=== PATIENT | male | born 1970 | race Caucasian/White ===

== ENCOUNTER → 2017-11-14 08:37 | Outpatient (CLI) | payer BC, SELFPAY ==
--- NOTE | 2017-11-14 08:42 | US_ITS ---
STUDY: ABDOMINAL ULTRASOUND - RIGHT UPPER QUADRANT REASON FOR VISIT: Male, 47 years old. Right upper quadrant pain. TECHNIQUE: Ultrasound evaluation of the right upper quadrant was performed with real-time and static peters-scale imaging. TECHNICAL QUALITY: Adequate. COMPARISON: None. FINDINGS: Liver: The liver measures 15.2 cm. There is normal echogenicity of the liver. The bile ducts are within normal limits. There is hepatic color flow. The direction of portal flow is hepatopetal. There is a 7 mm x 7 mm x 6 mm cyst adjacent to the gallbladder lumen. Gallbladder: Normal distended gallbladder. The gallbladder wall measures 2.7 mm. There is a negative sonographic Fay's sign. There is no pericholecystic fluid. There are no gallstones. Common Bile Duct (C.B.D.): The common bile duct measures 4.9 mm. Pancreas: Normal size of the head, body of the pancreas. The tail portion is obscured due to overlying bowel gas. There is normal echogenicity of the pancreas. There is no demonstrated pancreatic mass or cyst. Right Kidney: Normal size of the right kidney. The right kidney measures 9.6 cm x 5.7 cm x 4.9 cm. Normal renal cortex. The right cortex measures 1.5 cm. There is no demonstrated renal mass or cyst. There is no right hydronephrosis. US/Gallbladder IMPRESSION: Normal right upper quadrant ultrasound examination. 7 mm x 7 mm x 6 mm cyst adjacent to the gallbladder. Electronically Signed: Gómez Lema MD at 10:06 EST Tel [phone], Service support ,
== END ==
PROVIDERS: Family Provider Internal Medicine; PCP Internal Medicine; Visit Provider Internal Medicine
DX: R10.9 Unspecified abdominal pain (principal)
CPT/HCPCS: 76705

== ENCOUNTER → 2017-11-14 15:59 | Outpatient (CLI) | payer BC, SELFPAY ==
--- NOTE | 2017-11-14 12:28 | COLBX_PTH ---
PATIENT: ZOHREH YATES LOC: [facility] U#:[id number] AGE/SX: 54/M ROOM: RE11/14/[address]: Dr. Dante Leal MD : 1970 BED: DIS: SPEC #: [id number] RECD: 11/14/17 15:36 STATUS: HARMONY MADELIN #: [id number] IMAN: 11/14/17 12:[address]: Dante Leal DEPT: SURGICAL PATHOLOGY RECD BY: Dilan Ecahvarria ENTERED: 11/17/17 10:41 SP TYPE: COLON BX OTHR DR: NICHOLAS Tissues: A - Gastric mucous membrane B - Ileum, NOS C - COLON BIOPSY Procedures: Trichrome (control) Special Stain Group II Surgery Specimen Level IV HEADER OPERATION: Colonoscopy with biopsies PRE-OP DIAGNOSIS: Chronic diarrhea TISSUE SUBMITTED: A ? Hepatic flexure polyp biopsies, rule out adenoma, B ? Terminal ileum biopsies, rule out Crohn?s, C ? Right and left colon biopsies, rule out microscopic colitis MICROSCOPIC DIAGNOSIS A. Polyp at hepatic flexure, biopsy: Hyperplastic polyp. B. Terminal ileum, biopsy: No significant pathologic change. No evidence of enteritis. C. Right and left colon, biopsies: No significant pathologic change. No evidence of colitis. AM:paul 11/18/17 COMMENT B. Reactive lymphoid aggregates are present in one fragment. C. Trichrome stain with matched control does not reveal a thickened basal plate. MICROSCOPIC DESCRIPTION Slides are reviewed. GROSS DESCRIPTION A - Received in fixative is one container labeled with the patient's name and designated hepatic flexure polyp biopsy. The specimen consists of two irregular fragments of light foy soft tissue that in aggregate measure 0.4 x 0.4 x 0.1 cm. The specimen is totally submitted in one cassette. B - Received in fixative is one container labeled with the patient's name and designated terminal ileum biopsy. The specimen consists of multiple irregular fragments of light foy soft tissue that in aggregate measure 0.6 x 0.4 x 0.1 cm. The specimen is totally submitted in one cassette. C - Received in fixative is one container labeled with the patient's name and designated right and left colon biopsy. The specimen consists of multiple irregular fragments of light foy soft tissue that in aggregate measure 1.5 x 0.5 x 0.1 cm. The specimen is totally submitted in one cassette. / SJ:paul 11/17/17 TC:5 CPT: 58278 x3, 29383
== END ==
PROVIDERS: Visit Provider Internal Medicine Gastroenterology
DX: R19.7 Diarrhea, unspecified (principal)
CPT/HCPCS: 88305; 88313

== ENCOUNTER → 2017-11-21 07:48 | Outpatient (CLI) | payer BC, SELFPAY ==
--- NOTE | 2017-11-21 07:50 | NM_ITS ---
CLINICAL: 47-year-old male with reported history of right upper quadrant abdominal pain. RADIONUCLIDE HEPATOBILIARY SCINTIGRAPHY COMPARISON: Abdominal ultrasound report 11/14/2017 FINDINGS: Following the intravenous administration of 5.8 mCi of 99m Tc Mebrofenin, hepatobiliary images reveal: 1. Relatively prompt and homogeneous radiopharmaceutical concentration is noted by a normal sized liver. No parenchymal defects are identified. 2. Gallbladder activity is identified at 45 minutes post radiopharmaceutical administration. 3. Small intestinal tract is observed at 15 minutes following tracer injection. 4. Washout of the radiopharmaceutical by the hepatic parenchyma appears qualitatively normal. 5. There is scintigraphic evidence of pre-CCK duodenal gastric reflux. Cholecystokinin (0.02 ug/kg) was administered intravenously over a 30-minute period. The post CCK gallbladder ejection fraction calculated at 20 minutes following Cholecystokinin administration was noted to be 44.0 % (normal greater than 35%). During 30 minutes of post CCK imaging, there is no scintigraphic evidence of reflux of the radiotracer into the common hepatic duct or refilling of the gallbladder. There is scintigraphic evidence of continued post CCK duodenal gastric reflux. NM/Hepatobilliary Img w/Pharm Int IMPRESSION: 1. A gallbladder ejection fraction calculated to greater than 35% following the administration of Cholecystokinin makes the probability of functional hepatobiliary disease (gallbladder and/or sphincter of Oddi dyskinesia) and/or organic hepatobiliary disease (chronic acalculous cholecystitis and/or cystic duct syndrome) to be low. (Aviva Patel et al, Journal of Nuclear Medicine 32:1695, 1990). 2. There is scintigraphic evidence of pre-post CCK duodenal-gastric reflux as described above. (Tong et al, Nucl Med [place] [employer] Press pg. 35, 1980). Electronically Signed: Lon Mercado DO at 14:02 EST Tel , Service support ,
== END ==
PROVIDERS: Family Provider Internal Medicine; PCP Internal Medicine; Visit Provider Internal Medicine
DX: R10.9 Unspecified abdominal pain (principal)
CPT/HCPCS: 78227; A9537; J2805

== ENCOUNTER 2017-12-31 07:01 | Day surgery (SDC) | payer BC, SELFPAY ==
[2017-12-31 07:28] VITALS: BP 142/93; PULSE 80; RESP 14; TEMP 36.7; O2SAT 94; BMI 29.5
--- NOTE | 2017-12-31 08:32 | EGD_PTH ---
PATIENT: ZOHREH YATES LOC: [facility] U#:[id number] AGE/SX: 47/M ROOM: RE12/31/[address]: Dr. Chauncey Snyder MD : 1970 BED: DIS: 12/31/2017 SPEC #: [id number] RECD: 12/31/17 11:15 STATUS: HARMONY MADELIN #: [id number] IMAN: 12/31/17 08:[address]: Chauncey Snyder DEPT: SURGICAL PATHOLOGY RECD BY: Parish Snowden ENTERED: 12/31/17 11:39 SP TYPE: EGD BIOPSY OT DR: Dr. Leticia Castro, DO Tissues: Duodenum, NOS Procedures: Surgery Specimen Level IV HEADER OPERATION: EGD with biopsy PRE-OP DIAGNOSIS: Abdominal pain, diarrhea TISSUE SUBMITTED: Duodenum biopsy MICROSCOPIC DIAGNOSIS Duodenum, biopsy: Fragments of duodenal mucosa, no pathologic diagnosis. KURT:paul 01/01/18 MICROSCOPIC DESCRIPTION Slides are reviewed. GROSS DESCRIPTION Received in fixative is one container labeled with the patient's name and designated duodenum biopsy. The specimen consists of two irregular fragments of light foy soft tissue that in aggregate measure 0.7 x 0.5 x 0.1 cm. The specimen is totally submitted in one cassette. / AM:paul 12/31/17 TC:4 CPT: 74016
--- NOTE | 2017-12-31 08:37 | PCM.OPRPT ---
Problem List (1) Right upper quadrant pain Status: Acute (2) Abdominal bloating Status: Acute (3) Diarrhea, unspecified Status: Acute Qualifiers: Diarrhea type: unspecified type Qualified Code(s): R19.7 - Diarrhea, unspecified Report of Operation Date of Procedure: 12/31/17 Pre-Operative Diagnosis: r10.11 right upper quadrant abdominal pain. r14.0 abdominal bloating. r19.7 diarrhea unspecified Post-Operative Diagnosis: Same Surgery/Procedure Performed:: 54128 esophagogastroduodenoscopy with biopsy Type of Anesthesia:: MAC Anesthesiologist: Giovani Alas Description of Procedure: Patient was brought into the endoscopy suite. Back of his throat was sprayed with Cetacaine spray. A bite-block was placed. He was placed in the left lateral decubitus position. He was given graded anesthesia. The scope was inserted into the back of the oropharynx and directed down through the esophagus into the stomach and into the duodenum without difficulty. Operative findings: 1. Duodenum: Normal appearance no mass lesions no ulcerations biopsy for celiac sprue ?2. Mucosa here looked pretty normal I did not see any signs of a duodenal diverticulum. 2. Stomach significant amount of gastritis seen throughout the stomach but concentrated in the prepyloric area with some linear strands. Biopsy for H. pylori was obtained. Retroflexion did not show any signs of a hiatal hernia. I did not see any obvious ulcers or masslike lesions. 3. Esophagus: Normal appearance no mass lesions no signs of esophagitis no hiatal hernia. The scope was withdrawn and the patient tolerated the procedure well. This patient has had a battery of tests looking for H. pylori looking for celiac sprue both via serologic explorations. In view of his stomach he does have significant gastritis which could possibly be giving him the pains that he is experiencing. This being the case he has been on a proton pump inhibitor in the past but really has not noticed any significant improvement in his symptoms. His symptoms are classic biliary colic. He has increasing pain in the right upper quadrant after he eats. He has abdominal bloating after he eats. We will have to see what the biopsy results show before I can make my recommendations on what we need to do. - Admit VTE Documentation VTE Present on Admission: No VTE Mechan Device Prophylaxis: None VTE Pharm Prophylaxis ordered?: No Reason prophylaxis not ordered:: Treatment Not Indicated
[2017-12-31 08:41] VITALS: BP 110/73; BP 142/93; PULSE 73; RESP 16; TEMP 36.2; O2SAT 97
[2017-12-31 08:45] VITALS: BP 123/77; BP 142/93; PULSE 70; RESP 16; O2SAT 97
[2017-12-31 08:50] VITALS: BP 125/76; BP 142/93; PULSE 73; RESP 16; O2SAT 94
[2017-12-31 08:57] VITALS: BP 130/87; BP 142/93; PULSE 70; RESP 16; TEMP 36.6; O2SAT 97
[2017-12-31 09:26] VITALS: BP 142/93
== END 2017-12-31 09:27 | disposition home or self-care (01) ==
LOC: EN 07:01 → AC 07:08
PROVIDERS: Family Provider Internal Medicine; PCP Internal Medicine; Visit Provider Surgery
PROC: 0DJ08ZZ Inspection of Upper Intestinal Tract, Via Natural or Artificial Opening Endoscopic (ICD-10-PCS; CPT 43235; principal; 2017-12-31 08:25)
DX: K29.70 Gastritis, unspecified, without bleeding (principal); R10.11 Right upper quadrant pain; R14.0 Abdominal distension (gaseous); R19.7 Diarrhea, unspecified; Z80.0 Family history of malignant neoplasm of digestive organs
CPT/HCPCS: 43239; 88305; J7120

== ENCOUNTER → 2018-08-26 06:42 | Outpatient (CLI) | payer BC, SELFPAY ==
--- NOTE | 2018-08-26 06:49 | CT_ITS ---
STUDY: CT ABDOMEN AND PELVIS WITH CONTRAST REASON FOR EXAM: Male, 47 years old. Diffuse abdominal pain with diarrhea and abdominal bloating. RADIATION DOSAGE (If Supplied By Facility): CTDIvol = ( 14.08 ) mGy, DLP = ( 1104.79 ) mGycm TECHNIQUE: Transaxial images were obtained from the dome of the diaphragm to the symphysis pubis with oral contrast. 100CC ml of Isovue 300 contrast was administered. Sagittal and coronal images were reconstructed. Individualized dose optimization techniques were used for this CT. COMPARISON: Comparison is made with prior study dated August 30, 2015. FINDINGS: The visualized lung bases are unremarkable. The visualized portions of the heart are within normal limits. There is 8mm cyst in the medial aspect of the right lobe of the liver inferiorly adjacent to the gallbladder fossa. A tiny cyst is also seen along the lateral peripheral aspect of the right lobe of the liver. Normal gallbladder and extrahepatic biliary system. Normal spleen. Normal pancreas. Normal bilateral adrenal glands. Normal right kidney. Normal left kidney. Normal visualized stomach. Normal small intestine. A moderate amount of fecal material is seen in the right hemicolon. The appendix is visualized and appears normal. Normal abdominal aorta. Normal inferior vena cava. Normal retroperitoneum. Normal urinary bladder. Normal abdominal wall. Mild degree of disc space narrowing at the L4-L5 level. Straightening of the normal lumbar lordosis. CT/Abdomen/Pelvis WITH Contrast IMPRESSION: Small hepatic cysts. Electronically Signed: Gómez Lema MD at 14:54 EST Tel [phone], Service support ,
== END ==
PROVIDERS: Family Provider Internal Medicine; PCP Internal Medicine; Referring Provider Internal Medicine; Visit Provider Internal Medicine
DX: R10.84 Generalized abdominal pain (principal)
CPT/HCPCS: 74177; Q9967

== ENCOUNTER → 2019-09-22 13:44 | Outpatient (CLI) | payer BC, SELFPAY | PROVIDERS: Family Provider Internal Medicine; PCP Internal Medicine; Referring Provider Internal Medicine; Visit Provider Internal Medicine | DX: R00.2 Palpitations (principal) | CPT/HCPCS: 93225; 93226 ==

== ENCOUNTER 2020-08-15 17:19 | Emergency (ER) | payer BC, SELFPAY ==
[2020-08-15 17:20] VITALS: BP 147/127; PULSE 112; RESP 18; TEMP 36.9; O2SAT 98; BMI 29.5
--- NOTE | 2020-08-15 17:29 | CT_ITS ---
STUDY: CT ABDOMEN AND PELVIS WITHOUT CONTRAST REASON FOR EXAM: Male, 49 years old. Right lower quadrant pain since Friday. Nausea. RADIATION DOSAGE (If Supplied By Facility): CTDIvol = ( 14.02 ) mGy, DLP = ( 781.32 ) mGycm TECHNIQUE: Transaxial images were obtained from the dome of the diaphragm to the symphysis pubis without oral contrast, and without intravenous contrast. Sagittal and coronal images were reconstructed. Individualized dose optimization techniques were used for this CT. COMPARISON: 08/26/2018. FINDINGS: The visualized lung bases are unremarkable. The visualized portions of the heart are within normal limits. Versus small cyst in segment 5 of the liver adjacent to the gallbladder fundus. The liver is otherwise unremarkable. Normal gallbladder and extrahepatic biliary system. Normal spleen. Normal pancreas. Normal bilateral adrenal glands. Normal right kidney. Normal left kidney. Normal visualized ureters. Normal visualized stomach. Normal small intestine. There is marked stranding about the ascending colon with evidence of thyroid reticular high consistent with acute diverticulitis. The cecal is spared. The remainder of the colon is unremarkable. The appendix is visualized and appears normal. Normal abdominal aorta. Normal inferior vena cava. Normal retroperitoneum. Normal urinary bladder. Normal prostate. There are phleboliths and pelvis without lymphadenopathy. No free air or free fluid is seen within the peritoneal cavity. Normal abdominal wall. Minimal degenerative changes of the lower lumbar spine. CT/Abdomen/Pelvis without Cont IMPRESSION: 1. Ascending colonic diverticulitis. There is no evidence of perforation or abscess. 2. Normal appendix. 3. Hepatic cyst. 4. No other evidence of acute intra-abdominal or pelvic abnormality. Electronically Signed: Francesco Nicole DO at 18:28 EST Tel [phone], Service support ,
[2020-08-15] MEDS: 0.9% Normal Saline 1,000 ML 125 ML IV (17:44)
[2020-08-15] MEDS: morphine 8 MG/ML Syringe IV (17:45)
[2020-08-15] MEDS: Ondansetron 4 MG/2 ML Vial IV (17:45)
[2020-08-15 17:49] LABS: Absolute Lymphocyte Count 2.92 X10^3/uL (0.83-4.51); Absolute Neutrophil Count 12.2 X10^3/uL (2.0-7.7); Basophil# 0.09 X10^3/uL; Basophil% 0.5 % (0-1); Eosinophil# 0.23 X10^3/uL; Eosinophils% 1.3 % (0-5); Hematocrit 46.6 % (40-54); Hemoglobin 15.2 g/dL (13.0-16.5); Lymphocyte # 2.92 X10^3/ul (4.0); Mean Corp Hgb Conc 32.6 g/dL (32-36); Mean Corpuscular Hgb 27.1 pg (27.0-32.0); Mean Corpuscular Volume 83.2 fL (80-94); Mean Platelet Vol. 11.7 fl (6.2-12.0); Monocyte# 1.64 X10^3/uL; Monocyte% 9.6 % (0-10); NRBC Flagged by Analyzer 0 % (0-5); Neutrophil # 12.21 X10^3/uL (2.7-7.7); Neutrophil % 71.3 % (47-70); POSITIVE DIFFERENTIAL YES; Platelet Count 194 K/mm3 (150-450); RBC Distribution Width CV 13.5 % (11.6-14.6); RBC Distribution Width SD 40.2 fl (35.1-43.9); White Blood Count 17.2 K/mm3 (4.4-11.0)
[2020-08-15 17:56] LABS: Bacteria 0 SEEN /hpf (None Seen); Mucous, Urine 0 SEEN /hpf (<or=2+); Red Blood Cells-Urine 0 SEEN /hpf (0-5)
--- NOTE | 2020-08-15 18:00 | ED.VIS.GEN ---
History of Present Illness Chief Complaint: Abd Pain Informant: Patient Onset: Days Maximum Severity: Mild Narrative: The patient complains of right-sided abdominal pain since Friday etiology of it is unclear, he has a history of nonspecific abdominal pain prior colonoscopy few years ago that was negative, he has no history of fever cough shortness of breath no coronavirus exposures normal bowel bladder habits, the pain is rather constant he is able to eat and drink again he is had normal bowel bladder habits without difficulty when you ask him where he hurts he indicates he has pain to the right middle quadrant there is questionable radiation at times to the back, He has no history of any type of GI elements bowel ailments ailments or kidney stones he has urinated normally and he was eating soup today without difficulty Past Medical History - Allergies and Home Meds Allergies/Adverse Reactions: Allergies No Known Allergies Allergy (Verified 08/15/20 17:19) Primary Care Physician: Leticia Castro DO [Primary Care Provider] - Past Medical History: - Surgical History: no surgical history Smoking Status: Never smoker - Family History Maternal Family History: Family History (Last Reviewed 01/07/18 @ 14:48 by Alanna Smart) Father Cancer Family History: Reports: No pertinent history Paternal Family History: Family History (Last Reviewed 01/07/18 @ 14:48 by Alanna Smart) Father Cancer Family History: Reports: No pertinent history Sibling Family History: Family History (Last Reviewed 01/07/18 @ 14:48 by Alanna Smart) Father Cancer Family History: Reports: No pertinent history Review of Systems ROS: - Includes as above General: Denies: Chills, Fever, Sweats Eyes: Denies: Visual changes - bilaterally, Diplopia ENT: Denies: Rhinorrhea, Sore throat Cardiovascular: Denies: Chest pain, Palpitations Respiratory: Denies: Dyspnea, Cough, Dyspnea on exertion Gastrointestinal: Reports: Abdominal pain. Denies: Nausea, Vomiting, Diarrhea, Melena, Hematochezia Genitourinary: Denies: Dysuria, Hematuria, Frequency Musculoskeletal: Denies: Back pain, Extremity Pain Skin: Denies: Rash, Wounds Neurological: Denies: Headache, Weakness, Numbness Physical Exam Vital Signs/Narrative: Vital Signs Temp Pulse Resp BP Pulse Ox 08/15/20 17:20 98.5 F 112 H 18 147/127 H 98 General: Well nourished, Well developed, No Acute Distress Head: Normocephalic, Atraumatic Eyes: Perrl, EOMI ENT: Moist mucous membranes, No rhinorrhea Neck: Supple, Nontender Cardiovascular: Regular rate, Regular rhythm, No murmurs Respiratory: No distress, CTA bilaterally, Chest nontender Abdomen: Soft, Nontender, Nondistended, Normal bowel sounds, - - He has a very nonspecific abdominal pain to the right side of the abdomen primarily the right middle quadrant there is no specific right upper quadrant lower quadrant, there is no specific flank pain there is no rebound or guarding Back: Nontender, Normal Inspection Extremities: Nontender, No edema Skin: Normal color, No rash Neurological: Alert, Oriented x3, Cranial nerves II-XII grossly intact, Normal Strength, Normal Sensation Psychological: Normal affect, Normal Mood Diagnostic/Tx/Re-eval - Medical Decision Making Given all of the above and his complaints ED screening evaluation CT IV fluids pain management ED screening evaluation showed white count of about 17.7, CT abdomen pelvis showed normal appendix and signs of a sending diverticulitis no abscess nothing is acute see all those reports, Reevaluation is resting company the bed he feels better, we discussed the above differential discussed inpatient versus outpatient management the concept of complications he understands all the above does not wish to be admitted he is received IV fluids he is received IV Zosyn he will be discharged at his request on IV antibiotics Augmentin, Naprosyn Ladora as rescue medicine to follow-up with his outpatient providers tomorrow stent a bland diet and return for change in symptoms Home stable declined admission Final impression Abdominal pain related to ascending colon diverticulitis ED Disposition - Plan for ED Patient: Diagnosis: Diverticulitis Instructions: ED Diverticulitis Prescriptions: Amox/Clavulanate Tablet [Augmentin Tablet] 875 mg PO Q12H #20 tab Prescription Printed Naproxen [Naprosyn] 500 mg PO BID PRN #20 tab Prescription Printed Hydrocodone Bitart/Apap 5-325 [Ladora 5MG-325MG] 1 tab PO Q4H PRN PRN 2 Days #10 tab PRN Reason: Pain Prescription Printed Referrals: Fast,Leticia, DO [Primary Care Provider] -
[2020-08-15 18:06] LABS: Differential Indicated SCAN CRITERIA MET
[2020-08-15 18:09] LABS: ALB/GLOB Ratio 0.8 RATIO (0.9-2.4); AST(SGOT) 17 U/L (15-37); Alanine Aminotransfer ALT/SGPT 34 U/L (16-61); Albumin, Serum 3.4 g/dL (3.2-5.0); Alkaline Phosphatase 101 U/L (45-117); Anion Gap 7 (5-15); BUN 15 mg/dL (7-18); BUN/Creat Ratio 10.3 RATIO (10-20); Chloride 106 mmol/L (98-107); Creatinine, Serum 1.46 mg/dL (0.70-1.30); EST Glomerular Filtration Rate 54 mL/min (>60); Est Glom Filt Rate - Afr Amer 66 mL/min (>60); Estimated Creatinine Clearance 76.28 ml/min; Globulin 4.5 g/dL (2.2-4.2); Glucose 125 mg/dL (74-106); Lipase 88 U/L (73-393); Potassium 3.6 mmol/L (3.5-5.1); Protein, Total 7.9 g/dL (6.4-8.2); Sodium Level 136 mmol/L (136-145)
[2020-08-15 18:21] LABS: Color, Urine Yellow (Yellow); Glucose, Dipstick Normal (Normal); Ketone-Dipstick 5 mg/dl (Negative); Leukocyte Esterase-Dipstick 25 /ul (Negative); Nitrite-Dipstick Negative (Negative); Occult Blood-Urine Negative /ul (Negative); Protein-Dipstick 15 mg/dl (Negative); Specific Gravity, Urine 1.015 (1.002-1.030); Urine Bilirubin Dipstick Negative (Negative); Urine Clarity Sl. Cloudy (Clear); Urine Urobilinogen Normal (Normal)
[2020-08-15 18:31] LABS: Squamous Epithelial Cells - UA 0-5 SEEN /hpf (0-5); White Blood Cells 0-5 SEEN /hpf (0-5)
[2020-08-15] MEDS: 0.9% Normal Saline 1,000 ML 999 ML IV (19:30)
[2020-08-15 21:26] VITALS: BP 139/88; PULSE 79; RESP 18; O2SAT 97
[2020-08-16 12:11] LABS: Pathologist Review Reviewed
== END 2020-08-15 21:26 | disposition home or self-care (01) ==
LOC: ED 18:18
PROVIDERS: Emergency Provider Emergency Medicine; PCP Internal Medicine
DX: K57.32 Diverticulitis of large intestine without perforation or abscess without bleeding (principal)
CPT/HCPCS: 74176; 80053; 81001; 83690; 85025; 87086; 96361; 96365; 96375; 99282; J7030; J2405

== ENCOUNTER → 2023-11-10 | Outpatient (CLI) | payer BC, SELFPAY ==
[2023-11-10 16:45] LABS: Bacteria 0 SEEN /hpf (None Seen); Mucous, Urine 0 SEEN /hpf (<or=2+); Red Blood Cells-Urine 0 SEEN /hpf (0-5); Squamous Epithelial Cells - UA 0 SEEN /hpf (0-5); White Blood Cells 0 SEEN /hpf (0-5)
--- OUTSIDE RECORDS SUMMARY | 2023-11-10 17:07 | XMS RPT_ITS | CCD ---
Author Name Unknown Address [address] [place] [address] Organization [facility] Care Team Providers Care School Cook Name Role Phone Fast, Leticia A Unavailable Dante Leal Unavailable Miki Hinojosa Unavailable Chauncey Dickson Unavailable Manchak, Ayana Unavailable Unavailable Unavailable Unavailable Fast, Leticia A Unavailable Dante Leal Unavailable Miki Hinojosa Unavailable Kenna Angelo Unavailable Chauncey Dickson Unavailable Manchak, Ayana Unavailable Unavailable Unavailable Unavailable Kitty Herndon Unavailable Unavailable Manchak, Ayana Unavailable Unavailable Lon Lopez Unavailable Mendez High Unavailable BROCK Goodman Unavailable Unavailable BrandanJeniffer travis Unavailable Unavailable Fast DO, Leticia A Unavailable Dr. Dante Leal Unavailable Miki Hinojosa MD Unavailable Kenna Angelo Unavailable John HUANG , Lon Helms Unavailable Dr. Mendez High Unavailable Chauncey Dickson MD Unavailable Manchak MAXIMILIANO, Ayana Unavailable Unavailable Rex GREY WASHER, BROCK Unavailable Unavailable Unavailable Unavailable Slarb GREY WASHER, Christi Unavailable Unavailable Fast DO, Leticia Marion Attending Unavailable Fast DO, Leticia Marion Referring Unavailable Fast DO, Leticia Marion Consulting Unavailable Fast, Dr. Leticia Marion Attending Unavailable Fast, Dr. Leticia Marion Primary Care Unavailable Duke[facility] Unavailable [facility] Facility-[facility], [facility] Unavailable Allergies Allergy Classification Reported Allergen(s) Allergy Type Date of Onset Reaction(s) Facility NEGATED: Highlighted row has been ruled out! (1 source) allergy to substance 8 [facility] Work Phone: NEGATED: Highlighted row has been ruled out! (1 source) drug allergy 8 [facility] Work Phone: NEGATED: Highlighted row has been ruled out! (1 source) allergy to substance 8 [facility] Work Phone: NEGATED: Highlighted row has been ruled out! (1 source) drug allergy 8 [facility] Work Phone: Medications Completed/Discontinued Medications Medication Drug Class(es) Dates Sig (Normalized) Sig (Original) amitriptyline hydrochloride 25 mg oral tablet (20 sources) Tricyclic Antidepressant Start: 10-14-2019 End: 10-29-2019 take 2 tablets by mouth once daily at bedtime Amitriptyline HCl 25 MG Oral Tablet 2 (two) Tablet qhs for 0 days Quantity: 30 {Tablet} Refills: 3 Ordered: 29-Oct-2019 Fast DO, Leticia A Fast DO, Leticia A Start : 14-Oct-2019 End : 29-Oct-2019 Inactive Problems Active Problems Problem Classification Problem Date Documented Da te Episodic/Chronic Abdominal pain (20 sources) Right sided abdominal pain; Translations: [Generalized abdominal pain] Resolved: 09-17-2019 07-17-2018 Episodic Anxiety disorders (20 sources) Anxiety; Translations: [Anxiety] 07-17-2018 Chronic Past or Other Problems Problem Classification Problem Date Documented Da te Episodic/Chronic Diverticulosis and diverticulitis (5 sources) Diverticulitis of intestine; Translations: [Acute diverticulitis] 08-18-2020 Results Test Name Value Interpretation Reference Range Facil ity Vital Signs Date Time Vital Sign Value Performing Clinician Facility 07-11-2023 07:07-0400 Body height 195.58 cm BROCK Goodman LPN [facility]; [facility] Work Phone: 07-11-2023 07:07-0400 Body mass index (BMI) [Ratio] 30.12 kg/m2 BROCK Goodman LPN [facility]; [facility] Work Phone: 07-11-2023 07:07-0400 Body surface area Derived from formula 2.48 m2 BROCK Goodman LPN [facility]; [facility] Work Phone: 07-11-2023 07:07-0400 Body temperature 97.6 [degF] BROCK Goodman LPN [facility]; [facility] Work Phone: Encounters Encounter Date Encounter Type Care Provider Facility Start: 07-11-2023 Review Leticia Fast DO Work Phone: [facility] Start: 07-11-2023 End: 07-11-2023 Office outpatient visit 25 minutes Leticia Fast DO Work Phone: [facility] Start: 06-27-2023 End: 06-29-2023 Phone Encounter Leticia Fast DO Work Phone: [facility] Start: 02-28-2023 End: 03-02-2023 Office outpatient visit 15 minutes Leticia Fast DO Work Phone: [facility] Start: 01-10-[address] Leticia Castro Facili ty:[id number] Start: 01-03-2023 ambulatory Leticia Marion Fast DO [facility] Start: 01-03-2023 End: 07-11-2023 Patient encounter procedure Leticia Fast DO Work Phone: [facility] Start: 01-03-2023 Review Leticia Fast DO Work Phone: [facility] Start: 12-26-2022 End: 02-25-2023 Phone Encounter Leticia Fast DO Work Phone: [facility] Start: 12-26-2022 Review Leticia Fast DO Work Phone: [facility] Start: 11-02-2021 Review Leticia Fast DO Work Phone: [facility] Start: 11-02-2021 End: 07-11-2023 Patient encounter procedure Leticia Fast DO Work Phone: [facility] Start: 05-18-2021 End: 05-20-2021 Office outpatient visit 25 minutes Leticia Fast DO Work Phone: [facility] Start: 02-21-2021 End: 02-22-2021 Office outpatient visit 25 minutes Leticia Fast DO Work Phone: [facility] Start: 02-21-2021 Review Leticia Fast DO Work Phone: [facility] Start: 02-07-2021 End: 02-07-2021 Phone Encounter Leticia Fast DO Work Phone: [facility] Start: 02-05-2021 End: 02-05-2021 Office outpatient visit 15 minutes Leticia Fast DO Work Phone: [facility] Start: 02-05-2021 Review Leticia Fast DO Work Phone: [facility] Start: 11-03-2020 Review Leticia Fast [facility] Start: 08-18-2020 End: 08-20-2020 Office outpatient visit 25 minutes Leticia Fast [facility] Start: 08-18-2020 Review Leticia Fast [facility] Start: 08-07-2020 End: 08-07-2020 Office outpatient visit 5 minutes Leticia Fast [facility] Start: 04-17-2020 End: 04-17-2020 Office outpatient visit 5 minutes Leticia Fast [facility] Start: 02-15-2020 End: 02-15-2020 Office outpatient visit 15 minutes Leticia Fast [facility] Start: 01-21-2020 End: 02-15-2020 Office outpatient visit 5 minutes Leticia Fast [facility] Start: 12-24-2019 End: 12-27-2019 Office outpatient visit 5 minutes Leticia Fast [facility] Start: 10-29-2019 End: 10-31-2019 Office outpatient visit 15 minutes Leticia Fast [facility] Start: 10-14-2019 End: 10-14-2019 Office outpatient visit 5 minutes Leticia Fast [facility] Start: 09-17-2019 End: 09-19-2019 Office outpatient visit 25 minutes Leticia Fast [facility] Start: 09-07-2019 End: 09-07-2019 Office outpatient visit 15 minutes Leticia Fast [facility] Start: 08-17-2019 End: 08-18-2019 Office outpatient visit 5 minutes Leticia Fast [facility] Start: 06-16-2019 End: 01-21-2020 Office outpatient visit 40 minutes Leticia Fast [facility] Start: 06-16-2019 Review Leticia Fast [facility] Start: 05-18-2019 End: 05-18-2019 Office outpatient visit 25 minutes Leticia Fast [facility] Start: 04-09-2019 End: 04-11-2019 Office outpatient visit 25 minutes Leticia Fast [facility] Start: 04-09-2019 Review Leticia Fast [facility] Start: 03-16-2019 End: 03-16-2019 Phone Encounter Leticia Fast [facility] Start: 09-07-2018 End: 09-07-2018 Phone Encounter Leticia Fast [facility] Start: 08-21-2018 End: 08-21-2018 Phone Encounter Leticia Fast [facility] Start: 07-17-2018 End: 07-19-2018 Office outpatient visit 25 minutes Leticia Fast [facility] Start: 04-03-2018 End: 04-05-2018 Office outpatient visit 15 minutes Leticia Fast [facility] Start: 03-13-2018 End: 03-13-2018 Lab Order Leticia Fast [facility] Start: 02-06-2018 End: 03-13-2018 Office outpatient visit 15 minutes Leticia Fast [facility] Start: 01-26-2018 End: 01-26-2018 Office outpatient visit 15 minutes Leticia Fast [facility] Start: 01-08-2018 End: 01-11-2018 Office outpatient visit 5 minutes Leticia Fast [facility] Start: 12-19-2017 End: 12-22-2017 Office outpatient visit 15 minutes Leticia Fast [facility] Start: 12-02-2017 End: 12-02-2017 Phone Encounter Leticia Fast [facility] Start: 11-14-2017 End: 11-14-2017 Phone Encounter Leticia Fast [facility] Start: 11-11-2017 End: 11-12-2017 Office outpatient visit 15 minutes Leticia Castro [facility] Start: 10-16-2017 End: 10-16-2017 Office outpatient visit 25 minutes Leticia Castro [facility] Procedures Date Procedure Procedure Detail Performing Clinician Start: 02-28-2023 End: 02-28-2023 HIP, UNI W/ Pelvis 2-3 Views Procedure Note: See Note; NOTES: [facility] [address] [place] [address] HIP, UNI W/ Pelvis 2-3 Views MR#: [id number] Acct: [id number] Name: TALIA YATES Rep #: [id number] : 1970 M 52 From: Russel Bustillos MD PCP: Dr. Leticia Castro DO Status: DEP AMB Study: HIP, UNI W/ Pelvis 2-3 Views Date of Exam: Exam# [id number] Ordering Dr: Leticia Castro DO INDICATION: RADICULOPATHY EXAMINATION/TECHNIQUE: X-RAY - XR Hip Unilateral with Pelvis when performed; 2-3 Views COMPARISON: None. FINDINGS: PELVIC BONES: No displaced fracture, destructive or sclerotic lesions. Note that overlapping bowel shadows may however obscure fine detail. Sacroiliac joints are unremarkable. No widening of the pubic symphysis. HIPS: The articular structures are unremarkable. No displaced fracture seen in this frontal view. SOFT TISSUES: No soft tissue swelling or gas. RAD/HIP, UNI W/ Pelvis 2-3 Views IMPRESSION: No evidence of displaced pelvic or hip fracture. Electronically Signed: Russel Bustillos MD, NORMA at 21:50 EDT , CC: Dr. Leticia Castro DO Pediatric Critical Care Nurse: Signed Leticia Castro DO Work Phone: Start: 02-28-2023 End: 02-28-2023 L/S Spine Min 4 Views Procedure Note: See Note; NOTES: [facility] [address] [place] [address] L/S Spine Min 4 Views MR#: [id number] Acct: [id number] Name: TALIA YATES Rep #: [id number] : 1970 M 52 From: Francesco Nicole DO PCP: Dr. Leticia Castro DO Status: DEP AMB Study: L/S Spine Min 4 Views Date of Exam: 02/28/23 Exam# [id number] Ordering Dr: Leticia Castro DO STUDY: X-RAY - LUMBAR SPINE REASON FOR EXAM: Male, 52 years old. Radiculopathy. TECHNIQUE: 5 view(s) of the lumbar spine were obtained. COMPARISON: None ____ FINDINGS: Normal lumbar lordosis. There is no substantial scoliosis. There is a normal alignment of the vertebrae. Normal vertebral bodies and endplates. Normal disc space heights. There is no evidence of acute fracture or loss of vertebral axial height. There is no demonstrated spondylolysis of the pars interarticulares. The soft tissue structures are unremarkable. ____ RAD/L/S Spine Min 4 Views IMPRESSION: Normal x-ray examination of the lumbar spine. Electronically Signed: Francesco Nicole DO at 22:47 EDT Reading Location ID and State: [facility] Tel [phone], Service support , CC: Dr. Leticia Castro DO Pediatric Critical Care Nurse: Signed Leticia Castro DO Work Phone: Start: 08-15-2020 End: 08-16-2020 Emergency Department Summary Comments: See Note; NOTES : [facility] Medical Records Department [address] [place] [address] Emergency Department Summary 08/15/20 MR#: [id number] Acct: [id number] Name: TALAI YATES Rep #: [id number] : 1970 49 From: Sekou Evangelista MD PCP: Dr. Leticia Castro DO Status:DEP ER History of Present Illness Chief Complaint: Abd Pain Informant: Patient Onset: Days Maximum Severity: Mild Narrative: The patient complains of right-sided abdominal pain since Friday etiology of it is unclear, he has a history of nonspecific abdominal pain prior colonoscopy few years ago that was negative, he has no history of fever cough shortness of breath no coronavirus exposures normal bowel bladder habits, the pain is rather constant he is able to eat and drink again he is had normal bowel bladder habits without difficulty when you ask him where he hurts he indicates he has pain to the right middle quadrant there is questionable radiation at times to the back, He has no history of any type of GI elements bowel ailments ailments or kidney stones he has urinated normally and he was eating soup today without difficulty Past Medical History - Allergies and Home Meds Allergies/Adverse Reactions: Allergies No Known Allergies Allergy (Verified 08/15/20 17:19) Primary Care Physician: Leticia Castro DO [Primary Care Provider] - Past Medical History: - Surgical History: no surgical history Smoking Status: Never smoker - Family History Maternal Family History: Family History (Last Reviewed 01/07/18 @ 14:48 by Alanna Smart) Father Cancer Family History: Reports: No pertinent history Paternal Family History: Family History (Last Reviewed 01/07/18 @ 14:48 by Alanna Smart) Father Cancer Family History: Reports: No pertinent history Sibling Family History: Family History (Last Reviewed 01/07/18 @ 14:48 by Alanna Smart) Father Cancer Family History: Reports: No pertinent history Review of Systems ROS: - Includes as above General: Denies: Chills, Fever, Sweats Eyes: Denies: Visual changes - bilaterally, Diplopia ENT: Denies: Rhinorrhea, Sore throat Cardiovascular: Denies: Chest pain, Palpitations Respiratory: Denies: Dyspnea, Cough, Dyspnea on exertion Gastrointestinal: Reports: Abdominal pain. Denies: Nausea, Vomiting, Diarrhea, Melena, Hematochezia Genitourinary: Denies: Dysuria, Hematuria, Frequency Musculoskeletal: Denies: Back pain, Extremity Pain Skin: Denies: Rash, Wounds Neurological: Denies: Headache, Weakness, Numbness Physical Exam Vital Signs/Narrative: Vital Signs Temp Pulse Resp BP Pulse Ox 08/15/20 17:20 98.5 F 112 H 18 147/127 H 98 General: Well nourished, Well developed, No Acute Distress Head: Normocephalic, Atraumatic Eyes: Perrl, EOMI ENT: Moist mucous membranes, No rhinorrhea Neck: Supple, Nontender Cardiovascular: Regular rate, Regular rhythm, No murmurs Respiratory: No distress, CTA bilaterally, Chest nontender Abdomen: Soft, Nontender, Nondistended, Normal bowel sounds, - - He has a very nonspecific abdominal pain to the right side of the abdomen primarily the right middle quadrant there is no specific right upper quadrant lower quadrant, there is no specific flank pain there is no rebound or guarding Back: Nontender, Normal Inspection Extremities: Nontender, No edema Skin: Normal color, No rash Neurological: Alert, Oriented x3, Cranial nerves II-XII grossly intact, Normal Strength, Normal Sensation Psychological: Normal affect, Normal Mood Diagnostic/Tx/Re-eval - Medical Decision Making Given all of the above and his complaints ED screening evaluation CT IV fluids pain management ED screening evaluation showed white count of about 17.7, CT abdomen pelvis showed normal appendix and signs of a sending diverticulitis no abscess nothing is acute see all those reports, Reevaluation is resting company the bed he feels better, we discussed the above differential discussed inpatient versus outpatient management the concept of complications he understands all the above does not wish to be admitted he is received IV fluids he is received IV Zosyn he will be discharged at his request on IV antibiotics Augmentin, Naprosyn [place] as rescue medicine to follow- up with his outpatient providers tomorrow stent a bland diet and return for change in symptoms Home stable declined admission Final impression Abdominal pain related to ascending colon diverticulitis ED Disposition - Plan for ED Patient: Diagnosis: Diverticulitis Instructions: ED Diverticulitis Prescriptions: Amox/Clavulanate Tablet [Augmentin Tablet] 875 mg PO Q12H #20 tab Prescription Printed Naproxen [Naprosyn] 500 mg PO BID PRN #20 tab Prescription Printed Hydrocodone Bitart/Apap 5-325 [[place] 5MG-325MG] 1 tab PO Q4H PRN PRN 2 Days #10 tab PRN Reason: Pain Prescription Printed Referrals: Leticia Castro DO [Primary Care Provider] - What to do if you have Problems For any increased pain, shortness of breath, bleeding, nausea or vomiting, chest pain, or any unexpected problems, contact your Primary Care Provider. Call [facility] ([phone]) or report to the closest Emergency Room. Call 911 if necessary. 08/16/20 1705 <Electronically signed by Sekou Evangelista MD> Date ____ Sekou Evangelista MD Cosigner Signature (If Indicated): Date CC: DO Leticia Cheng Start: 08-15-2020 End: 08-15-2020 Abdomen/Pelvis without Cont Comments: See Note; NOTES: [facility] Imaging Services [address] [place] [address] Abdomen/Pelvis without Cont MR#: [id number] Acct: [id number] Name: TALIA YATES Rep #: [id number] : 1970 M 49 From: Francesco Nicole DO PCP: Dr. Leticia Castro DO Status: REG ER Study: Abdomen/Pelvis without Cont Date of Exam: 12/30 Exam# [id number] Ordering Dr: Sekou Evangelista STUDY: CT ABDOMEN AND PELVIS WITHOUT CONTRAST REASON FOR EXAM: Male, 49 years old. Right lower quadrant pain since Friday. Nausea. RADIATION DOSAGE (If Supplied By Facility): CTDIvol = ( 14.02 ) mGy, DLP = ( 781.32 ) mGycm TECHNIQUE: Transaxial images were obtained from the dome of the diaphragm to the symphysis pubis without oral contrast, and without intravenous contrast. Sagittal and coronal images were reconstructed. Individualized dose optimization techniques were used for this CT. COMPARISON: 08/26/2018. ____ FINDINGS: The visualized lung bases are unremarkable. The visualized portions of the heart are within normal limits. Versus small cyst in segment 5 of the liver adjacent to the gallbladder fundus. The liver is otherwise unremarkable. Normal gallbladder and extrahepatic biliary system. Normal spleen. Normal pancreas. Normal bilateral adrenal glands. Normal right kidney. Normal left kidney. Normal visualized ureters. Normal visualized stomach. Normal small intestine. There is marked stranding about the ascending colon with evidence of thyroid reticular high consistent with acute diverticulitis. The cecal is spared. The remainder of the colon is unremarkable. The appendix is visualized and appears normal. Normal abdominal aorta. Normal inferior vena cava. Normal retroperitoneum. Normal urinary bladder. Normal prostate. There are phleboliths and pelvis without lymphadenopathy. No free air or free fluid is seen within the peritoneal cavity. Normal abdominal wall. Minimal degenerative changes of the lower lumbar spine. ____ CT/Abdomen/Pelvis without Cont IMPRESSION: 1. Ascending colonic diverticulitis. There is no evidence of perforation or abscess. 2. Normal appendix. 3. Hepatic cyst. 4. No other evidence of acute intra-abdominal or pelvic abnormality. Electronically Signed: Francesco Nicole DO at 18:28 EST Tel [phone], Service support , CC: Dr. Leticia Castro DO; Dr. Sekou Evangelista MD Pediatric Critical Care Nurse: Signed Leticia Castro Start: 08-26-2018 End: 08-26-2018 Abdomen/Pelvis WITH Contrast Comments: See Note; NOTES : [facility] Imaging Services [address] [place] [address] Abdomen/Pelvis WITH Contrast MR#: [id number] Acct: [id number] Name: TALIA YATES Rep #: [id number] : 1970 47 From: Gómez Lema MD PCP: Leticia Castro DO Status: REG CLI Study: Abdomen/Pelvis WITH Contrast Date of Exam: 08/26/18 Exam# [id number] Ordering Dr: Leticia Castro DO STUDY: CT ABDOMEN AND PELVIS WITH CONTRAST REASON FOR EXAM: Male, 47 years old. Diffuse abdominal pain with diarrhea and abdominal bloating. RADIATION DOSAGE (If Supplied By Facility): CTDIvol = ( 14.08 ) mGy, DLP = ( 1104.79 ) mGycm TECHNIQUE: Transaxial images were obtained from the dome of the diaphragm to the symphysis pubis with oral contrast. 100CC ml of Isovue 300 contrast was administered. Sagittal and coronal images were reconstructed. Individualized dose optimization techniques were used for this CT. COMPARISON: Comparison is made with prior study dated August 30, 2015. ____ FINDINGS: The visualized lung bases are unremarkable. The visualized portions of the heart are within normal limits. There is 8mm cyst in the medial aspect of the right lobe of the liver inferiorly adjacent to the gallbladder fossa. A tiny cyst is also seen along the lateral peripheral aspect of the right lobe of the liver. Normal gallbladder and extrahepatic biliary system. Normal spleen. Normal pancreas. Normal bilateral adrenal glands. Normal right kidney. Normal left kidney. Normal visualized stomach. Normal small intestine. A moderate amount of fecal material is seen in the right hemicolon. The appendix is visualized and appears normal. Normal abdominal aorta. Normal inferior vena cava. Normal retroperitoneum. Normal urinary bladder. Normal abdominal wall. Mild degree of disc space narrowing at the L4-L5 level. Straightening of the normal lumbar lordosis. ____ CT/Abdomen/Pelvis WITH Contrast IMPRESSION: Small hepatic cysts. Electronically Signed: Gómez Lema MD at 14:54 EST Tel [phone], Service support , CC: Leticia Castro DO Pediatric Critical Care Nurse: Signed Leticia Castro Work Phone: Start: 01-09-2018 End: 01-09-2018 Surgery Visit Report Comments: See Note; NOTES: [facility] [address] [place] [address] OFFICE VISIT Date of Service: 01/07/18 MR#: [id number] Acct: [id number] Name: TALIA YATES Rep #: [id number] : 1970 Provider: Chauncey Snyder MD Age/Sex: 47/M Location: [facility] Status: Signed Intake Intake Visit Reasons: f/u egd Chief Complaint: abd pain with food/ diarrhea Physician General Practice Required: No Is patient in pain?: No Allergies No Known Allergies Allergy (Verified 01/07/18 14:48) Medications NK [NK] 12/22/17 [History Confirmed 01/07/18] PFSH Medical History No pertinent past medical history (Acute) Surgical History History of esophagogastroduodenoscopy (Acute) S/P colonoscopy (Acute) Family History Father Cancer stomach Social History Smoking Status: Never smoker HPI HPI HPI: TALIA YATES, is a 47 M who presents to the office today for follow-up from a esophagogastroduodenoscopy with biopsy on 12/31/2017 patient was noted at that time to have significant amount of gastritis seen throughout the stomach but concentrated in the prepyloric area with some linear strands of gastritis identified. The biopsy for H. pylori was negative. I also did a biopsy of the small intestine for celiac sprue and it was normal. At this point I told the patient that he should be on a significant amount of [id number] Prilosec twice a day as well as to monitor types of foods that he is eating. His symptoms are still very classic for biliary colic with eating and right upper quadrant abdominal pain probably about 20 minutes afterwards. Exam GI Other: Abdomen is soft and nontender Assessment AND Plan Problems 1. Abdominal pain, RUQ R10.11 2. Abdominal bloating R14.0 3. Diarrhea, unspecified type R19.7 Plan At this point I think the patient needs to do a better job of taking his proton pump inhibitor and be quite a bit more diligent in his eating. I am going to see him back in about 4-6 weeks to see how he is done with the strict guidelines I have given him for taking the Prilosec and monitoring what he eats and how he eats. If we have not made a significant improvement in his discomfort I see no other recourse but to take out his gallbladder. I have instructed him that this is going to be difficult with his insurance and no true objective signs of gallbladder disease. Nevertheless if the proton pump inhibitor is not working on and since his symptoms are so classic for biliary colic I believe is probably going to be the right thing to do if the Prilosec does not control his discomfort. Coding Level of Care Code Off vis,est,level 2 Diagnoses Abdominal pain, RUQ R10.11 Abdominal bloating R14.0 Diarrhea, unspecified type R19.7 Diarrhea type: unspecified type 01/09/18 2973 <Electronically signed by Chauncey Snyder MD> Date ____ Chauncey Snyder MD Cosigner Signature: Date ____ (if applicable) CC: Leticia Fast DO Leticia Fast Start: 12-31-2017 Esophagogastroduodenoscopy Leticia Fast Plan of Treatment Date Care Activity Detail Author Start: 07-11-2023 Cyanocobalamin vitamin b-12 VITAMIN B12 AND FOLATES (29620) [facility] Work Phone: Start: 07-11-2023 25 hydroxy includes fractions if performed Vitamin D Hydroxy (43705) [facility]; [facility] Work Phone: Start: 07-11-2023 Lipid panel LIPID PANEL (94496) [facility] Work Phone: Start: 07-11-2023 Comprehensive metabolic panel METABOLIC PANEL, COMPREHENSIVE (20236) [facility]; [facility] Work Phone: Start: 07-11-2023 Blood count complete auto&auto difrntl wbc CBC W/AUTO DIFF WBC (14041) [facility]; [facility] Work Phone: Start: 02-28-2023 Procedure Education Eprescribed prescriptions (G8553) [facility]; [facility] Work Phone: Start: 01-03-2023 Procedure Education Eprescribed prescriptions (G8553) [facility]; [facility] Work Phone: Start: 01-03-2023 25 hydroxy includes fractions if performed Vitamin D Hydroxy (01360) [facility]; [facility] Work Phone: Start: 01-03-2023 Lipid panel LIPID PANEL (02411) [facility]; [facility] Work Phone: Start: 01-03-2023 Blood count complete auto&auto difrntl wbc CBC W/AUTO DIFF WBC (77309) [facility]; [facility] Work Phone: Start: 01-03-2023 Comprehensive metabolic panel METABOLIC PANEL, COMPREHENSIVE (97967) [facility]; [facility] Work Phone: Start: 11-02-2021 Assay of prostate specific antigen total PSA (PROSTATE SPECIFIC ANTIGEN) (V76.44) [facility]; [facility] Work Phone: Start: 11-02-2021 Lipid panel LIPID PANEL (61618) [facility] Work Phone: Start: 11-02-2021 25 hydroxy includes fractions if performed Vitamin D Hydroxy (60116) [facility]; [facility] Work Phone: Start: 11-02-2021 Blood count complete auto&auto difrntl wbc CBC with auto diff (00551) [facility]; [facility] Work Phone: Start: 11-02-2021 Comprehensive metabolic panel METABOLIC PANEL, COMPREHENSIVE (85429) [facility]; [facility] Work Phone: Start: 11-02-2021 Hemoglobin glycosylated a1c HGB A1C (82176) [facility]; [facility] Work Phone: Start: 05-20-2021 Blood count complete auto&auto difrntl wbc CBC W/AUTO DIFF WBC (58700) [facility]; [facility] Work Phone: Start: 05-18-2021 Procedure Education Eprescribed prescriptions (G8553) [facility]; [facility] Work Phone: Start: 02-21-2021 Procedure Education Eprescribed prescriptions (G8553) [facility]; [facility] Work Phone: Start: 02-21-2021 [place] influenza 2019 Novel Coronavirus (COVID-19), RAMESH (98434) [facility]; [facility] Work Phone: Start: 02-21-2021 Virus centrifuge enhncd id imfluor stain ea Influenza A&B Viral Culture (89354) [facility]; [facility] Work Phone: Start: 02-21-2021 Culture bct isol&prsmptv id isolate ea urine URINE DANIEL CULTURE-IDENTIFICATN (23795) [facility]; [facility] Work Phone: Start: 02-21-2021 [place] influenza 2019 Novel Coronavirus (COVID-19), RAMESH (69432) [facility]; [facility] Work Phone: Start: 02-07-2021 Comprehensive metabolic panel METABOLIC PANEL, COMPREHENSIVE (54178) [facility]; [facility] Work Phone: Start: 02-07-2021 Lipid panel LIPID PANEL (21176) [facility] Work Phone: Start: 02-05-2021 Procedure Education Eprescribed prescriptions (G8553) [facility]; [facility] Work Phone: Start: 01-11-2021 HbA1c (Bld) [Mass fraction] HGB A1C (44708) [facility]; [facility] Work Phone: Start: 01-11-2021 Hemoglobin glycosylated a1c HGB A1C (97580) [facility]; [facility] Work Phone: Start: 01-11-2021 Comprehensive metabolic panel METABOLIC PANEL, COMPREHENSIVE (54349) [facility]; [facility] Work Phone: Start: 01-11-2021 Lipid panel LIPID PANEL (24883) [facility] Work Phone: Start: 01-11-2021 25 hydroxy includes fractions if performed Vitamin D Hydroxy (34105) [facility]; [facility] Work Phone: Start: 08-18-2020 Comprehensive metabolic panel METABOLIC PANEL, COMPREHENSIVE (49711) [facility] Work Phone: Immunizations Immunization Date Immunization Notes Care Provider [facility] 08-13-2021 influenza, injectabl e, quadrivalent, preservative free Leticia Fast DO Work Phone: [facility]; [facility] Work Phone: 07-13-2021 COVID-Moderna (50 MCG/0.25 ML) Leticia Fast DO Work Phone: [facility]; [facility] Work Phone: 01-11-2021 COVID-19 (Moderna) Leticia Fas t DO Work Phone: [facility]; [facility] Work Phone: 12-11-2020 COVID-19 (Moderna) Leticia Fas t DO Work Phone: [facility]; [facility] Work Phone: influenza virus vaccine, unspecified formulation Leticia Fast [facility] Work Phone: Payers Date Payer Category Payer Unknown [id number] 1970 Unknown [id number] 1970 Unknown [id number] Unknown Anurag BC/BS Unknown [id number] Social History Date Type Detail Facility Alcohol Use: Heavy alcohol use. [facility] Work Phone: Clinical Notes 11-28-2020 to 06-30-2021 Note Date & Type Note Facility 06-30-2021 Note HNO ID: [id number] Author: Felisha Amin PA-C Service: ? Author Type: Physician Associate Professor Of Theology Type: Progress Notes Filed: 06/30/2021 10:29 AM Note Text: This note was created using [employer]wbc[employer]. Subjective Talia Yates is a 50 year old male. HPI Patient presents with a right ankle injury x2 days. He states he jumped into a ditch and rolled his ankle. He has been able to walk on it however he has had some bruising and significant swelling so he came in for evaluation. No weakness numbness or tingling. No knee pain. No other injuries at this time. Review of Systems Constitutional: Negative. HENT: Negative. Respiratory: Negative. Cardiovascular: Negative. Gastrointestinal: Negative. Musculoskeletal: Right ankle injury All other systems reviewed and are negative. PAST MEDICAL HISTORY Diagnosis Date - NEGATIVE HISTORY OF Current Outpatient Medications Medication Sig Dispense Refill - vitamin D3-vitamin K2, MK4, 1,000-100 unit-mcg tab Take by mouth. - Ibuprofen 200 mg cap Take by mouth. No current facility-administered medications for this visit. PAST SURGICAL HISTORY Procedure Laterality Date - COLONOSCOPY 11/14/2017 - EXTRACTION, ERUPTED TOOTH OR EXPOSED ROOT (ELEVATION AND/OR FORCEPS REMOVAL) 2001 wisdom teeth - PAST SURGICAL HISTORY OF 1997 right hand surgical repair FAMILY HISTORY Problem Relation Age of Onset - Cancer Father stomach, ; dx'd age 61 - None Mother - Diabetes Other none - Colon Cancer Other none - Coronary Artery Disease Other none - Breast Cancer Other father's side - Prostate Cancer Other none Social History Tobacco Use - Smoking status: Never Smoker - Smokeless tobacco: Never Used Substance Use Topics - Alcohol use: Yes Comment: 1 drink daily - Drug use: No Objective BP 140/88 Pulse 68 Temp 36.7 ?C (98.1 ?F) Resp 16 Wt 113.4 kg (250 lb) SpO2 96% BMI 29.65 kg/m? Physical Exam Vitals reviewed. Constitutional: Appearance: Normal appearance. HENT: Head: Normocephalic and atraumatic. Musculoskeletal: Comments: Exam of the right ankle reveals moderate swelling to the lateral malleolus with bruising. He is tender to palpation here. No significant tenderness to the metatarsals of the foot. He does have swelling to the foot as well. Pedal pulses 2+. No tenderness to the Achilles tendon or medial malleolus. Full dorsiflexion and plantar flexion of the foot. Able to ambulate. Neurological: Mental Status: He is alert. Assessment and Plan ASSESSMENT/PLAN: 1. Ankle injury, right, initial encounter - ICD9: 959.7, ICD10: S99.911A xrays are negative for fracture. Placed in rommel wrap and ankle stirrup. Ice, rest, ibuprofen for pain. If not improving in 7-10 days follow up with orthopedics. - XR FOOT GENERAL 3V AP/LAT/OBL RT - XR ANKLE GENERAL 3V AP/LAT/OBL RT Felisha Amin PA-C [facility] 06-30-2021 Note HNO ID: [id number] Author: RT Humberto(R) Service: Radiology Author Type: Technologist Type: Progress Notes Filed: 06/30/2021 8:49 AM Note Text: Radiology Service Progress Note PATIENT NAME: Talia Yates DATE OF SERVICE: June 30, 2021 TIME: 8:38 am PATIENT IDENTITY VERIFICATION COMPLETED USING TWO (2) IDENTIFIERS: Name and Date of confirmed by patient verbally. FALL SCREENING: Has the patient had 2 falls in the last year or 1 fall with injury or currently using an Ambulatory Assistive Device (Walker, Cane, Wheelchair, Crutches, etc.)? No PATIENT GENDER DATA: Male PATIENT RELEVANT IMPLANT DATA REVIEWED: Not Applicable RADIOLOGY DEPARTMENT: General X-ray: Exam(s) Completed: Lower Extremity X-Ray(s): Ankle, Right and Wt. Bearing and Foot, Right and Wt. Bearing PERIPHERAL IV DATA: Not applicable SIGNED BY: RT Humberto(R) June 30, 2021 8:48 AM [facility] 12-12-2020 Note HNO ID: [id number] Author: Lon Lopez Service: ? Author Type: Physician Type: Progress Notes Filed: 12/12/2020 5:45 PM Note Text: FOLLOW UP VISIT NAME: Talia Yates [facility] NO.: [id number] DATE OF SERVICE: 12/12/2020 : 1970 REFERRING PHYSICIAN: Leticia Castro MD Talia is a patient I am following for symptomatic hemorrhoids. The patient is a 50 year old male with a complaint of symptomatic hemorrhoids. The patient notes issues with rectal bleeding. He also notes prolapsing hemorrhoidal tissue with occasional issues of challenges keeping himself clean after bowel movements. He denies pain with bowel movements. He notes occasional issues with constipation. When he has his constipation issues the hemorrhoidal symptoms are more significant. ? He notes he has had colonoscopy in the past. Colonoscopy was apparently performed by Dr. Leal on November 14, 2017. He denies blood mixed within his stool or black tarry stools. ? I performed hemorrhoidal banding on November 28. The patient notes no further bleeding currently. He notes no current issues with seeping or tissue prolapse. VITALS: There were no vitals taken for this visit. On examination, He has mixed hemorrhoids, but they are not currently prolapsing with straining. I did not perform repeat banding Assessment IMPRESSION: hemorrhoidal symptoms. PLAN: If the patient notes any problems or signs of recurrent prolapse or bleeding, the patient should contact me immediately. Diagnoses: (K64.2) Grade III hemorrhoids (primary encounter diagnosis) Return to Clinic: The patient is instructed to follow-up with me as needed. Lon Lopez MD [facility] 11-28-2020 Note HNO ID: [id number] Author: Lon Lopez Service: ? Author Type: Physician Type: Progress Notes Filed: 11/30/2020 6:51 PM Note Text: HISTORY AND PHYSICAL Talia Yates 1970 REFERRING PHYSICIAN: Leticia Castro DO CHIEF COMPLAINT: Consult (Consult Hemorrhoids) HPI: The patient is a 50 year old male with a complaint of symptomatic hemorrhoids. The patient notes issues with rectal bleeding. He also notes prolapsing hemorrhoidal tissue with occasional issues of challenges keeping himself clean after bowel movements. He denies pain with bowel movements. He notes occasional issues with constipation. When he has his constipation issues the hemorrhoidal symptoms are more significant. He notes he has had colonoscopy in the past. Colonoscopy was apparently performed by Dr. Leal on November 14, 2017. He denies blood mixed within his stool or black tarry stools. The patient is being seen by me today at the request of Dr. Leticia Castro MD for my opinion and advice regarding symptomatic mixed hemorrhoids. PAST MEDICAL HISTORY Diagnosis Date - NEGATIVE HISTORY OF PAST SURGICAL HISTORY Procedure Laterality Date - COLONOSCOPY 11/14/2017 - EXTRACTION, ERUPTED TOOTH OR EXPOSED ROOT (ELEVATION AND/OR FORCEPS REMOVAL) 2001 wisdom teeth - PAST SURGICAL HISTORY OF 1997 right hand surgical repair Current Outpatient Medications Medication Sig - vitamin D3-vitamin K2, MK4, 1,000-100 unit-mcg tab Take by mouth. - sucralfate (CARAFATE) 1 gram tablet Take 1 tablet by mouth four times daily. TAKE 1 PO 30 MINUTES BEFORE MEALS AND AT BEDTIME. - DULoxetine (CYMBALTA) 30 mg capsule Take 30 mg by mouth once daily. - rifAXIMin (RIFAXIMIN) 550 mg tab Take 550 mg by mouth twice daily. - dicyclomine (BENTYL) 20 mg tablet Take 1 tablet by mouth with meals and at bedtime. - Omeprazole 40 mg capsule Take 1 capsule by mouth once daily. - Ibuprofen 200 mg cap Take by mouth. No current facility-administered medications for this visit. ALLERGIES: Seasonal Allergies PERSONAL HISTORY: Social History Tobacco Use - Smoking status: Never Smoker - Smokeless tobacco: Never Used Substance Use Topics - Alcohol use: Yes Comment: 1 drink daily - Drug use: No FAMILY HISTORY: FAMILY HISTORY Problem Relation Age of Onset - Cancer Father stomach, ; dx'd age 61 - None Mother - Diabetes Other none - Colon Cancer Other none - Coronary Artery Disease Other none - Breast Cancer Other father's side - Prostate Cancer Other none REVIEW OF SYMPTOMS: negative except as noted above PHYSICAL EXAMINATION: General: The patient is 50 year old male, well nourished, well hydrated in no acute distress. The patient is oriented to time, place, and person. VITALS: Pulse 74, temperature 36.3 ?C (97.3 ?F), height 195.6 cm (6' 5 ), weight 116.8 kg (257 lb 9.6 oz), SpO2 100 %. HEENT: Normal cephalic, ataumatic, pupils are equally round, sclera are anicteric, mucous membranes are moist, oropharynx is clear. Neck has no masses, asymmetry or lymphadenopathy. Thyroid is unremarkable. Respiratory: Clear to auscultation and percussion. Normal respiratory excursion and pattern. Cardiac: Examination is regular rate and rhythm. Abdominal exam: Soft, nontender, with no palpable masses. No hepatosplenomegaly. No palpable hernias. Rectal exam: Significant hemorrhoids, grade 2/3 located in the right and left lateral positions, otherwise no additional abnormalities or masses. Digital rectal exam - normal tone, internal hemorrhoids without other abnormalities Extremities: no clubbing, cyanosis or edema. No adenopathy. Other: LABORATORY VALUES: As Noted RADIOLOGIC STUDIES: As Noted PROCEDURE: HEMORRHOIDAL BANDING The risks, benefits and anticipated outcomes of the procedure, the risks and benefits of the alternatives to the procedure, and the roles and tasks of the personnel to be involved, were discussed with the patient, and the patient consents to the procedure and agrees to proceed. After consent was obtained and the site, person, and procedure verified, the patient was positioned. A digital rectal exam was performed demonstrating internal hemorrhoids in the right lateral position without other abnormalities. An anoscope was introduced demonstrating symptomatic internal hemorrhoid. The hemorrhoidal complex was grasped with an forceps without causing discomfort to the patient. A single band was deployed over the complex. The patient remained asymptomatic. The anoscope was removed. The patient tolerated the procedure well. Assessment IMPRESSION: Status post right lateral interal hemorrhoidal banding PLAN: If the patient notes any problems or pain, they should contact me immediately. The patient was informed that- A small amount of bleeding is common when the hemorrhoid sloughs at 3-5 days. Do not that aspirin for the next week. If you have significant bleeding or o (more content not included)... [facility] 11-28-2020 Note HNO ID: [id number] Author: Erika Corrigan RN Service: ? Author Type: ? Type: Progress Notes Filed: 11/30/2020 8:54 AM Note Text: UNIVERSAL PROTOCOL / SAFETY CHECKLIST Procedure to be performed: ANOSCOPY AND HEMORRHOIDAL BANDING Sign in Communication: Completed Time Out: Team Confirms the Correct Patient, Correct Procedure, Correct Site and Site Marking, Correct Position (if applicable), Prep and Dry Time (if applicable). Time: 1545 Affirmation of Time Out: YES Sign Out Discussion: Completed Erika Corrigan RN [facility]; [facility] Work Phone: Instructions* Name Dates Details Patient Instructions Indication:Impaired fasting glucose Start:05-Feb-2021 Instruction Type:Provider Instructions for Treatment How to Access Health Informa tion Online using Patient Portal and 3rd Libertarian Apps Indication:Impaired fasting glucose Start:05-Feb-2021 Instruction Type:Patient Education Patient Instructions Indication:[facility] Start:03-Nov-2020 Instruction Type:Provider Instructions for Treatment How to Access Health Informa tion Online using Patient Portal and 3rd [employer] Apps Indication:[facility] Start:03-Nov-2020 Instruction Type:Patient Education How to access health informa tion online Indication:Acute diverticulitis Start:18-Aug-2020 Instruction Type:Patient Education How to access health informa tion online - Detail Indication:Acute diverticulitis Start:18-Aug-2020 Instruction Type:Patient Education Patient Instructions Indication:Acute diverticulitis Start:18-Aug-2020 Instruction Type:Provider Instructions for Treatment Patient Instructions Indication:Myalgia Start:15-Feb-2020 Instruction Type:Provider Instructions for Treatment How to access health informa tion online Indication:Anxiety Start:29-Oct-2019 Instruction Type:Patient Education How to access health informa tion online - Detail Indication:Anxiety Start:29-Oct-2019 Instruction Type:Patient Education Patient Instructions Indication:Anxiety Start:29-Oct-2019 Instruction Type:Provider Instructions for Treatment How to access health informa tion online Indication:Impaired fasting glucose Start:17-Sep-2019 Instruction Type:Patient Education How to access health informa tion online - Detail Indication:Impaired fasting glucose Start:17-Sep-2019 Instruction Type:Patient Education Patient Instructions Indication:Impaired fasting glucose Start:17-Sep-2019 Instruction Type:Provider Instructions for Treatment How to access health informa tion online Indication:Swollen finger Start:07-Sep-2019 Instruction Type:Patient Education How to access health informa tion online - Detail Indication:Swollen finger Start:07-Sep-2019 Instruction Type:Patient Education Patient Instructions Indication:Swollen finger Start:07-Sep-2019 Instruction Type:Provider Instructions for Treatment How to access health informa tion online Indication:BMI 28.0-28.9,adult Start:16-Jun-2019 Instruction Type:Patient Education How to access health informa tion online - Detail Indication:BMI 28.0-28.9,adult Start:16-Jun-2019 Instruction Type:Patient Education Patient Instructions Indication:BMI 28.0-28.9,adult Start:16-Jun-2019 Instruction Type:Provider Instructions for Treatment How to access health informa tion online Indication:Nonsmoker Start:09-Apr-2019 Instruction Type:Patient Education How to access health informa tion online - Detail Indication:Nonsmoker Start:09-Apr-2019 Instruction Type:Patient Education Patient Instructions Indication:Nonsmoker Start:09-Apr-2019 Instruction Type:Provider Instructions for Treatment Patient Instructions Indication:Nonsmoker Start:09-Apr-2019 Instruction Type:Provider Instructions for Treatment How to access health informa tion online Indication:Anxiety Start:17-Jul-2018 Instruction Type:Patient Education How to access health informa tion online - Detail Indication:Anxiety Start:17-Jul-2018 Instruction Type:Patient Education Patient Instructions Indication:Anxiety Start:17-Jul-2018 Instruction Type:Provider Instructions for Treatment How to access health informa tion online Indication:Dysthymic Start:03-Apr-2018 Instruction Type:Patient Education How to access health informa tion online - Detail Indication:Dysthymic Start:03-Apr-2018 Instruction Type:Patient Education Patient Instructions Indication:Dysthymic Start:03-Apr-2018 Instruction Type:Provider Instructions for Treatment How to access health informa tion online Indication:[facility] Start:06-Feb-2018 Instruction Type:Patient Education How to access health informa tion online - Detail Indication:[facility] Start:06-Feb-2018 Instruction Type:Patient Education Patient Instructions Indication:[facility] Start:06-Feb-2018 Instruction Type:Provider Instructions for Treatment How to access health informa tion online Indication:Abdominal pain, generalized Start:26-Jan-2018 Instruction Type:Patient Education How to access health informa tion online - Detail Indication:Abdominal pain, generalized Start:26-Jan-2018 Instruction Type:Patient Education Patient Instructions Indication:Abdominal pain, generalized Start:26-Jan-2018 Instruction Type:Provider Instructions for Treatment How to access health informa tion online Indication:Right sided abdominal pain Start:11-Nov-2017 Instruction Type:Patient Education How to access health informa tion online - Detail Indication:Right sided abdominal pain Start:11-Nov-2017 Instruction Type:Patient Education Patient Instructions Indication:Right sided abdominal pain Start:11-Nov-2017 Instruction Type:Provider Instructions for Treatment How to access health informa tion online Indication:Abdominal pain, generalized Start:16-Oct-2017 Instruction Type:Patient Education How to access health informa tion online - Detail Indication:Abdominal pain, generalized Start:16-Oct-2017 Instruction Type:Patient Education Patient Instructions Indication:Abdominal pain, generalized Start:16-Oct-2017 Instruction Type:Provider Instructions for Treatment [facility] Work Phone: Instructions* Name Dates Details Patient Instructions Indication:Impaired fasting glucose Start:05-Feb-2021 Instruction Type:Provider Instructions for Treatment How to Access Health Informa tion Online using Patient Portal and 3rd [employer] Apps Indication:Impaired fasting glucose Start:05-Feb-2021 Instruction Type:Patient Education Patient Instructions Indication:[facility] Start:03-Nov-2020 Instruction Type:Provider Instructions for Treatment How to Access Health Informa tion Online using Patient Portal and 3rd [employer] Apps Indication:[facility] Start:03-Nov-2020 Instruction Type:Patient Education How to access health informa tion online Indication:Acute diverticulitis Start:18-Aug-2020 Instruction Type:Patient Education How to access health informa tion online - Detail Indication:Acute diverticulitis Start:18-Aug-2020 Instruction Type:Patient Education Patient Instructions Indication:Acute diverticulitis Start:18-Aug-2020 Instruction Type:Provider Instructions for Treatment Patient Instructions Indication:Myalgia Start:15-Feb-2020 Instruction Type:Provider Instructions for Treatment How to access health informa tion online Indication:Anxiety Start:29-Oct-2019 Instruction Type:Patient Education How to access health informa tion online - Detail Indication:Anxiety Start:29-Oct-2019 Instruction Type:Patient Education Patient Instructions Indication:Anxiety Start:29-Oct-2019 Instruction Type:Provider Instructions for Treatment How to access health informa tion online Indication:Impaired fasting glucose Start:17-Sep-2019 Instruction Type:Patient Education How to access health informa tion online - Detail Indication:Impaired fasting glucose Start:17-Sep-2019 Instruction Type:Patient Education Patient Instructions Indication:Impaired fasting glucose Start:17-Sep-2019 Instruction Type:Provider Instructions for Treatment How to access health informa tion online Indication:Swollen finger Start:07-Sep-2019 Instruction Type:Patient Education How to access health informa tion online - Detail Indication:Swollen finger Start:07-Sep-2019 Instruction Type:Patient Education Patient Instructions Indication:Swollen finger Start:07-Sep-2019 Instruction Type:Provider Instructions for Treatment How to access health informa tion online Indication:BMI 28.0-28.9,adult Start:16-Jun-2019 Instruction Type:Patient Education How to access health informa tion online - Detail Indication:BMI 28.0-28.9,adult Start:16-Jun-2019 Instruction Type:Patient Education Patient Instructions Indication:BMI 28.0-28.9,adult Start:16-Jun-2019 Instruction Type:Provider Instructions for Treatment How to access health informa tion online Indication:Nonsmoker Start:09-Apr-2019 Instruction Type:Patient Education How to access health informa tion online - Detail Indication:Nonsmoker Start:09-Apr-2019 Instruction Type:Patient Education Patient Instructions Indication:Nonsmoker Start:09-Apr-2019 Instruction Type:Provider Instructions for Treatment Patient Instructions Indication:Nonsmoker Start:09-Apr-2019 Instruction Type:Provider Instructions for Treatment How to access health informa tion online Indication:Anxiety Start:17-Jul-2018 Instruction Type:Patient Education How to access health informa tion online - Detail Indication:Anxiety Start:17-Jul-2018 Instruction Type:Patient Education Patient Instructions Indication:Anxiety Start:17-Jul-2018 Instruction Type:Provider Instructions for Treatment How to access health informa tion online Indication:Dysthymic Start:03-Apr-2018 Instruction Type:Patient Education How to access health informa tion online - Detail Indication:Dysthymic Start:03-Apr-2018 Instruction Type:Patient Education Patient Instructions Indication:Dysthymic Start:03-Apr-2018 Instruction Type:Provider Instructions for Treatment How to access health informa tion online Indication:[facility] EX[facility] Start:06-Feb-2018 Instruction Type:Patient Education How to access health informa tion online - Detail Indication:[facility] Start:06-Feb-2018 Instruction Type:Patient Education Patient Instructions Indication:[facility] Start:06-Feb-2018 Instruction Type:Provider Instructions for Treatment How to access health informa tion online Indication:Abdominal pain, generalized Start:26-Jan-2018 Instruction Type:Patient Education How to access health informa tion online - Detail Indication:Abdominal pain, generalized Start:26-Jan-2018 Instruction Type:Patient Education Patient Instructions Indication:Abdominal pain, generalized Start:26-Jan-2018 Instruction Type:Provider Instructions for Treatment How to access health informa tion online Indication:Right sided abdominal pain Start:11-Nov-2017 Instruction Type:Patient Education How to access health informa tion online - Detail Indication:Right sided abdominal pain Start:11-Nov-2017 Instruction Type:Patient Education Patient Instructions Indication:Right sided abdominal pain Start:11-Nov-2017 Instruction Type:Provider Instructions for Treatment How to access health informa tion online Indication:Abdominal pain, generalized Start:16-Oct-2017 Instruction Type:Patient Education How to access health informa tion online - Detail Indication:Abdominal pain, generalized Start:16-Oct-2017 Instruction Type:Patient Education Patient Instructions Indication:Abdominal pain, generalized Start:16-Oct-2017 Instruction Type:Provider Instructions for Treatment [facility]; [facility] Work Phone: Instructions* Name Dates Details How to Access Health Informa tion Online using Patient Portal and [employer] Apps Indication:Fever Start:21-Feb-2021 Instruction Type:Patient Education Patient Instructions Indication:Fever Start:21-Feb-2021 Instruction Type:Provider Instructions for Treatment Patient Instructions Indication:Impaired fasting glucose Start:05-Feb-2021 Instruction Type:Provider Instructions for Treatment How to Access Health Informa tion Online using Patient Portal and [employer] Apps Indication:Impaired fasting glucose Start:05-Feb-2021 Instruction Type:Patient Education Patient Instructions Indication:[facility] EX[facility] Start:03-Nov-2020 Instruction Type:Provider Instructions for Treatment How to Access Health Informa tion Online using Patient Portal and [employer] Apps Indication:[facility] EX[facility] Start:03-Nov-2020 Instruction Type:Patient Education How to access health informa tion online Indication:Acute diverticulitis Start:18-Aug-2020 Instruction Type:Patient Education How to access health informa tion online - Detail Indication:Acute diverticulitis Start:18-Aug-2020 Instruction Type:Patient Education Patient Instructions Indication:Acute diverticulitis Start:18-Aug-2020 Instruction Type:Provider Instructions for Treatment Patient Instructions Indication:Myalgia Start:15-Feb-2020 Instruction Type:Provider Instructions for Treatment How to access health informa tion online Indication:Anxiety Start:29-Oct-2019 Instruction Type:Patient Education How to access health informa tion online - Detail Indication:Anxiety Start:29-Oct-2019 Instruction Type:Patient Education Patient Instructions Indication:Anxiety Start:29-Oct-2019 Instruction Type:Provider Instructions for Treatment How to access health informa tion online Indication:Impaired fasting glucose Start:17-Sep-2019 Instruction Type:Patient Education How to access health informa tion online - Detail Indication:Impaired fasting glucose Start:17-Sep-2019 Instruction Type:Patient Education Patient Instructions Indication:Impaired fasting glucose Start:17-Sep-2019 Instruction Type:Provider Instructions for Treatment How to access health informa tion online Indication:Swollen finger Start:07-Sep-2019 Instruction Type:Patient Education How to access health informa tion online - Detail Indication:Swollen finger Start:07-Sep-2019 Instruction Type:Patient Education Patient Instructions Indication:Swollen finger Start:07-Sep-2019 Instruction Type:Provider Instructions for Treatment How to access health informa tion online Indication:BMI 28.0-28.9,adult Start:16-Jun-2019 Instruction Type:Patient Education How to access health informa tion online - Detail Indication:BMI 28.0-28.9,adult Start:16-Jun-2019 Instruction Type:Patient Education Patient Instructions Indication:BMI 28.0-28.9,adult Start:16-Jun-2019 Instruction Type:Provider Instructions for Treatment How to access health informa tion online Indication:Nonsmoker Start:09-Apr-2019 Instruction Type:Patient Education How to access health informa tion online - Detail Indication:Nonsmoker Start:09-Apr-2019 Instruction Type:Patient Education Patient Instructions Indication:Nonsmoker Start:09-Apr-2019 Instruction Type:Provider Instructions for Treatment Patient Instructions Indication:Nonsmoker Start:09-Apr-2019 Instruction Type:Provider Instructions for Treatment How to access health informa tion online Indication:Anxiety Start:17-Jul-2018 Instruction Type:Patient Education How to access health informa tion online - Detail Indication:Anxiety Start:17-Jul-2018 Instruction Type:Patient Education Patient Instructions Indication:Anxiety Start:17-Jul-2018 Instruction Type:Provider Instructions for Treatment How to access health informa tion online Indication:Dysthymic Start:03-Apr-2018 Instruction Type:Patient Education How to access health informa tion online - Detail Indication:Dysthymic Start:03-Apr-2018 Instruction Type:Patient Education Patient Instructions Indication:Dysthymic Start:03-Apr-2018 Instruction Type:Provider Instructions for Treatment How to access health informa tion online Indication:[facility] Start:06-Feb-2018 Instruction Type:Patient Education How to access health informa tion online - Detail Indication:[facility] Start:06-Feb-2018 Instruction Type:Patient Education Patient Instructions Indication:[facility] Start:06-Feb-2018 Instruction Type:Provider Instructions for Treatment How to access health informa tion online Indication:Abdominal pain, generalized Start:26-Jan-2018 Instruction Type:Patient Education How to access health informa tion online - Detail Indication:Abdominal pain, generalized Start:26-Jan-2018 Instruction Type:Patient Education Patient Instructions Indication:Abdominal pain, generalized Start:26-Jan-2018 Instruction Type:Provider Instructions for Treatment How to access health informa tion online Indication:Right sided abdominal pain Start:11-Nov-2017 Instruction Type:Patient Education How to access health informa tion online - Detail Indication:Right sided abdominal pain Start:11-Nov-2017 Instruction Type:Patient Education Patient Instructions Indication:Right sided abdominal pain Start:11-Nov-2017 Instruction Type:Provider Instructions for Treatment How to access health informa tion online Indication:Abdominal pain, generalized Start:16-Oct-2017 Instruction Type:Patient Education How to access health informa tion online - Detail Indication:Abdominal pain, generalized Start:16-Oct-2017 Instruction Type:Patient Education Patient Instructions Indication:Abdominal pain, generalized Start:16-Oct-2017 Instruction Type:Provider Instructions for Treatment [facility]; [facility] Work Phone: Instructions* Name Dates Details How to Access Health Informa tion Online using Patient Portal and [employer] Apps Indication:Fever Start:21-Feb-2021 Instruction Type:Patient Education Patient Instructions Indication:Fever Start:21-Feb-2021 Instruction Type:Provider Instructions for Treatment Patient Instructions Indication:Impaired fasting glucose Start:05-Feb-2021 Instruction Type:Provider Instructions for Treatment How to Access Health Informa tion Online using Patient Portal and [employer] Indication:Impaired fasting glucose Start:05-Feb-2021 Instruction Type:Patient Education Patient Instructions Indication:[facility] Start:03-Nov-2020 Instruction Type:Provider Instructions for Treatment How to Access Health Informa tion Online using Patient Portal and [employer] Indication:[facility] Start:03-Nov-2020 Instruction Type:Patient Education How to access health informa tion online Indication:Acute diverticulitis Start:18-Aug-2020 Instruction Type:Patient Education How to access health informa tion online - Detail Indication:Acute diverticulitis Start:18-Aug-2020 Instruction Type:Patient Education Patient Instructions Indication:Acute diverticulitis Start:18-Aug-2020 Instruction Type:Provider Instructions for Treatment Patient Instructions Indication:Myalgia Start:15-Feb-2020 Instruction Type:Provider Instructions for Treatment How to access health informa tion online Indication:Anxiety Start:29-Oct-2019 Instruction Type:Patient Education How to access health informa tion online - Detail Indication:Anxiety Start:29-Oct-2019 Instruction Type:Patient Education Patient Instructions Indication:Anxiety Start:29-Oct-2019 Instruction Type:Provider Instructions for Treatment How to access health informa tion online Indication:Impaired fasting glucose Start:17-Sep-2019 Instruction Type:Patient Education How to access health informa tion online - Detail Indication:Impaired fasting glucose Start:17-Sep-2019 Instruction Type:Patient Education Patient Instructions Indication:Impaired fasting glucose Start:17-Sep-2019 Instruction Type:Provider Instructions for Treatment How to access health informa tion online Indication:Swollen finger Start:07-Sep-2019 Instruction Type:Patient Education How to access health informa tion online - Detail Indication:Swollen finger Start:07-Sep-2019 Instruction Type:Patient Education Patient Instructions Indication:Swollen finger Start:07-Sep-2019 Instruction Type:Provider Instructions for Treatment How to access health informa tion online Indication:BMI 28.0-28.9,adult Start:16-Jun-2019 Instruction Type:Patient Education How to access health informa tion online - Detail Indication:BMI 28.0-28.9,adult Start:16-Jun-2019 Instruction Type:Patient Education Patient Instructions Indication:BMI 28.0-28.9,adult Start:16-Jun-2019 Instruction Type:Provider Instructions for Treatment How to access health informa tion online Indication:Nonsmoker Start:09-Apr-2019 Instruction Type:Patient Education How to access health informa tion online - Detail Indication:Nonsmoker Start:09-Apr-2019 Instruction Type:Patient Education Patient Instructions Indication:Nonsmoker Start:09-Apr-2019 Instruction Type:Provider Instructions for Treatment Patient Instructions Indication:Nonsmoker Start:09-Apr-2019 Instruction Type:Provider Instructions for Treatment How to access health informa tion online Indication:Anxiety Start:17-Jul-2018 Instruction Type:Patient Education How to access health informa tion online - Detail Indication:Anxiety Start:17-Jul-2018 Instruction Type:Patient Education Patient Instructions Indication:Anxiety Start:17-Jul-2018 Instruction Type:Provider Instructions for Treatment How to access health informa tion online Indication:Dysthymic Start:03-Apr-2018 Instruction Type:Patient Education How to access health informa tion online - Detail Indication:Dysthymic Start:03-Apr-2018 Instruction Type:Patient Education Patient Instructions Indication:Dysthymic Start:03-Apr-2018 Instruction Type:Provider Instructions for Treatment How to access health informa tion online Indication:[facility] EX[facility] Start:06-Feb-2018 Instruction Type:Patient Education How to access health informa tion online - Detail Indication:[facility] Start:06-Feb-2018 Instruction Type:Patient Education Patient Instructions Indication:[facility] Start:06-Feb-2018 Instruction Type:Provider Instructions for Treatment How to access health informa tion online Indication:Abdominal pain, generalized Start:26-Jan-2018 Instruction Type:Patient Education How to access health informa tion online - Detail Indication:Abdominal pain, generalized Start:26-Jan-2018 Instruction Type:Patient Education Patient Instructions Indication:Abdominal pain, generalized Start:26-Jan-2018 Instruction Type:Provider Instructions for Treatment How to access health informa tion online Indication:Right sided abdominal pain Start:11-Nov-2017 Instruction Type:Patient Education How to access health informa tion online - Detail Indication:Right sided abdominal pain Start:11-Nov-2017 Instruction Type:Patient Education Patient Instructions Indication:Right sided abdominal pain Start:11-Nov-2017 Instruction Type:Provider Instructions for Treatment How to access health informa tion online Indication:Abdominal pain, generalized Start:16-Oct-2017 Instruction Type:Patient Education How to access health informa tion online - Detail Indication:Abdominal pain, generalized Start:16-Oct-2017 Instruction Type:Patient Education Patient Instructions Indication:Abdominal pain, generalized Start:16-Oct-2017 Instruction Type:Provider Instructions for Treatment [facility]; [facility] Work Phone: Instructions* Name Dates Details Patient Instructions Indication:Nonsmoker Start:18-May-2021 Instruction Type:Provider Instructions for Treatment How to Access Health Informa tion Online using Patient Portal and [employer] Indication:Nonsmoker Start:18-May-2021 Instruction Type:Patient Education How to Access Health Informa tion Online using Patient Portal and [employer] Indication:Fever Start:21-Feb-2021 Instruction Type:Patient Education Patient Instructions Indication:Fever Start:21-Feb-2021 Instruction Type:Provider Instructions for Treatment Patient Instructions Indication:Impaired fasting glucose Start:05-Feb-2021 Instruction Type:Provider Instructions for Treatment How to Access Health Informa tion Online using Patient Portal and [employer] Apps Indication:Impaired fasting glucose Start:05-Feb-2021 Instruction Type:Patient Education Patient Instructions Indication:[facility] EX[facility] Start:03-Nov-2020 Instruction Type:Provider Instructions for Treatment How to Access Health Informa tion Online using Patient Portal and [employer] Indication:[facility] EX[facility] Start:03-Nov-2020 Instruction Type:Patient Education How to access health informa tion online Indication:Acute diverticulitis Start:18-Aug-2020 Instruction Type:Patient Education How to access health informa tion online - Detail Indication:Acute diverticulitis Start:18-Aug-2020 Instruction Type:Patient Education Patient Instructions Indication:Acute diverticulitis Start:18-Aug-2020 Instruction Type:Provider Instructions for Treatment Patient Instructions Indication:Myalgia Start:15-Feb-2020 Instruction Type:Provider Instructions for Treatment How to access health informa tion online Indication:Anxiety Start:29-Oct-2019 Instruction Type:Patient Education How to access health informa tion online - Detail Indication:Anxiety Start:29-Oct-2019 Instruction Type:Patient Education Patient Instructions Indication:Anxiety Start:29-Oct-2019 Instruction Type:Provider Instructions for Treatment How to access health informa tion online Indication:Impaired fasting glucose Start:17-Sep-2019 Instruction Type:Patient Education How to access health informa tion online - Detail Indication:Impaired fasting glucose Start:17-Sep-2019 Instruction Type:Patient Education Patient Instructions Indication:Impaired fasting glucose Start:17-Sep-2019 Instruction Type:Provider Instructions for Treatment How to access health informa tion online Indication:Swollen finger Start:07-Sep-2019 Instruction Type:Patient Education How to access health informa tion online - Detail Indication:Swollen finger Start:07-Sep-2019 Instruction Type:Patient Education Patient Instructions Indication:Swollen finger Start:07-Sep-2019 Instruction Type:Provider Instructions for Treatment How to access health informa tion online Indication:BMI 28.0-28.9,adult Start:16-Jun-2019 Instruction Type:Patient Education How to access health informa tion online - Detail Indication:BMI 28.0-28.9,adult Start:16-Jun-2019 Instruction Type:Patient Education Patient Instructions Indication:BMI 28.0-28.9,adult Start:16-Jun-2019 Instruction Type:Provider Instructions for Treatment How to access health informa tion online Indication:Nonsmoker Start:09-Apr-2019 Instruction Type:Patient Education How to access health informa tion online - Detail Indication:Nonsmoker Start:09-Apr-2019 Instruction Type:Patient Education Patient Instructions Indication:Nonsmoker Start:09-Apr-2019 Instruction Type:Provider Instructions for Treatment Patient Instructions Indication:Nonsmoker Start:09-Apr-2019 Instruction Type:Provider Instructions for Treatment How to access health informa tion online Indication:Anxiety Start:17-Jul-2018 Instruction Type:Patient Education How to access health informa tion online - Detail Indication:Anxiety Start:17-Jul-2018 Instruction Type:Patient Education Patient Instructions Indication:Anxiety Start:17-Jul-2018 Instruction Type:Provider Instructions for Treatment How to access health informa tion online Indication:Dysthymic Start:03-Apr-2018 Instruction Type:Patient Education How to access health informa tion online - Detail Indication:Dysthymic Start:03-Apr-2018 Instruction Type:Patient Education Patient Instructions Indication:Dysthymic Start:03-Apr-2018 Instruction Type:Provider Instructions for Treatment How to access health informa tion online Indication:[facility] EX[facility] Start:06-Feb-2018 Instruction Type:Patient Education How to access health informa tion online - Detail Indication:[facility] Start:06-Feb-2018 Instruction Type:Patient Education Patient Instructions Indication:[facility] Start:06-Feb-2018 Instruction Type:Provider Instructions for Treatment How to access health informa tion online Indication:Abdominal pain, generalized Start:26-Jan-2018 Instruction Type:Patient Education How to access health informa tion online - Detail Indication:Abdominal pain, generalized Start:26-Jan-2018 Instruction Type:Patient Education Patient Instructions Indication:Abdominal pain, generalized Start:26-Jan-2018 Instruction Type:Provider Instructions for Treatment How to access health informa tion online Indication:Right sided abdominal pain Start:11-Nov-2017 Instruction Type:Patient Education How to access health informa tion online - Detail Indication:Right sided abdominal pain Start:11-Nov-2017 Instruction Type:Patient Education Patient Instructions Indication:Right sided abdominal pain Start:11-Nov-2017 Instruction Type:Provider Instructions for Treatment How to access health informa tion online Indication:Abdominal pain, generalized Start:16-Oct-2017 Instruction Type:Patient Education How to access health informa tion online - Detail Indication:Abdominal pain, generalized Start:16-Oct-2017 Instruction Type:Patient Education Patient Instructions Indication:Abdominal pain, generalized Start:16-Oct-2017 Instruction Type:Provider Instructions for Treatment [facility]; [facility] Work Phone: Instructions* Name Dates Details Patient Instructions Indication:Nonsmoker Start:03-Jan-2023 Instruction Type:Provider Instructions for Treatment How to Access Health Informa tion Online using Patient Portal and [employer] Indication:Nonsmoker Start:03-Jan-2023 Instruction Type:Patient Education Patient Instructions Indication:Nonsmoker Start:18-May-2021 Instruction Type:Provider Instructions for Treatment How to Access Health Informa tion Online using Patient Portal and [employer] Indication:Nonsmoker Start:18-May-2021 Instruction Type:Patient Education How to Access Health Informa tion Online using Patient Portal and [employer] Indication:Fever Start:21-Feb-2021 Instruction Type:Patient Education Patient Instructions Indication:Fever Start:21-Feb-2021 Instruction Type:Provider Instructions for Treatment Patient Instructions Indication:Impaired fasting glucose Start:05-Feb-2021 Instruction Type:Provider Instructions for Treatment How to Access Health Informa tion Online using Patient Portal and [employer] Indication:Impaired fasting glucose Start:05-Feb-2021 Instruction Type:Patient Education Patient Instructions Indication:[facility] EX[facility] Start:03-Nov-2020 Instruction Type:Provider Instructions for Treatment How to Access Health Informa tion Online using Patient Portal and [employer] Indication:[facility] EX[facility] Start:03-Nov-2020 Instruction Type:Patient Education How to access health informa tion online Indication:Acute diverticulitis Start:18-Aug-2020 Instruction Type:Patient Education How to access health informa tion online - Detail Indication:Acute diverticulitis Start:18-Aug-2020 Instruction Type:Patient Education Patient Instructions Indication:Acute diverticulitis Start:18-Aug-2020 Instruction Type:Provider Instructions for Treatment Patient Instructions Indication:Myalgia Start:15-Feb-2020 Instruction Type:Provider Instructions for Treatment How to access health informa tion online Indication:Anxiety Start:29-Oct-2019 Instruction Type:Patient Education How to access health informa tion online - Detail Indication:Anxiety Start:29-Oct-2019 Instruction Type:Patient Education Patient Instructions Indication:Anxiety Start:29-Oct-2019 Instruction Type:Provider Instructions for Treatment How to access health informa tion online Indication:Impaired fasting glucose Start:17-Sep-2019 Instruction Type:Patient Education How to access health informa tion online - Detail Indication:Impaired fasting glucose Start:17-Sep-2019 Instruction Type:Patient Education Patient Instructions Indication:Impaired fasting glucose Start:17-Sep-2019 Instruction Type:Provider Instructions for Treatment How to access health informa tion online Indication:Swollen finger Start:07-Sep-2019 Instruction Type:Patient Education How to access health informa tion online - Detail Indication:Swollen finger Start:07-Sep-2019 Instruction Type:Patient Education Patient Instructions Indication:Swollen finger Start:07-Sep-2019 Instruction Type:Provider Instructions for Treatment How to access health informa tion online Indication:BMI 28.0-28.9,adult Start:16-Jun-2019 Instruction Type:Patient Education How to access health informa tion online - Detail Indication:BMI 28.0-28.9,adult Start:16-Jun-2019 Instruction Type:Patient Education Patient Instructions Indication:BMI 28.0-28.9,adult Start:16-Jun-2019 Instruction Type:Provider Instructions for Treatment How to access health informa tion online Indication:Nonsmoker Start:09-Apr-2019 Instruction Type:Patient Education How to access health informa tion online - Detail Indication:Nonsmoker Start:09-Apr-2019 Instruction Type:Patient Education Patient Instructions Indication:Nonsmoker Start:09-Apr-2019 Instruction Type:Provider Instructions for Treatment Patient Instructions Indication:Nonsmoker Start:09-Apr-2019 Instruction Type:Provider Instructions for Treatment How to access health informa tion online Indication:Anxiety Start:17-Jul-2018 Instruction Type:Patient Education How to access health informa tion online - Detail Indication:Anxiety Start:17-Jul-2018 Instruction Type:Patient Education Patient Instructions Indication:Anxiety Start:17-Jul-2018 Instruction Type:Provider Instructions for Treatment How to access health informa tion online Indication:Dysthymic Start:03-Apr-2018 Instruction Type:Patient Education How to access health informa tion online - Detail Indication:Dysthymic Start:03-Apr-2018 Instruction Type:Patient Education Patient Instructions Indication:Dysthymic Start:03-Apr-2018 Instruction Type:Provider Instructions for Treatment How to access health informa tion online Indication:[facility] Start:06-Feb-2018 Instruction Type:Patient Education How to access health informa tion online - Detail Indication:[facility] Start:06-Feb-2018 Instruction Type:Patient Education Patient Instructions Indication:[facility] Start:06-Feb-2018 Instruction Type:Provider Instructions for Treatment How to access health informa tion online Indication:Abdominal pain, generalized Start:26-Jan-2018 Instruction Type:Patient Education How to access health informa tion online - Detail Indication:Abdominal pain, generalized Start:26-Jan-2018 Instruction Type:Patient Education Patient Instructions Indication:Abdominal pain, generalized Start:26-Jan-2018 Instruction Type:Provider Instructions for Treatment How to access health informa tion online Indication:Right sided abdominal pain Start:11-Nov-2017 Instruction Type:Patient Education How to access health informa tion online - Detail Indication:Right sided abdominal pain Start:11-Nov-2017 Instruction Type:Patient Education Patient Instructions Indication:Right sided abdominal pain Start:11-Nov-2017 Instruction Type:Provider Instructions for Treatment How to access health informa tion online Indication:Abdominal pain, generalized Start:16-Oct-2017 Instruction Type:Patient Education How to access health informa tion online - Detail Indication:Abdominal pain, generalized Start:16-Oct-2017 Instruction Type:Patient Education Patient Instructions Indication:Abdominal pain, generalized Start:16-Oct-2017 Instruction Type:Provider Instructions for Treatment [facility]; [facility] Work Phone: Instructions* Name Dates Details Patient Instructions Indication:Nonsmoker Start:03-Jan-2023 Instruction Type:Provider Instructions for Treatment How to Access Health Informa tion Online using Patient Portal and [employer] Apps Indication:Nonsmoker Start:03-Jan-2023 Instruction Type:Patient Education Patient Instructions Indication:Nonsmoker Start:18-May-2021 Instruction Type:Provider Instructions for Treatment How to Access Health Informa tion Online using Patient Portal and [employer]rd [employer] Apps Indication:Nonsmoker Start:18-May-2021 Instruction Type:Patient Education How to Access Health Informa tion Online using Patient Portal and [employer] Apps Indication:Fever Start:21-Feb-2021 Instruction Type:Patient Education Patient Instructions Indication:Fever Start:21-Feb-2021 Instruction Type:Provider Instructions for Treatment Patient Instructions Indication:Impaired fasting glucose Start:05-Feb-2021 Instruction Type:Provider Instructions for Treatment How to Access Health Informa tion Online using Patient Portal and [employer]rd [employer] Apps Indication:Impaired fasting glucose Start:05-Feb-2021 Instruction Type:Patient Education Patient Instructions Indication:[facility] Start:03-Nov-2020 Instruction Type:Provider Instructions for Treatment How to Access Health Informa tion Online using Patient Portal and [employer]rd [employer] Apps Indication:[facility] Start:03-Nov-2020 Instruction Type:Patient Education How to access health informa tion online Indication:Acute diverticulitis Start:18-Aug-2020 Instruction Type:Patient Education How to access health informa tion online - Detail Indication:Acute diverticulitis Start:18-Aug-2020 Instruction Type:Patient Education Patient Instructions Indication:Acute diverticulitis Start:18-Aug-2020 Instruction Type:Provider Instructions for Treatment Patient Instructions Indication:Myalgia Start:15-Feb-2020 Instruction Type:Provider Instructions for Treatment How to access health informa tion online Indication:Anxiety Start:29-Oct-2019 Instruction Type:Patient Education How to access health informa tion online - Detail Indication:Anxiety Start:29-Oct-2019 Instruction Type:Patient Education Patient Instructions Indication:Anxiety Start:29-Oct-2019 Instruction Type:Provider Instructions for Treatment How to access health informa tion online Indication:Impaired fasting glucose Start:17-Sep-2019 Instruction Type:Patient Education How to access health informa tion online - Detail Indication:Impaired fasting glucose Start:17-Sep-2019 Instruction Type:Patient Education Patient Instructions Indication:Impaired fasting glucose Start:17-Sep-2019 Instruction Type:Provider Instructions for Treatment How to access health informa tion online Indication:Swollen finger Start:07-Sep-2019 Instruction Type:Patient Education How to access health informa tion online - Detail Indication:Swollen finger Start:07-Sep-2019 Instruction Type:Patient Education Patient Instructions Indication:Swollen finger Start:07-Sep-2019 Instruction Type:Provider Instructions for Treatment How to access health informa tion online Indication:BMI 28.0-28.9,adult Start:16-Jun-2019 Instruction Type:Patient Education How to access health informa tion online - Detail Indication:BMI 28.0-28.9,adult Start:16-Jun-2019 Instruction Type:Patient Education Patient Instructions Indication:BMI 28.0-28.9,adult Start:16-Jun-2019 Instruction Type:Provider Instructions for Treatment How to access health informa tion online Indication:Nonsmoker Start:09-Apr-2019 Instruction Type:Patient Education How to access health informa tion online - Detail Indication:Nonsmoker Start:09-Apr-2019 Instruction Type:Patient Education Patient Instructions Indication:Nonsmoker Start:09-Apr-2019 Instruction Type:Provider Instructions for Treatment Patient Instructions Indication:Nonsmoker Start:09-Apr-2019 Instruction Type:Provider Instructions for Treatment How to access health informa tion online Indication:Anxiety Start:17-Jul-2018 Instruction Type:Patient Education How to access health informa tion online - Detail Indication:Anxiety Start:17-Jul-2018 Instruction Type:Patient Education Patient Instructions Indication:Anxiety Start:17-Jul-2018 Instruction Type:Provider Instructions for Treatment How to access health informa tion online Indication:Dysthymic Start:03-Apr-2018 Instruction Type:Patient Education How to access health informa tion online - Detail Indication:Dysthymic Start:03-Apr-2018 Instruction Type:Patient Education Patient Instructions Indication:Dysthymic Start:03-Apr-2018 Instruction Type:Provider Instructions for Treatment How to access health informa tion online Indication:[facility] Start:06-Feb-2018 Instruction Type:Patient Education How to access health informa tion online - Detail Indication:[facility] Start:06-Feb-2018 Instruction Type:Patient Education Patient Instructions Indication:[facility] Start:06-Feb-2018 Instruction Type:Provider Instructions for Treatment How to access health informa tion online Indication:Abdominal pain, generalized Start:26-Jan-2018 Instruction Type:Patient Education How to access health informa tion online - Detail Indication:Abdominal pain, generalized Start:26-Jan-2018 Instruction Type:Patient Education Patient Instructions Indication:Abdominal pain, generalized Start:26-Jan-2018 Instruction Type:Provider Instructions for Treatment How to access health informa tion online Indication:Right sided abdominal pain Start:11-Nov-2017 Instruction Type:Patient Education How to access health informa tion online - Detail Indication:Right sided abdominal pain Start:11-Nov-2017 Instruction Type:Patient Education Patient Instructions Indication:Right sided abdominal pain Start:11-Nov-2017 Instruction Type:Provider Instructions for Treatment How to access health informa tion online Indication:Abdominal pain, generalized Start:16-Oct-2017 Instruction Type:Patient Education How to access health informa tion online - Detail Indication:Abdominal pain, generalized Start:16-Oct-2017 Instruction Type:Patient Education Patient Instructions Indication:Abdominal pain, generalized Start:16-Oct-2017 Instruction Type:Provider Instructions for Treatment [facility]; [facility] Work Phone: Instructions* Name Dates Details Patient Instructions Indication:Lumbar radiculopathy Start:28-Feb-2023 Instruction Type:Provider Instructions for Treatment How to Access Health Informa tion Online using Patient Portal and [employer]rd [employer] Apps Indication:Lumbar radiculopathy Start:28-Feb-2023 Instruction Type:Patient Education Patient Instructions Indication:Nonsmoker Start:03-Jan-2023 Instruction Type:Provider Instructions for Treatment How to Access Health Informa tion Online using Patient Portal and [employer]rd [employer] Apps Indication:Nonsmoker Start:03-Jan-2023 Instruction Type:Patient Education Patient Instructions Indication:Nonsmoker Start:18-May-2021 Instruction Type:Provider Instructions for Treatment How to Access Health Informa tion Online using Patient Portal and [employer] Apps Indication:Nonsmoker Start:18-May-2021 Instruction Type:Patient Education How to Access Health Informa tion Online using Patient Portal and [employer] Apps Indication:Fever Start:21-Feb-2021 Instruction Type:Patient Education Patient Instructions Indication:Fever Start:21-Feb-2021 Instruction Type:Provider Instructions for Treatment Patient Instructions Indication:Impaired fasting glucose Start:05-Feb-2021 Instruction Type:Provider Instructions for Treatment How to Access Health Informa tion Online using Patient Portal and [employer] Apps Indication:Impaired fasting glucose Start:05-Feb-2021 Instruction Type:Patient Education Patient Instructions Indication:[facility] Start:03-Nov-2020 Instruction Type:Provider Instructions for Treatment How to Access Health Informa tion Online using Patient Portal and [employer] Apps Indication:[facility] EX[facility] Start:03-Nov-2020 Instruction Type:Patient Education How to access health informa tion online Indication:Acute diverticulitis Start:18-Aug-2020 Instruction Type:Patient Education How to access health informa tion online - Detail Indication:Acute diverticulitis Start:18-Aug-2020 Instruction Type:Patient Education Patient Instructions Indication:Acute diverticulitis Start:18-Aug-2020 Instruction Type:Provider Instructions for Treatment Patient Instructions Indication:Myalgia Start:15-Feb-2020 Instruction Type:Provider Instructions for Treatment How to access health informa tion online Indication:Anxiety Start:29-Oct-2019 Instruction Type:Patient Education How to access health informa tion online - Detail Indication:Anxiety Start:29-Oct-2019 Instruction Type:Patient Education Patient Instructions Indication:Anxiety Start:29-Oct-2019 Instruction Type:Provider Instructions for Treatment How to access health informa tion online Indication:Impaired fasting glucose Start:17-Sep-2019 Instruction Type:Patient Education How to access health informa tion online - Detail Indication:Impaired fasting glucose Start:17-Sep-2019 Instruction Type:Patient Education Patient Instructions Indication:Impaired fasting glucose Start:17-Sep-2019 Instruction Type:Provider Instructions for Treatment How to access health informa tion online Indication:Swollen finger Start:07-Sep-2019 Instruction Type:Patient Education How to access health informa tion online - Detail Indication:Swollen finger Start:07-Sep-2019 Instruction Type:Patient Education Patient Instructions Indication:Swollen finger Start:07-Sep-2019 Instruction Type:Provider Instructions for Treatment How to access health informa tion online Indication:BMI 28.0-28.9,adult Start:16-Jun-2019 Instruction Type:Patient Education How to access health informa tion online - Detail Indication:BMI 28.0-28.9,adult Start:16-Jun-2019 Instruction Type:Patient Education Patient Instructions Indication:BMI 28.0-28.9,adult Start:16-Jun-2019 Instruction Type:Provider Instructions for Treatment How to access health informa tion online Indication:Nonsmoker Start:09-Apr-2019 Instruction Type:Patient Education How to access health informa tion online - Detail Indication:Nonsmoker Start:09-Apr-2019 Instruction Type:Patient Education Patient Instructions Indication:Nonsmoker Start:09-Apr-2019 Instruction Type:Provider Instructions for Treatment Patient Instructions Indication:Nonsmoker Start:09-Apr-2019 Instruction Type:Provider Instructions for Treatment How to access health informa tion online Indication:Anxiety Start:17-Jul-2018 Instruction Type:Patient Education How to access health informa tion online - Detail Indication:Anxiety Start:17-Jul-2018 Instruction Type:Patient Education Patient Instructions Indication:Anxiety Start:17-Jul-2018 Instruction Type:Provider Instructions for Treatment How to access health informa tion online Indication:Dysthymic Start:03-Apr-2018 Instruction Type:Patient Education How to access health informa tion online - Detail Indication:Dysthymic Start:03-Apr-2018 Instruction Type:Patient Education Patient Instructions Indication:Dysthymic Start:03-Apr-2018 Instruction Type:Provider Instructions for Treatment How to access health informa tion online Indication:[facility] Start:06-Feb-2018 Instruction Type:Patient Education How to access health informa tion online - Detail Indication:[facility] Start:06-Feb-2018 Instruction Type:Patient Education Patient Instructions Indication:[facility] Start:06-Feb-2018 Instruction Type:Provider Instructions for Treatment How to access health informa tion online Indication:Abdominal pain, generalized Start:26-Jan-2018 Instruction Type:Patient Education How to access health informa tion online - Detail Indication:Abdominal pain, generalized Start:26-Jan-2018 Instruction Type:Patient Education Patient Instructions Indication:Abdominal pain, generalized Start:26-Jan-2018 Instruction Type:Provider Instructions for Treatment How to access health informa tion online Indication:Right sided abdominal pain Start:11-Nov-2017 Instruction Type:Patient Education How to access health informa tion online - Detail Indication:Right sided abdominal pain Start:11-Nov-2017 Instruction Type:Patient Education Patient Instructions Indication:Right sided abdominal pain Start:11-Nov-2017 Instruction Type:Provider Instructions for Treatment How to access health informa tion online Indication:Abdominal pain, generalized Start:16-Oct-2017 Instruction Type:Patient Education How to access health informa tion online - Detail Indication:Abdominal pain, generalized Start:16-Oct-2017 Instruction Type:Patient Education Patient Instructions Indication:Abdominal pain, generalized Start:16-Oct-2017 Instruction Type:Provider Instructions for Treatment [facility]; [facility] Work Phone: Instructions* Name Dates Details Patient Instructions Indication:Lumbar radiculopathy Start:28-Feb-2023 Instruction Type:Provider Instructions for Treatment How to Access Health Informa tion Online using Patient Portal and [employer] Apps Indication:Lumbar radiculopathy Start:28-Feb-2023 Instruction Type:Patient Education Patient Instructions Indication:Nonsmoker Start:03-Jan-2023 Instruction Type:Provider Instructions for Treatment How to Access Health Informa tion Online using Patient Portal and [employer] Apps Indication:Nonsmoker Start:03-Jan-2023 Instruction Type:Patient Education Patient Instructions Indication:Nonsmoker Start:18-May-2021 Instruction Type:Provider Instructions for Treatment How to Access Health Informa tion Online using Patient Portal and [employer] Apps Indication:Nonsmoker Start:18-May-2021 Instruction Type:Patient Education How to Access Health Informa tion Online using Patient Portal and [employer] Apps Indication:Fever Start:21-Feb-2021 Instruction Type:Patient Education Patient Instructions Indication:Fever Start:21-Feb-2021 Instruction Type:Provider Instructions for Treatment Patient Instructions Indication:Impaired fasting glucose Start:05-Feb-2021 Instruction Type:Provider Instructions for Treatment How to Access Health Informa tion Online using Patient Portal and [employer] Apps Indication:Impaired fasting glucose Start:05-Feb-2021 Instruction Type:Patient Education Patient Instructions Indication:[facility] Start:03-Nov-2020 Instruction Type:Provider Instructions for Treatment How to Access Health Informa tion Online using Patient Portal and [employer] Apps Indication:[facility] Start:03-Nov-2020 Instruction Type:Patient Education How to access health informa tion online Indication:Acute diverticulitis Start:18-Aug-2020 Instruction Type:Patient Education How to access health informa tion online - Detail Indication:Acute diverticulitis Start:18-Aug-2020 Instruction Type:Patient Education Patient Instructions Indication:Acute diverticulitis Start:18-Aug-2020 Instruction Type:Provider Instructions for Treatment Patient Instructions Indication:Myalgia Start:15-Feb-2020 Instruction Type:Provider Instructions for Treatment How to access health informa tion online Indication:Anxiety Start:29-Oct-2019 Instruction Type:Patient Education How to access health informa tion online - Detail Indication:Anxiety Start:29-Oct-2019 Instruction Type:Patient Education Patient Instructions Indication:Anxiety Start:29-Oct-2019 Instruction Type:Provider Instructions for Treatment How to access health informa tion online Indication:Impaired fasting glucose Start:17-Sep-2019 Instruction Type:Patient Education How to access health informa tion online - Detail Indication:Impaired fasting glucose Start:17-Sep-2019 Instruction Type:Patient Education Patient Instructions Indication:Impaired fasting glucose Start:17-Sep-2019 Instruction Type:Provider Instructions for Treatment How to access health informa tion online Indication:Swollen finger Start:07-Sep-2019 Instruction Type:Patient Education How to access health informa tion online - Detail Indication:Swollen finger Start:07-Sep-2019 Instruction Type:Patient Education Patient Instructions Indication:Swollen finger Start:07-Sep-2019 Instruction Type:Provider Instructions for Treatment How to access health informa tion online Indication:BMI 28.0-28.9,adult Start:16-Jun-2019 Instruction Type:Patient Education How to access health informa tion online - Detail Indication:BMI 28.0-28.9,adult Start:16-Jun-2019 Instruction Type:Patient Education Patient Instructions Indication:BMI 28.0-28.9,adult Start:16-Jun-2019 Instruction Type:Provider Instructions for Treatment How to access health informa tion online Indication:Nonsmoker Start:09-Apr-2019 Instruction Type:Patient Education How to access health informa tion online - Detail Indication:Nonsmoker Start:09-Apr-2019 Instruction Type:Patient Education Patient Instructions Indication:Nonsmoker Start:09-Apr-2019 Instruction Type:Provider Instructions for Treatment Patient Instructions Indication:Nonsmoker Start:09-Apr-2019 Instruction Type:Provider Instructions for Treatment How to access health informa tion online Indication:Anxiety Start:17-Jul-2018 Instruction Type:Patient Education How to access health informa tion online - Detail Indication:Anxiety Start:17-Jul-2018 Instruction Type:Patient Education Patient Instructions Indication:Anxiety Start:17-Jul-2018 Instruction Type:Provider Instructions for Treatment How to access health informa tion online Indication:Dysthymic Start:03-Apr-2018 Instruction Type:Patient Education How to access health informa tion online - Detail Indication:Dysthymic Start:03-Apr-2018 Instruction Type:Patient Education Patient Instructions Indication:Dysthymic Start:03-Apr-2018 Instruction Type:Provider Instructions for Treatment How to access health informa tion online Indication:[facility] Start:06-Feb-2018 Instruction Type:Patient Education How to access health informa tion online - Detail Indication:[facility] Start:06-Feb-2018 Instruction Type:Patient Education Patient Instructions Indication:[facility] Start:06-Feb-2018 Instruction Type:Provider Instructions for Treatment How to access health informa tion online Indication:Abdominal pain, generalized Start:26-Jan-2018 Instruction Type:Patient Education How to access health informa tion online - Detail Indication:Abdominal pain, generalized Start:26-Jan-2018 Instruction Type:Patient Education Patient Instructions Indication:Abdominal pain, generalized Start:26-Jan-2018 Instruction Type:Provider Instructions for Treatment How to access health informa tion online Indication:Right sided abdominal pain Start:11-Nov-2017 Instruction Type:Patient Education How to access health informa tion online - Detail Indication:Right sided abdominal pain Start:11-Nov-2017 Instruction Type:Patient Education Patient Instructions Indication:Right sided abdominal pain Start:11-Nov-2017 Instruction Type:Provider Instructions for Treatment How to access health informa tion online Indication:Abdominal pain, generalized Start:16-Oct-2017 Instruction Type:Patient Education How to access health informa tion online - Detail Indication:Abdominal pain, generalized Start:16-Oct-2017 Instruction Type:Patient Education Patient Instructions Indication:Abdominal pain, generalized Start:16-Oct-2017 Instruction Type:Provider Instructions for Treatment [facility]; [facility] Work Phone: Instructions* Name Dates Details Patient Instructions Indication:Lumbar radiculopathy Start:28-Feb-2023 Instruction Type:Provider Instructions for Treatment How to Access Health Informa tion Online using Patient Portal and [employer] Indication:Lumbar radiculopathy Start:28-Feb-2023 Instruction Type:Patient Education Patient Instructions Indication:Nonsmoker Start:03-Jan-2023 Instruction Type:Provider Instructions for Treatment How to Access Health Informa tion Online using Patient Portal and [employer] Indication:Nonsmoker Start:03-Jan-2023 Instruction Type:Patient Education Patient Instructions Indication:Nonsmoker Start:18-May-2021 Instruction Type:Provider Instructions for Treatment How to Access Health Informa tion Online using Patient Portal and [employer] Indication:Nonsmoker Start:18-May-2021 Instruction Type:Patient Education How to Access Health Informa tion Online using Patient Portal and [employer] Apps Indication:Fever Start:21-Feb-2021 Instruction Type:Patient Education Patient Instructions Indication:Fever Start:21-Feb-2021 Instruction Type:Provider Instructions for Treatment Patient Instructions Indication:Impaired fasting glucose Start:05-Feb-2021 Instruction Type:Provider Instructions for Treatment How to Access Health Informa tion Online using Patient Portal and [employer] Indication:Impaired fasting glucose Start:05-Feb-2021 Instruction Type:Patient Education Patient Instructions Indication:[facility] EX[facility] Start:03-Nov-2020 Instruction Type:Provider Instructions for Treatment How to Access Health Informa tion Online using Patient Portal and [employer] Indication:[facility] EX[facility] Start:03-Nov-2020 Instruction Type:Patient Education How to access health informa tion online Indication:Acute diverticulitis Start:18-Aug-2020 Instruction Type:Patient Education How to access health informa tion online - Detail Indication:Acute diverticulitis Start:18-Aug-2020 Instruction Type:Patient Education Patient Instructions Indication:Acute diverticulitis Start:18-Aug-2020 Instruction Type:Provider Instructions for Treatment Patient Instructions Indication:Myalgia Start:15-Feb-2020 Instruction Type:Provider Instructions for Treatment How to access health informa tion online Indication:Anxiety Start:29-Oct-2019 Instruction Type:Patient Education How to access health informa tion online - Detail Indication:Anxiety Start:29-Oct-2019 Instruction Type:Patient Education Patient Instructions Indication:Anxiety Start:29-Oct-2019 Instruction Type:Provider Instructions for Treatment How to access health informa tion online Indication:Impaired fasting glucose Start:17-Sep-2019 Instruction Type:Patient Education How to access health informa tion online - Detail Indication:Impaired fasting glucose Start:17-Sep-2019 Instruction Type:Patient Education Patient Instructions Indication:Impaired fasting glucose Start:17-Sep-2019 Instruction Type:Provider Instructions for Treatment How to access health informa tion online Indication:Swollen finger Start:07-Sep-2019 Instruction Type:Patient Education How to access health informa tion online - Detail Indication:Swollen finger Start:07-Sep-2019 Instruction Type:Patient Education Patient Instructions Indication:Swollen finger Start:07-Sep-2019 Instruction Type:Provider Instructions for Treatment How to access health informa tion online Indication:BMI 28.0-28.9,adult Start:16-Jun-2019 Instruction Type:Patient Education How to access health informa tion online - Detail Indication:BMI 28.0-28.9,adult Start:16-Jun-2019 Instruction Type:Patient Education Patient Instructions Indication:BMI 28.0-28.9,adult Start:16-Jun-2019 Instruction Type:Provider Instructions for Treatment How to access health informa tion online Indication:Nonsmoker Start:09-Apr-2019 Instruction Type:Patient Education How to access health informa tion online - Detail Indication:Nonsmoker Start:09-Apr-2019 Instruction Type:Patient Education Patient Instructions Indication:Nonsmoker Start:09-Apr-2019 Instruction Type:Provider Instructions for Treatment Patient Instructions Indication:Nonsmoker Start:09-Apr-2019 Instruction Type:Provider Instructions for Treatment How to access health informa tion online Indication:Anxiety Start:17-Jul-2018 Instruction Type:Patient Education How to access health informa tion online - Detail Indication:Anxiety Start:17-Jul-2018 Instruction Type:Patient Education Patient Instructions Indication:Anxiety Start:17-Jul-2018 Instruction Type:Provider Instructions for Treatment How to access health informa tion online Indication:Dysthymic Start:03-Apr-2018 Instruction Type:Patient Education How to access health informa tion online - Detail Indication:Dysthymic Start:03-Apr-2018 Instruction Type:Patient Education Patient Instructions Indication:Dysthymic Start:03-Apr-2018 Instruction Type:Provider Instructions for Treatment How to access health informa tion online Indication:[facility] EX[facility] Start:06-Feb-2018 Instruction Type:Patient Education How to access health informa tion online - Detail Indication:[facility] Start:06-Feb-2018 Instruction Type:Patient Education Patient Instructions Indication:[facility] Start:06-Feb-2018 Instruction Type:Provider Instructions for Treatment How to access health informa tion online Indication:Abdominal pain, generalized Start:26-Jan-2018 Instruction Type:Patient Education How to access health informa tion online - Detail Indication:Abdominal pain, generalized Start:26-Jan-2018 Instruction Type:Patient Education Patient Instructions Indication:Abdominal pain, generalized Start:26-Jan-2018 Instruction Type:Provider Instructions for Treatment How to access health informa tion online Indication:Right sided abdominal pain Start:11-Nov-2017 Instruction Type:Patient Education How to access health informa tion online - Detail Indication:Right sided abdominal pain Start:11-Nov-2017 Instruction Type:Patient Education Patient Instructions Indication:Right sided abdominal pain Start:11-Nov-2017 Instruction Type:Provider Instructions for Treatment How to access health informa tion online Indication:Abdominal pain, generalized Start:16-Oct-2017 Instruction Type:Patient Education How to access health informa tion online - Detail Indication:Abdominal pain, generalized Start:16-Oct-2017 Instruction Type:Patient Education Patient Instructions Indication:Abdominal pain, generalized Start:16-Oct-2017 Instruction Type:Provider Instructions for Treatment [facility]; [facility] Work Phone: Instructions* Name Dates Details Patient Instructions Indication:Lumbar radiculopathy Start:28-Feb-2023 Instruction Type:Provider Instructions for Treatment How to Access Health Informa tion Online using Patient Portal and [employer] Indication:Lumbar radiculopathy Start:28-Feb-2023 Instruction Type:Patient Education Patient Instructions Indication:Nonsmoker Start:03-Jan-2023 Instruction Type:Provider Instructions for Treatment How to Access Health Informa tion Online using Patient Portal and [employer] Indication:Nonsmoker Start:03-Jan-2023 Instruction Type:Patient Education Patient Instructions Indication:Nonsmoker Start:18-May-2021 Instruction Type:Provider Instructions for Treatment How to Access Health Informa tion Online using Patient Portal and [employer] Indication:Nonsmoker Start:18-May-2021 Instruction Type:Patient Education How to Access Health Informa tion Online using Patient Portal and [employer] Indication:Fever Start:21-Feb-2021 Instruction Type:Patient Education Patient Instructions Indication:Fever Start:21-Feb-2021 Instruction Type:Provider Instructions for Treatment Patient Instructions Indication:Impaired fasting glucose Start:05-Feb-2021 Instruction Type:Provider Instructions for Treatment How to Access Health Informa tion Online using Patient Portal and [employer] Indication:Impaired fasting glucose Start:05-Feb-2021 Instruction Type:Patient Education Patient Instructions Indication:[facility] EX[facility] Start:03-Nov-2020 Instruction Type:Provider Instructions for Treatment How to Access Health Informa tion Online using Patient Portal and [employer] Indication:[facility] EX[facility] Start:03-Nov-2020 Instruction Type:Patient Education How to access health informa tion online Indication:Acute diverticulitis Start:18-Aug-2020 Instruction Type:Patient Education How to access health informa tion online - Detail Indication:Acute diverticulitis Start:18-Aug-2020 Instruction Type:Patient Education Patient Instructions Indication:Acute diverticulitis Start:18-Aug-2020 Instruction Type:Provider Instructions for Treatment Patient Instructions Indication:Myalgia Start:15-Feb-2020 Instruction Type:Provider Instructions for Treatment How to access health informa tion online Indication:Anxiety Start:29-Oct-2019 Instruction Type:Patient Education How to access health informa tion online - Detail Indication:Anxiety Start:29-Oct-2019 Instruction Type:Patient Education Patient Instructions Indication:Anxiety Start:29-Oct-2019 Instruction Type:Provider Instructions for Treatment How to access health informa tion online Indication:Impaired fasting glucose Start:17-Sep-2019 Instruction Type:Patient Education How to access health informa tion online - Detail Indication:Impaired fasting glucose Start:17-Sep-2019 Instruction Type:Patient Education Patient Instructions Indication:Impaired fasting glucose Start:17-Sep-2019 Instruction Type:Provider Instructions for Treatment How to access health informa tion online Indication:Swollen finger Start:07-Sep-2019 Instruction Type:Patient Education How to access health informa tion online - Detail Indication:Swollen finger Start:07-Sep-2019 Instruction Type:Patient Education Patient Instructions Indication:Swollen finger Start:07-Sep-2019 Instruction Type:Provider Instructions for Treatment How to access health informa tion online Indication:BMI 28.0-28.9,adult Start:16-Jun-2019 Instruction Type:Patient Education How to access health informa tion online - Detail Indication:BMI 28.0-28.9,adult Start:16-Jun-2019 Instruction Type:Patient Education Patient Instructions Indication:BMI 28.0-28.9,adult Start:16-Jun-2019 Instruction Type:Provider Instructions for Treatment How to access health informa tion online Indication:Nonsmoker Start:09-Apr-2019 Instruction Type:Patient Education How to access health informa tion online - Detail Indication:Nonsmoker Start:09-Apr-2019 Instruction Type:Patient Education Patient Instructions Indication:Nonsmoker Start:09-Apr-2019 Instruction Type:Provider Instructions for Treatment Patient Instructions Indication:Nonsmoker Start:09-Apr-2019 Instruction Type:Provider Instructions for Treatment How to access health informa tion online Indication:Anxiety Start:17-Jul-2018 Instruction Type:Patient Education How to access health informa tion online - Detail Indication:Anxiety Start:17-Jul-2018 Instruction Type:Patient Education Patient Instructions Indication:Anxiety Start:17-Jul-2018 Instruction Type:Provider Instructions for Treatment How to access health informa tion online Indication:Dysthymic Start:03-Apr-2018 Instruction Type:Patient Education How to access health informa tion online - Detail Indication:Dysthymic Start:03-Apr-2018 Instruction Type:Patient Education Patient Instructions Indication:Dysthymic Start:03-Apr-2018 Instruction Type:Provider Instructions for Treatment How to access health informa tion online Indication:[facility] EX[facility] Start:06-Feb-2018 Instruction Type:Patient Education How to access health informa tion online - Detail Indication:[facility] Start:06-Feb-2018 Instruction Type:Patient Education Patient Instructions Indication:[facility] EX[facility] Start:06-Feb-2018 Instruction Type:Provider Instructions for Treatment How to access health informa tion online Indication:Abdominal pain, generalized Start:26-Jan-2018 Instruction Type:Patient Education How to access health informa tion online - Detail Indication:Abdominal pain, generalized Start:26-Jan-2018 Instruction Type:Patient Education Patient Instructions Indication:Abdominal pain, generalized Start:26-Jan-2018 Instruction Type:Provider Instructions for Treatment How to access health informa tion online Indication:Right sided abdominal pain Start:11-Nov-2017 Instruction Type:Patient Education How to access health informa tion online - Detail Indication:Right sided abdominal pain Start:11-Nov-2017 Instruction Type:Patient Education Patient Instructions Indication:Right sided abdominal pain Start:11-Nov-2017 Instruction Type:Provider Instructions for Treatment How to access health informa tion online Indication:Abdominal pain, generalized Start:16-Oct-2017 Instruction Type:Patient Education How to access health informa tion online - Detail Indication:Abdominal pain, generalized Start:16-Oct-2017 Instruction Type:Patient Education Patient Instructions Indication:Abdominal pain, generalized Start:16-Oct-2017 Instruction Type:Provider Instructions for Treatment [facility]; [facility] Work Phone: Family History Unknown Family Member Name Dates Details Father Comments: 61- stomac h cancer Status:Active Mother Comments:still living- healt hy Status:Active Sister 1 Comments:healthy - 2 sisters Status:Active Unknown Family Member Name Dates Details Father Comments: 61- stomac h cancer Status:Active Mother Comments:still living- healt hy Status:Active Sister 1 Comments:healthy - 2 sisters Status:Active Unknown Family Member Name Dates Details Father Comments: 61- stomac h cancer Status:Active Mother Comments:still living- healt hy Status:Active Sister 1 Comments:healthy - 2 sisters Status:Active Unknown Family Member Name Dates Details Father Comments: 61- stomac h cancer Status:Active Mother Comments:still living- healt hy Status:Active Sister 1 Comments:healthy - 2 sisters Status:Active Unknown Family Member Name Dates Details Father Comments: 61- stomac h cancer Status:Active Mother Comments:still living- healt hy Status:Active Sister 1 Comments:healthy - 2 sisters Status:Active Unknown Family Member Name Dates Details Father Comments: 61- stomac h cancer Status:Active Mother Comments:still living- healt hy Status:Active Sister 1 Comments:healthy - 2 sisters Status:Active Unknown Family Member Name Dates Details Father Comments: 61- stomac h cancer Status:Active Mother Comments:still living- healt hy Status:Active Sister 1 Comments:healthy - 2 sisters Status:Active Unknown Family Member Name Dates Details Father Comments: 61- stomac h cancer Status:Active Mother Comments:still living- healt hy Status:Active Sister 1 Comments:healthy - 2 sisters Status:Active Unknown Family Member Name Dates Details Father Comments: 61- stomac h cancer Status:Active Mother Comments:still living- healt hy Status:Active Sister 1 Comments:healthy - 2 sisters Status:Active Unknown Family Member Name Dates Details Father Comments: 61- stomac h cancer Status:Active Mother Comments:still living- healt hy Status:Active Sister 1 Comments:healthy - 2 sisters Status:Active Unknown Family Member Name Dates Details Father Comments: 61- stomac h cancer Status:Active Mother Comments:still living- healt hy Status:Active Sister 1 Comments:healthy - 2 sisters Status:Active Unknown Family Member Name Dates Details Father Comments: 61- stomac h cancer Status:Active Mother Comments:still living- healt hy Status:Active Sister 1 Comments:healthy - 2 sisters Status:Active Unknown Family Member Name Dates Details Father Comments: 61- stomac h cancer Status:Active Mother Comments:still living- healt hy Status:Active Sister 1 Comments:healthy - 2 sisters Status:Active Unknown Family Member Name Dates Details Father Comments: 61- stomac h cancer Status:Active Mother Comments:still living- healt hy Status:Active Sister 1 Comments:healthy - 2 sisters Status:Active Unknown Family Member Name Dates Details Father Comments: 61- stomac h cancer Status:Active Mother Comments:still living- healt hy Status:Active Sister 1 Comments:healthy - 2 sisters Status:Active Unknown Family Member Name Dates Details Father Comments: 61- stomac h cancer Status:Active Mother Comments:still living- healt hy Status:Active Sister 1 Comments:healthy - 2 sisters Status:Active Unknown Family Member Name Dates Details Father Comments: 61- stomac h cancer Status:Active Mother Comments:still living- healt hy Status:Active Sister 1 Comments:healthy - 2 sisters Status:Active Unknown Family Member Name Dates Details Father Comments: 61- stomac h cancer Status:Active Mother Comments:still living- healt hy Status:Active Sister 1 Comments:healthy - 2 sisters Status:Active Unknown Family Member Name Dates Details Father Comments: 61- stomac h cancer Status:Active Mother Comments:still living- healt hy Status:Active Sister 1 Comments:healthy - 2 sisters Status:Active Unknown Family Member Name Dates Details Father Comments: 61- stomac h cancer Status:Active Mother Comments:still living- healt hy Status:Active Sister 1 Comments:healthy - 2 sisters Status:Active Unknown Family Member Name Dates Details Father Comments: 61- stomac h cancer Status:Active Mother Comments:still living- healt hy Status:Active Sister 1 Comments:healthy - 2 sisters Status:Active Unknown Family Member Name Dates Details Father Comments: 61- stomac h cancer Status:Active Mother Comments:still living- healt hy Status:Active Sister 1 Comments:healthy - 2 sisters Status:Active Unknown Family Member Name Dates Details Father Comments: 61- stomac h cancer Status:Active Mother Comments:still living- healt hy Status:Active Sister 1 Comments:healthy - 2 sisters Status:Active Unknown Family Member Name Dates Details Father Comments: 61- stomac h cancer Status:Active Mother Comments:still living- healt hy Status:Active Sister 1 Comments:healthy - 2 sisters Status:Active Unknown Family Member Name Dates Details Father Comments: 61- stomac h cancer Status:Active Mother Comments:still living- healt hy Status:Active Sister 1 Comments:healthy - 2 sisters Status:Active Unknown Family Member Name Dates Details Father Comments: 61- stomac h cancer Status:Active Mother Comments:still living- healt hy Status:Active Sister 1 Comments:healthy - 2 sisters Status:Active Instructions Name Dates Details Anxiety : How to access heal th information online Indication:Anxiety Anxiety : How to access heal th information online - Detail Indication:Anxiety Anxiety : Patient Instructio ns Indication:Anxiety Dysthymic : How to access he alth information online Indication:Dysthymic Dysthymic : How to access he alth information online - Detail Indication:Dysthymic Dysthymic : Patient Instruct ions Indication:Dysthymic [facility] WE[facility] EXAM : How to access health information online Indication:[facility] : How to access health information online - Detail Indication:[facility] Patien t Instructions Ind[facility] Abdominal pain, generalized : How to access health information online Indication:Abdominal pain, generalized Abdominal pain, generalized : How to access health information online - Detail Indication:Abdominal pain, generalized Abdominal pain, generalized : Patient Instructions Indication:Abdominal pain, generalized Right sided abdominal pain : How to access health information online Indication:Right sided abdominal pain Right sided abdominal pain : How to access health information online - Detail Indication:Right sided abdominal pain Right sided abdominal pain : Patient Instructions Indication:Right sided abdominal pain Name Dates Details Anxiety : How to access heal th information online Indication:Anxiety Anxiety : How to access heal th information online - Detail Indication:Anxiety Anxiety : Patient Instructio ns Indication:Anxiety Dysthymic : How to access he alth information online Indication:Dysthymic Dysthymic : How to access he alth information online - Detail Indication:Dysthymic Dysthymic : Patient Instruct ions Indication:Dysthymic [facility] EXAM : How to access health information online Indication:[facility] : How to access health information online - Detail Indication:[facility] : Patien t Instructions Indication:[facility] EX[facility] Abdominal pain, generalized : How to access health information online Indication:Abdominal pain, generalized Abdominal pain, generalized : How to access health information online - Detail Indication:Abdominal pain, generalized Abdominal pain, generalized : Patient Instructions Indication:Abdominal pain, generalized Right sided abdominal pain : How to access health information online Indication:Right sided abdominal pain Right sided abdominal pain : How to access health information online - Detail Indication:Right sided abdominal pain Right sided abdominal pain : Patient Instructions Indication:Right sided abdominal pain Name Dates Details How to access health informa tion online Indication:Anxiety Start:17-Jul-2018 Instruction Type:Patient Education How to access health informa tion online - Detail Indication:Anxiety Start:17-Jul-2018 Instruction Type:Patient Education Patient Instructions Indication:Anxiety Start:17-Jul-2018 Instruction Type:Provider Instructions for Treatment How to access health informa tion online Indication:Dysthymic Start:03-Apr-2018 Instruction Type:Patient Education How to access health informa tion online - Detail Indication:Dysthymic Start:03-Apr-2018 Instruction Type:Patient Education Patient Instructions Indication:Dysthymic Start:03-Apr-2018 Instruction Type:Provider Instructions for Treatment How to access health informa tion online Indication:[facility] EX[facility] Start:06-Feb-2018 Instruction Type:Patient Education How to access health informa tion online - Detail [facility] Start:06-Feb-2018 Instruction Type:Patient Education Patient Instructions Indication:[facility] Start:06-Feb-2018 Instruction Type:Provider Instructions for Treatment How to access health informa tion online Indication:Abdominal pain, generalized Start:26-Jan-2018 Instruction Type:Patient Education How to access health informa tion online - Detail Indication:Abdominal pain, generalized Start:26-Jan-2018 Instruction Type:Patient Education Patient Instructions Indication:Abdominal pain, generalized Start:26-Jan-2018 Instruction Type:Provider Instructions for Treatment How to access health informa tion online Indication:Right sided abdominal pain Start:11-Nov-2017 Instruction Type:Patient Education How to access health informa tion online - Detail Indication:Right sided abdominal pain Start:11-Nov-2017 Instruction Type:Patient Education Patient Instructions Indication:Right sided abdominal pain Start:11-Nov-2017 Instruction Type:Provider Instructions for Treatment How to access health informa tion online Indication:Abdominal pain, generalized Start:16-Oct-2017 Instruction Type:Patient Education How to access health informa tion online - Detail Indication:Abdominal pain, generalized Start:16-Oct-2017 Instruction Type:Patient Education Patient Instructions Indication:Abdominal pain, generalized Start:16-Oct-2017 Instruction Type:Provider Instructions for Treatment Name Dates Details How to access health informa tion online Indication:Nonsmoker Start:09-Apr-2019 Instruction Type:Patient Education How to access health informa tion online - Detail Indication:Nonsmoker Start:09-Apr-2019 Instruction Type:Patient Education Patient Instructions Indication:Nonsmoker Start:09-Apr-2019 Instruction Type:Provider Instructions for Treatment How to access health informa tion online Indication:Anxiety Start:17-Jul-2018 Instruction Type:Patient Education How to access health informa tion online - Detail Indication:Anxiety Start:17-Jul-2018 Instruction Type:Patient Education Patient Instructions Indication:Anxiety Start:17-Jul-2018 Instruction Type:Provider Instructions for Treatment How to access health informa tion online Indication:Dysthymic Start:03-Apr-2018 Instruction Type:Patient Education How to access health informa tion online - Detail Indication:Dysthymic Start:03-Apr-2018 Instruction Type:Patient Education Patient Instructions Indication:Dysthymic Start:03-Apr-2018 Instruction Type:Provider Instructions for Treatment How to access health informa tion online Indication:[facility] EX[facility] Start:06-Feb-2018 Instruction Type:Patient Education How to access health informa tion online - Detail Indication:[facility] Start:06-Feb-2018 Instruction Type:Patient Education Patient Instructions Indication:[facility] Start:06-Feb-2018 Instruction Type:Provider Instructions for Treatment How to access health informa tion online Indication:Abdominal pain, generalized Start:26-Jan-2018 Instruction Type:Patient Education How to access health informa tion online - Detail Indication:Abdominal pain, generalized Start:26-Jan-2018 Instruction Type:Patient Education Patient Instructions Indication:Abdominal pain, generalized Start:26-Jan-2018 Instruction Type:Provider Instructions for Treatment How to access health informa tion online Indication:Right sided abdominal pain Start:11-Nov-2017 Instruction Type:Patient Education How to access health informa tion online - Detail Indication:Right sided abdominal pain Start:11-Nov-2017 Instruction Type:Patient Education Patient Instructions Indication:Right sided abdominal pain Start:11-Nov-2017 Instruction Type:Provider Instructions for Treatment How to access health informa tion online Indication:Abdominal pain, generalized Start:16-Oct-2017 Instruction Type:Patient Education How to access health informa tion online - Detail Indication:Abdominal pain, generalized Start:16-Oct-2017 Instruction Type:Patient Education Patient Instructions Indication:Abdominal pain, generalized Start:16-Oct-2017 Instruction Type:Provider Instructions for Treatment Name Dates Details How to access health informa tion online Indication:Nonsmoker Start:09-Apr-2019 Instruction Type:Patient Education How to access health informa tion online - Detail Indication:Nonsmoker Start:09-Apr-2019 Instruction Type:Patient Education Patient Instructions Indication:Nonsmoker Start:09-Apr-2019 Instruction Type:Provider Instructions for Treatment How to access health informa tion online Indication:Anxiety Start:17-Jul-2018 Instruction Type:Patient Education How to access health informa tion online - Detail Indication:Anxiety Start:17-Jul-2018 Instruction Type:Patient Education Patient Instructions Indication:Anxiety Start:17-Jul-2018 Instruction Type:Provider Instructions for Treatment How to access health informa tion online Indication:Dysthymic Start:03-Apr-2018 Instruction Type:Patient Education How to access health informa tion online - Detail Indication:Dysthymic Start:03-Apr-2018 Instruction Type:Patient Education Patient Instructions Indication:Dysthymic Start:03-Apr-2018 Instruction Type:Provider Instructions for Treatment How to access health informa tion online Indication:[facility] Start:06-Feb-2018 Instruction Type:Patient Education How to access health informa tion online - Detail Indication:[facility] Start:06-Feb-2018 Instruction Type:Patient Education Patient Instructions Indication:[facility] Start:06-Feb-2018 Instruction Type:Provider Instructions for Treatment How to access health informa tion online Indication:Abdominal pain, generalized Start:26-Jan-2018 Instruction Type:Patient Education How to access health informa tion online - Detail Indication:Abdominal pain, generalized Start:26-Jan-2018 Instruction Type:Patient Education Patient Instructions Indication:Abdominal pain, generalized Start:26-Jan-2018 Instruction Type:Provider Instructions for Treatment How to access health informa tion online Indication:Right sided abdominal pain Start:11-Nov-2017 Instruction Type:Patient Education How to access health informa tion online - Detail Indication:Right sided abdominal pain Start:11-Nov-2017 Instruction Type:Patient Education Patient Instructions Indication:Right sided abdominal pain Start:11-Nov-2017 Instruction Type:Provider Instructions for Treatment How to access health informa tion online Indication:Abdominal pain, generalized Start:16-Oct-2017 Instruction Type:Patient Education How to access health informa tion online - Detail Indication:Abdominal pain, generalized Start:16-Oct-2017 Instruction Type:Patient Education Patient Instructions Indication:Abdominal pain, generalized Start:16-Oct-2017 Instruction Type:Provider Instructions for Treatment Name Dates Details How to access health informa tion online Indication:Nonsmoker Start:09-Apr-2019 Instruction Type:Patient Education How to access health informa tion online - Detail Indication:Nonsmoker Start:09-Apr-2019 Instruction Type:Patient Education Patient Instructions Indication:Nonsmoker Start:09-Apr-2019 Instruction Type:Provider Instructions for Treatment How to access health informa tion online Indication:Anxiety Start:17-Jul-2018 Instruction Type:Patient Education How to access health informa tion online - Detail Indication:Anxiety Start:17-Jul-2018 Instruction Type:Patient Education Patient Instructions Indication:Anxiety Start:17-Jul-2018 Instruction Type:Provider Instructions for Treatment How to access health informa tion online Indication:Dysthymic Start:03-Apr-2018 Instruction Type:Patient Education How to access health informa tion online - Detail Indication:Dysthymic Start:03-Apr-2018 Instruction Type:Patient Education Patient Instructions Indication:Dysthymic Start:03-Apr-2018 Instruction Type:Provider Instructions for Treatment How to access health informa tion online Indication:[facility] Start:06-Feb-2018 Instruction Type:Patient Education How to access health informa tion online - Detail Indication:[facility] Start:06-Feb-2018 Instruction Type:Patient Education Patient Instructions Indication:[facility] Start:06-Feb-2018 Instruction Type:Provider Instructions for Treatment How to access health informa tion online Indication:Abdominal pain, generalized Start:26-Jan-2018 Instruction Type:Patient Education How to access health informa tion online - Detail Indication:Abdominal pain, generalized Start:26-Jan-2018 Instruction Type:Patient Education Patient Instructions Indication:Abdominal pain, generalized Start:26-Jan-2018 Instruction Type:Provider Instructions for Treatment How to access health informa tion online Indication:Right sided abdominal pain Start:11-Nov-2017 Instruction Type:Patient Education How to access health informa tion online - Detail Indication:Right sided abdominal pain Start:11-Nov-2017 Instruction Type:Patient Education Patient Instructions Indication:Right sided abdominal pain Start:11-Nov-2017 Instruction Type:Provider Instructions for Treatment How to access health informa tion online Indication:Abdominal pain, generalized Start:16-Oct-2017 Instruction Type:Patient Education How to access health informa tion online - Detail Indication:Abdominal pain, generalized Start:16-Oct-2017 Instruction Type:Patient Education Patient Instructions Indication:Abdominal pain, generalized Start:16-Oct-2017 Instruction Type:Provider Instructions for Treatment Name Dates Details Patient Instructions Indication:Myalgia Start:15-Feb-2020 Instruction Type:Provider Instructions for Treatment How to access health informa tion online Indication:Anxiety Start:29-Oct-2019 Instruction Type:Patient Education How to access health informa tion online - Detail Indication:Anxiety Start:29-Oct-2019 Instruction Type:Patient Education Patient Instructions Indication:Anxiety Start:29-Oct-2019 Instruction Type:Provider Instructions for Treatment How to access health informa tion online Indication:Impaired fasting glucose Start:17-Sep-2019 Instruction Type:Patient Education How to access health informa tion online - Detail Indication:Impaired fasting glucose Start:17-Sep-2019 Instruction Type:Patient Education Patient Instructions Indication:Impaired fasting glucose Start:17-Sep-2019 Instruction Type:Provider Instructions for Treatment How to access health informa tion online Indication:Swollen finger Start:07-Sep-2019 Instruction Type:Patient Education How to access health informa tion online - Detail Indication:Swollen finger Start:07-Sep-2019 Instruction Type:Patient Education Patient Instructions Indication:Swollen finger Start:07-Sep-2019 Instruction Type:Provider Instructions for Treatment How to access health informa tion online Indication:BMI 28.0-28.9,adult Start:16-Jun-2019 Instruction Type:Patient Education How to access health informa tion online - Detail Indication:BMI 28.0-28.9,adult Start:16-Jun-2019 Instruction Type:Patient Education Patient Instructions Indication:BMI 28.0-28.9,adult Start:16-Jun-2019 Instruction Type:Provider Instructions for Treatment How to access health informa tion online Indication:Nonsmoker Start:09-Apr-2019 Instruction Type:Patient Education How to access health informa tion online - Detail Indication:Nonsmoker Start:09-Apr-2019 Instruction Type:Patient Education Patient Instructions Indication:Nonsmoker Start:09-Apr-2019 Instruction Type:Provider Instructions for Treatment How to access health informa tion online Indication:Anxiety Start:17-Jul-2018 Instruction Type:Patient Education How to access health informa tion online - Detail Indication:Anxiety Start:17-Jul-2018 Instruction Type:Patient Education Patient Instructions Indication:Anxiety Start:17-Jul-2018 Instruction Type:Provider Instructions for Treatment How to access health informa tion online Indication:Dysthymic Start:03-Apr-2018 Instruction Type:Patient Education How to access health informa tion online - Detail Indication:Dysthymic Start:03-Apr-2018 Instruction Type:Patient Education Patient Instructions Indication:Dysthymic Start:03-Apr-2018 Instruction Type:Provider Instructions for Treatment How to access health informa tion online Indication:[facility] Start:06-Feb-2018 Instruction Type:Patient Education How to access health informa tion online - Detail Indication:[facility] Start:06-Feb-2018 Instruction Type:Patient Education Patient Instructions Indication:[facility] Start:06-Feb-2018 Instruction Type:Provider Instructions for Treatment How to access health informa tion online Indication:Abdominal pain, generalized Start:26-Jan-2018 Instruction Type:Patient Education How to access health informa tion online - Detail Indication:Abdominal pain, generalized Start:26-Jan-2018 Instruction Type:Patient Education Patient Instructions Indication:Abdominal pain, generalized Start:26-Jan-2018 Instruction Type:Provider Instructions for Treatment How to access health informa tion online Indication:Right sided abdominal pain Start:11-Nov-2017 Instruction Type:Patient Education How to access health informa tion online - Detail Indication:Right sided abdominal pain Start:11-Nov-2017 Instruction Type:Patient Education Patient Instructions Indication:Right sided abdominal pain Start:11-Nov-2017 Instruction Type:Provider Instructions for Treatment How to access health informa tion online Indication:Abdominal pain, generalized Start:16-Oct-2017 Instruction Type:Patient Education How to access health informa tion online - Detail Indication:Abdominal pain, generalized Start:16-Oct-2017 Instruction Type:Patient Education Patient Instructions Indication:Abdominal pain, generalized Start:16-Oct-2017 Instruction Type:Provider Instructions for Treatment Name Dates Details Patient Instructions Indication:Myalgia Start:15-Feb-2020 Instruction Type:Provider Instructions for Treatment How to access health informa tion online Indication:Anxiety Start:29-Oct-2019 Instruction Type:Patient Education How to access health informa tion online - Detail Indication:Anxiety Start:29-Oct-2019 Instruction Type:Patient Education Patient Instructions Indication:Anxiety Start:29-Oct-2019 Instruction Type:Provider Instructions for Treatment How to access health informa tion online Indication:Impaired fasting glucose Start:17-Sep-2019 Instruction Type:Patient Education How to access health informa tion online - Detail Indication:Impaired fasting glucose Start:17-Sep-2019 Instruction Type:Patient Education Patient Instructions Indication:Impaired fasting glucose Start:17-Sep-2019 Instruction Type:Provider Instructions for Treatment How to access health informa tion online Indication:Swollen finger Start:07-Sep-2019 Instruction Type:Patient Education How to access health informa tion online - Detail Indication:Swollen finger Start:07-Sep-2019 Instruction Type:Patient Education Patient Instructions Indication:Swollen finger Start:07-Sep-2019 Instruction Type:Provider Instructions for Treatment How to access health informa tion online Indication:BMI 28.0-28.9,adult Start:16-Jun-2019 Instruction Type:Patient Education How to access health informa tion online - Detail Indication:BMI 28.0-28.9,adult Start:16-Jun-2019 Instruction Type:Patient Education Patient Instructions Indication:BMI 28.0-28.9,adult Start:16-Jun-2019 Instruction Type:Provider Instructions for Treatment How to access health informa tion online Indication:Nonsmoker Start:09-Apr-2019 Instruction Type:Patient Education How to access health informa tion online - Detail Indication:Nonsmoker Start:09-Apr-2019 Instruction Type:Patient Education Patient Instructions Indication:Nonsmoker Start:09-Apr-2019 Instruction Type:Provider Instructions for Treatment How to access health informa tion online Indication:Anxiety Start:17-Jul-2018 Instruction Type:Patient Education How to access health informa tion online - Detail Indication:Anxiety Start:17-Jul-2018 Instruction Type:Patient Education Patient Instructions Indication:Anxiety Start:17-Jul-2018 Instruction Type:Provider Instructions for Treatment How to access health informa tion online Indication:Dysthymic Start:03-Apr-2018 Instruction Type:Patient Education How to access health informa tion online - Detail Indication:Dysthymic Start:03-Apr-2018 Instruction Type:Patient Education Patient Instructions Indication:Dysthymic Start:03-Apr-2018 Instruction Type:Provider Instructions for Treatment How to access health informa tion online Indication:[facility] Start:06-Feb-2018 Instruction Type:Patient Education How to access health informa tion online - Detail Indication:[facility] Start:06-Feb-2018 Instruction Type:Patient Education Patient Instructions Indication:[facility] Start:06-Feb-2018 Instruction Type:Provider Instructions for Treatment How to access health informa tion online Indication:Abdominal pain, generalized Start:26-Jan-2018 Instruction Type:Patient Education How to access health informa tion online - Detail Indication:Abdominal pain, generalized Start:26-Jan-2018 Instruction Type:Patient Education Patient Instructions Indication:Abdominal pain, generalized Start:26-Jan-2018 Instruction Type:Provider Instructions for Treatment How to access health informa tion online Indication:Right sided abdominal pain Start:11-Nov-2017 Instruction Type:Patient Education How to access health informa tion online - Detail Indication:Right sided abdominal pain Start:11-Nov-2017 Instruction Type:Patient Education Patient Instructions Indication:Right sided abdominal pain Start:11-Nov-2017 Instruction Type:Provider Instructions for Treatment How to access health informa tion online Indication:Abdominal pain, generalized Start:16-Oct-2017 Instruction Type:Patient Education How to access health informa tion online - Detail Indication:Abdominal pain, generalized Start:16-Oct-2017 Instruction Type:Patient Education Patient Instructions Indication:Abdominal pain, generalized Start:16-Oct-2017 Instruction Type:Provider Instructions for Treatment Name Dates Details How to access health informa tion online Indication:Acute diverticulitis Start:18-Aug-2020 Instruction Type:Patient Education How to access health informa tion online - Detail Indication:Acute diverticulitis Start:18-Aug-2020 Instruction Type:Patient Education Patient Instructions Indication:Acute diverticulitis Start:18-Aug-2020 Instruction Type:Provider Instructions for Treatment Patient Instructions Indication:Myalgia Start:15-Feb-2020 Instruction Type:Provider Instructions for Treatment How to access health informa tion online Indication:Anxiety Start:29-Oct-2019 Instruction Type:Patient Education How to access health informa tion online - Detail Indication:Anxiety Start:29-Oct-2019 Instruction Type:Patient Education Patient Instructions Indication:Anxiety Start:29-Oct-2019 Instruction Type:Provider Instructions for Treatment How to access health informa tion online Indication:Impaired fasting glucose Start:17-Sep-2019 Instruction Type:Patient Education How to access health informa tion online - Detail Indication:Impaired fasting glucose Start:17-Sep-2019 Instruction Type:Patient Education Patient Instructions Indication:Impaired fasting glucose Start:17-Sep-2019 Instruction Type:Provider Instructions for Treatment How to access health informa tion online Indication:Swollen finger Start:07-Sep-2019 Instruction Type:Patient Education How to access health informa tion online - Detail Indication:Swollen finger Start:07-Sep-2019 Instruction Type:Patient Education Patient Instructions Indication:Swollen finger Start:07-Sep-2019 Instruction Type:Provider Instructions for Treatment How to access health informa tion online Indication:BMI 28.0-28.9,adult Start:16-Jun-2019 Instruction Type:Patient Education How to access health informa tion online - Detail Indication:BMI 28.0-28.9,adult Start:16-Jun-2019 Instruction Type:Patient Education Patient Instructions Indication:BMI 28.0-28.9,adult Start:16-Jun-2019 Instruction Type:Provider Instructions for Treatment How to access health informa tion online Indication:Nonsmoker Start:09-Apr-2019 Instruction Type:Patient Education How to access health informa tion online - Detail Indication:Nonsmoker Start:09-Apr-2019 Instruction Type:Patient Education Patient Instructions Indication:Nonsmoker Start:09-Apr-2019 Instruction Type:Provider Instructions for Treatment How to access health informa tion online Indication:Anxiety Start:17-Jul-2018 Instruction Type:Patient Education How to access health informa tion online - Detail Indication:Anxiety Start:17-Jul-2018 Instruction Type:Patient Education Patient Instructions Indication:Anxiety Start:17-Jul-2018 Instruction Type:Provider Instructions for Treatment How to access health informa tion online Indication:Dysthymic Start:03-Apr-2018 Instruction Type:Patient Education How to access health informa tion online - Detail Indication:Dysthymic Start:03-Apr-2018 Instruction Type:Patient Education Patient Instructions Indication:Dysthymic Start:03-Apr-2018 Instruction Type:Provider Instructions for Treatment How to access health informa tion online Indication:[facility] Start:06-Feb-2018 Instruction Type:Patient Education How to access health informa tion online - Detail Indication:[facility] Start:06-Feb-2018 Instruction Type:Patient Education Patient Instructions Indication:[facility] Start:06-Feb-2018 Instruction Type:Provider Instructions for Treatment How to access health informa tion online Indication:Abdominal pain, generalized Start:26-Jan-2018 Instruction Type:Patient Education How to access health informa tion online - Detail Indication:Abdominal pain, generalized Start:26-Jan-2018 Instruction Type:Patient Education Patient Instructions Indication:Abdominal pain, generalized Start:26-Jan-2018 Instruction Type:Provider Instructions for Treatment How to access health informa tion online Indication:Right sided abdominal pain Start:11-Nov-2017 Instruction Type:Patient Education How to access health informa tion online - Detail Indication:Right sided abdominal pain Start:11-Nov-2017 Instruction Type:Patient Education Patient Instructions Indication:Right sided abdominal pain Start:11-Nov-2017 Instruction Type:Provider Instructions for Treatment How to access health informa tion online Indication:Abdominal pain, generalized Start:16-Oct-2017 Instruction Type:Patient Education How to access health informa tion online - Detail Indication:Abdominal pain, generalized Start:16-Oct-2017 Instruction Type:Patient Education Patient Instructions Indication:Abdominal pain, generalized Start:16-Oct-2017 Instruction Type:Provider Instructions for Treatment Name Dates Details How to access health informa tion online Indication:Acute diverticulitis Start:18-Aug-2020 Instruction Type:Patient Education How to access health informa tion online - Detail Indication:Acute diverticulitis Start:18-Aug-2020 Instruction Type:Patient Education Patient Instructions Indication:Acute diverticulitis Start:18-Aug-2020 Instruction Type:Provider Instructions for Treatment Patient Instructions Indication:Myalgia Start:15-Feb-2020 Instruction Type:Provider Instructions for Treatment How to access health informa tion online Indication:Anxiety Start:29-Oct-2019 Instruction Type:Patient Education How to access health informa tion online - Detail Indication:Anxiety Start:29-Oct-2019 Instruction Type:Patient Education Patient Instructions Indication:Anxiety Start:29-Oct-2019 Instruction Type:Provider Instructions for Treatment How to access health informa tion online Indication:Impaired fasting glucose Start:17-Sep-2019 Instruction Type:Patient Education How to access health informa tion online - Detail Indication:Impaired fasting glucose Start:17-Sep-2019 Instruction Type:Patient Education Patient Instructions Indication:Impaired fasting glucose Start:17-Sep-2019 Instruction Type:Provider Instructions for Treatment How to access health informa tion online Indication:Swollen finger Start:07-Sep-2019 Instruction Type:Patient Education How to access health informa tion online - Detail Indication:Swollen finger Start:07-Sep-2019 Instruction Type:Patient Education Patient Instructions Indication:Swollen finger Start:07-Sep-2019 Instruction Type:Provider Instructions for Treatment How to access health informa tion online Indication:BMI 28.0-28.9,adult Start:16-Jun-2019 Instruction Type:Patient Education How to access health informa tion online - Detail Indication:BMI 28.0-28.9,adult Start:16-Jun-2019 Instruction Type:Patient Education Patient Instructions Indication:BMI 28.0-28.9,adult Start:16-Jun-2019 Instruction Type:Provider Instructions for Treatment How to access health informa tion online Indication:Nonsmoker Start:09-Apr-2019 Instruction Type:Patient Education How to access health informa tion online - Detail Indication:Nonsmoker Start:09-Apr-2019 Instruction Type:Patient Education Patient Instructions Indication:Nonsmoker Start:09-Apr-2019 Instruction Type:Provider Instructions for Treatment How to access health informa tion online Indication:Anxiety Start:17-Jul-2018 Instruction Type:Patient Education How to access health informa tion online - Detail Indication:Anxiety Start:17-Jul-2018 Instruction Type:Patient Education Patient Instructions Indication:Anxiety Start:17-Jul-2018 Instruction Type:Provider Instructions for Treatment How to access health informa tion online Indication:Dysthymic Start:03-Apr-2018 Instruction Type:Patient Education How to access health informa tion online - Detail Indication:Dysthymic Start:03-Apr-2018 Instruction Type:Patient Education Patient Instructions Indication:Dysthymic Start:03-Apr-2018 Instruction Type:Provider Instructions for Treatment How to access health informa tion online Indication:[facility] Start:06-Feb-2018 Instruction Type:Patient Education How to access health informa tion online - Detail Indication:[facility] Start:06-Feb-2018 Instruction Type:Patient Education Patient Instructions Indication:[facility] Start:06-Feb-2018 Instruction Type:Provider Instructions for Treatment How to access health informa tion online Indication:Abdominal pain, generalized Start:26-Jan-2018 Instruction Type:Patient Education How to access health informa tion online - Detail Indication:Abdominal pain, generalized Start:26-Jan-2018 Instruction Type:Patient Education Patient Instructions Indication:Abdominal pain, generalized Start:26-Jan-2018 Instruction Type:Provider Instructions for Treatment How to access health informa tion online Indication:Right sided abdominal pain Start:11-Nov-2017 Instruction Type:Patient Education How to access health informa tion online - Detail Indication:Right sided abdominal pain Start:11-Nov-2017 Instruction Type:Patient Education Patient Instructions Indication:Right sided abdominal pain Start:11-Nov-2017 Instruction Type:Provider Instructions for Treatment How to access health informa tion online Indication:Abdominal pain, generalized Start:16-Oct-2017 Instruction Type:Patient Education How to access health informa tion online - Detail Indication:Abdominal pain, generalized Start:16-Oct-2017 Instruction Type:Patient Education Patient Instructions Indication:Abdominal pain, generalized Start:16-Oct-2017 Instruction Type:Provider Instructions for Treatment Name Dates Details How to access health informa tion online Indication:BMI 28.0-28.9,adult Start:16-Jun-2019 Instruction Type:Patient Education How to access health informa tion online - Detail Indication:BMI 28.0-28.9,adult Start:16-Jun-2019 Instruction Type:Patient Education Patient Instructions Indication:BMI 28.0-28.9,adult Start:16-Jun-2019 Instruction Type:Provider Instructions for Treatment How to access health informa tion online Indication:Nonsmoker Start:09-Apr-2019 Instruction Type:Patient Education How to access health informa tion online - Detail Indication:Nonsmoker Start:09-Apr-2019 Instruction Type:Patient Education Patient Instructions Indication:Nonsmoker Start:09-Apr-2019 Instruction Type:Provider Instructions for Treatment How to access health informa tion online Indication:Anxiety Start:17-Jul-2018 Instruction Type:Patient Education How to access health informa tion online - Detail Indication:Anxiety Start:17-Jul-2018 Instruction Type:Patient Education Patient Instructions Indication:Anxiety Start:17-Jul-2018 Instruction Type:Provider Instructions for Treatment How to access health informa tion online Indication:Dysthymic Start:03-Apr-2018 Instruction Type:Patient Education How to access health informa tion online - Detail Indication:Dysthymic Start:03-Apr-2018 Instruction Type:Patient Education Patient Instructions Indication:Dysthymic Start:03-Apr-2018 Instruction Type:Provider Instructions for Treatment How to access health informa tion online Indication:[facility] Start:06-Feb-2018 Instruction Type:Patient Education How to access health informa tion online - Detail Indication:[facility] Start:06-Feb-2018 Instruction Type:Patient Education Patient Instructions Indication:[facility] Start:06-Feb-2018 Instruction Type:Provider Instructions for Treatment How to access health informa tion online Indication:Abdominal pain, generalized Start:26-Jan-2018 Instruction Type:Patient Education How to access health informa tion online - Detail Indication:Abdominal pain, generalized Start:26-Jan-2018 Instruction Type:Patient Education Patient Instructions Indication:Abdominal pain, generalized Start:26-Jan-2018 Instruction Type:Provider Instructions for Treatment How to access health informa tion online Indication:Right sided abdominal pain Start:11-Nov-2017 Instruction Type:Patient Education How to access health informa tion online - Detail Indication:Right sided abdominal pain Start:11-Nov-2017 Instruction Type:Patient Education Patient Instructions Indication:Right sided abdominal pain Start:11-Nov-2017 Instruction Type:Provider Instructions for Treatment How to access health informa tion online Indication:Abdominal pain, generalized Start:16-Oct-2017 Instruction Type:Patient Education How to access health informa tion online - Detail Indication:Abdominal pain, generalized Start:16-Oct-2017 Instruction Type:Patient Education Patient Instructions Indication:Abdominal pain, generalized Start:16-Oct-2017 Instruction Type:Provider Instructions for Treatment Name Dates Details How to access health informa tion online Indication:Anxiety Start:17-Jul-2018 Instruction Type:Patient Education How to access health informa tion online - Detail Indication:Anxiety Start:17-Jul-2018 Instruction Type:Patient Education Patient Instructions Indication:Anxiety Start:17-Jul-2018 Instruction Type:Provider Instructions for Treatment How to access health informa tion online Indication:Dysthymic Start:03-Apr-2018 Instruction Type:Patient Education How to access health informa tion online - Detail Indication:Dysthymic Start:03-Apr-2018 Instruction Type:Patient Education Patient Instructions Indication:Dysthymic Start:03-Apr-2018 Instruction Type:Provider Instructions for Treatment How to access health informa tion online Indication:[facility] Start:06-Feb-2018 Instruction Type:Patient Education How to access health informa tion online - Detail Indication:[facility] Start:06-Feb-2018 Instruction Type:Patient Education Patient Instructions Indication:[facility] Start:06-Feb-2018 Instruction Type:Provider Instructions for Treatment How to access health informa tion online Indication:Abdominal pain, generalized Start:26-Jan-2018 Instruction Type:Patient Education How to access health informa tion online - Detail Indication:Abdominal pain, generalized Start:26-Jan-2018 Instruction Type:Patient Education Patient Instructions Indication:Abdominal pain, generalized Start:26-Jan-2018 Instruction Type:Provider Instructions for Treatment How to access health informa tion online Indication:Right sided abdominal pain Start:11-Nov-2017 Instruction Type:Patient Education How to access health informa tion online - Detail Indication:Right sided abdominal pain Start:11-Nov-2017 Instruction Type:Patient Education Patient Instructions Indication:Right sided abdominal pain Start:11-Nov-2017 Instruction Type:Provider Instructions for Treatment How to access health informa tion online Indication:Abdominal pain, generalized Start:16-Oct-2017 Instruction Type:Patient Education How to access health informa tion online - Detail Indication:Abdominal pain, generalized Start:16-Oct-2017 Instruction Type:Patient Education Patient Instructions Indication:Abdominal pain, generalized Start:16-Oct-2017 Instruction Type:Provider Instructions for Treatment Name Dates Details Patient Instructions Indication:[facility] Start:03-Nov-2020 Instruction Type:Provider Instructions for Treatment How to Access Health Informa tion Online using Patient Portal and 3rd [employer] Apps Indication:[facility] Start:03-Nov-2020 Instruction Type:Patient Education How to access health informa tion online Indication:Acute diverticulitis Start:18-Aug-2020 Instruction Type:Patient Education How to access health informa tion online - Detail Indication:Acute diverticulitis Start:18-Aug-2020 Instruction Type:Patient Education Patient Instructions Indication:Acute diverticulitis Start:18-Aug-2020 Instruction Type:Provider Instructions for Treatment Patient Instructions Indication:Myalgia Start:15-Feb-2020 Instruction Type:Provider Instructions for Treatment How to access health informa tion online Indication:Anxiety Start:29-Oct-2019 Instruction Type:Patient Education How to access health informa tion online - Detail Indication:Anxiety Start:29-Oct-2019 Instruction Type:Patient Education Patient Instructions Indication:Anxiety Start:29-Oct-2019 Instruction Type:Provider Instructions for Treatment How to access health informa tion online Indication:Impaired fasting glucose Start:17-Sep-2019 Instruction Type:Patient Education How to access health informa tion online - Detail Indication:Impaired fasting glucose Start:17-Sep-2019 Instruction Type:Patient Education Patient Instructions Indication:Impaired fasting glucose Start:17-Sep-2019 Instruction Type:Provider Instructions for Treatment How to access health informa tion online Indication:Swollen finger Start:07-Sep-2019 Instruction Type:Patient Education How to access health informa tion online - Detail Indication:Swollen finger Start:07-Sep-2019 Instruction Type:Patient Education Patient Instructions Indication:Swollen finger Start:07-Sep-2019 Instruction Type:Provider Instructions for Treatment How to access health informa tion online Indication:BMI 28.0-28.9,adult Start:16-Jun-2019 Instruction Type:Patient Education How to access health informa tion online - Detail Indication:BMI 28.0-28.9,adult Start:16-Jun-2019 Instruction Type:Patient Education Patient Instructions Indication:BMI 28.0-28.9,adult Start:16-Jun-2019 Instruction Type:Provider Instructions for Treatment How to access health informa tion online Indication:Nonsmoker Start:09-Apr-2019 Instruction Type:Patient Education How to access health informa tion online - Detail Indication:Nonsmoker Start:09-Apr-2019 Instruction Type:Patient Education Patient Instructions Indication:Nonsmoker Start:09-Apr-2019 Instruction Type:Provider Instructions for Treatment How to access health informa tion online Indication:Anxiety Start:17-Jul-2018 Instruction Type:Patient Education How to access health informa tion online - Detail Indication:Anxiety Start:17-Jul-2018 Instruction Type:Patient Education Patient Instructions Indication:Anxiety Start:17-Jul-2018 Instruction Type:Provider Instructions for Treatment How to access health informa tion online Indication:Dysthymic Start:03-Apr-2018 Instruction Type:Patient Education How to access health informa tion online - Detail Indication:Dysthymic Start:03-Apr-2018 Instruction Type:Patient Education Patient Instructions Indication:Dysthymic Start:03-Apr-2018 Instruction Type:Provider Instructions for Treatment How to access health informa tion online Indication:[facility] Start:06-Feb-2018 Instruction Type:Patient Education How to access health informa tion online - Detail Indication:[facility] Start:06-Feb-2018 Instruction Type:Patient Education Patient Instructions Indication:[facility] Start:06-Feb-2018 Instruction Type:Provider Instructions for Treatment How to access health informa tion online Indication:Abdominal pain, generalized Start:26-Jan-2018 Instruction Type:Patient Education How to access health informa tion online - Detail Indication:Abdominal pain, generalized Start:26-Jan-2018 Instruction Type:Patient Education Patient Instructions Indication:Abdominal pain, generalized Start:26-Jan-2018 Instruction Type:Provider Instructions for Treatment How to access health informa tion online Indication:Right sided abdominal pain Start:11-Nov-2017 Instruction Type:Patient Education How to access health informa tion online - Detail Indication:Right sided abdominal pain Start:11-Nov-2017 Instruction Type:Patient Education Patient Instructions Indication:Right sided abdominal pain Start:11-Nov-2017 Instruction Type:Provider Instructions for Treatment How to access health informa tion online Indication:Abdominal pain, generalized Start:16-Oct-2017 Instruction Type:Patient Education How to access health informa tion online - Detail Indication:Abdominal pain, generalized Start:16-Oct-2017 Instruction Type:Patient Education Patient Instructions Indication:Abdominal pain, generalized Start:16-Oct-2017 Instruction Type:Provider Instructions for Treatment Name Dates Details Patient Instructions Indication:Myalgia Start:15-Feb-2020 Instruction Type:Provider Instructions for Treatment How to access health informa tion online Indication:Anxiety Start:29-Oct-2019 Instruction Type:Patient Education How to access health informa tion online - Detail Indication:Anxiety Start:29-Oct-2019 Instruction Type:Patient Education Patient Instructions Indication:Anxiety Start:29-Oct-2019 Instruction Type:Provider Instructions for Treatment How to access health informa tion online Indication:Impaired fasting glucose Start:17-Sep-2019 Instruction Type:Patient Education How to access health informa tion online - Detail Indication:Impaired fasting glucose Start:17-Sep-2019 Instruction Type:Patient Education Patient Instructions Indication:Impaired fasting glucose Start:17-Sep-2019 Instruction Type:Provider Instructions for Treatment How to access health informa tion online Indication:Swollen finger Start:07-Sep-2019 Instruction Type:Patient Education How to access health informa tion online - Detail Indication:Swollen finger Start:07-Sep-2019 Instruction Type:Patient Education Patient Instructions Indication:Swollen finger Start:07-Sep-2019 Instruction Type:Provider Instructions for Treatment How to access health informa tion online Indication:BMI 28.0-28.9,adult Start:16-Jun-2019 Instruction Type:Patient Education How to access health informa tion online - Detail Indication:BMI 28.0-28.9,adult Start:16-Jun-2019 Instruction Type:Patient Education Patient Instructions Indication:BMI 28.0-28.9,adult Start:16-Jun-2019 Instruction Type:Provider Instructions for Treatment How to access health informa tion online Indication:Nonsmoker Start:09-Apr-2019 Instruction Type:Patient Education How to access health informa tion online - Detail Indication:Nonsmoker Start:09-Apr-2019 Instruction Type:Patient Education Patient Instructions Indication:Nonsmoker Start:09-Apr-2019 Instruction Type:Provider Instructions for Treatment How to access health informa tion online Indication:Anxiety Start:17-Jul-2018 Instruction Type:Patient Education How to access health informa tion online - Detail Indication:Anxiety Start:17-Jul-2018 Instruction Type:Patient Education Patient Instructions Indication:Anxiety Start:17-Jul-2018 Instruction Type:Provider Instructions for Treatment How to access health informa tion online Indication:Dysthymic Start:03-Apr-2018 Instruction Type:Patient Education How to access health informa tion online - Detail Indication:Dysthymic Start:03-Apr-2018 Instruction Type:Patient Education Patient Instructions Indication:Dysthymic Start:03-Apr-2018 Instruction Type:Provider Instructions for Treatment How to access health informa tion online Indication:[facility] Start:06-Feb-2018 Instruction Type:Patient Education How to access health informa tion online - Detail Indication:[facility] Start:06-Feb-2018 Instruction Type:Patient Education Patient Instructions Indication:[facility] Start:06-Feb-2018 Instruction Type:Provider Instructions for Treatment How to access health informa tion online Indication:Abdominal pain, generalized Start:26-Jan-2018 Instruction Type:Patient Education How to access health informa tion online - Detail Indication:Abdominal pain, generalized Start:26-Jan-2018 Instruction Type:Patient Education Patient Instructions Indication:Abdominal pain, generalized Start:26-Jan-2018 Instruction Type:Provider Instructions for Treatment How to access health informa tion online Indication:Right sided abdominal pain Start:11-Nov-2017 Instruction Type:Patient Education How to access health informa tion online - Detail Indication:Right sided abdominal pain Start:11-Nov-2017 Instruction Type:Patient Education Patient Instructions Indication:Right sided abdominal pain Start:11-Nov-2017 Instruction Type:Provider Instructions for Treatment How to access health informa tion online Indication:Abdominal pain, generalized Start:16-Oct-2017 Instruction Type:Patient Education How to access health informa tion online - Detail Indication:Abdominal pain, generalized Start:16-Oct-2017 Instruction Type:Patient Education Patient Instructions Indication:Abdominal pain, generalized Start:16-Oct-2017 Instruction Type:Provider Instructions for Treatment Advance Directives Name Dates Details Immunization Registry [facility] - Effective on 10/16/2017. Expiration date unspecified Effective:16-Oct-2017 Name Dates Details Immunization Registry [facility] - Effective on 10/16/2017. Expiration date unspecified Effective:16-Oct-2017 Name Dates Details Immunization Registry [facility] - Effective on 10/16/2017. Expiration date unspecified Effective:16-Oct-2017 Name Dates Details Immunization Registry [facility] - Effective on 10/16/2017. Expiration date unspecified Effective:16-Oct-2017 Name Dates Details Immunization Registry [facility] - Effective on 10/16/2017. Expiration date unspecified Effective:16-Oct-2017 Name Dates Details Immunization [facility] - Effective on 10/16/2017. Expiration date unspecified Effective:16-Oct-2017 Name Dates Details Immunization [facility] - Effective on 10/16/2017. Expiration date unspecified Effective:16-Oct-2017 Name Dates Details Immunization [facility] - Effective on 10/16/2017. Expiration date unspecified Effective:16-Oct-2017 Name Dates Details Immunization [facility] - Effective on 10/16/2017. Expiration date unspecified Effective:16-Oct-2017 Name Dates Details Immunization [facility] - Effective on 10/16/2017. Expiration date unspecified Effective:16-Oct-2017 Name Dates Details Immunization [facility] - Effective on 10/16/2017. Expiration date unspecified Effective:16-Oct-2017 Name Dates Details Immunization [facility] - Effective on 10/16/2017. Expiration date unspecified Effective:16-Oct-2017 Name Dates Details Immunization [facility] - Effective on 10/16/2017. Expiration date unspecified Effective:16-Oct-2017 Name Dates Details Immunization [facility] - Effective on 10/16/2017. Expiration date unspecified Effective:16-Oct-2017 Name Dates Details Immunization Registry [facility] - Effective on 10/16/2017. Expiration date unspecified Effective:16-Oct-2017 Name Dates Details Immunization [facility] - Effective on 10/16/2017. Expiration date unspecified Effective:16-Oct-2017 Name Dates Details Immunization Registry [facility] - Effective on 10/16/2017. Expiration date unspecified Effective:16-Oct-2017 Name Dates Details Immunization Registry [facility] - Effective on 10/16/2017. Expiration date unspecified Effective:16-Oct-2017 Name Dates Details Immunization Registry [facility] - Effective on 10/16/2017. Expiration date unspecified Effective:16-Oct-2017 Name Dates Details Immunization Registry [facility] - Effective on 10/16/2017. Expiration date unspecified Effective:16-Oct-2017 Name Dates Details Immunization [facility] - Effective on 10/16/2017. Expiration date unspecified Effective:16-Oct-2017 Name Dates Details Immunization [facility] - Effective on 10/16/2017. Expiration date unspecified Effective:16-Oct-2017 Name Dates Details Immunization [facility] - Effective on 10/16/2017. Expiration date unspecified Effective:16-Oct-2017 Name Dates Details Immunization [facility] - Effective on 10/16/2017. Expiration date unspecified Effective:16-Oct-2017 Summary Purpose Additional Source Comments (unrecognized sect ion and content) No Status Records FoundNo Status Records FoundNo Status Records Found INFORMATION SOURCE (unrecogn ized section and content) DATE CREATED AUTHOR AUTHOR'S BETHANY ATION 01/04/2023 [facility] DATE CREATED AUTHOR AUTHOR'S BETHANY ATION 01/15/2023 [facility] FOR RECORDS PERTAINING TO PATIENTS WHO ARE OR HAVE BEEN ENROLLED IN A CHEMICAL DEPENDENCY/SUBSTANCEABUSE PROGRAM, SOME INFORMATION MAY BE OMITTED. This clinical summary was aggregated from multiple sources. Caution should be exercised in using it in the provision of clinical care. This summary normalizes information from multiple sources, and as a consequence, information in this document may materially change the coding, format and clinical context of patient data. In addition, data may be omitted in some cases. CLINICAL DECISIONS SHOULD BE BASED ON THE PRIMARY CLINICAL RECORDS. [facility]. provides no warranty or guarantee of the accuracy or completeness of information in this document.
[2023-11-10 17:34] LABS: Absolute Lymphocyte Count 3.14 X10^3/uL (0.83-4.51); Basophil# 0.11 X10^3/uL; Basophil% 1.5 % (0-1); Eosinophil# 0.38 X10^3/uL; Eosinophils% 5.2 % (0-5); Hematocrit 46.9 % (40-54); Lymphocyte # 3.14 X10^3/ul (0.83-4.51); Lymphocyte % 42.6 % (19-41); Mean Corpuscular Hgb 27.2 pg (27.0-32.0); Mean Platelet Vol. 12.4 fl (6.2-12.0); Monocyte# 0.74 X10^3/uL; NRBC Flagged by Analyzer 0 % (0-5); Neutrophil # 2.98 X10^3/uL (2.7-7.7); Neutrophil % 40.4 % (47-70); Platelet Count 198 K/mm3 (150-450); RBC Distribution Width CV 13.6 % (11.6-14.6); RBC Distribution Width SD 42.3 fl (35.1-43.9); Red Blood Count 5.52 M/mm3 (4.6-6.2); White Blood Count 7.4 K/mm3 (4.4-11.0)
[2023-11-10 17:39] LABS: Color, Urine Yellow (Yellow); Glucose, Dipstick Normal (Normal); Ketone-Dipstick Negative (Negative); Leukocyte Esterase-Dipstick 25 /ul (Negative); Nitrite-Dipstick Negative (Negative); Occult Blood-Urine Negative /ul (Negative); Protein-Dipstick Negative (Negative); Specific Gravity, Urine 1.015 (1.002-1.030); Urine Bilirubin Dipstick Negative (Negative); Urine Clarity Clear (Clear); Urine Urobilinogen Normal (Normal)
[2023-11-10 17:52] LABS: ALB/GLOB Ratio 0.9 RATIO (0.9-2.4); AST(SGOT) 25 U/L (15-37); Alanine Aminotransfer ALT/SGPT 40 U/L (16-61); Albumin, Serum 3.6 g/dL (3.2-5.0); Alkaline Phosphatase 97 U/L (45-117); Anion Gap 4 (5-15); BUN 17 mg/dL (7-18); BUN/Creat Ratio 15.9 RATIO (10-20); Chloride 104 mmol/L (98-107); Creatinine, Serum 1.07 mg/dL (0.70-1.30); EST Glomerular Filtration Rate 77 mL/min (>60); Est Glom Filt Rate - Afr Amer 93 mL/min (>60); Globulin 3.9 g/dL (2.2-4.2); Glucose 88 mg/dL (74-106); Potassium 3.9 mmol/L (3.5-5.1); Protein, Total 7.5 g/dL (6.4-8.2); Sodium Level 134 mmol/L (136-145); Thyroid Stim Hormone (TSH) 1.19 uIU/mL (0.358-3.74); Troponin-I HS 4 pg/mL (3.0-78.0)
== END | disposition home or self-care (01) ==
PROVIDERS: PCP Internal Medicine; Referring Provider Internal Medicine; Visit Provider Internal Medicine
DX: I10 Essential (primary) hypertension (principal); R07.9 Chest pain, unspecified
CPT/HCPCS: 36415; 80053; 81001; 84443; 84484; 85025

== ENCOUNTER → 2023-12-26 | Outpatient (CLI) | payer BC, SELFPAY ==
--- NOTE | 2023-12-26 10:50 | ECHOD_ITS ---
Reason For Study: CP Procedure This was a 2D Doppler, Color Flow transthoracic echocardiogram. Exam performed in department. Left Ventricle Normal LV size. Mild concentric left ventricular hypertrophy. The left ventricular ejection fraction is 70 %. Diastolic function is indeterminate. Right Ventricle Normal right ventricle. Atria The left and right atria are normal. Mitral Valve Mild mitral annular calcification. Trivial mitral valve insufficiency. Tricuspid Valve Trivial tricuspid valve insufficiency. Unable to estimate RV systolic pressure due to insufficient tricuspid regurgitant envelope. Aortic Valve The aortic valve is not well visualized in the short axis view. There is no aortic stenosis. Pulmonic Valve The pulmonic valve is not well visualized. Great Vessels Normal sized aortic root. Pericardium/Pleural No pericardial effusion. MMode/2D Measurements & Calculations LVIDd: 4.0 cm IVSd: 1.3 cm Ao root diam: 3.6 cm LVIDs: 3.0 cm LVPWd: 1.1 cm LA dimension: 3.4 cm RVDd: 3.4 cm FS: 24.5 % LAV(MOD-bp): 33.6 ml LVAd ap4: 23.0 cm2 SV(MOD-sp4): 34.4 ml LAV(MOD-bp) Indexed: 13.8 ml/m2 LVLd ap4: 8.3 cm LAV(MOD-sp2): 41.6 ml EDV(MOD-sp4): 51.9 ml LAV(MOD-sp4): 24.4 ml EDV(sp4-el): 54.1 ml LVAs ap4: 11.6 cm2 LVLs ap4: 6.4 cm ESV(MOD-sp4): 17.6 ml ESV(sp4-el): 17.8 ml EF(MOD-sp4): 66.2 % EF(sp4-el): 67.1 % SV(sp4-el): 36.3 ml LA A4 area: 11.4 cm2 RA A4 area: 10.6 cm2 TAPSE: 1.9 cm Time Measurements MV dec time: 0.28 sec Doppler Measurements & Calculations MV E max jose: 69.7 cm/sec Lat Peak E' Jose: 12.9 cm/sec Med Peak E' Jose: 9.7 cm/sec MV A max jose: 81.3 cm/sec E/E' lat: 5.4 E/E' med: 7.2 MV E/A: 0.86 MV V2 max: 96.4 cm/sec MV P1/2t max jose: 88.0 cm/sec Ao V2 max: 130.4 cm/sec MV max P.7 mmHg MV P1/2t: 83.8 msec Ao max P.8 mmHg MV V2 mean: 57.3 cm/sec MV dec slope: 307.5 cm/sec2 Ao V2 mean: 89.6 cm/sec MV mean P.6 mmHg Ao mean P.7 mmHg MV V2 VTI: 20.5 cm MVA(P1/2t): 2.6 cm2 Ao V2 VTI: 25.9 cm AV (velocity ratio): 0.89 LV V1 max: 108.6 cm/sec LV V1 max P.7 mmHg LV V1 mean P.5 mmHg LV V1 mean: 73.3 cm/sec LV V1 VTI: 23.0 cm ECHO/Echo Complete Interpretation Summary Mild concentric left ventricular hypertrophy. The left ventricular ejection fraction is 70 %. Diastolic function is indeterminate. Mild mitral annular calcification. Ordering Physician: Leticia Castro Performed By:
--- NOTE | 2023-12-26 12:40 | STRESSREP ---
Stress Test Report Date: 12/26/2023 Procedure: Exercise tolerance test Indications: Chest pain Consent: Per the patient Procedure: The patient exercised on a Ayad protocol for 12 minutes achieving a peak heart rate of 166 bpm (100% predicted maximal heart rate) with a peak blood pressure 162/90 mmHg and a peak MET capacity of approximately 13.7 MET's. The baseline ECG demonstrated normal sinus rhythm. The peak exercise ECG demonstrated no ischemic changes. There were no cardiac dysrhythmias pretest, during exercise, or recovery. The functional capacity was considered excellent. The patient had no complaints of chest discomfort during exercise or recovery. The examination was discontinued secondary to target heart rate being achieved. Impression: 1. Technically adequate (percent predicted maximal heart rate greater than 85%) exercise tolerance test 2. Peak exercise ECG with no ischemic changes 3. There were no cardiac dysrhythmias during exercise or recovery This note was generated with [employer] software. It may contain incorrect words, spelling, and punctuation that were not noted in checking the note before signing.
== END | disposition home or self-care (01) ==
LOC: CVS 10:46
PROVIDERS: PCP Internal Medicine; Visit Provider Internal Medicine
DX: R03.0 Elevated blood-pressure reading, without diagnosis of hypertension (principal); R07.9 Chest pain, unspecified; I10 Essential (primary) hypertension; R53.83 Other fatigue
CPT/HCPCS: 93017; 93306

== ENCOUNTER → 2025-05-20 | Outpatient (CLI) | payer BC, SELFPAY ==
--- OUTSIDE RECORDS SUMMARY | 2025-05-20 07:10 | XMS RPT_ITS | CCD ---
Author Organization [facility] Care Team Providers Care Slash Trimmer Name Role Phone Fast, Brittny A Unavailable Dante Leal Unavailable Miki Hinojosa Unavailable Chauncey Dickson Unavailable Manchak, Ayana Unavailable Unavailable Unavailable Unavailable Fast, Brittny A Unavailable Dante Leal Unavailable Miki Hinojosa Unavailable Kenna Angelo Unavailable Chauncey Dickson Unavailable Manchak, Ayana Unavailable Unavailable Unavailable Unavailable Kitty Herndon Unavailable Unavailable Manchak, Ayana Unavailable Unavailable Reggie Lopez Unavailable Mendez High Unavailable BROCK Goodman Unavailable Unavailable BrandanJeniffer Unavailable Unavailable Fast DO, Brittny A Unavailable Dr. Dante Leal Unavailable Miki Hinojosa MD Unavailable Kenna Angelo Unavailable John HUANG , Reggie Helms Unavailable Dr. Mendez High Unavailable Chauncey Dickson MD Unavailable Manchak MANAGER COMMUNITY DEVELOPMENT, Ayana Unavailable Unavailable Rex EAGLE, BROCK Unavailable Unavailable Unavailable Unavailable Slarb LOST CHARGE CARD CLERK, Christi Unavailable Unavailable Fast DO, Brittny A Attending Unavailable Fast DO, Brittny A Referring Unavailable Fast DO, Brittny Marion Consulting Unavailable Fast, Dr. Brittny Marion Attending Unavailable Fast, Dr. Brittny Marion Primary Care Unavailable [facility] Unavailable [facility], Jay Jay [facility] Unavailable Fast, Dr. Kelly Primary Care Provider [phone] Fast, Dr. Kelly Other Provider Jad, Dr. Berger Attending Provider Fast, Brittny Referring Unavailable Fast, Brittny Attending Unavailable Fast, Brittny Primary Care Unavailable Fast, Brittny Attending Unavailable Fast, Brittny Primary Care Unavailable Fast, Brittny Referring Unavailable Fast, Brittny Attending Unavailable Fast, Brittny Primary Care Unavailable Fast, Brittny Consulting Unavailable JadAb Attending Unavailable Fast, Brittny Primary Care Unavailable Fast, Brittny Attending Unavailable Fast, Brittny Primary Care Unavailable Fast DO, Brittny Marion Primary Care Provider Allergies Allergy Classification Reported Allergen(s) Allergy Type Date of Onset Reaction(s) Facility (1 source) Seasonal allergy Allergy to substance 2 Other: See Comments [facility] NEGATED: Highlighted row has been ruled out! [...] 8 [facility] Work Phone: Medications Current Medications Medication Drug Class(es) Dates Sig (Normalized) Sig (Original) amoxicillin 875 mg / clavulanate 125 mg oral tablet (3 sources) Penicillin-class Antibacterial Start: 08-15-2020 take 875 mg by mouth every twelve hours Amoxicillin-Pot Clavulanate Active 875 MG PO Q12H August 15, 2020 1:00am ibuprofen 200 mg oral capsule (1 source) Nonsteroidal Anti-inflammatory Drug Ibuprofen 200 mg cap Take by mouth. Active naproxen 500 mg oral tablet (6 sources) Nonsteroidal Anti-inflammatory Drug Start: 08-15-2020 take 500 mg by mouth twice daily as needed Naproxen Active 500 MG PO TWICE DAILY NEEDED August 15, 2020 1:00am Start: 03-28-2017 End: 12-22-2017 take 500 mg by mouth twice daily as needed Naproxen Discontinued 500 MG PO TWICE DAILY NEEDED March 28, 2017 12:00am December 22, 2017 2:51pm vitamin D3-vitamin K2, MK4, 1,000-100 unit-mcg tab (1 source) vitamin D3-vitam in K2, MK4, 1,000-100 unit-mcg tab Take by mouth. Active Completed/Discontinued Medications Medication Drug Class(es) Dates Sig (Normalized) Sig (Original) acetaminophen 325 mg / HYDROcodone bitartrate 5 mg oral tablet (3 sources) Opioid Agonist Start: 08-15-2020 End: 08-17-2020 take 1 tablet by mouth every four hours as needed Hydrocodone-Acetam inophen Discontinued 1 TABLET PO EVERY 4 HOURS NEEDED 07 14August 15, 2020 August 17, 2020 1:02am amitriptyline hydrochloride 25 mg oral tablet (20 sources) Tricyclic Antidepressant Start: 10-14-2019 End: 10-29-2019 take 2 tablets by mouth once daily at bedtime Amitriptyline HCl 25 MG Oral Tablet 2 (two) Tablet qhs for 0 days Quantity: 30 {Tablet} Refills: 3 Ordered: 29-Oct-2019 Fast DO, Brittny A Fast DO, Brittny A Start : 14-Oct-2019 End : 29-Oct-2019 Inactive Start: 08-18-2019 take 1 tablet by violeta th once daily at bedtime Amitriptyline HCl 10 MG Oral Tablet 1 (one) Tablet qhs for 0 days Quantity: 30 {Tablet} Refills: 3 Ordered: 18-Aug-2019 Fast DO, Brittny A Fast DO, Brittny A Start : 18-Aug-2019 Active amylase [id number] unt / lipase [id number] unt / protease [id number] unt delayed release oral capsule (16 sources) Start: 07-17-2018 End: 04-09-2019 Creon 48002 UNIT Oral Capsule Delayed Release Particles 2 (two) Unit with each meal and 1 with snacks for 0 days Quantity: 68 {Capsule} Refills: 0 Ordered: 09-Apr-2019 Fast DO, Brittny A Fast DO, Brittny A Start : 17-Jul-2018 End : 09-Apr-2019 Inactive amylases [id number] unt / endopeptidases [id number] unt / lipase [id number] unt delayed release oral capsule (20 sources) Start: 07-17-2018 End: 04-09-2019 Creon 39627 UNIT Oral Capsule Delayed Release Particles 2 (two) Unit with each meal and 1 with snacks for 0 days Quantity: 68 {Capsule} Refills: 0 Ordered: 09-Apr-2019 Fast DO, Brittny A Fast DO, Brittny A Start : 17-Jul-2018 End : 09-Apr-2019 Inactive busPIRone hydrochloride 5 mg oral tablet (20 sources) Start: 12-24-2019 End: 12-24-2019 take 1 tablet by mouth twice daily busPIRone HCl 5 MG Oral Tablet 1 (one) Tablet bid for 0 days Quantity: 60 {Tablet} Refills: 3 Ordered: 24-Dec-2019 Fast DO, Brittny A Fast DO, Brittny A Start : 24-Dec-2019 End : 24-Dec-2019 Discontinued cefdinir 300 mg oral capsule (20 sources) Cephalosporin Antibacterial Start: 09-07-2019 End: 09-17-2019 take 1 capsule by mouth twice daily Cefdinir 300 MG Oral Capsule 1 (one) Capsule bid for 0 days Quantity: 20 {Capsule} Refills: 0 Ordered: 17-Sep-2019 Ayana Simpson CMA Start : 07-Sep-2019 End : 17-Sep-2019 Inactive cholecalciferol 0.025 mg oral tablet (20 sources) Vitamin D Start: 11-11-2017 End: 07-11-2023 take 4 tablets by mouth once daily cholecalciferol (vitamin D3) 25 mcg (1,000 unit) oral tablet 4 Tablet Tablet qd for 0 days Quantity: 120 {Tablet} Refills: 0 Ordered: 11-Jul-2023 BROCK Goodman LPN Start : 11-Nov-2017 End : 11-Jul-2023 Inactive doxycycline hyclate 100 mg oral capsule (6 sources) Tetracycline-class Drug Start: 06-27-2023 End: 07-11-2023 take 1 capsule by mouth twice daily doxycycline hyclate 100 mg oral capsule 1 (one) capsule bid for 0 days Quantity: 20 {Capsule} Refills: 0 Ordered: 11-Jul-2023 BROCK Goodman LPN Start : 27-Jun-2023 End : 11-Jul-2023 Inactive DULoxetine 30 mg delayed release oral capsule (20 sources) Serotonin and Norepinephrine Reuptake Inhibitor Start: 11-03-2020 End: 11-03-2020 take 1 capsule by mouth twice daily DULoxetine HCl 30 MG Oral Capsule Delayed Release Particles 1 (one) Capsule bid for 0 days Quantity: 60 {Capsule} Refills: 1 Ordered: 03-Nov-2020 Fast DO, Brittny A Fast DO, Brittny A Start : 03-Nov-2020 End : 03-Nov-2020 Discontinued Comments: patient doesnt tolerate 60 mg at one time Start: 07-05-2020 take 1 capsule by mo uth twice daily DULoxetine HCl 30 MG Oral Capsule Delayed Release Particles 1 (one) Capsule bid for 0 days Quantity: 60 {Capsule} Refills: 1 Ordered: 05-Jul-2020 Ayana Simpson CMA Start : 05-Jul-2020 Active Comments: patient doesnt tolerate 60 mg at one time Start: 04-06-2020 take 1 capsule by mo uth twice daily DULoxetine HCl 30 MG Oral Capsule Delayed Release Particles 1 (one) Capsule bid for 0 days Quantity: 60 {Capsule} Refills: 3 Ordered: 06-Apr-2020 Fast DO, Brittny A Fast DO, Brittny A Start : 06-Apr-2020 Active Comments: patient doesnt tolerate 60 mg at one time Start: 07-07-2019 take 1 capsule by mo uth once daily DULoxetine HCl 30 MG Oral Capsule Delayed Release Particles 1 (one) Capsule qd for 0 days Quantity: 90 {Capsule} Refills: 3 Ordered: 07-Jul-2019 Ayana Simpson CMA Start : 07-Jul-2019 Active Start: 03-31-2019 take 1 capsule by mo uth once daily DULoxetine HCl 60 MG Oral Capsule Delayed Release Particles 1 (one) Capsule qd for 0 days Quantity: 90 {Capsule} Refills: 3 Ordered: 31-Mar-2019 Fast DO, Brittny A Fast DO, Brittny A Start : 31-Mar-2019 Active Start: 07-17-2018 take 1 capsule by mo uth once daily DULoxetine HCl 60 MG Oral Capsule Delayed Release Particles 1 (one) Capsule qd for 0 days Quantity: 90 {Capsule} Refills: 3 Ordered: 17-Jul-2018 Fast DO, Brittny A Fast DO, Brittny A Start : 17-Jul-2018 Active Comment on above: patient doesnt barrington ate 60 mg at one time gabapentin 100 mg oral capsule (20 sources) Anti-epileptic Agent Start: 02-15-20 20 End: 08-18-20 20 take 1 capsule by mouth once daily at bedtime Gabapentin 100 MG Oral Capsule 1 (one) Capsule qhs for 0 days Quantity: 30 {Capsule} Refills: 3 Ordered: 18-Aug-2020 Fast DO, Brittny A Fast DO, Brittny A Start : 15-Feb-2020 End : 18-Aug-2020 Inactive Comments: thirty Comment on above: thirty hyoscyamine sulfate 0.125 mg sublingual tablet (20 sources) Start: 10-17-19 End: 11-11-19 18 take 1 tablet under the tongue three times daily as needed Levsin/SL 0.125 MG Sublingual Tablet Sublingual 1 (one) Tablet tid prn for 0 days Quantity: 90 {Tablet} Refills: 1 Ordered: 11-Nov-2017 Fast DO, Brittny A Fast DO, Brittny A Start : 17-Oct-2017 End : 11-Nov-2017 Inactive milnacipran hydrochloride 50 mg oral tablet (20 sources) Serotonin and Norepinephrine Reuptake Inhibitor Start: 08-17-20 End: 08-17-20 19 take 1 tablet by mouth twice daily Savella 50 MG Oral Tablet 1 (one) Tablet bid for 0 days Quantity: 60 {Tablet} Refills: 2 Ordered: 17-Aug-2019 Fast DO, Brittny A Fast DO, Brittny A Start : 17-Aug-2019 End : 17-Aug-2019 Discontinued Start: 05-18-2019 take 1 tablet by violeta th twice daily Savella 50 MG Oral Tablet 1 (one) Tablet bid for 0 days Quantity: 60 {Tablet} Refills: 2 Ordered: 18-May-2019 Fast DO, Brittny A Fast DO, Brittny A Start : 18-May-2019 Active pregabalin 25 mg oral capsule (20 sources) Start: 01-21-2020 End: 01-21-2020 take 1 capsule by mouth twice daily Lyrica 25 MG Oral Capsule 1 (one) Capsule bid for 0 days Quantity: 60 {Capsule} Refills: 3 Ordered: 21-Jan-2020 Fast DO, Brittny A Fast DO, Brittny A Start : 21-Jan-2020 End : 21-Jan-2020 Discontinued Comments: ooars reviewed-- start with 25 mg at night for 1 week - if tolerate increase to twice a day Comment on above: ooars reviewed-- sta rt with 25 mg at night for 1 week - if tolerate increase to twice a day rifAXIMin 550 mg oral tablet (20 sources) Rifamycin Antibacterial Start: 09-07-2018 End: 10-07-2018 take 1 tablet by mouth three times daily Xifaxan 550 MG Oral Tablet 1 (one) Tablet tid for 30 days Quantity: 90 {Tablet} Refills: 0 Ordered: 07-Sep-2018 Ayana Simpson CMA Start : 07-Sep-2018 End : 07-Oct-2018 Inactive NEGATED: Highlighted row has not occurred!drug or medication (20 sources) No Known Historical Medications NEGATED: Highlighted row has not occurred!No Known Historical Medications (6 sources) No Known Historical Medications Problems Active Problems Problem Classification Problem Date Documented Da te Episodic/Chronic Anxiety disorders (20 sources) Anxiety; Translations: [Anxiety] 07-17-2018 Chronic Comment on above: he doesnt want to ch coral meds so we will try changing time to see if helps energy Cardiac dysrhythmias (20 sources) Palpitations; Translations: [Palpitations] Resolved: 01-03-2023 02-15-2020 Episodic Comment on above: want tomake sure was nt embolic phenomonon to finger Coronary atherosclerosis and other heart disease (20 sources) Coronary atherosclerosis and other heart disease Diabetes mellitus without complication (20 sources) Impaired fasting glucose; Translations: [Impaired fasting glycaemia] 07-17-2018 Episodic Comment on above: sugar is normal cont inue to work on diet and encourage exercise discussed diet and e x in great detail get labs today disucssed diet and e x Diseases of white blood cells (20 sources) Leukocytosis; Translations: [Leucocytosis] 08-18-2020 Chronic Disorders of lipid metabolism (20 sources) Hyperlipidemia; Translations: [Mild hyperlipidemia] Onset: 01-10-2023 07-19-2018 Chronic Comment on above: improved - chronic s table-continue present regimen get at followup work on cardiovascul ar exercise and decrease animal products he not been working much on diet and ex check labs trigs high needs to cut etoh and processed carbs Diverticulosis and diverticulitis (20 sources) Diverticulitis of intestine; Translations: [Acute diverticulitis] 11-03-2020 Chronic Comment on above: complete coure of an tiboitics- if symptoms no resolve let me know eat bladn and ow residue now until resolve then slowly increase fiber in diet Essential hypertension (2 sources) Essential (primary) hypertension; Translations: [Benign essential hypertension] Onset: 02-06-2008 04-22-2024 Chronic Fever of unknown origin (20 sources) Fever; Translations: [Fever] Resolved: 05-18-2021 02-21-2021 Episodic Comment on above: think viral push flu ids rest quarantine Gastritis and duodenitis (20 sources) Gastritis; Translations: [Gastritis] 07-17-2018 Episodic Comment on above: had egd on ppi- Peab verónica not anxious to remove gallbladder as may not fix symptoms chronic stable-nan nue present regimen Hemorrhoids (20 sources) Hemorrhoids; Translations: [Hemorrhoid] 11-03-2020 Episodic Immunizations and screening for infectious disease (20 sources) Encounter for immunization; Translations: [Need for prophylactic vaccination and inoculation against influenza] Resolved: 11-03-2020 07-17-2018 Episodic Inflammation; infection of eye (except that caused by tuberculosis or sexually transmitteddisease) (12 sources) Blepharitis; Translations: [Blepharitis] Resolved: 07-11-2023 07-11-2023 Episodic Comment on above: patient sent a pictu re that was red upper eyelid and lower eyelid not conjunctivea no vision lass or pain- he should see an eye doc on friday if not improving or worse symptoms Malaise and fatigue (20 sources) Fatigue; Translations: [Fatigue] 07-17-2018 Episodic Comment on above: maybe sl,ight improv emnt encourage exercise may need to increase cymbalta change timing of cym nidhi Mood disorders (20 sources) Dysthymia; Translations: [Dysthymic] 07-17-2018 Chronic Comment on above: doing well better Nutritional deficiencies (20 sources) Vitamin D deficiency; Translations: [Vitamin D deficiency] 07-19-2018 Chronic Comment on above: make sure taking rou tinely check level be compliant with vi tamin d Other connective tissue disease (20 sources) Bursitis; Translations: [Bursitis] 07-17-2018 Episodic Comment on above: inp ast not present now Other connective tissue disease (20 sources) Myalgia; Translations: [Muscle pain] 05-18-2019 Episodic Comment on above: restart duloxetine hasnt tolerated anym eds was doing yoga encourage more as seemed to help/meditate stress manamgent Other connective tissue disease (20 sources) Swelling of finger ; Translations: [Swollen finger] Resolved: 11-03-2020 02-15-2020 Episodic Comment on above: left index finger Other diseases of kidney and ureters (20 sources) Renal impairment; Translations: [Renal insufficiency] 08-18-2020 Episodic Comment on above: push fluids Other gastrointestinal disorders (20 sources) Irritable bowel syndrome; Translations: [Irritable bowel] 05-20-2021 Chronic Comment on above: talkedabout adding b enefiber daily and if doesnt regulate or help bloating he is to let simona working on stress ma nagment Other gastrointestinal disorders (20 sources) Diarrhea; Translations: [Diarrhea] Resolved: 11-03-2020 07-17-2018 Episodic Comment on above: add fiber - taking p robiotic get cultures and seeing jabour tomorrow Other gastrointestinal disorders (20 sources) Abdominal bloating; Translations: [Bloating] Resolved: 09-17-2019 07-17-2018 Episodic Comment on above: improved depeneding on diet we will send him anju k to Dr dietrich as he is still having abd bloating and discomfort and have him folllowup there- has had much testing and do still wonder about whether his gallbladder should come out Other injuries and conditions due to external causes (1 source) Injury of right ankle; Translations: [Unspecified injury of right ankle, initial encounter] 06-30-2021 Episodic Other nervous system disorders (20 sources) Bilateral carpal tunnel syndrome; Translations: [Bilateral carpal tunnel syndrome] 08-18-2020 Chronic Comment on above: try cock up splints if not better get emg Other non-traumatic joint disorders (20 sources) Joint pain; Translations: [Pain in unspecified joint] 02-15-2020 Episodic Comment on above: no evidence of infla mmatory arthritiis think more fibro Other nutritional; endocrine; and metabolic disorders (20 sources) Body mass index 30+ - obesity; Translations: [BMI 30.0-30.9,adult] Resolved: 02-05-2021 11-03-2020 Chronic Other nutritional; endocrine; and metabolic disorders (19 sources) Body mass index 25-29 - overweight; Translations: [BMI 29.0-29.9,adult] Resolved: 05-18-2021 02-05-2021 Episodic Other nutritional; endocrine; and metabolic disorders (20 sources) Overweight in adulthood with body mass index of 25 or more but less than 30; Translations: [BMI 28.0-28.9,adult] Resolved: 01-03-2023 09-17-2019 Episodic Other screening for suspected conditions (not mental disorders or infectious disease) (20 sources) Screening status; Translations: [Encounter for screening for malignant neoplasm of prostate (Renamed from Screening for prostate cancer)] Onset: 01-10-2023 11-02-2021 Episodic Other skin disorders (20 sources) Easy bruising; Translations: [Easy bruisability] 05-18-2021 Episodic Residual codes; unclassified (20 sources) Needs influenza immunization; Translations: [Need for prophylactic vaccination and inoculation against influenza (Renamed from Need for immunization against influenza)] Resolved: 11-03-2020 07-17-2018 Episodic Residual codes; unclassified (18 sources) Requires diphtheria, tetanus and pertussis vaccination; Translations: [Need for Tdap vaccination (Renamed from Need for cinrbtuvze-tzbhdkt-yz rtussis (Tdap) vaccine, adult/adolescent)] 07-17-2018 Episodic Residual codes; unclassified (14 sources) Bruises easily; Translations: [Easy bruisability] 02-15-2020 Episodic Residual codes; unclassified (20 sources) Non-smoker; Translations: [Nonsmoker] 02-05-2021 Episodic Residual codes; unclassified (20 sources) Generalized aches and pains; Translations: [Body aches] Resolved: 07-11-2023 02-22-2021 Episodic Skin and subcutaneous tissue infections (20 sources) Cellulitis of finger; Translations: [Cellulitis, finger] Resolved: 11-03-2020 02-15-2020 Episodic Comment on above: right now had good c aprefill not look dusky and cyanotic more tender and red ans swollen. with other signs and symptoms though will add to the labs getting done for his gen med nexgtt week. treat iwht atb pt has been told to call if finger gets more dusky purplish or wrosen. Spondylosis; intervertebral disc disorders; other back problems (20 sources) Lumbar radiculopathy; Translations: [Lumbar radiculopathy] 02-28-2023 Episodic Comment on above: better Unclassified (20 sources) Unclassified (20 sources) Bloating Unclassified (20 sources) Abdominal pain, generalized Unclassified (20 sources) BMI 28.0-28.9,adult Unclassified (20 sources) BMI 29.0-29.9,adult Unclassified (20 sources) Nonsmoker; Translations: [Non-smoker] 07-17-2018 Unclassified (20 sources) [facility] WELLNESS EXAM 07-17-2018 Unclassified (20 sources) Dysthymic Unclassified (20 sources) Bilateral carpal tunnel syndrome Unclassified (15 sources) Easy bruisability Unclassified (13 sources) Arthralgia Unclassified (2 sources) Unspecified Diagnosis 02-05-2021 Unclassified (1 source) Irritable bowel Past or Other Problems Problem Classification Problem Date Documented Date Episodic/Chronic Abdominal pain (20 sources) Right sided abdominal pain; Translations: [Generalized abdominal pain] Onset: 04-16-2017 Resolved: 09-17-2019 07-17-2018 Episodic Diverticulosis and diverticulitis (5 sources) Diverticulitis of intestine; Translations: [Acute diverticulitis] 08-18-2020 Comment on above: complete coure of an tiboitics- if symptoms no resolve let me know eat bladn and ow residue now until resolve then slowly increase fiber in diet Nonspecific chest pain (4 sources) Chest pain; Translations: [Chest pain, unspecified] Onset: 01-01-2024 12-31-2017 Episodic Other circulatory disease (1 source) Elevated blood-pressure reading, without diagnosis of hypertension; Translations: [Elevated blood-pressure reading, without diagnosis of hypertension] Onset: 01-01-2024 Episodic Other diseases of kidney and ureters (5 sources) Renal insufficiency Other nervous system disorders (17 sources) Bilateral carpal tunnel syndrome; Translations: [Bilateral carpal tunnel syndrome] 04-09-2019 Comment on above: try cock up splints if not better get emg Other nutritional; endocrine; and metabolic disorders (20 sources) Body mass index 25-29 - overweight; Translations: [BMI 28.0-28.9,adult] Resolved: 11-03-2020 07-17-2018 Chronic Unclassified (14 sources) Increased body mass index; Translations: [Needs influenza immunization] Resolved: 04-03-2018 04-03-2018 Episodic Unclassified (20 sources) Need for Tdap vaccination (Renamed from Need for oxgyodvamt-ralqosg-nl rtussis (Tdap) vaccine, adult/adolescent) Unclassified (20 sources) screening Resolved: 01-23-2018 01-23-2018 Unclassified (19 sources) Non-smoker; Translations: [Nonsmoker] 07-17-2018 Unclassified (15 sources) Exposure to SARS virus Unclassified (15 sources) Swollen finger Unclassified (15 sources) Cellulitis, finger Unclassified (11 sources) Acute diverticulitis; Translations: [Diverticulitis] Unclassified (11 sources) Leucocytosis Unclassified (8 sources) BMI 30.0-30.9,adult Unclassified (8 sources) Hemorrhoid Unclassified (2 sources) Body aches Unclassified (1 source) Encounter for screening for malignant neoplasm of prostate (Renamed from Screening for prostate cancer) Results Test Name Value Interpretation Reference Range Facility Echo Completeon 12-26-2023 Echo [facility] [address] [place] [address] Echo Complete 12/26/23 1142 MR#: [id number] Acct: [id number] Name: TALIA MARQUIS Rep #: [id number] : 1970 53 From: Ab [address] MD Attending Dr: Dr. Brittny Honeycutt, Status: REG CL I Ordering Dr: Brittny Honeycutt DO Date: 12/26/23 Location: [facility] Sex: M C Admitted: Reason For Study: CP Procedure This was a 2D Doppler, Color Flow transthoracic echocardiogram. Exam performed in department. Left Ventricle Normal LV size. Mild concentric left ventricular hypertrophy. The left ventricular ejection fraction is 70 %. Diastolic function is indeterminate. Right Ventricle Normal right ventricle. Atria The left and right atria are normal. Mitral Valve Mild mitral annular calcification. Trivial mitral valve insufficiency. Tricuspid Valve Trivial tricuspid valve insufficiency. Unable to estimate RV systolic pressure due to insufficient tricuspid regurgitant envelope. Aortic Valve The aortic valve is not well visualized in the short axis view. There is no aortic stenosis. Pulmonic Valve The pulmonic valve is not well visualized. Great Vessels Normal sized aortic root. Pericardium/Pleural No pericardial effusion. MMode/2D Measurements Calculations LVIDd: 4.0 cm IVSd: 1.3 cm Ao root diam: 3.6 cm LVIDs: 3.0 cm LVPWd: 1.1 cm LA dimension: 3.4 cm RVDd: 3.4 cm FS: 24.5 % LAV(MOD-bp): 33.6 ml LVAd ap4: 23.0 cm2 SV(MOD-sp4): 34.4 ml LAV(MOD-bp) Indexed: 13.8 ml/m2 LVLd ap4: 8.3 cm LAV(MOD-sp2): 41.6 ml EDV(MOD-sp4): 51.9 ml LAV(MOD-sp4): 24.4 ml EDV(sp4-el): 54.1 ml LVAs ap4: 11.6 cm2 LVLs ap4: 6.4 cm ESV(MOD-sp4): 17.6 ml ESV(sp4-el): 17.8 ml EF(MOD-sp4): 66.2 % EF(sp4-el): 67.1 % SV(sp4-el): 36.3 ml LA A4 area: 11.4 cm2 RA A4 area: 10.6 cm2 TAPSE: 1.9 cm Time Measurements MV dec time: 0.28 sec Doppler Measurements Calculations MV E max ld: 69.7 cm/sec Lat Peak E' Ld: 12.9 cm/sec Med Peak E' Ld: 9.7 cm/sec MV A max ld: 81.3 cm/sec E/E' lat: 5.4 E/E' med: 7.2 MV E/A: 0.86 MV V2 max: 96.4 cm/sec MV P1/2t max ld: 88.0 cm/sec Ao V2 max: 130.4 cm/sec MV max P.7 mmHg MV P1/2t: 83.8 msec Ao max P.8 mmHg MV V2 mean: 57.3 cm/sec MV dec slope: 307.5 cm/sec2 Ao V2 mean: 89.6 cm/sec MV mean P.6 mmHg Ao mean P.7 mmHg MV V2 VTI: 20.5 cm MVA(P1/2t): 2.6 cm2 Ao V2 VTI: 25.9 cm AV (velocity ratio): 0.89 LV V1 max: 108.6 cm/sec LV V1 max P.7 mmHg LV V1 mean P.5 mmHg LV V1 mean: 73.3 cm/sec LV V1 VTI: 23.0 cm ECHO/Echo Complete Interpretation Summary Mild concentric left ventricular hypertrophy. The left ventricular ejection fraction is 70 %. Diastolic function is indeterminate. Mild mitral annular calcification. ___ Ordering Physician: Brittny Honeycutt Performed By: AB 12/26/[address] MD CC: Dr. Brittny Honeycutt, DO Date Dictated: 12/26/23 1142 Date Transcribed: 12/26/23 1236 Bladder Blower: Signed Normal [facility] Stress Reporton 12-26-2023 Stress Report [facility] [address] [place] [id number] MR#: [id number] Acct: [id number] Name: TALIA MARQUIS Rep #: [id number] : 1970 53 From: Ab [address] MD Primary Care: Dr. Brittny Honeycutt DO Status: R EG CLI Referring Dr: Sex: M C Stress Test Report Date: 12/26/2023 Procedure: Exercise tolerance test Indications: Chest pain Consent: Per the patient Procedure: The patient exercised on a Ayad protocol for 12 minutes achieving a peak heart rate of 166 bpm (100% predicted maximal heart rate) with a peak blood pressure 162/90 mmHg and a peak MET capacity of approximately 13.7 MET's. The baseline ECG demonstrated normal sinus rhythm. The peak exercise ECG demonstrated no ischemic changes. There were no cardiac dysrhythmias pretest, during exercise, or recovery. The functional capacity was considered excellent. The patient had no complaints of chest discomfort during exercise or recovery. The examination was discontinued secondary to target heart rate being achieved. Impression: 1. Technically adequate (percent predicted maximal heart rate greater than 85%) exercise tolerance test 2. Peak exercise ECG with no ischemic changes 3. There were no cardiac dysrhythmias during exercise or recovery This note was generated with [employer] dictation software. It may contain incorrect words, spelling, and punctuation that were not noted in checking the note before signing. 12/26/[address] MD CC: Dr. Brittny Honeycutt, DO Date Dictated: 12/26/231239 Date Transcribed: 12/26/231239 Bladder Blower: PETRONA Signed Normal [facility] Absolute lymphocyte countOrd ered By: Brittny Honeycutt on 11-10-2023 Lymphocytes Auto (Unsp spec) [#/Vol] 3.14 10*3/uL 0.83-4.51 [facility] Automated lymphocyte count a s percentage of total leukocytesOrdered By: Brittny Honeycutt on 11-10-2023 Lymphocytes/100 WBC Auto (Unsp spec) 42.6 % 19-41 [facility] Basophil percentageOrdered B y: Brittny Honeycutt on 11-10-2023 Basophil percentage 0 SEEN /hpf 0-5 [facility] Basophils/100 WBC (Bld) 1.5 % 0-1 [facility] Bilirubin [Mass/Vol] 0.50 mg/dL 0.20-1.00 [facility] Comment on above: For patients on eltr ombopag therapy, use of Dimension [place] TBIL is not recommended. Chloride [Moles/Vol] 104 mmol/L 98-107 [facility] Eosinophils/100 WBC (Bld) 5.2 % 0-5 [facility] Glucose [Mass/Vol] 88 mg/dL 74-106 [facility] Hemoglobin (Bld) [Mass/Vol] 15.0 g/dL 13.0-16.5 [facility] Monocytes/100 WBC (Bld) 10.0 % 0-10 [facility] Neutrophils (Bld) [#/Vol] 3.0 10*3/uL 2.0-7.7 [facility] Neutrophils/100 WBC (Bld) 40.4 % 47-70 [facility] Potassium [Moles/Vol] 3.9 mmol/L 3.5-5.1 [facility] Protein [Mass/Vol] 7.5 g/dL 6.4-8.2 [facility] Sodium [Moles/Vol] 134 mmol/L 136-145 [facility] WBC (Bld) [#/Vol] 7.4 10*3/uL 4.4-11.0 [facility] Bilirubin Test strip Ql (U)O rdered By: Brittny Honeycutt on 11-10-2023 Bilirubin Ql (U) Negative Negative [facility] CBC W/Diff, Automatedon 10-14 Absolute Lymph 3.14 X10 3/uL Normal 0.83-4.51 [facility] Comment on above: Performed By: #### L 501.9520, L400.0001, L501.4020, L500.4050, L100.0100 #### [facility] [address] [place], [address] Absolute Neut 3.0 X10 3/uL Normal 2.0-7.7 [facility] Comment on above: Performed By: #### L 501.9520, L400.0001, L501.4020, L500.4050, L100.0100 #### [facility] [address] [place], [address] Basophils/100 WBC (Bld) 1.5 % High 0-1 [facility] Comment on above: Performed By: #### L 501.9520, L400.0001, L501.4020, L500.4050, L100.0100 #### [facility] [address] [place], [address] Eosinophils/100 WBC (Bld) 5.2 % High 0-5 [facility] Comment on above: Performed By: #### L 501.9520, L400.0001, L501.4020, L500.4050, L100.0100 #### [facility] [address] [place], [address] Erythrocyte distribution width (RBC) [Ratio] 13.6 % Normal 11.6-14.6 [facility] Comment on above: Performed By: #### L 501.9520, L400.0001, L501.4020, L500.4050, L100.0100 #### [facility] [address] [place], [address] Hematocrit (Bld) [Volume fraction] 46.9 % Normal 40-54 [facility] Comment on above: Performed By: #### L 501.9520, L400.0001, L501.4020, L500.4050, L100.0100 #### [facility] [address] [place], [address] Hemoglobin (Bld) [Mass/Vol] 15.0 g/dL Normal 13.0-16.5 [facility] Comment on above: Performed By: #### L 501.9520, L400.0001, L501.4020, L500.4050, L100.0100 #### [facility] [address] [place], [address] IG% 0.300 Normal 0.0-0.9 [facility] Comment on above: Result Comment: IG% - Immature Granulocytes (promyelocytes, myelocytes and metamyelocytes) > 1% indicates that a LEFT SHIFT is Present. Performed By: #### L 501.9520, L400.0001, L501.4020, L500.4050, L100.0100 #### [facility] [address] [place], [address] Lymphocytes/100 WBC (Bld) 42.6 % High 19-41 [facility] Comment on above: Performed By: #### L 501.9520, L400.0001, L501.4020, L500.4050, L100.0100 #### [facility] [address] [place], [address] MCH (RBC) [Entitic mass] 27.2 pg Normal 27.0-32.0 [facility] Comment on above: Performed By: #### L 501.9520, L400.0001, L501.4020, L500.4050, L100.0100 #### [facility] [address] [place], [address] MCHC (RBC) [Mass/Vol] 32.0 g/dL Normal 32-36 [facility] Comment on above: Performed By: #### L 501.9520, L400.0001, L501.4020, L500.4050, L100.0100 #### [facility] [address] [place], [address] MCV (RBC) [Entitic vol] 85.0 fL Normal 80-94 [facility] Comment on above: Performed By: #### L 501.9520, L400.0001, L501.4020, L500.4050, L100.0100 #### [facility] [address] [place], [address] Monocytes/100 WBC (Bld) 10.0 % Normal 0-10 [facility] Comment on above: Performed By: #### L 501.9520, L400.0001, L501.4020, L500.4050, L100.0100 #### [facility] [address] [place], [address] Neutrophils/100 WBC (Bld) 40.4 % Low 47-70 [facility] Comment on above: Performed By: #### L 501.9520, L400.0001, L501.4020, L500.4050, L100.0100 #### [facility] [address] [place], [address] Nucleated RBC (Bld) [#/Vol] 0 10*3/uL Normal 0-5 [facility] Comment on above: Performed By: #### L 501.9520, L400.0001, L501.4020, L500.4050, L100.0100 #### [facility] [address] [place], [address] Platelet mean volume (Bld) [Entitic vol] 12.4 fL High 6.2-12.0 [facility] Comment on above: Performed By: #### L 501.9520, L400.0001, L501.4020, L500.4050, L100.0100 #### [facility] [address] [place], [address] Platelets (Bld) [#/Vol] 198 10*3/uL Normal 150-450 [facility] Comment on above: Performed By: #### L 501.9520, L400.0001, L501.4020, L500.4050, L100.0100 #### [facility] [address] [place], [address] RBC (Bld) [#/Vol] 5.52 10*6/uL Normal 4.6-6.2 [facility] Comment on above: Performed By: #### L 501.9520, L400.0001, L501.4020, L500.4050, L100.0100 #### [facility] [address] [place], [address] RDW SD 42.3 fl Normal 35.1-43.9 [facility] Comment on above: Performed By: #### L 501.9520, L400.0001, L501.4020, L500.4050, L100.0100 #### [facility] [address] [place], [address] WBC (Bld) [#/Vol] 7.4 10*3/uL Normal 4.4-11.0 [facility] Comment on above: Performed By: #### L 501.9520, L400.0001, L501.4020, L500.4050, L100.0100 #### [facility] [address] [place], [address] Comprehensive Metabolic Prof ilon 11-10-2023 Albumin [Mass/Vol] 3.6 g/dL Normal 3.2-5.0 [facility] Comment on above: Order Comment: TROP CALL RESULTS- 1 Performed By: #### L 501.9520, L400.0001, L501.4020, L500.4050, L100.0100 #### [facility] [address] [place], [address] Albumin/Globulin [Mass ratio] 0.9 {ratio} Normal 0.9-2.4 [facility] Comment on above: Order Comment: TROP CALL RESULTS- 1 Performed By: #### L 501.9520, L400.0001, L501.4020, L500.4050, L100.0100 #### [facility] [address] [place], [address] ALK P 97 U/L Normal 45-117 [facility] Comment on above: Order Comment: TROP CALL RESULTS- 1 Performed By: #### L 501.9520, L400.0001, L501.4020, L500.4050, L100.0100 #### [facility] [address] [place], [address] ALT [Catalytic activity/Vol] 40 U/L Normal 16-61 [facility] Comment on above: Order Comment: TROP CALL RESULTS- 1 Performed By: #### L 501.9520, L400.0001, L501.4020, L500.4050, L100.0100 #### [facility] [address] [place], [address] AST [Catalytic activity/Vol] 25 U/L Normal 15-37 [facility] Comment on above: Order Comment: TROP CALL RESULTS- 1 Performed By: #### L 501.9520, L400.0001, L501.4020, L500.4050, L100.0100 #### [facility] [address] [place], [address] Bilirubin [Mass/Vol] 0.50 mg/dL Normal 0.20-1.00 [facility] Comment on above: Order Comment: TROP CALL RESULTS- 1 Result Comment: For patients on eltrombopag therapy, use of Dimension [place] TBIL is not recommended. Performed By: #### L 501.9520, L400.0001, L501.4020, L500.4050, L100.0100 #### [facility] [address] [place], [address] BUN/CRE 15.9 RATIO Normal 10-20 [facility] Comment on above: Order Comment: TROP CALL RESULTS- 1 Performed By: #### L 501.9520, L400.0001, L501.4020, L500.4050, L100.0100 #### [facility] [address] [place], [address] CA,Total 9.0 mg/dL Normal 8.5-10.1 [facility] Comment on above: Order Comment: TROP CALL RESULTS- 1 Performed By: #### L 501.9520, L400.0001, L501.4020, L500.4050, L100.0100 #### [facility] [address] [place], [address] Chloride [Moles/Vol] 104 mmol/L Normal 98-107 [facility] Comment on above: Order Comment: TROP CALL RESULTS- 1 Performed By: #### L 501.9520, L400.0001, L501.4020, L500.4050, L100.0100 #### [facility] [address] [place], [address] CO2 [Moles/Vol] 26.0 mmol/L Normal 21.0-32.0 [facility] Comment on above: Order Comment: TROP CALL RESULTS- 1 Performed By: #### L 501.9520, L400.0001, L501.4020, L500.4050, L100.0100 #### [facility] [address] [place], [address] Creatinine [Mass/Vol] 1.07 mg/dL Normal 0.70-1.30 [facility] Comment on above: Order Comment: TROP CALL RESULTS- 1 Result Comment: The validity of the calculated GFR GFRAA in patients over 70 years has not been determined. Clinical correlation is essential. Performed By: #### L 501.9520, L400.0001, L501.4020, L500.4050, L100.0100 #### [facility] [address] [place], [address] EST GFR - AA 93 mL/min Normal >60 [facility] Comment on above: Order Comment: TROP CALL RESULTS- 1 Result Comment: Afri can Cymraes GFR Calc Performed By: #### L 501.9520, L400.0001, L501.4020, L500.4050, L100.0100 #### [facility] [address] [place], [address] GAP 4 Low 5-15 [facility] Comment on above: Order Comment: TROP CALL RESULTS- 1 Performed By: #### L 501.9520, L400.0001, L501.4020, L500.4050, L100.0100 #### [facility] [address] [place], [address] GFR/1.73 sq M.predicted among non-blacks MDRD (S/P/Bld) [Vol rate/Area] 77 mL/min/{1.73_m2} Normal >60 [facility] Comment on above: Order Comment: TROP CALL RESULTS- 1 Result Comment: Non- GFR Calc Performed By: #### L 501.9520, L400.0001, L501.4020, L500.4050, L100.0100 #### [facility] [address] [place], [address] Globulin (S) [Mass/Vol] 3.9 g/dL Normal 2.2-4.2 [facility] Comment on above: Order Comment: TROP CALL RESULTS- 1 Performed By: #### L 501.9520, L400.0001, L501.4020, L500.4050, L100.0100 #### [facility] [address] [place], [address] Glucose [Mass/Vol] 88 mg/dL Normal 74-106 [facility] Comment on above: Order Comment: TROP CALL RESULTS- 1 Performed By: #### L 501.9520, L400.0001, L501.4020, L500.4050, L100.0100 #### [facility] [address] [place], [address] Potassium [Moles/Vol] 3.9 mmol/L Normal 3.5-5.1 [facility] Comment on above: Order Comment: TROP CALL RESULTS- 1 Performed By: #### L 501.9520, L400.0001, L501.4020, L500.4050, L100.0100 #### [facility] [address] [place], [address] Sodium [Moles/Vol] 134 mmol/L Low 136-145 [facility] Comment on above: Order Comment: TROP CALL RESULTS- 1 Performed By: #### L 501.9520, L400.0001, L501.4020, L500.4050, L100.0100 #### [facility] [address] [place], [address] T PROT 7.5 g/dL Normal 6.4-8.2 [facility] Comment on above: Order Comment: TROP CALL RESULTS- 1 Performed By: #### L 501.9520, L400.0001, L501.4020, L500.4050, L100.0100 #### [facility] [address] [place], [address] Urea nitrogen [Mass/Vol] 17 mg/dL Normal 7-18 [facility] Comment on above: Order Comment: TROP CALL RESULTS- 1 Performed By: #### L 501.9520, L400.0001, L501.4020, L500.4050, L100.0100 #### [facility] [address] [facility] [place], [address] Determination of erythrocyte mean corpuscular volume (MCV)Ordered By: Brittny Honeycutt on 11-10-2023 MCV (RBC) [Entitic vol] 85.0 fL 80-94 [facility] Erythrocyte distribution wid th ratioOrdered By: Brittny on 11-10-2023 Erythrocyte distribution width (RBC) [Ratio] 13.6 % 11.6-14.6 [facility] Erythrocyte distribution wid th standard deviationOrdered By: Brittny on 11-10-2023 Erythrocyte distribution width (RBC) [Entitic vol] 42.3 fL 35.1-43.9 [facility] Hematocrit Auto (Bld) [Volum e fraction]Ordered By: [facility] on 11-10-2023 Hematocrit (Bld) [Volume fraction] 46.9 % 40-54 [facility] Immature granulocytes/100 WB C Auto (Bld)Ordered By: [facility] on 11-10-2023 Immature granulocytes/100 WBC (Bld) 0.300 % 0.0-0.9 [facility] Comment on above: IG% - Immature Granu locytes (promyelocytes, myelocytes and metamyelocytes) > 1% indicates that a LEFT SHIFT is Present. Ketones Test strip Ql (U)Ord ered By: Brittny Honeycutt on 11-10-2023 Ketones Ql (U) Negative Negative [facility] L501.4020on 11-10-2023 TROPONIN-I HS 4 pg/mL Normal 3.0-78.0 [facility] Comment on above: Order Comment: TROP CALL RESULTS- 1 Result Comment: Alfreda herrera Note: New Test Units and Gender Specific Reference Ranges. For more information see Policy Stat Procedure [place] High Sensitivity Troponin (TNIH) and attachments. Performed By: #### L 501.9520, L400.0001, L501.4020, L500.4050, L100.0100 #### [facility] [address] [place], [address] Laboratory - Chemistry and C hemistry - challengeOrdered By: [facility] on 11-10-2023 Albumin/Globulin [Mass ratio] 0.9 {ratio} 0.9-2.4 [facility] ALP [Catalytic activity/Vol] 97 U/L 45-117 [facility] ALT [Catalytic activity/Vol] 40 U/L 16-61 [facility] CO2 [Moles/Vol] 26.0 mmol/L 21.0-32.0 [facility] Globulin (S) [Mass/Vol] 3.9 g/dL 2.2-4.2 [facility] Urea nitrogen/Creatinine [Mass ratio] 15.9 mg/mg 10-20 [facility] Laboratory - Hematology and Cell countsOrdered By: [facility] on 11-10-2023 MCH (RBC) [Entitic mass] 27.2 pg 27.0-32.0 [facility] MCHC (RBC) [Mass/Vol] 32.0 g/dL 32-36 [facility] Nucleated RBC/100 WBC (Bld) [Ratio] 0 % 0-5 [facility] Platelets (Bld) [#/Vol] 198 10*3/uL 150-450 [facility] Mucus LM Ql (Urine sed)Order ed By: [facility] on 11-10-2023 Mucus Ql (Urine sed) 0 SEEN /hpf [facility] Nitrite Test strip Ql (U)Ord ered By: [facility] on 11-10-2023 Nitrite Ql (U) Negative Negative [facility] No Panel InformationOrdered By: [facility] on 11-10-2023 Estimated GFR (MDRD) Amer 93 mL/min >60 [facility] Comment on above: GFR Calc Estimated GFR (MDRD) Non-Af Amer 77 mL/min >60 [facility] Comment on above: Non- GFR Calc Troponin I High Sensitivity 4 pg/mL 3.0-78.0 [facility] Comment on above: Please Note: New [place] t Units and Gender Specific Reference Ranges. For more information see Policy Stat Procedure [place] High Sensitivity Troponin (TNIH) and attachments. Urine RBC 0 SEEN /hpf 0-5 [facility] Platelet mean volume Alexandr-Ec ker (Bld) [Entitic vol]Ordered By: [facility] on 11-10-2023 Platelet mean volume (Bld) [Entitic vol] 12.4 fL 6.2-12.0 [facility] Protein Test strip Ql (U)Ord ered By: [facility] on 11-10-2023 Protein Ql (U) Negative Negative [facility] RBC Auto (Bld) [#/Vol]Ordere d By: [facility] on 11-10-2023 RBC (Bld) [#/Vol] 5.52 10*6/uL 4.6-6.2 [facility] Serum or plasma calcium josé urement (mass/volume)Ordered By: [facility] on 11-10-2023 Calcium [Mass/Vol] 9.0 mg/dL 8.5-10.1 [facility] Serum or plasma creatinine m easurement (mass/volume)Ordered By: [facility] on 11-10-2023 Creatinine [Mass/Vol] 1.07 mg/dL 0.70-1.30 [facility] Comment on above: The validity of the calculated GFR & GFRAA in patients over 70 years has not been determined. Clinical correlation is essential. Serum or plasma thyroid stim ulating hormone (TSH) measurement (units/volume)Ordered By: [facility] 11-10-2023 TSH Qn 1.19 uIU/mL 0.358-3.74 [facility] Serum or plasma urea nitroge n measurement (mass/volume)Ordered By: [facility] 11-10-2023 Urea nitrogen [Mass/Vol] 17 mg/dL 7-18 [facility] Squamous epithelial cells de tection in urine sediment by light microscopyOrdered By: [facility] 11-10-2023 Epithelial cells.squamous LM Ql (Urine sed) 0 SEEN /hpf 0-5 [facility] Thin prep Papanicolaou smear with manual screeningOrdered By: [facility] 11-10-2023 Thin prep Papanicolaou smear with manual screening 3.6 g/dL 3.2-5.0 [facility] Thin prep Papanicolaou smear with manual screening 25 U/L 15-37 [facility] Thin prep Papanicolaou smear with manual screening 4 5-15 [facility] Thyroid Stim Hormone (TSH)on 11-10-2023 TSH 1.19 uIU/mL Normal 0.358-3.74 [facility] Comment on above: Order Comment: TROP CALL RESULTS- 1 Performed By: #### L 501.9520, L400.0001, L501.4020, L500.4050, L100.0100 #### [facility] [address] [place], [address] Urinalysis, Completeon 11-10 BACTERIA 0 SEEN Normal None Seen [facility] Comment on above: Order Comment: CLEAN CATCH Performed By: #### L 501.9520, L400.0001, L501.4020, L500.4050, L100.0100 #### [facility] [address] [place], [address] EPI,SQUAMOUS 0 SEEN Normal 0-5 [facility] Comment on above: Order Comment: CLEAN CATCH Performed By: #### L 501.9520, L400.0001, L501.4020, L500.4050, L100.0100 #### [facility] [address] [place], [address] Mucus Ql (Urine sed) 0 SEEN Normal [facility] Comment on above: Order Comment: CLEAN CATCH Performed By: #### L 501.9520, L400.0001, L501.4020, L500.4050, L100.0100 #### [facility] [address] [place], [address] RBC 0 SEEN Normal 0-5 [facility] Comment on above: Order Comment: CLEAN CATCH Performed By: #### L 501.9520, L400.0001, L501.4020, L500.4050, L100.0100 #### [facility] [address] [place], [address] WBC 0 SEEN Normal 0-5 [facility] Comment on above: Order Comment: CLEAN CATCH Performed By: #### L 501.9520, L400.0001, L501.4020, L500.4050, L100.0100 #### [facility] [address] [place], [address] Urine blood detectionOrdered By: Brittny Fast on 11-10-2023 RBC Ql (U) Negative Negative [facility] Urine clarityOrdered By: Nicole ra Fast on 11-10-2023 Clarity (U) Clear Clear [facility] Urine color determinationOrd ered By: Brittny Fast on 11-10-2023 Color (U) Yellow Yellow [facility] Urine glucose detectionOrder ed By: Brittny Fast on 11-10-2023 Glucose Ql (U) Normal mg/dl Normal [facility] Urine leukocyte esterase det ection by dipstickOrdered By: Brittny Fast on 11-10-2023 Leukocyte esterase Test strip Ql (U) 25 /ul Negative [facility] Urine pHOrdered By: Brittny Fa st on 11-10-2023 pH (U) 6.0 [pH] 5.0 - 8.0 [facility] Urine sediment bacteria coun t by microscopy (number/high power field)Ordered By: Brittny Fast on 11-10-2023 Bacteria LM.HPF (Urine sed) [#/Area] 0 /[HPF] None Seen [facility] Urine specific gravity measu rementOrdered By: Brittny Fast on 11-10-2023 Specific gravity (U) [Rel density] 1.015 1.002-1.03 0 [facility] Urine urobilinogen measureme ntOrdered By: Brittny Fast on 11-10-2023 Urobilinogen Ql (U) Normal mg/dl Normal [facility] CBC W/AUTO DIFF WBC (27701)O rdered By: Medical Specialist on 07-11-2023 Basophils (Bld) [#/Vol] 0.1 10*3/uL Normal 0.0-0.2 [facility] Work Phone: Comment on above: PATIENT WAS FASTINGP ERFORMED BY: [facility] Rgrizk[address]bl[address] [place] [id number] Basophils/100 WBC (Bld) 2 % Normal [facility]; [facility] Work Phone: Comment on above: PATIENT WAS FASTINGP ERFORMED BY: [facility] Elcqen45[address]Dublin [place] [id number] Eosinophils (Bld) [#/Vol] 0.4 10*3/uL Normal 0.0-0.4 [facility]; [facility] Work Phone: Comment on above: PATIENT WAS FASTINGP ERFORMED BY: [facility] Roadblin [place] [id number] Eosinophils/100 WBC (Bld) 6 % Normal [facility]; [facility] Work Phone: Comment on above: PATIENT WAS FASTINGP ERFORMED BY: [facility] [facility] [id number] Erythrocyte distribution width (RBC) [Ratio] 14.0 % Normal 11.6-15.4 [facility]; [facility] Work Phone: Comment on above: PATIENT WAS FASTINGP ERFORMED BY: [facility] [facility] [id number] Hematocrit (Bld) [Volume fraction] 46.6 % Normal 37.5-51.0 [facility]; [facility] Work Phone: Comment on above: PATIENT WAS FASTINGP ERFORMED BY: [facility] Uimvxa[address] [facility] [place] [id number] Hemoglobin (Bld) [Mass/Vol] 15.4 g/dL Normal 13.0-17.7 [facility]; [facility] Work Phone: Comment on above: PATIENT WAS FASTINGP ERFORMED BY: [facility] [facility] [place] [id number] Immature granulocytes (Bld) [#/Vol] 0.1 10*3/uL Normal 0.0-0.1 [facility]; [facility] Work Phone: Comment on above: PATIENT WAS FASTINGP ERFORMED BY: [facility] Gkadpt[address] Roadblin [place] [id number] Immature granulocytes/100 WBC (Bld) 1 % Normal [facility]; [facility] Work Phone: Comment on above: PATIENT WAS FASTINGP ERFORMED BY: [facility] Tghtaj2[address]bl[address] [place] [id number] Lymphocytes (Bld) [#/Vol] 2.3 10*3/uL Normal 0.7-3.1 [facility]; [facility] Work Phone: Comment on above: PATIENT WAS FASTINGP ERFORMED BY: [facility] Aoykqm[address] Roadbl[address] [place] [id number] Lymphocytes/100 WBC (Bld) 35 % Normal [facility]; [facility] Work Phone: Comment on above: PATIENT WAS FASTINGP ERFORMED BY: [facility] [facility] [place] [id number] MCH (RBC) [Entitic mass] 28.7 pg Normal 26.6-33.0 [facility]; [facility] Work Phone: Comment on above: PATIENT WAS FASTINGP ERFORMED BY: [facility] Qqityh[address] [facility] [place] [id number] MCHC (RBC) [Mass/Vol] 33.0 g/dL Normal 31.5-35.7 [facility] prehensive Internal Medicine; [facility] Work Phone: Comment on above: PATIENT WAS FASTINGP ERFORMED BY: [facility] [facility] [place] [id number] MCV (RBC) [Entitic vol] 87 fL Normal 79-97 [facility]; [facility] Work Phone: Comment on above: PATIENT WAS FASTINGP ERFORMED BY: [facility]Dublin [place] [id number] Monocytes (Bld) [#/Vol] 0.6 10*3/uL Normal 0.1-0.9 [facility]; [facility] Work Phone: Comment on above: PATIENT WAS FASTINGP ERFORMED BY: CB [facility] Qcmkqi8889 [address] RoadDublin [place] [id number] Monocytes/100 WBC (Bld) 8 % Normal [facility]; [facility] Work Phone: Comment on above: PATIENT WAS FASTINGP ERFORMED BY: CB [facility] Vxbskr0328 [address] RoadDublin [place] [id number] Neutrophils (Bld) [#/Vol] 3.1 10*3/uL Normal 1.4-7.0 [facility]; [facility] Work Phone: Comment on above: PATIENT WAS FASTINGP ERFORMED BY: CB [facility] Aefhny38[address] RoadDublin [place] [id number] Neutrophils/100 WBC (Bld) 48 % Normal [facility]; [facility] Work Phone: Comment on above: PATIENT WAS FASTINGP ERFORMED BY: CB [facility] Mlzlwj9052 [address] RoadDublin [place] [id number] Platelets (Bld) [#/Vol] 151 10*3/uL Normal 150-450 [facility]; [facility] Work Phone: Comment on above: PATIENT WAS FASTINGP ERFORMED BY: CB [facility] Tyavtf0[address] RoadDublin [place] [id number] RBC (Bld) [#/Vol] 5.36 10*6/uL Normal 4.14-5.80 Compr ehensive Internal Medicine; [facility] Work Phone: Comment on above: PATIENT WAS FASTINGP ERFORMED BY: CB [facility] Wpiykx9[address] RoadDublin [place] [id number] WBC (Bld) [#/Vol] 6.6 10*3/uL Normal 3.4-10.8 [facility]; [facility] Work Phone: Comment on above: PATIENT WAS FASTINGP ERFORMED BY: CB [facility] Gaxcdu[address] RoadDublin [place] [id number] HgA1C , Office ([id number])Ordere d By: BROCK Goodman on 07-11-2023 HbA1c (Bld) [Mass fraction] 5.4 % Normal 4.6 - 7.1 [facility]; [facility] Work Phone: LIPID PANEL ([id number])Ordered B y: Medical Specialist on 07-11-2023 Cholesterol [Mass/Vol] 194 mg/dL Normal 100-199 [facility]; [facility] Work Phone: Comment on above: PATIENT WAS FASTINGP ERFORMED BY: CB [facility] Lrnuef6518 [address] RoadDublin [place] [id number] Cholesterol in HDL [Mass/Vol] 35 mg/dL Abnormal [facility]; [facility] Work Phone: Comment on above: PATIENT WAS FASTINGP ERFORMED BY: CB [facility] Fjpbmp97[address] RoadDublin [place] [id number] Triglyceride [Mass/Vol] 143 mg/dL Normal 0-149 [facility]; [facility] Work Phone: Comment on above: PATIENT WAS FASTINGP ERFORMED BY: CB [facility] Xgoqha3904 [address] RoadDublin [place] [id number] LIPID PANEL (68394) 26 mg/dL Normal 5-40 Compr ensive [facility] Medicine; [facility] Work Phone: Comment on above: PATIENT WAS FASTINGP ERFORMED BY: CB [facility] Qrqgih9145 [address] RoadDublin [place] [id number] LIPID PANEL (34864) 133 mg/dL Abnormal 0-99 Compr ensive [facility] Medicine; [facility] Work Phone: Comment on above: PATIENT WAS FASTINGP ERFORMED BY: CB [facility] Clumtn0067 [address] RoadDublin [place] [id number] LIPID PANEL (94348) 3.8 {ratio} Abnormal 0.0-3.6 [facility]; [facility] Work Phone: Comment on above: LDL/HDL Ratio Men Wo men 1/2 Avg.Risk 1.0 1.5 Avg.Risk 3.6 3.2 2X Avg.Risk 6.2 5.0 3X Avg.Risk 8.0 6.1 PATIENT WAS FASTINGP ERFORMED BY: CB [facility] Xlbtiw9[address] RoadDublin [place] [id number] METABOLIC PANEL, COMPREHENSI VE (16509)Ordered By: Medical Specialist on 07-11-2023 Albumin [Mass/Vol] 4.3 g/dL Normal 3.8-4.9 [facility] Internal Medicine; [facility] Work Phone: Comment on above: PATIENT WAS FASTINGP ERFORMED BY: CB [facility] Hbwtbz0652 [address] RoadDublin [place] [id number] Albumin/Globulin [Mass ratio] 1.6 {ratio} Normal 1.2-2.2 [facility]; [facility] Work Phone: Comment on above: PATIENT WAS FASTINGP ERFORMED BY: CB [facility] Womeuu70[address] RoadDublin [place] [id number] ALP [Catalytic activity/Vol] 99 U/L Normal 44-121 [facility]; [facility] Work Phone: Comment on above: PATIENT WAS FASTINGP ERFORMED BY: CB [facility] Aowffq7[address] RoadDublin [place] [id number] ALT [Catalytic activity/Vol] 43 U/L Normal 0-44 [facility]; [facility] Work Phone: Comment on above: PATIENT WAS FASTINGP ERFORMED BY: CB [facility] Rcwpjb2696 [address] RoadDublin [place] [id number] AST [Catalytic activity/Vol] 30 U/L Normal 0-40 [facility]; [facility] Work Phone: Comment on above: PATIENT WAS FASTINGP ERFORMED BY: CB [facility] Xsphvy4[address] RoadDublin [place] [id number] Bilirubin [Mass/Vol] 0.4 mg/dL Normal 0.0-1.2 [facility] Internal Medicine; [facility] Work Phone: Comment on above: PATIENT WAS FASTINGP ERFORMED BY: CB [facility] Jzgarw7[address] RoadDublin [place] [id number] Calcium [Mass/Vol] 9.0 mg/dL Normal 8.7-10.2 [facility]; [facility] Work Phone: Comment on above: PATIENT WAS FASTINGP ERFORMED BY: JONATHON Labpee ValentinVqolcf[address] [facility]in [place] [id number] Chloride [Moles/Vol] 105 mmol/L Normal 96-106 Comp rehensive Internal Medicine; [facility] Work Phone: Comment on above: PATIENT WAS FASTINGP ERFORMED BY: JONATHON [facility] Rrocus[address] [facility] [id number] CO2 [Moles/Vol] 21 mmol/L Normal 20-29 Comprehen [facility]; [facility] Work Phone: Comment on above: PATIENT WAS FASTINGP ERFORMED BY: JONATHON Anderson Rlwxjy6179 [facility] [id number] Creatinine [Mass/Vol] 1.07 mg/dL Normal 0.76-1.27 [facility]; [facility] Work Phone: Comment on above: PATIENT WAS FASTINGP ERFORMED BY: JONATHON Anderson Yvnrxh5314 [facility] [id number] GFR/1.73 sq M.predicted among non-blacks MDRD (S/P/Bld) [Vol rate/Area] 83 mL/min/{1.73_m2} Normal Comprehens e Internal Medicine; [facility] Work Phone: Comment on above: PATIENT WAS FASTINGP ERFORMED BY: JONATHON [facility] Bfouni6331 [facility] [id number] Globulin (S) [Mass/Vol] 2.7 g/dL Normal 1.5-4.5 [facility]; [facility] Work Phone: Comment on above: PATIENT WAS FASTINGP ERFORMED BY: JONATHON [facility] Phchca3090 [facility] [id number] Glucose [Mass/Vol] 94 mg/dL Normal 70-99 [facility]; [facility] Work Phone: Comment on above: PATIENT WAS FASTINGP ERFORMED BY: JONATHON Saavedraco Resasz19[address] RoadDublin [place] [id number] Potassium [Moles/Vol] 4.6 mmol/L Normal 3.5-5.2 [facility]; [facility] Work Phone: Comment on above: PATIENT WAS FASTINGP ERFORMED BY: JONATHON [facility] Eunzpv8[address] RoadDublin [place] [id number] Protein [Mass/Vol] 7.0 g/dL Normal 6.0-8.5 [facility] Internal Medicine; [facility] Work Phone: Comment on above: PATIENT WAS FASTINGP ERFORMED BY: JONATHON [facility] Oejdju23[address] RoadDublin [place] [id number] Sodium [Moles/Vol] 138 mmol/L Normal 134-144 [facility] Internal [facility]; [facility] Work Phone: Comment on above: PATIENT WAS FASTINGP ERFORMED BY: JONATHON [facility] Ahkcbi5[address] RoadDublin [place] [id number] Urea nitrogen [Mass/Vol] 19 mg/dL Normal 6-24 [facility]; [facility] Work Phone: Comment on above: PATIENT WAS FASTINGP ERFORMED BY: JONATHON Labshanna Cddums[address] RoadDublin [place] [id number] Urea nitrogen/Creatinine [Mass ratio] 18 mg/mg Normal 9-20 [facility]; [facility] Work Phone: Comment on above: PATIENT WAS FASTINGP ERFORMED BY: [facility] Ywsgqe33[address] RoadDublin [place] [id number] VITAMIN B12 AND FOLATES (826 07)Ordered By: Medical Specialist on 07-11-2023 Cobalamin (Vitamin B12) [Mass/Vol] 518 pg/mL Normal 232-1245 [facility]; [facility] Work Phone: Comment on above: PATIENT WAS FASTINGP ERFORMED BY: JONATHON [facility] Wuquhr8[address] RoadDublin [place] [id number] Folate [Mass/Vol] 15.8 ng/mL Normal Compreh ensive Internal Medicine; [facility] Work Phone: Comment on above: A serum folate leonard ntration of less than 3.1 ng/mL isconsidered to represent clinical deficiency. PATIENT WAS FASTINGP ERFORMED BY: JONATHON Port[facility]ium Udzzux1157 [facility] [id number] Vitamin D Hydroxy (90429)Ord ered By: Medical Specialist on 07-11-2023 25-hydroxyvitamin D [Mass/Vol] 31.1 ng/mL Normal 30.0-100.0 [facility]; [facility] Work Phone: Comment on above: Vitamin D deficiency has been defined by the [place] ofMedicine and an Endocrine Society practice guideline as alevel of serum 25-OH vitamin D less than 20 ng/mL (1,2).The Endocrine Society went on to further define vitamin Dinsufficiency as a level between 21 and 29 ng/mL (2).1. IOM ([place] of Medicine). 2010. Dietary reference intakes for calcium and D. [place]: The National Academies Press.2. Tono MF, Anisha CASILLAS, Yenny CASTILLO, et al. Evaluation, treatment, and prevention of vitamin D deficiency: an Endocrine Society clinical practice guideline. JCEM. 2010; 96(7):1911-30. PATIENT WAS FASTINGP ERFORMED BY: [email or web address] Qzfadp0761 [facility] [id number] CT CARDIAC SCORINGon 023 CT CARDIAC SCORING Patient Name: TALIA MARQUIS STUDY: CT CARDIAC SCORING; 01/10/2023 11:37 am INDICATION: MILD HYPERLIPIDEMIA. COMPARISON: None. ACCESSION NUMBER(S): [id number] ORDERING CLINICIAN: BRITTNY HONEYCUTT TECHNIQUE: Using prospective ECG gating, CT scan of the coronary arteries was performed without intravenous contrast. Coronary calcium scoring was performed according to the method of Agatston. FINDINGS: The score and distribution of calcium in the coronary arteries is as follows: Left Main Coronary: 0. Left Anterior Descendin. Left Circumflex: 0. Right Coronary Artery: 0. Total: 0. The lungs are clear. The aorta is without aneurysmal dilatation evident. The heart is not enlarged. No pericardial effusion is evident. No hilar or mediastinal lymphadenopathy is evident. Structures in the visualized upper abdomen are grossly unremarkable. IMPRESSION: 1. Coronary artery calcium score of 0*. *Coronary artery calcium scoring may be helpful in predicting the risk for future coronary heart disease events. According to the [place] [employer] Clinical Expert Consensus Task Force, such testing provides important prognostic information in patients with more than one coronary heart disease risk factor. The coronary artery calcium score correlates with the annual risk of a non-fatal myocardial infarction or coronary heart disease . Coronary artery score Annual Risk 0-99 0.4% 100-399 1.3% >400 2.4% These three breakpoints correspond to lower, intermediate and high risk states for future coronary events. Such information should be used, along with appropriate clinical judgment, to make decisions regarding the intensity of risk factor management strategies to treat blood lipids and to modify other non-lipid coronary risk factors. Reference: Juliocesar P et al. Circulation. 2007; 115:402-426 Electronically signed by: REGGIE MORRISON MD [facility] CBC, PLATELETS & MANUAL DIFF ([id number])Ordered By: Medical Specialist on 12-26-2022 Basophils (Bld) [#/Vol] 0.1 10*3/uL Normal 0.0-0.2 [facility]; [facility] Work Phone: Comment on above: PATIENT WAS FASTINGP ERFORMED BY: Tucker Blair6370 [facility] [id number] Basophils/100 WBC (Bld) 1 % Normal [facility]; [facility] Work Phone: Comment on above: PATIENT WAS FASTINGP ERFORMED BY: [employer] Technologylin6370 [facility] [id number] Eosinophils (Bld) [#/Vol] 0.4 10*3/uL Normal 0.0-0.4 [facility]; [facility] Work Phone: Comment on above: PATIENT WAS FASTINGP ERFORMED BY: Tucker Blair6370 [facility] [id number] Eosinophils/100 WBC (Bld) 6 % Normal [facility]; [facility] Work Phone: Comment on above: PATIENT WAS FASTINGP ERFORMED BY: CB [facility] RoadCommunity Healthin [place] [id number] Erythrocyte distribution width (RBC) [Ratio] 13.5 % Normal 11.6-15.4 [facility]; [facility] Work Phone: Comment on above: PATIENT WAS FASTINGP ERFORMED BY: [facility] Lbkezk4[address] Roadblin [place] [id number] Hematocrit (Bld) [Volume fraction] 50.2 % Normal 37.5-51.0 [facility]; [facility] Work Phone: Comment on above: PATIENT WAS FASTINGP ERFORMED BY: [facility]bl[address] [place] [id number] Hemoglobin (Bld) [Mass/Vol] 16.5 g/dL Normal 13.0-17.7 [facility]; [facility] Work Phone: Comment on above: PATIENT WAS FASTINGP ERFORMED BY: [facility] RoadCommunity Healthin [place] [id number] Immature granulocytes (Bld) [#/Vol] 0.0 10*3/uL Normal 0.0-0.1 [facility]; [facility] Work Phone: Comment on above: PATIENT WAS FASTINGP ERFORMED BY: [facility] Htkxmc70[address] Roadbl[address] [place] [id number] Immature granulocytes/100 WBC (Bld) 0 % Normal [facility]; [facility] Work Phone: Comment on above: PATIENT WAS FASTINGP ERFORMED BY: [facility] RoadCommunity Healthin [place] [id number] Lymphocytes (Bld) [#/Vol] 2.8 10*3/uL Normal 0.7-3.1 [facility]; [facility] Work Phone: Comment on above: PATIENT WAS FASTINGP ERFORMED BY: [facility] Sxqvir3829 [address] RoadDublin [place] [id number] Lymphocytes/100 WBC (Bld) 42 % Normal [facility]; [facility] Work Phone: Comment on above: PATIENT WAS FASTINGP ERFORMED BY: JONATHON [facility] Hlrsue2294 [address] RoadDublin [place] [id number] MCH (RBC) [Entitic mass] 27.8 pg Normal 26.6-33.0 [facility]; [facility] Work Phone: Comment on above: PATIENT WAS FASTINGP ERFORMED BY: [facility] Whmddm8254 [address] RoadDublin [place] [id number] MCHC (RBC) [Mass/Vol] 32.9 g/dL Normal 31.5-35.7 [facility] prehensive Internal Medicine; [facility] Work Phone: Comment on above: PATIENT WAS FASTINGP ERFORMED BY: [facility] Jbpbzn3841 [address] RoadDublin [place] [id number] MCV (RBC) [Entitic vol] 85 fL Normal 79-97 [facility]; [facility] Work Phone: Comment on above: PATIENT WAS FASTINGP ERFORMED BY: [facility] Bimobs0442 [address] RoadDublin [place] [id number] Monocytes (Bld) [#/Vol] 0.7 10*3/uL Normal 0.1-0.9 [facility]; [facility] Work Phone: Comment on above: PATIENT WAS FASTINGP ERFORMED BY: [facility] Jcqxpc1771 [address] RoadDublin [place] [id number] Monocytes/100 WBC (Bld) 10 % Normal [facility]; [facility] Work Phone: Comment on above: PATIENT WAS FASTINGP ERFORMED BY: [facility] Cfivet09[address] RoadDublin [place] [id number] Neutrophils (Bld) [#/Vol] 2.7 10*3/uL Normal 1.4-7.0 [facility]; [facility] Work Phone: Comment on above: PATIENT WAS FASTINGP ERFORMED BY: CB [facility] Xztclr5706 [address] RoadDublin [place] [id number] Neutrophils/100 WBC (Bld) 41 % Normal [facility]; [facility] Work Phone: Comment on above: PATIENT WAS FASTINGP ERFORMED BY: JONATHON [facility] Bujkcw37[address] RoadDublin [place] [id number] Platelets (Bld) [#/Vol] 169 10*3/uL Normal 150-450 [facility]; [facility] Work Phone: Comment on above: PATIENT WAS FASTINGP ERFORMED BY: JONATHON [facility] Othasb1972 [address] RoadDublin [place] [id number] RBC (Bld) [#/Vol] 5.94 10*6/uL Abnormal 4.14-5.80 [facility] Internal Medicine; [facility] Work Phone: Comment on above: PATIENT WAS FASTINGP ERFORMED BY: JONATHON [facility] Jbjsxn[address]bl[address] [place] [id number] WBC (Bld) [#/Vol] 6.7 10*3/uL Normal 3.4-10.8 [facility] Internal Medicine; [facility] Work Phone: Comment on above: PATIENT WAS FASTINGP ERFORMED BY: JONATHON Labcomichael Ufjlsu[address] [facility] [place] [id number] METABOLIC PANEL, COMPREHENSI VE ([id number])Ordered By: Medical Specialist on 12-26-2022 Albumin [Mass/Vol] 4.3 g/dL Normal 3.8-4.9 [facility] Internal Medicine; [facility] Work Phone: Comment on above: PATIENT WAS FASTINGP ERFORMED BY: JONATHON [facility] Jsyhbp[address] [facility] [place] [id number] Albumin/Globulin [Mass ratio] 1.5 {ratio} Normal 1.2-2.2 [facility]; [facility] Work Phone: Comment on above: PATIENT WAS FASTINGP ERFORMED BY: JONATHON [facility] Rpfcdx[address] [facility] HospitalD[facility] [place] [id number] ALP [Catalytic activity/Vol] 102 U/L Normal 44-121 [facility]; [facility] Work Phone: Comment on above: PATIENT WAS FASTINGP ERFORMED BY: JONATHON [facility] Ngxriz5781 [address] RoadDublin [place] [id number] ALT [Catalytic activity/Vol] 30 U/L Normal 0-44 [facility]; [facility] Work Phone: Comment on above: PATIENT WAS FASTINGP ERFORMED BY: JONATHON [facility] Ymwgnx7967 [address] RoadDublin [place] [id number] AST [Catalytic activity/Vol] 21 U/L Normal 0-40 [facility]; [facility] Work Phone: Comment on above: PATIENT WAS FASTINGP ERFORMED BY: JONATHON [facility] Wqzqar0326 [address] RoadDublin [place] [id number] Bilirubin [Mass/Vol] 0.5 mg/dL Normal 0.0-1.2 Comp rehensive Internal Medicine; [facility] Work Phone: Comment on above: PATIENT WAS FASTINGP ERFORMED BY: JONATHON [facility] Umnmoi8[address] RoadDublin [place] [id number] Calcium [Mass/Vol] 9.5 mg/dL Normal 8.7-10.2 [facility] Internal Medicine; [facility] Work Phone: Comment on above: PATIENT WAS FASTINGP ERFORMED BY: JONATHON [facility] Lpxdee7958 Hart RoadDublin [place] [id number] Chloride [Moles/Vol] 102 mmol/L Normal 96-106 Comp rehensive Internal Medicine; [facility] Work Phone: Comment on above: PATIENT WAS FASTINGP ERFORMED BY: [facility] Munzko0974 [address] RoadDublin [place] [id number] CO2 [Moles/Vol] 23 mmol/L Normal 20-29 [facility] Internal Medicine; [facility] Work Phone: Comment on above: PATIENT WAS FASTINGP ERFORMED BY: JONATHON Lab[facility] Uygasp15[address] RoadDublin [place] [id number] Creatinine [Mass/Vol] 1.29 mg/dL Abnormal 0.76-1.27 [facility] prehensive Internal Medicine; [facility] Work Phone: Comment on above: PATIENT WAS FASTINGP ERFORMED BY: [facility] Sytytc9[address] RoadDublin [place] [id number] GFR/1.73 sq M.predicted among non-blacks MDRD (S/P/Bld) [Vol rate/Area] 66 mL/min/{1.73_m2} Normal Comprehensiv e Internal Medicine; [facility] Work Phone: Comment on above: PATIENT WAS FASTINGP ERFORMED BY: LabCox NorthMvcnmj3128 Hart RoadDublin [place] [id number] Globulin (S) [Mass/Vol] 2.9 g/dL Normal 1.5-4.5 [facility]; [facility] Work Phone: Comment on above: PATIENT WAS FASTINGP ERFORMED BY: [facility] Najtdd485[address] RoadDublin [place] [id number] Glucose [Mass/Vol] 94 mg/dL Normal 70-99 [facility] Internal Medicine; [facility] Work Phone: Comment on above: PATIENT WAS FASTINGP ERFORMED BY: LabCox NorthXuiqkf3397 Hart RoadDublin [place] [id number] Potassium [Moles/Vol] 4.6 mmol/L Normal 3.5-5.2 [facility] prehensive Internal Medicine; [facility] Work Phone: Comment on above: PATIENT WAS FASTINGP ERFORMED BY: [facility] Rfwvyf19[address] RoadDublin [place] [id number] Protein [Mass/Vol] 7.2 g/dL Normal 6.0-8.5 [facility] Internal Medicine; [facility] Work Phone: Comment on above: PATIENT WAS FASTINGP ERFORMED BY: [facility] Nkdeas33[address] RoadDublin [place] [id number] Sodium [Moles/Vol] 138 mmol/L Normal 134-144 [facility] Internal Medicine; [facility] Work Phone: Comment on above: PATIENT WAS FASTINGP ERFORMED BY: [facility] Xpivjf[address] RoadDublin [place] [id number] Urea nitrogen [Mass/Vol] 22 mg/dL Normal 6-24 [facility]; [facility] Work Phone: Comment on above: PATIENT WAS FASTINGP ERFORMED BY: JONATHON Guzman6370 SidelineSwapECU Health [id number] Urea nitrogen/Creatinine [Mass ratio] 17 mg/mg Normal 9-20 [facility]; [facility] Work Phone: Comment on above: PATIENT WAS FASTINGP ERFORMED BY: JONATHON Bokecc Tkvala[address] HCS Control SystemsSelect Specialty Hospital [facility] [id number] PSA (PROSTATE SPECIFIC ANTIG EN) ([id number])Ordered By: Medical Specialist on 12-26-2022 Prostate specific Ag [Mass/Vol] 0.2 ng/mL Normal 0.0-4.0 [facility]; [facility] Work Phone: Comment on above: Soumya ECLIA methodol ogy. .According to the [place] [employer], Serum PSA shoulddecrease and remain at undetectable levels after radicalprostatectomy. The AUA defines biochemical recurrence as an initialPSA value 0.2 ng/mL or greater followed by a subsequent confirmatoryPSA value 0.2 ng/mL or greater.Values obtained with different assay methods or kits cannot be usedinterchangeably. Results cannot be interpreted as absolute evidenceof the presence or absence of malignant disease. PATIENT WAS FASTINGP ERFORMED BY: JONATHON SaavedraEverTune Owocgr8695 Fixmo Carrier ServicesSelect Specialty Hospital [facility] [id number] CBC W/AUTO DIFF WBC ([id number])O rdered By: Medical Specialist on 10-19-2021 Basophils (Bld) [#/Vol] 0.1 10*3/uL Normal 0.0-0.2 [facility]; [facility] Work Phone: Comment on above: PATIENT WAS FASTINGP ERFORMED BY: JONATHON Bokecc Efxstp[address] HCS Control SystemsSelect Specialty Hospital [facility] [id number] Basophils/100 WBC (Bld) 1 % Normal [facility]; [facility] Work Phone: Comment on above: PATIENT WAS FASTINGP ERFORMED BY: JONATHON Bokecc Fngnbc[address] HCS Control SystemsSelect Specialty Hospital [facility] [id number] Eosinophils (Bld) [#/Vol] 0.4 10*3/uL Normal 0.0-0.4 [facility]; [facility] Work Phone: Comment on above: PATIENT WAS FASTINGP ERFORMED BY: JONATHON Labcomichael ValentinOdnija9[address] RoadDublin [place] [id number] Eosinophils/100 WBC (Bld) 5 % Normal [facility]; [facility] Work Phone: Comment on above: PATIENT WAS FASTINGP ERFORMED BY: CB [facility] Zcehgi8773 Hart RoadCommunity Healthin [place] [id number] Erythrocyte distribution width (RBC) [Ratio] 12.8 % Normal 11.6-15.4 [facility]; [facility] Work Phone: Comment on above: PATIENT WAS FASTINGP ERFORMED BY: JONATHON [facility] Gkrmux[address] [facility] [id number] Hematocrit (Bld) [Volume fraction] 48.3 % Normal 37.5-51.0 [facility]; [facility] Work Phone: Comment on above: PATIENT WAS FASTINGP ERFORMED BY: Lab[facility] Qigoic6059 Hart RoadCommunity Healthin [place] [id number] Hemoglobin (Bld) [Mass/Vol] 16.4 g/dL Normal 13.0-17.7 [facility]; [facility] Work Phone: Comment on above: PATIENT WAS FASTINGP ERFORMED BY: [facility] Tjasqh8923 Hart Roadblin [place] [id number] Immature granulocytes (Bld) [#/Vol] 0.0 10*3/uL Normal 0.0-0.1 [facility]; [facility] Work Phone: Comment on above: PATIENT WAS FASTINGP ERFORMED BY: CB [facility] Upqvwl6981 [address] RoadDublin [place] [id number] Immature granulocytes/100 WBC (Bld) 1 % Normal [facility]; [facility] Work Phone: Comment on above: PATIENT WAS FASTINGP ERFORMED BY: [facility] Zlqztg1028 Hart RoadCommunity Healthin [place] [id number] Lymphocytes (Bld) [#/Vol] 2.3 10*3/uL Normal 0.7-3.1 [facility]; [facility] Work Phone: Comment on above: PATIENT WAS FASTINGP ERFORMED BY: JONATHON Valentinlin6370 [facility] [id number] Lymphocytes/100 WBC (Bld) 32 % Normal [facility]; [facility] Work Phone: Comment on above: PATIENT WAS FASTINGP ERFORMED BY: JONATHON Valentinlin6370 [facility] [id number] MCH (RBC) [Entitic mass] 29.5 pg Normal 26.6-33.0 [facility]; [facility] Work Phone: Comment on above: PATIENT WAS FASTINGP ERFORMED BY: JONATHON Valentinlin6370 [facility] [id number] MCHC (RBC) [Mass/Vol] 34.0 g/dL Normal 31.5-35.7 [facility] prehensive Internal Medicine; [facility] Work Phone: Comment on above: PATIENT WAS FASTINGP ERFORMED BY: JONATHON Valentinlin6370 [facility] [id number] MCV (RBC) [Entitic vol] 87 fL Normal 79-97 [facility]; [facility] Work Phone: Comment on above: PATIENT WAS FASTINGP ERFORMED BY: JONATHON Valentinlin6370 [facility] [id number] Monocytes (Bld) [#/Vol] 0.7 10*3/uL Normal 0.1-0.9 [facility]; [facility] Work Phone: Comment on above: PATIENT WAS FASTINGP ERFORMED BY: JONATHON Labpee ValentinRjtpkq[address] [facility] [id number] Monocytes/100 WBC (Bld) 9 % Normal [facility]; [facility] Work Phone: Comment on above: PATIENT WAS FASTINGP ERFORMED BY: CB [facility] Vrcqsq4782 Hart RoadDublin [place] [id number] Neutrophils (Bld) [#/Vol] 3.6 10*3/uL Normal 1.4-7.0 [facility]; [facility] Work Phone: Comment on above: PATIENT WAS FASTINGP ERFORMED BY: JONATHON [facility] Dfcore0576 [address] RoadDublin [place] [id number] Neutrophils/100 WBC (Bld) 52 % Normal [facility]; [facility] Work Phone: Comment on above: PATIENT WAS FASTINGP ERFORMED BY: JONATHON [facility] Scpwxz5274 Hart RoadDublin [place] [id number] Platelets (Bld) [#/Vol] 172 10*3/uL Normal 150-450 [facility]; [facility] Work Phone: Comment on above: PATIENT WAS FASTINGP ERFORMED BY: JONATHON [facility] Wvqfno9607 [address] RoadDublin [place] [id number] RBC (Bld) [#/Vol] 5.56 10*6/uL Normal 4.14-5.80 [facility] Internal Medicine; [facility] Work Phone: Comment on above: PATIENT WAS FASTINGP ERFORMED BY: JONATHON [facility] Lnacpq9803 [address] RoadDublin [place] [id number] WBC (Bld) [#/Vol] 7.0 10*3/uL Normal 3.4-10.8 [facility] Internal [facility]; [facility] Work Phone: Comment on above: PATIENT WAS FASTINGP ERFORMED BY: JONATHON [facility] Jemxpt4983 [address] RoadDublin [place] [id number] METABOLIC PANEL, COMPREHENSI VE ([id number])Ordered By: Medical Specialist on 10-19-2021 Albumin [Mass/Vol] 4.4 g/dL Normal 3.8-4.9 [facility] nashive Internal Medicine; [facility] Work Phone: Comment on above: PATIENT WAS FASTINGP ERFORMED BY: JONATHON [facility] Sobxsy7743 Hart RoadDublin [place] [id number]; fu 1-21 df Albumin/Globulin [Mass ratio] 1.6 {ratio} Normal 1.2-2.2 [facility]; [facility] Work Phone: Comment on above: PATIENT WAS FASTINGP ERFORMED BY: CB [facility] Nuqjfw0383 Hart RoadDublin [place] [id number]; fu 1-21 df ALP [Catalytic activity/Vol] 99 U/L Normal 44-121 [facility]; [facility] Work Phone: Comment on above: Please note refere nce interval change PATIENT WAS FASTINGP ERFORMED BY: CB [facility] Otksnf7786 [address] RoadDublin [place] [id number]; fu 1-21 df ALT [Catalytic activity/Vol] 22 U/L Normal 0-44 [facility]; [facility] Work Phone: Comment on above: PATIENT WAS FASTINGP ERFORMED BY: CB [facility] Gxncyg1107 Hatr RoadDublin [place] [id number]; fu 1-21 df AST [Catalytic activity/Vol] 20 U/L Normal 0-40 [facility]; [facility] Work Phone: Comment on above: PATIENT WAS FASTINGP ERFORMED BY: CB [facility] Cydslv2446 [address] RoadDublin [place] [id number]; fu 1-21 df Bilirubin [Mass/Vol] 0.8 mg/dL Normal 0.0-1.2 [facility] rehensive Internal Medicine; [facility] Work Phone: Comment on above: PATIENT WAS FASTINGP ERFORMED BY: CB [facility] Efdmel3[address] RoadDublin [place] [id number]; fu 1-21 df Calcium [Mass/Vol] 9.3 mg/dL Normal 8.7-10.2 [facility] Internal Medicine; [facility] Work Phone: Comment on above: PATIENT WAS FASTINGP ERFORMED BY: CB [facility] Hecjoh4363 [address] RoadDublin [place] [id number]; fu 1-21 df Chloride [Moles/Vol] 104 mmol/L Normal 96-106 Comp rehensive Internal Medicine; [facility] Work Phone: Comment on above: PATIENT WAS FASTINGP ERFORMED BY: JONATHON Guzman63K[address] [place] [id number]; fu 1-21 df CO2 [Moles/Vol] 22 mmol/L Normal 20-29 [facility] Internal Medicine; [facility] Work Phone: Comment on above: PATIENT WAS FASTINGP ERFORMED BY: JONATHON HerculesECU Health [id number]; fu 1-21 df Creatinine [Mass/Vol] 1.16 mg/dL Normal 0.76-1.27 [facility] prehensive Internal Medicine; [facility] Work Phone: Comment on above: PATIENT WAS FASTINGP ERFORMED BY: JONATHON Guzman63Kade LojaSelect Specialty Hospital [facility] [id number]; fu 1- df GFR/1.73 sq M.predicted among blacks CKD-EPI (S/P/Bld) [Vol rate/Area] 83 mL/min/1.73 Normal [facility]; [facility] Work Phone: Comment on above: In accordance with recommendations from the NKF-ASN Task force, [facility] is in the process of updating its eGFR calculation to the 2020 CKD-EPI creatinine equation that estimates kidney function without a race variable. PATIENT WAS FASTINGP ERFORMED BY: JONATHON Guzman63Kade HerculesECU Health [id number]; fu 1-21 df GFR/1.73 sq M.predicted among non-blacks CKD-EPI (S/P/Bld) [Vol rate/Area] 72 mL/min/1.73 Normal [facility]; [facility] Work Phone: Comment on above: PATIENT WAS FASTINGP ERFORMED BY: JONATHON Guzman63Kade BhardwajCox Branson [id number]; fu 1-21 df Globulin (S) [Mass/Vol] 2.7 g/dL Normal 1.5-4.5 [facility]; [facility] Work Phone: Comment on above: PATIENT WAS FASTINGP ERFORMED BY: CB [facility] Fjexho9788 [address] RoadDublin [place] [id number]; fu 1-21 df Glucose [Mass/Vol] 99 mg/dL Normal 65-99 [facility] Internal Medicine; [facility] Work Phone: Comment on above: PATIENT WAS FASTINGP ERFORMED BY: CB [facility] Ftmceg1017 [address] RoadDublin [place] [id number]; fu 1-21 df Potassium [Moles/Vol] 4.5 mmol/L Normal 3.5-5.2 [facility] Internal Medicine; [facility] Work Phone: Comment on above: PATIENT WAS FASTINGP ERFORMED BY: CB [facility] Fopwaf0921 [address] RoadDublin [place] [id number]; fu 1- df Protein [Mass/Vol] 7.1 g/dL Normal 6.0-8.5 [facility] Internal Medicine; [facility] Internal Medicine Work Phone: Comment on above: PATIENT WAS FASTINGP ERFORMED BY: CB [facility] Wkjmth0839 Hart RoadDublin [place] [id number]; fu 1-21 df Sodium [Moles/Vol] 139 mmol/L Normal 134-144 [facility] Internal Medicine; [facility] Work Phone: Comment on above: PATIENT WAS FASTINGP ERFORMED BY: CB [facility] Pjzmlv5504 [address] RoadDublin [place] [id number]; fu 1-21 df Urea nitrogen [Mass/Vol] 16 mg/dL Normal 6-24 [facility] Internal Medicine; [facility] Work Phone: Comment on above: PATIENT WAS FASTINGP ERFORMED BY: CB [facility] Guesuu2519 [address] RoadDublin [place] [id number]; fu 1-21 df Urea nitrogen/Creatinine [Mass ratio] 14 mg/mg Normal 9-20 [facility] Internal Medicine; [facility] Work Phone: Comment on above: PATIENT WAS FASTINGP ERFORMED BY: CB [facility] Khmhdw8438 [address] RoadDublin [place] [id number]; fu 1-21 df CNOVon 06-30-2021 CNOV Office Visit ([facility] ) ----- TALIA MARQUIS ([id number]) 1970 M Date Time Provider Department 06/30/21 8:15 AM MANSI CORNEJO [facility] During your visit today, we recorded the following information about you: Temperature Pulse Respiration Blood pressure 98.1 degrees 68/minute 16/minute 140/88 Weight 113.4 kg Mansi Cornejo PA-C 06/30/2021 10:21 AM Sign when Signing Visit This note was created using Virtualmin. Subjective Talia Marquis is a 50 year old male. HPI [...] - XR ANKLE GENERAL 3V AP/LAT/OBL RT Mansi Cornejo PA-C Referring Provider: SELF [200] Allergies As of Date: 06/30/2021 Noted Allergy Reaction SEASONAL ALLERGIES 06/22/2012 14 - Other: See Comments Comments: Watery eyes, congestion Date Reviewed: 06/30/2021 Reviewed by: Rosy Santos - Fully Assessed Reason for Visit: Ankle Injury [1957] Cmt: twisted right ankle x 2 days Primary Visit Diagnosis:Ankle injury, right, initial encounter [S99.911A] Order(s):XR FOOT GENERAL 3V AP/LAT/OBL RT [[id number]] Order #: [id number] FUTURE XR ANKLE GENERAL 3V AP/LAT/OBL RT [[id number]] Order #: [id number] FUTURE CONSULT TO ORTHOPAEDICS [9073] Order #: [id number]: 1 FUTURE Prescriptions as of 06/30/2021 - vitamin D3-vitamin K2, MK4, 1,000-100 unit-mcg tab Take by mouth. - Ibuprofen 200 mg cap Take by mouth. Meds Comments as of 02/13/2017: 5/317 Not taking any medication. Rosie Carlisle RN Problem List As Of Date 06/30/2021 Noted Resolved BENIGN HYPERTENSION [I10] 02/06/2008 Routine general medical examination at [facility]*11/15/2009 06/22/2012 Class: Chronic Epigastric pain [R10.13] 04/16/2017 Encounter Status:Closed by MANSI CORNEJO on 06/30/21 Normal [facility] No Panel Informationon 06-30 IMPRESSION: Soft tissue swelling without acute fracture right foot or ankle Follow-up as clinically indicated Bladder Blower: [facility] Transcribe Date/Time: Jun 30 2021 8:55A Dictated by : LARA HOLLOWAY MD This examination was interpreted and the report reviewed and electronically signed by: LARA HOLLOWAY MD on Jun 30 2021 8:57AM [facility] DIVISION OF RADIOLOGY Radiology Study observation (narrative) [facility] No Panel InformationOrdered By: Ccf Provider on 06-30-2021 [facility] XR ANKLE 3V AP/LAT/OBL RTon 06-30-2021 XR ANKLE 3V AP/LAT/OBL RT * * *Final Report* * * DATE OF EXAM: Jun 30 2021 8:48AM WOX 5297 - XR ANKLE 3V AP/LAT/OBL RT / PROCEDURE REASON: Ankle injury, right, initial encounter * * * * Physician Interpretation * * * * TECHNIQUE: XR FOOT 3V AP/LAT/OBL RT, XR ANKLE 3V AP/LAT/OBL RT EXAM DATE: 06/30/2021 8:48 AM COMPARISON STUDIES: None CLINICAL HISTORY: Foot pain Ankle injury, right, initial encounter RESULT: Foot: Moderate plantar heel spur. No acute fracture or dislocation. Joint spaces maintained. Ankle: Soft tissue swelling diffusely, lateral predominant. Ankle mortise maintained. No acute fracture or dislocation. Plantar heel spur. IMPRESSION: Soft tissue swelling without acute fracture right foot or ankle Follow-up as clinically indicated Bladder Blower: PSCB Transcribe Date/Time: Jun 30 2021 8:55A Dictated by : LARA HOLLOWAY MD This examination was interpreted and the report reviewed and electronically signed by: LARA HOLLOWAY MD on Jun 30 2021 8:57AM EST [id number] Normal [facility] XR Ankle - right AP and Late ral and obliqueon 06-30-2021 * * *Final Report* * * DATE OF EXAM: Jun 30 2021 8:48AM WOX 5297 - XR ANKLE 3V AP/LAT/OBL RT / PROCEDURE REASON: Ankle injury, right, initial encounter * * * * Physician Interpretation * * * * TECHNIQUE: XR FOOT 3V AP/LAT/OBL RT, XR ANKLE 3V AP/LAT/OBL RT EXAM DATE: 06/30/2021 8:48 AM COMPARISON STUDIES: None CLINICAL HISTORY: Foot pain Ankle injury, right, initial encounter RESULT: Foot: Moderate plantar heel spur. No acute fracture or dislocation. Joint spaces maintained. Ankle: Soft tissue swelling diffusely, lateral predominant. Ankle mortise maintained. No acute fracture or dislocation. Plantar heel spur. DIVISION OF RADIOLOGY Provider, [facility] - 06/30/2021 * * *Final Report* * * DATE OF EXAM: Jun 30 2021 8:48AM WOX 5297 - XR ANKLE 3V AP/LAT/OBL RT / PROCEDURE REASON: Ankle injury, right, initial encounter * * * * Physician Interpretation * * * * TECHNIQUE: XR FOOT 3V AP/LAT/OBL RT, XR ANKLE 3V AP/LAT/OBL RT EXAM DATE: 06/30/2021 8:48 AM COMPARISON STUDIES: None CLINICAL HISTORY: Foot pain Ankle injury, right, initial encounter RESULT: Foot: Moderate plantar heel spur. No acute fracture or dislocation. Joint spaces maintained. Ankle: Soft tissue swelling diffusely, lateral predominant. Ankle mortise maintained. No acute fracture or dislocation. Plantar heel spur. IMPRESSION IMPRESSION: Soft tissue swelling without acute fracture right foot or ankle Follow-up as clinically indicated [facility] Transcribe Date/Time: Jun 30 2021 8:55A Dictated by : LARA HOLLOWAY MD This examination was interpreted and the report reviewed and electronically signed by: LARA HOLLOWAY MD on Jun 30 2021 8:57AM EST [facility] XR FOOT 3V AP/LAT/OBL RTon 0 06-30-2021 XR FOOT 3V AP/LAT/OBL RT * * *Final Report* * * DATE OF EXAM: Jun 30 2021 8:48AM WOX 5337 - XR FOOT 3V AP/LAT/OBL RT / PROCEDURE REASON: Ankle injury, right, initial encounter * * * * Physician Interpretation * * * * TECHNIQUE: XR FOOT 3V AP/LAT/OBL RT, XR ANKLE 3V AP/LAT/OBL RT EXAM DATE: 06/30/2021 8:48 AM COMPARISON STUDIES: None CLINICAL HISTORY: Foot pain Ankle injury, right, initial encounter RESULT: Foot: Moderate plantar heel spur. No acute fracture or dislocation. Joint spaces maintained. Ankle: Soft tissue swelling diffusely, lateral predominant. Ankle mortise maintained. No acute fracture or dislocation. Plantar heel spur. IMPRESSION: Soft tissue swelling without acute fracture right foot or ankle Follow-up as clinically indicated Bladder Blower: CJ Transcribe Date/Time: Jun 30 2021 8:55A Dictated by : LARA HOLLOWAY MD This examination was interpreted and the report reviewed and electronically signed by: LARA HOLLOWAY MD on Jun 30 2021 8:57AM EST [id number] Normal [facility] XR Foot - right AP and Later al and obliqueon 06-30-2021 * * *Final Report* * * DATE OF EXAM: Jun 30 2021 8:48AM WOX 5337 - XR FOOT 3V AP/LAT/OBL RT / PROCEDURE REASON: Ankle injury, right, initial encounter * * * * Physician Interpretation * * * * TECHNIQUE: XR FOOT 3V AP/LAT/OBL RT, XR ANKLE 3V AP/LAT/OBL RT EXAM DATE: 06/30/2021 8:48 AM COMPARISON STUDIES: None CLINICAL HISTORY: Foot pain Ankle injury, right, initial encounter RESULT: Foot: Moderate plantar heel spur. No acute fracture or dislocation. Joint spaces maintained. Ankle: Soft tissue swelling diffusely, lateral predominant. Ankle mortise maintained. No acute fracture or dislocation. Plantar heel spur. DIVISION OF RADIOLOGY Provider, [facility] - 06/30/2021 * * *Final Report* * * DATE OF EXAM: Jun 30 2021 8:48AM WOX 5337 - XR FOOT 3V AP/LAT/OBL RT / PROCEDURE REASON: Ankle injury, right, initial encounter * * * * Physician Interpretation * * * * TECHNIQUE: XR FOOT 3V AP/LAT/OBL RT, XR ANKLE 3V AP/LAT/OBL RT EXAM DATE: 06/30/2021 8:48 AM COMPARISON STUDIES: None CLINICAL HISTORY: Foot pain Ankle injury, right, initial encounter RESULT: Foot: Moderate plantar heel spur. No acute fracture or dislocation. Joint spaces maintained. Ankle: Soft tissue swelling diffusely, lateral predominant. Ankle mortise maintained. No acute fracture or dislocation. Plantar heel spur. IMPRESSION IMPRESSION: Soft tissue swelling without acute fracture right foot or ankle Follow-up as clinically indicated Bladder Blower: CJ Transcribe Date/Time: Jun 30 2021 8:55A Dictated by : LARA HOLLOWAY MD This examination was interpreted and the report reviewed and electronically signed by: LARA HOLLOWAY MD on Jun 30 2021 8:57AM [facility] LIPID PANEL ([id number])Ordered B y: Medical Specialist on 05-18-2021 Cholesterol [Mass/Vol] 182 mg/dL Normal 100-199 [facility]; [facility] Work Phone: Comment on above: PATIENT WAS FASTINGP ERFORMED BY: JONATHON Guzman6370 [facility] [id number] Cholesterol in HDL [Mass/Vol] 39 mg/dL Abnormal [facility]; [facility] Work Phone: Comment on above: PATIENT WAS FASTINGP ERFORMED BY: JONATHON Guzman6370 [facility] [id number] Triglyceride [Mass/Vol] 175 mg/dL Abnormal 0-149 [facility]; [facility] Work Phone: Comment on above: PATIENT WAS FASTINGP ERFORMED BY: JONATHON Guzman6370 [facility] [id number] LIPID PANEL ([id number]) 31 mg/dL Normal 5-40 Compr ehensive Internal Medicine; [facility] Work Phone: Comment on above: PATIENT WAS FASTINGP ERFORMED BY: JONATHON AndersonJefferson [facility]Otyzsk6916 [facility] [id number] LIPID PANEL ([id number]) 112 mg/dL Abnormal 0-99 [facility] Internal Medicine; [facility] Work Phone: Comment on above: PATIENT WAS FASTINGP ERFORMED BY: JONATHON Emelia Gngitt8387 [facility] [id number] LIPID PANEL (04422) 2.9 {ratio} Normal 0.0-3.6 [facility] Internal Medicine; [facility] Work Phone: Comment on above: LDL/HDL Ratio Men Wo men 1/2 Avg.Risk 1.0 1.5 Avg.Risk 3.6 3.2 2X Avg.Risk 6.2 5.0 3X Avg.Risk 8.0 6.1 PATIENT WAS FASTINGP ERFORMED BY: JONATHON [facility] Vmgnsi4252 [facility] [id number] METABOLIC PANEL, COMPREHENSI VE (83786)Ordered By: Medical Specialist on 05-18-2021 Albumin [Mass/Vol] 4.6 g/dL Normal 3.8-4.9 [facility] Internal Medicine; [facility] Work Phone: Comment on above: PATIENT WAS FASTINGP ERFORMED BY: JONATHON KeriShanna Yyirop5298 [facility] [id number] Albumin/Globulin [Mass ratio] 1.6 {ratio} Normal 1.2-2.2 [facility]; [facility] Work Phone: Comment on above: PATIENT WAS FASTINGP ERFORMED BY: JONATHON [facility]Tr[facility]6370 [facility] [id number] ALP [Catalytic activity/Vol] 103 U/L Normal 48-121 [facility]; [facility] Work Phone: Comment on above: PATIENT WAS FASTINGP ERFORMED BY: JONATHON [facility] Lubwdi6496 [facility] [id number] ALT [Catalytic activity/Vol] 20 U/L Normal 0-44 [facility]; [facility] Work Phone: Comment on above: PATIENT WAS FASTINGP ERFORMED BY: JONATHON [facility] Psrvaj8757 Hart RoadDublin [place] [id number] AST [Catalytic activity/Vol] 14 U/L Normal 0-40 [facility]; [facility] Work Phone: Comment on above: PATIENT WAS FASTINGP ERFORMED BY: [facility] Pkdips1635 [address] Roadblin [place] [id number] Bilirubin [Mass/Vol] 0.8 mg/dL Normal 0.0-1.2 Comp rehensive Internal Medicine; [facility] Work Phone: Comment on above: PATIENT WAS FASTINGP ERFORMED BY: [facility] Nnbuad4[address] Hart Roadblin [place] [id number] Calcium [Mass/Vol] 9.5 mg/dL Normal 8.7-10.2 [facility] Internal Medicine; [facility] Work Phone: Comment on above: PATIENT WAS FASTINGP ERFORMED BY: [facility] Xdpxzu8343 Hart RoadSelect [facility]ty [facility] [id number] Chloride [Moles/Vol] 103 mmol/L Normal 96-106 [facility] rehensive Internal Medicine; [facility] Work Phone: Comment on above: PATIENT WAS FASTINGP ERFORMED BY: [facility] Qloxzz3452 [address] Roadblin [place] [id number] CO2 [Moles/Vol] 22 mmol/L Normal 20-29 [facility] Internal Medicine; [facility] Work Phone: Comment on above: PATIENT WAS FASTINGP ERFORMED BY: [facility] Joxkos8[address] Hart RoadCommunity Healthin [place] [id number] Creatinine [Mass/Vol] 1.14 mg/dL Normal 0.76-1.27 [facility]; [facility] Work Phone: Comment on above: PATIENT WAS FASTINGP ERFORMED BY: [facility] Aiofgy750[address] [facility] Centerbl[facility] [place] [id number] GFR/1.73 sq M.predicted among blacks CKD-EPI (S/P/Bld) [Vol rate/Area] 86 mL/min/1.73 Normal [facility]; [facility] Work Phone: Comment on above: [facility] currently reports eGFR in compliance with the current recommendations of the National Kidney Foundation. [facility] will update reporting as new guidelines are published from the NKF-ASN Task force. PATIENT WAS FASTINGP ERFORMED BY: [facility]6370 [facility] [id number] GFR/1.73 sq M.predicted among non-blacks CKD-EPI (S/P/Bld) [Vol rate/Area] 74 mL/min/1.73 Normal [facility]; [facility] Work Phone: Comment on above: PATIENT WAS FASTINGP ERFORMED BY: [facility]6370 [facility] [id number] Globulin (S) [Mass/Vol] 2.8 g/dL Normal 1.5-4.5 [facility]; [facility] Work Phone: Comment on above: PATIENT WAS FASTINGP ERFORMED BY: [facility]6370 [facility] [id number] Glucose [Mass/Vol] 98 mg/dL Normal 65-99 [facility] Internal Medicine; [facility] Work Phone: Comment on above: PATIENT WAS FASTINGP ERFORMED BY: [facility]6370 [facility] [id number] Potassium [Moles/Vol] 4.5 mmol/L Normal 3.5-5.2 [facility] prehensive Internal Medicine; [facility] Work Phone: Comment on above: PATIENT WAS FASTINGP ERFORMED BY: [facility]6370 [facility] [id number] Protein [Mass/Vol] 7.4 g/dL Normal 6.0-8.5 [facility]; [facility] Work Phone: Comment on above: PATIENT WAS FASTINGP ERFORMED BY: [facility]6370 [facility] [id number] Sodium [Moles/Vol] 138 mmol/L Normal 134-144 [facility] hens[facility]; [facility] Work Phone: Comment on above: PATIENT WAS FASTINGP ERFORMED BY: JONATHON POPS WorldwideCarondelet Health Zdbteo3637 [facility] [id number] Urea nitrogen [Mass/Vol] 16 mg/dL Normal 6-24 [facility]; [facility] Work Phone: Comment on above: PATIENT WAS FASTINGP ERFORMED BY: [facility] Tpxysy6981 [facility] [id number] Urea nitrogen/Creatinine [Mass ratio] 14 mg/mg Normal 9-20 [facility]; [facility] Work Phone: Comment on above: PATIENT WAS FASTINGP ERFORMED BY: JONATHON [facility] Zqduot0316 [facility] [id number] 2019 Novel Coronavirus (COVI D-19), RAMESH ([id number])Ordered By: Medical Specialist on 02-21-20212018 Novel Coronavirus (COVID-19), RAMESH ([id number]) Not detected Normal [facility]; [facility] Work Phone: Comment on above: This nucleic acid am plification test was developed and its performancecharacteristics determined by [employer]. Nucleic acidamplification tests include RT-PCR and TMA. This test has not beenFDA cleared or approved. This test has been authorized by FDA underan Emergency Use Authorization (EUA). This test is only authorizedfor the duration of time the declaration that circumstances existjustifying the authorization of the emergency use of in vitrodiagnostic tests for detection of SARS-CoV-2 virus and/or diagnosisof COVID-19 infection under section 564(b)(1) of the Act, 21 U.S.C.360bbb-3(b) (1), unless the authorization is terminated or revokedsooner.When diagnostic testing is negative, the possibility of a falsenegative result should be considered in the context of a patient'srecent exposures and the presence of clinical signs and symptomsconsistent with COVID-19. An individual without symptoms of COVID-19and who is not shedding SARS-CoV-2 virus would expect to have anegative (not detected) result in this assay. PATIENT NOT FASTINGP ERFORMED BY: [employer]6370 SidelineSwapECU Health [id number] Influenza A&B Viral Culture ([id number])Ordered By: Medical Specialist on 02-21-2021 FLUV identified Org specific cx Nom (Unsp spec) FLUABN Normal [facility]; [facility] Work Phone: Comment on above: Negative:No Influenz a A or B detected. PATIENT NOT FASTINGP ERFORMED BY: [facility]wy[facility] Nxmimy[address] HCS Control SystemsSelect Specialty Hospital [facility] [id number] Information: SRC:NL Rapid Flu (73882 x 2)Ordered By: Ayana Simpson on 02-21-2021 FLUAV Ag IA Ql (Throat) Negative Normal [facility]; [facility] Work Phone: URINE ANJU CULTURE-IDENTIFICA TN (43117)Ordered By: Medical Specialist on 02-21-2021 Bacteria identified Cx Nom (U) Final report Normal [facility]; [facility] Work Phone: Comment on above: PATIENT NOT FASTINGP ERFORMED BY: [employer] Xmeizi5035 [address] HCS Control SystemsSelect Specialty Hospital [facility] [id number] Information: SRC: Bacteria identified Cx Nom (U) MUG Normal [facility]; [facility] Work Phone: Comment on above: Mixed urogenital terrance ra800 Colonies/mL PATIENT NOT FASTINGP ERFORMED BY: [employer] Yxmqet4965 [facility] [id number] Information: SRC: Urinalysis, Office ([id number])Or dered By: Ayana Simpson on 02-21-2021 Bilirubin Ql (U) + Abnormal Comprehe nsive Internal Medicine; [facility] Work Phone: Glucose Test strip (U) [Mass/Vol] Negative Normal [facility]; [facility] Work Phone: Hemoglobin Ql (U) Negative Normal Compreh ensive Internal Medicine; [facility] Work Phone: Ketones Ql (U) Negative Normal Comprehens reji Internal Medicine; [facility] Work Phone: Leukocyte esterase Test strip Ql (U) Negative Normal [facility]; [facility] Work Phone: Nitrite Ql (U) Negative Normal Comprehens reji Internal Medicine; [facility] Work Phone: pH (U) 5 [pH] Abnormal [facility]; [facility] Work Phone: Protein Ql (U) ++ Abnormal Comprehens reji Internal Medicine; [facility] Work Phone: Specific gravity (U) [Rel density] 1.030 1 Abnormal [facility]; [facility] Work Phone: Urobilinogen (24H U) [Mass/Time] Normal Normal [facility]; [facility] Work Phone: LIPID PANEL (97079)Ordered B y: Medical Specialist on 02-05-2021 Cholesterol [Mass/Vol] 195 mg/dL Normal 100-199 [facility]; [facility] Work Phone: Comment on above: PATIENT WAS FASTINGP ERFORMED BY: JONATHON LabMI [employer]6370 SidelineSwapECU Health [id number] Cholesterol in HDL [Mass/Vol] 35 mg/dL Abnormal [facility]; [facility] Work Phone: Comment on above: PATIENT WAS FASTINGP ERFORMED BY: JONATHON LabModusPrp Pabrkm9680 [address] EVRYTHNGECU Health [id number] Triglyceride [Mass/Vol] 233 mg/dL Abnormal 0-149 [facility]; [facility] Work Phone: Comment on above: PATIENT WAS FASTINGP ERFORMED BY: JONATHON LabModusPrp Umtyhy0584 [address] EVRYTHNGECU Health [id number] LIPID PANEL (59729) 41 mg/dL Abnormal 5-40 Compr ehensive Internal Medicine; [facility] Work Phone: Comment on above: PATIENT WAS FASTINGP ERFORMED BY: JONATHON [facility] Vmhwbz2153 [address] EVRYTHNGECU Health [id number] LIPID PANEL (48428) 119 mg/dL Abnormal 0-99 Compr ehensive Internal Medicine; [facility] Work Phone: Comment on above: PATIENT WAS FASTINGP ERFORMED BY: CB [facility] Hwkzmk1026 Hart RoadDublin [place] [id number] LIPID PANEL (00474) 3.4 {ratio} Normal 0.0-3.6 [facility] Internal Medicine; [facility] Work Phone: Comment on above: LDL/HDL Ratio Men Wo men 1/2 Avg.Risk 1.0 1.5 Avg.Risk 3.6 3.2 2X Avg.Risk 6.2 5.0 3X Avg.Risk 8.0 6.1 PATIENT WAS FASTINGP ERFORMED BY: CB [facility] Zjhujw6809 [address] RoadDublin [place] [id number] METABOLIC PANEL, COMPREHENSI VE (82020)Ordered By: Medical Specialist on 02-05-2021 Albumin [Mass/Vol] 4.4 g/dL Normal 3.8-4.9 [facility] Internal Medicine; [facility] Work Phone: Comment on above: PATIENT WAS FASTINGP ERFORMED BY: CB [facility] Htxiih4636 Hart RoadDublin [place] [id number] Albumin/Globulin [Mass ratio] 1.6 {ratio} Normal 1.2-2.2 [facility]; [facility] Work Phone: Comment on above: PATIENT WAS FASTINGP ERFORMED BY: CB [facility] Qmxqok2079 [address] RoadDublin [place] [id number] ALP [Catalytic activity/Vol] 112 U/L Normal 39-117 [facility]; [facility] Work Phone: Comment on above: PATIENT WAS FASTINGP ERFORMED BY: CB [facility] Ypzzsq6521 Hart RoadDublin [place] [id number] ALT [Catalytic activity/Vol] 23 U/L Normal 0-44 [facility]; [facility] Work Phone: Comment on above: PATIENT WAS FASTINGP ERFORMED BY: CB [facility] Hsqasp9114 [address] RoadDublin [place] [id number] AST [Catalytic activity/Vol] 20 U/L Normal 0-40 [facility]; [facility] Work Phone: Comment on above: PATIENT WAS FASTINGP ERFORMED BY: [facility] Kvniey2368 [address] RoadDublin [place] [id number] Bilirubin [Mass/Vol] 0.8 mg/dL Normal 0.0-1.2 Comp rehensive Internal Medicine; [facility] Work Phone: Comment on above: PATIENT WAS FASTINGP ERFORMED BY: [facility] Ijgdbe2411 [address] RoadDublin [place] [id number] Calcium [Mass/Vol] 9.3 mg/dL Normal 8.7-10.2 [facility] Internal [facility]; [facility] Work Phone: Comment on above: PATIENT WAS FASTINGP ERFORMED BY: [facility] Igbxzi9490 [address] RoadDublin [place] [id number] Chloride [Moles/Vol] 105 mmol/L Normal 96-106 Comp rehensive Internal Medicine; [facility] Work Phone: Comment on above: PATIENT WAS FASTINGP ERFORMED BY: [facility] Kqvflm4519 [address] RoadDublin [place] [id number] CO2 [Moles/Vol] 22 mmol/L Normal 20-29 [facility] Internal Medicine; [facility] Work Phone: Comment on above: PATIENT WAS FASTINGP ERFORMED BY: [facility] Tmeynv4631 [address] RoadDublin [place] [id number] Creatinine [Mass/Vol] 1.16 mg/dL Normal 0.76-1.27 [facility]; [facility] Work Phone: Comment on above: PATIENT WAS FASTINGP ERFORMED BY: [facility] Vtjvrm7306 [address] RoadDublin [place] [id number] GFR/1.73 sq M.predicted among blacks CKD-EPI (S/P/Bld) [Vol rate/Area] 84 mL/min/1.73 Normal [facility]; [facility] Work Phone: Comment on above: [facility] currently reports eGFR in compliance with the current recommendations of the National Kidney Foundation. [facility] will update reporting as new guidelines are published from the NKF-ASN Task force. PATIENT WAS FASTINGP ERFORMED BY: [facility]6370 [facility] [id number] GFR/1.73 sq M.predicted among non-blacks CKD-EPI (S/P/Bld) [Vol rate/Area] 73 mL/min/1.73 Normal [facility]; [facility] Work Phone: Comment on above: PATIENT WAS FASTINGP ERFORMED BY: [facility]6370 [facility] [id number] Globulin (S) [Mass/Vol] 2.8 g/dL Normal 1.5-4.5 [facility]; [facility] Work Phone: Comment on above: PATIENT WAS FASTINGP ERFORMED BY: [facility]6370 [facility] [id number] Glucose [Mass/Vol] 97 mg/dL Normal 65-99 [facility] Internal Medicine; [facility] Work Phone: Comment on above: PATIENT WAS FASTINGP ERFORMED BY: [facility]6370 [facility] [id number] Potassium [Moles/Vol] 4.7 mmol/L Normal 3.5-5.2 [facility] prehensive Internal Medicine; [facility] Work Phone: Comment on above: PATIENT WAS FASTINGP ERFORMED BY: [facility]6370 [facility] [id number] Protein [Mass/Vol] 7.2 g/dL Normal 6.0-8.5 [facility] Internal Medicine; [facility] Work Phone: Comment on above: PATIENT WAS FASTINGP ERFORMED BY: [facility]6[address] [facility]in [place] [id number] Sodium [Moles/Vol] 140 mmol/L Normal 134-144 [facility] Internal Medicine; [facility] Work Phone: Comment on above: PATIENT WAS FASTINGP ERFORMED BY: [facility]6370 [facility] [id number] Urea nitrogen [Mass/Vol] 17 mg/dL Normal 6-24 [facility]; [facility] Work Phone: Comment on above: PATIENT WAS FASTINGP ERFORMED BY: JONATHON Anderson Mzqgjt0952 [facility] Roadbl[facility] [place] [id number] Urea nitrogen/Creatinine [Mass ratio] 15 mg/mg Normal 9-20 [facility]; [facility] Work Phone: Comment on above: PATIENT WAS FASTINGP ERFORMED BY: [facility] Tpgaen1650 [facility] RoadblKindred Hospital [facility] [id number] Vitamin D Hydroxy (85716)Ord ered By: Medical Specialist on 02-05-2021 25-hydroxyvitamin D [Mass/Vol] 33.1 ng/mL Normal 30.0-100.0 [facility]; [facility] Work Phone: Comment on above: Vitamin D deficiency has been defined by the [place] ofSt[facility] Medical Centercine and an Endocrine Society practice guideline as alevel of serum 25-OH vitamin D less than 20 ng/mL (1,2).The Endocrine Society went on to further define vitamin Dinsufficiency as a level between 21 and 29 ng/mL (2).1. IOM ([place] of Medicine). 2010. Dietary reference intakes for calcium and D. [place]: The National Academies Press.2. Tono MF, Anisha NC, Yenny CASTILLO, et al. Evaluation, treatment, and prevention of vitamin D deficiency: an Endocrine Society clinical practice guideline. JCEM. 2010; 96(7):1911-30. PATIENT WAS FASTINGP ERFORMED BY: [facility] Obivnw4519 [facility] Hospitalin [place] [id number] CNOVon 12-12-2020 CNOV Office Visit (GENSWS ) ----- TALIA MARQUIS ([id number]) 1970 Date Time Provider Department 12/12/20 3:00 PM REGGIE LOPEZ During your visit today, we recorded the following information about you: Reggie Lopez MD 12/12/2020 5:45 PM Signed FOLLOW UP VISIT NAME: Talia Marquis CLINIC NO.: [id number] DATE OF SERVICE: 12/12/2020 : 1970 REFERRING PHYSICIAN: Brittny Honeycutt MD Talia is a patient I am [...] instructed to follow-up with me as needed. __ Reggie Lopez MD Referring Provider: BRITTNY HONEYCUTT [[id number]] Allergies As of Date: 12/12/2020 Noted Allergy Reaction SEASONAL ALLERGIES 06/22/2012 14 - Other: See Comments Comments: Watery eyes, congestion Date Reviewed: 12/12/2020 Reviewed by: Reggie Lopez - Fully Assessed Primary Visit Diagnosis:Grade III hemorrhoids [K64.2] Prescriptions as of 12/12/2020 Sig: CHOLECALCIFEROL (VIT D3) 1,00* Take by mouth. IBUPROFEN 200 MG CAPSULE Take by mouth. Problem List As Of Date 12/12/2020 Noted Resolved BENIGN HYPERTENSION [I10] 02/06/2008 More... Routine general medical examination at [facility]*11/15/2009 06/22/2012 Class: Chronic More... Epigastric pain [R10.13] 04/16/2017 Medications Discontinued During This Encounter Prescriptions - sucralfate (CARAFATE) 1 gram tablet (Discontinued) Take 1 tablet by mouth four times daily. TAKE 1 PO 30 MINUTES BEFORE MEALS AND AT BEDTIME. - rifAXIMin (RIFAXIMIN) 550 mg tab (Discontinued) Take 550 mg by mouth twice daily. - Omeprazole 40 mg capsule (Discontinued) Take 1 capsule by mouth once daily. - DULoxetine (CYMBALTA) 30 mg capsule (Discontinued) Take 30 mg by mouth once daily. - dicyclomine (BENTYL) 20 mg tablet (Discontinued) Take 1 tablet by mouth with meals and at bedtime. Letter Text Encounter Status:Closed by REGGIE LOPEZ MD on 12/12/20 [facility] CNOVon 11-28-2020 CNOV Office Visit (GENSWS ) ----- TALIA MARQUIS ([id number]) 1970 M Date Time Provider Department 11/28/20 2:50 PM REGGIE LOPEZ During your visit today, we recorded the following information about you: Temperature Pulse Weight Height 97.3 degrees 74/minute 116.8 kg 1.956 m Erika Corrigan RN 11/30/2020 8:54 AM Signed UNIVERSAL PROTOCOL / SAFETY CHECKLIST Procedure to be performed: ANOSCOPY AND HEMORRHOIDAL BANDING Sign in Communication: Completed Time Out: Team Confirms the Correct Patient, Correct Procedure, Correct Site and Site Marking, Correct Position (if applicable), Prep and Dry Time (if applicable). Time: 1545 Affirmation of Time Out: YES Sign Out Discussion: Completed Erika Corrigan RN Erika Corrigan RN 11/28/2020 3:48 PM Signed The following instructions are important for you related to your office visit today with the [facility] General Surgeons. Instructions After HEMORRHODIAL BANDING If you note worsening anal pain, fever or significant anal redness or swellingcontact the office immediately. Minor bleeding from the anus is common. If there is continued bleeding, you should contact our office immediately. The banded hemorrhoidal complex will slough off in 4-5 days on average. Bleeding or some tissue with a black rubber band may be seen in the toilet bowl. You may require multiple bandings to correct your internal hemorrhoidal symptoms. Please make an appointment to return to our office in 2-3 weeks for possible repeat banding if your symptoms have not resolved. If you note any additional difficulties, questions, or concerns, you should contact our office immediately @ [phone] and ask to be transferred to the General Surgery department. Reggie Lopez MD 11/30/2020 6:51 PM Signed HISTORY AND PHYSICAL Talia Marquis 1970 REFERRING PHYSICIAN: Brittny Honeycutt DO CHIEF COMPLAINT: Consult (Consult Hemorrhoids) HPI: [...] me today at the request of Dr. Brittny Honeycutt MD for my opinion and advice regarding [...] ?C (97.3 ?F), height 195.6 cm (6' 5), weight 116.8 kg (257 lb 9.6 oz), SpO2 100 %. HEENT: Normal cephalic, ataumatic, pupils are equally round, sclera are anicteric, mucous membranes are moist, oropharynx is clear. Neck has no masses, asymmetry or lymphadenopathy. Thyroid is unremarkable. Respiratory: Clear to auscultation and percussion. Normal respiratory excursion and pattern. Cardiac: Examination is regular rate a (more content not included)... Normal [facility] Nikhil 11-06-2020 [facility] Telephone (CAWSTR) ----- TALIA MARQUIS ([id number]) 1970 M Date Time Provider Department 11/06/20 CHAUNCEY BARTH During your visit today, we recorded the following information about you: Angela rPo 11/06/2020 4:45 PM Signed Copied from FYI's: 1st attempt left message to return call. Consult for Dr Barth for hemorrhoids. Consult packet at front desk representative with PSS Pt returned call, please contact him to schedule. Ai Barbour Pss 11/16/2020 11:41 AM Signed Patient is already scheduled with Dr. Lopez on 11/28 -Ai Barbour Pss Allergies As of Date: 11/06/2020 Noted Allergy Reaction SEASONAL ALLERGIES 06/22/2012 14 - Other: See Comments Comments: Watery eyes, congestion Date Reviewed: 02/05/2019 Reviewed by: Marzena Shabazz Ma - Fully Assessed Reason for Visit: Appointment [186] Prescriptions as of 11/06/2020 Sig: SUCRALFATE 1 GRAM TABLET Take 1 tablet by mouth four t* DULOXETINE 30 MG CAPSULE,ROMAINE* Take 30 mg by mouth once wendy* RIFAXIMIN 550 MG TABLET Take 550 mg by mouth twice da* DICYCLOMINE 20 MG TABLET Take 1 tablet by mouth with m* OMEPRAZOLE 40 MG CAPSULE,ROMAINE* Take 1 capsule by mouth once * IBUPROFEN 200 MG CAPSULE Take by mouth. Problem List As Of Date 11/06/2020 Noted Resolved BENIGN HYPERTENSION [I10] 02/06/2008 More... Routine general medical examination at [facility]*11/15/2009 06/22/2012 Class: Chronic More... Epigastric pain [R10.13] 04/16/2017 Encounter Status:Closed by AI CARLSON on 11/16/20 Normal [facility] EUNICE (ANTINUCLEAR ANTIBODY) ( [id number])Ordered By: Medical Specialist on 11-03-2020 Nuclear Ab Ql (S) Negative Normal Compreh ensive Internal Medicine; [facility] Work Phone: Comment on above: PATIENT NOT FASTINGP ERFORMED BY: [facility] Vjewdw8356 [facility] [id number] Nuclear Ab Ql (S) Negative Normal Compreh ensive Internal Medicine; [facility] Work Phone: Comment on above: PATIENT NOT FASTINGP ERFORMED BY: JONATHON [facility] Qprkfk3697 [address] [place] [id number] C-Reactive Protein ([id number])Or dered By: Medical Specialist on 11-03-2020 CRP [Mass/Vol] 2 mg/L Normal 0-10 Comprehens reji Internal Medicine; [facility] Work Phone: Comment on above: PATIENT NOT FASTINGP ERFORMED BY: Jaree Labwywy Rwdnpl9890 [address] [employer] Systemsbl[place] [id number] PSA (PROSTATE SPECIFIC ANTIG EN) ([id number])Ordered By: Medical Specialist on 11-03-2020 Prostate specific Ag [Mass/Vol] 0.3 ng/mL Normal 0.0-4.0 [facility]; [facility] Work Phone: Comment on above: Soumya ECLIA methodol ogy. .According to the [employer], Serum PSA shoulddecrease and remain at undetectable levels after radicalprostatectomy. The AUA defines biochemical recurrence as an initialPSA value 0.2 ng/mL or greater followed by a subsequent confirmatoryPSA value 0.2 ng/mL or greater.Values obtained with different assay methods or kits cannot be usedinterchangeably. Results cannot be interpreted as absolute evidenceof the presence or absence of malignant disease. PATIENT NOT FASTINGP ERFORMED BY: Kivo Fcypdv5763 [address] [employer] SystemsCommunity Healthin [place] [id number] RHEUMATOID FACTOR-QUANT ([id number] 31)Ordered By: Medical Specialist on 11-03-2020 Rheumatoid factor Qn 10.4 {IU/mL} Normal 0.0-13.9 Co mprehensive [facility]; [facility] Work Phone: Comment on above: PATIENT NOT FASTINGP ERFORMED BY: Jaree LabModusPrp Wmjaqm5833 [address] [facility] [place] [id number] Rheumatoid factor Qn 10.4 [IU]/mL Normal 0.0-13.9 Co mprehensive [facility]; [facility] Work Phone: Comment on above: PATIENT NOT FASTINGP ERFORMED BY: JONATHON [facility] Xfvubn2891 [facility] [id number] CBC W/AUTO DIFF WBC ([id number])O rdered By: Medical Specialist on 10-20-2020 Basophils (Bld) [#/Vol] 0.1 {x10E3/uL} Normal 0.0-0.2 [facility]; [facility] Work Phone: Comment on above: PATIENT WAS FASTINGP ERFORMED BY: JONATHON [address] [id number] Information: NURSE DRAW Basophils (Bld) [#/Vol] 0.1 10*3/uL Normal 0.0-0.2 [facility]; [facility] Work Phone: Comment on above: PATIENT WAS FASTINGP ERFORMED BY: JONATHON [address]eri[address] [id number] Information: NURSE DRAW Basophils/100 WBC (Bld) 2 % Normal [facility]; [facility] Work Phone: Comment on above: PATIENT WAS FASTINGP ERFORMED BY: [address] [id number] Information: NURSE DRAW Eosinophils (Bld) [#/Vol] 0.4 {x10E3/uL} Normal 0.0-0.4 [facility]; [facility] Work Phone: Comment on above: PATIENT WAS FASTINGP ERFORMED BY: [address] [id number] Information: NURSE DRAW Eosinophils (Bld) [#/Vol] 0.4 10*3/uL Normal 0.0-0.4 [facility]; [facility] Work Phone: Comment on above: PATIENT WAS FASTINGP ERFORMED BY: JONATHON Keri[address] [id number] Information: NURSE DRAW Eosinophils/100 WBC (Bld) 6 % Normal [facility]; [facility] Work Phone: Comment on above: PATIENT WAS FASTINGP ERFORMED BY: JONATHON EmeliaMandy [place] [id number] [facility] [id number] Information: NURSE DRAW Erythrocyte distribution width (RBC) [Ratio] 15.9 % Abnormal 11.6-15.4 [facility]; [facility] Work Phone: Comment on above: PATIENT WAS FASTINGP ERFORMED BY: [address] [id number] Information: NURSE DRAW Hematocrit (Bld) [Volume fraction] 49.0 % Normal 37.5-51.0 [facility]; [facility] Work Phone: Comment on above: PATIENT WAS FASTINGP ERFORMED BY: Keri[address] [id number] Information: NURSE DRAW Hemoglobin (Bld) [Mass/Vol] 16.3 g/dL Normal 13.0-17.7 [facility]; [facility] Work Phone: Comment on above: PATIENT WAS FASTINGP ERFORMED BY: [address] [id number] Information: NURSE DRAW Immature granulocytes (Bld) [#/Vol] 0.0 {x10E3/uL} Normal 0.0-0.1 [facility]; [facility] Work Phone: Comment on above: PATIENT WAS FASTINGP ERFORMED BY: [address] [id number] Information: NURSE DRAW Immature granulocytes (Bld) [#/Vol] 0.0 10*3/uL Normal 0.0-0.1 [facility]; [facility] Work Phone: Comment on above: PATIENT WAS FASTINGP ERFORMED BY: Keri[address] [id number] Information: NURSE DRAW Immature granulocytes/100 WBC (Bld) 1 % Normal [facility]; [facility] Work Phone: Comment on above: PATIENT WAS FASTINGP ERFORMED BY: [address] RoadDublin [place] [id number] Information: NURSE DRAW Lymphocytes (Bld) [#/Vol] 2.4 {x10E3/uL} Normal 0.7-3.1 [facility]; [facility] Work Phone: Comment on above: PATIENT WAS FASTINGP ERFORMED BY: JONATHON Emelia[address] [id number] Information: NURSE DRAW Lymphocytes (Bld) [#/Vol] 2.4 10*3/uL Normal 0.7-3.1 [facility]; [facility] Work Phone: Comment on above: PATIENT WAS FASTINGP ERFORMED BY: JONATHON Emelia Tasfse[address] [id number] Information: NURSE DRAW Lymphocytes/100 WBC (Bld) 35 % Normal [facility]; [facility] Work Phone: Comment on above: PATIENT WAS FASTINGP ERFORMED BY: JONATHON Keri[address] [id number] Information: NURSE DRAW MCH (RBC) [Entitic mass] 28.2 pg Normal 26.6-33.0 [facility]; [facility] Work Phone: Comment on above: PATIENT WAS FASTINGP ERFORMED BY: JONATHON Emelia[address] [id number] Information: NURSE DRAW MCHC (RBC) [Mass/Vol] 33.3 g/dL Normal 31.5-35.7 [facility] prehensive Internal Medicine; [facility] Work Phone: Comment on above: PATIENT WAS FASTINGP ERFORMED BY: JONATHON [address] [id number] Information: NURSE DRAW MCV (RBC) [Entitic vol] 85 fL Normal 79-97 [facility]; [facility] Work Phone: Comment on above: PATIENT WAS FASTINGP ERFORMED BY: JONATHON [address] [id number] Information: NURSE DRAW Monocytes (Bld) [#/Vol] 0.6 {x10E3/uL} Normal 0.1-0.9 [facility]; [facility] Work Phone: Comment on above: PATIENT WAS FASTINGP ERFORMED BY: JONATHON Anderson Vddmtu5444 [facility] [id number] Information: NURSE DRAW Monocytes (Bld) [#/Vol] 0.6 10*3/uL Normal 0.1-0.9 [facility]; [facility] Work Phone: Comment on above: PATIENT WAS FASTINGP ERFORMED BY: [facility] Zkjqrn[address] [id number] Information: NURSE DRAW Monocytes/100 WBC (Bld) 9 % Normal [facility]; [facility] Work Phone: Comment on above: PATIENT WAS FASTINGP ERFORMED BY: [address] [id number] Information: NURSE DRAW Neutrophils (Bld) [#/Vol] 3.3 {x10E3/uL} Normal 1.4-7.0 [facility]; [facility] Work Phone: Comment on above: PATIENT WAS FASTINGP ERFORMED BY: Emelia N[address]zu[address] [id number] Information: NURSE DRAW Neutrophils (Bld) [#/Vol] 3.3 10*3/uL Normal 1.4-7.0 [facility]; [facility] Work Phone: Comment on above: PATIENT WAS FASTINGP ERFORMED BY: [place] [id number] [facility] [id number] Information: NURSE DRAW Neutrophils/100 WBC (Bld) 47 % Normal [facility]; [facility] Work Phone: Comment on above: PATIENT WAS FASTINGP ERFORMED BY: [place] [id number] [facility] [id number] Information: NURSE DRAW Platelets (Bld) [#/Vol] 171 {x10E3/uL} Normal 150-450 [facility]; [facility] Work Phone: Comment on above: PATIENT WAS FASTINGP ERFORMED BY: JONATHON [facility] [id number] Information: NURSE DRAW Platelets (Bld) [#/Vol] 171 10*3/uL Normal 150-450 [facility]; [facility] Work Phone: Comment on above: PATIENT WAS FASTINGP ERFORMED BY: JONATHON Regina BhardwajCox Branson [id number] Information: NURSE DRAW RBC (Bld) [#/Vol] 5.78 {x10E6/uL} Normal 4.14-5.80 [facility] Internal Medicine; [facility] Work Phone: Comment on above: PATIENT WAS FASTINGP ERFORMED BY: JONATHON Emeliamichael Qkdbdh6308 [facility] [id number] Information: NURSE DRAW RBC (Bld) [#/Vol] 5.78 10*6/uL Normal 4.14-5.80 [facility] Internal Medicine; [facility] Work Phone: Comment on above: PATIENT WAS FASTINGP ERFORMED BY: JONATHON Regina Guzman6370 HartCox Branson [id number] Information: NURSE DRAW WBC (Bld) [#/Vol] 6.8 {x10E3/uL} Normal 3.4-10.8 [facility] Internal Medicine; [facility] Work Phone: Comment on above: PATIENT WAS FASTINGP ERFORMED BY: JONATHON Regina Valentinlin6370 [facility] [id number] Information: NURSE DRAW WBC (Bld) [#/Vol] 6.8 10*3/uL Normal 3.4-10.8 [facility] Internal Medicine; [facility] Work Phone: Comment on above: PATIENT WAS FASTINGP ERFORMED BY: JONATHON Emeliamichael Dcosmg0466 [facility] [id number] Information: NURSE DRAW METABOLIC PANEL, WALE SIMS ([id number])Ordered By: Medical Specialist on 10-20-2020 Albumin [Mass/Vol] 4.2 g/dL Normal 3.8-4.9 [facility] Internal Medicine; [facility] Work Phone: Comment on above: restart cymbalta; PA TIENT WAS FASTINGPERFORMED BY: CB [facility] Kyumnb1484 Hart RoadDublin [place] [id number] Albumin/Globulin [Mass ratio] 1.4 {ratio} Normal 1.2-2.2 [facility]; [facility] Work Phone: Comment on above: restart cymbalta; PA TIENT WAS FASTINGPERFORMED BY: CB [facility] Pxesji8599 Hart RoadDublin [place] [id number] ALP [Catalytic activity/Vol] 114 [iU]/L Normal 39-117 [facility]; [facility] Work Phone: Comment on above: restart cymbalta; PA TIENT WAS FASTINGPERFORMED BY: CB [facility] Sqisjc2761 Hart RoadDublin [place] [id number] ALP [Catalytic activity/Vol] 114 U/L Normal 39-117 [facility]; [facility] Work Phone: Comment on above: restart cymbalta; PA TIENT WAS FASTINGPERFORMED BY: CB [facility] Vzuqzg3982 Hart RoadDublin [place] [id number] ALT [Catalytic activity/Vol] 23 [iU]/L Normal 0-44 [facility]; [facility] Work Phone: Comment on above: restart cymbalta; PA TIENT WAS FASTINGPERFORMED BY: CB [facility] Omvlrg6356 [address] RoadDublin [place] [id number] ALT [Catalytic activity/Vol] 23 U/L Normal 0-44 [facility]; [facility] Work Phone: Comment on above: restart cymbalta; PA TIENT WAS FASTINGPERFORMED BY: CB [facility] Qcyplr6462 Hart RoadDublin [place] [id number] AST [Catalytic activity/Vol] 17 [iU]/L Normal 0-40 [facility]; [facility] Work Phone: Comment on above: restart cymbalta; PA TIENT WAS FASTINGPERFORMED BY: CB [facility] Pmbwhs0785 Hatr RoadDublin [place] [id number] AST [Catalytic activity/Vol] 17 U/L Normal 0-40 [facility]; [facility] Work Phone: Comment on above: restart cymbalta; PA TIENT WAS FASTINGPERFORMED BY: CB [facility] Akdipe9426 [address] RoadDublin [place] [id number] Bilirubin [Mass/Vol] 0.6 mg/dL Normal 0.0-1.2 [facility] rehensive Internal Medicine; [facility] Work Phone: Comment on above: restart cymbalta; PA TIENT WAS FASTINGPERFORMED BY: CB [facility] Zqofvw6505 [address] RoadDublin [place] [id number] Calcium [Mass/Vol] 9.3 mg/dL Normal 8.7-10.2 [facility] Internal Medicine; [facility] Work Phone: Comment on above: restart cymbalta; PA TIENT WAS FASTINGPERFORMED BY: CB [facility] Nuwnke4131 [address] RoadDublin [place] [id number] Chloride [Moles/Vol] 103 mmol/L Normal 96-106 Comp rehensive Internal Medicine; [facility] Work Phone: Comment on above: restart cymbalta; PA TIENT WAS FASTINGPERFORMED BY: CB [facility] Wavrge2652 Hart RoadDublin [place] [id number] CO2 [Moles/Vol] 24 mmol/L Normal 20-29 [facility] Internal Medicine; [facility] Work Phone: Comment on above: restart cymbalta; PA TIENT WAS FASTINGPERFORMED BY: CB [facility] Qpysyf6517 [address] RoadDublin [place] [id number] Creatinine [Mass/Vol] 1.22 mg/dL Normal 0.76-1.27 [facility] prehensive Internal Medicine; [facility] Work Phone: Comment on above: restart cymbalta; PA TIENT WAS FASTINGPERFORMED BY: CB [facility] Mptips8359 [address] RoadDublin [place] [id number] GFR/1.73 sq M predicted among blacks CKD-EPI (S/P/Bld) [Vol rate/Area] 79 mL/min/1.73 Normal [facility]; [facility] Work Phone: Comment on above: restart cymbalta; PA TIENT WAS FASTINGPERFORMED BY: CB [facility] Xekcfg6216 [address] RoadDublin [place] [id number] GFR/1.73 sq M predicted among non-blacks CKD-EPI (S/P/Bld) [Vol rate/Area] 68 mL/min/1.73 Normal [facility]; [facility] Work Phone: Comment on above: restart cymbalta; PA TIENT WAS FASTINGPERFORMED BY: CB [facility] Kwaymp3560 [address] RoadDublin [place] [id number] Globulin (S) [Mass/Vol] 2.9 g/dL Normal 1.5-4.5 [facility] Internal Medicine; [facility] Work Phone: Comment on above: restart cymbalta; PA TIENT WAS FASTINGPERFORMED BY: CB [facility] Evfttj7735 Hart RoadDublin [place] [id number] Glucose [Mass/Vol] 98 mg/dL Normal 65-99 [facility] Internal Medicine; [facility] Work Phone: Comment on above: restart cymbalta; PA TIENT WAS FASTINGPERFORMED BY: CB [facility] Nwkgks0172 [address] RoadDublin [place] [id number] Potassium [Moles/Vol] 4.5 mmol/L Normal 3.5-5.2 [facility] Internal Medicine; [facility] Work Phone: Comment on above: restart cymbalta; PA TIENT WAS FASTINGPERFORMED BY: CB [facility] Bxhpuo9148 [address] RoadDublin [place] [id number] Protein [Mass/Vol] 7.1 g/dL Normal 6.0-8.5 [facility]; [facility] Work Phone: Comment on above: restart cymbalta; PA SO WAS FASTINGPERFORMED BY: [facility]in6[address] RoadDublin [place] [id number] Sodium [Moles/Vol] 139 mmol/L Normal 134-144 [facility] Internal [facility]; [facility] Work Phone: Comment on above: restart cymbalta; PA HELENNT WAS FASTINGPERFORMED BY: [facility] Hospitallin6370 [address] RoadDublin [place] [id number] Urea nitrogen [Mass/Vol] 16 mg/dL Normal 6-24 [facility]; [facility] Work Phone: Comment on above: restart cymbalta; PA TIENT WAS FASTINGPERFORMED BY: [facility] Hospitallin6370 [address] RoadDublin [place] [id number] Urea nitrogen/Creatinine [Mass ratio] 13 mg/mg Normal 9-20 [facility]; [facility] Work Phone: Comment on above: restart cymbalta; PA TIENT WAS FASTINGPERFORMED BY: [facility] Bsqupw7845 [address] RoadDublin [place] [id number] 2018 Novel Coronavirus (COVI D-19), RAMESH ([id number])Ordered By: Medical Specialist on 04-17-2020 2019 Novel Coronavirus (COVID-19), RAMESH ([id number]) Not Detected Normal [facility] Work Phone: Comment on above: This test was develo ped and its performance characteristics determinedby [employer]. This test has not been FDA cleared orapproved. This test has been authorized by FDA under an Emergency UseAuthorization (EUA). This test is only authorized for the duration oftime the declaration that circumstances exist justifying theauthorization of the emergency use of in vitro diagnostic tests fordetection of SARS-CoV-2 virus and/or diagnosis of COVID-19 infectionunder section 564(b)(1) of the Act, 21 U.S.C. 360bbb-3(b)(1), unlessthe authorization is terminated or revoked sooner.When diagnostic testing is negative, the possibility of a falsenegative result should be considered in the context of a patient'srecent exposures and the presence of clinical signs and symptomsconsistent with COVID-19. An individual without symptoms of COVID-19and who is not shedding SARS-CoV-2 virus would expect to have anegative (not detected) result in this assay. PATIENT NOT FASTINGP ERFORMED BY: Ad[employer]iant8211 [address]Rankpol[address] [place] [id number] 2018 Novel Coronavirus (COVID-19), RAMESH ([id number]) Not detected Normal [facility]; [facility] Work Phone: Comment on above: This test was develo ped and its performance characteristics determinedby [employer]. This test has not been FDA cleared orapproved. This test has been authorized by FDA under an Emergency UseAuthorization (EUA). This test is only authorized for the duration oftime the declaration that circumstances exist justifying theauthorization of the emergency use of in vitro diagnostic tests fordetection of SARS-CoV-2 virus and/or diagnosis of COVID-19 infectionunder section 564(b)(1) of the Act, 21 U.S.C. 360bbb-3(b)(1), unlessthe authorization is terminated or revoked sooner.When diagnostic testing is negative, the possibility of a falsenegative result should be considered in the context of a patient'srecent exposures and the presence of clinical signs and symptomsconsistent with COVID-19. An individual without symptoms of COVID-19and who is not shedding SARS-CoV-2 virus would expect to have anegative (not detected) result in this assay. PATIENT NOT FASTINGP ERFORMED BY: [employer] Husisehvft7271 [place]plernoIndian[place] [id number] CBC W/AUTO DIFF WBC ([id number])O rdered By: Medical Specialist on 10-29-2019 Basophils (Bld) [#/Vol] 0.1 {x10E3/uL} Normal 0.0-0.2 [facility] Work Phone: Comment on above: PATIENT WAS FASTINGP ERFORMED BY: CB [facility] Pdibhl0740 Hart RoadDublin [place] [id number] Basophils (Bld) [#/Vol] 0.1 10*3/uL Normal 0.0-0.2 [facility]; [facility] Work Phone: Comment on above: PATIENT WAS FASTINGP ERFORMED BY: CB [facility] Oemhxg3402 Hart RoadDublin [place] [id number] Basophils/100 WBC (Bld) 1 % Normal [facility] Work Phone: Comment on above: PATIENT WAS FASTINGP ERFORMED BY: CB [facility] Fiixor2350 [address] RoadDublin [place] [id number] Eosinophils (Bld) [#/Vol] 0.4 {x10E3/uL} Normal 0.0-0.4 [facility] Work Phone: Comment on above: PATIENT WAS FASTINGP ERFORMED BY: [facility] Esczvm5635 Hart RoadDublin [place] [id number] Eosinophils (Bld) [#/Vol] 0.4 10*3/uL Normal 0.0-0.4 [facility]; [facility] Work Phone: Comment on above: PATIENT WAS FASTINGP ERFORMED BY: [facility] Xgepue1007 [address] RoadDublin [place] [id number] Eosinophils/100 WBC (Bld) 5 % Normal [facility] Work Phone: Comment on above: PATIENT WAS FASTINGP ERFORMED BY: CB [facility] Cjrhqw5770 [address] RoadDublin [place] [id number] Erythrocyte distribution width (RBC) [Ratio] 13.9 % Normal 11.6-15.4 [facility] Work Phone: Comment on above: Please note refere nce interval change PATIENT WAS FASTINGP ERFORMED BY: CB [facility] Xhbrzi5555 [address] RoadDublin [place] [id number] Hematocrit (Bld) [Volume fraction] 46.8 % Normal 37.5-51.0 [facility] Work Phone: Comment on above: PATIENT WAS FASTINGP ERFORMED BY: JONATHON Guzman[address] [facility] [id number] Hemoglobin (Bld) [Mass/Vol] 15.6 g/dL Normal 13.0-17.7 [facility] Work Phone: Comment on above: PATIENT WAS FASTINGP ERFORMED BY: [facility] Juvyav1111 Hart RoadSelect [facility] [id number] Immature granulocytes (Bld) [#/Vol] 0.0 {x10E3/uL} Normal 0.0-0.1 [facility] Work Phone: Comment on above: PATIENT WAS FASTINGP ERFORMED BY: JONATHON Emelia Hygdqt0587 Hart RoadSelect [facility] [id number] Immature granulocytes (Bld) [#/Vol] 0.0 10*3/uL Normal 0.0-0.1 [facility]; [facility] Work Phone: Comment on above: PATIENT WAS FASTINGP ERFORMED BY: [facility] Qriiau4[address] [facility] [id number] Immature granulocytes/100 WBC (Bld) 0 % Normal [facility] Work Phone: Comment on above: PATIENT WAS FASTINGP ERFORMED BY: [facility] Fkegde1320 [address] [facility] [id number] Lymphocytes (Bld) [#/Vol] 2.1 {x10E3/uL} Normal 0.7-3.1 [facility] Work Phone: Comment on above: PATIENT WAS FASTINGP ERFORMED BY: [facility] Plscfe4323 Hart RoadDublin [place] [id number] Lymphocytes (Bld) [#/Vol] 2.1 10*3/uL Normal 0.7-3.1 [facility]; [facility] Work Phone: Comment on above: PATIENT WAS FASTINGP ERFORMED BY: [facility] Hozyao1587 [address] [facility] [id number] Lymphocytes/100 WBC (Bld) 28 % Normal [facility] Work Phone: Comment on above: PATIENT WAS FASTINGP ERFORMED BY: JONATHON [facility] Baqdsf5057 Hart Roadblin [place] [id number] MCH (RBC) [Entitic mass] 28.8 pg Normal 26.6-33.0 [facility] Internal Medicine Work Phone: Comment on above: PATIENT WAS FASTINGP ERFORMED BY: [facility] Xwakbs30[address] [facility] [id number] MCHC (RBC) [Mass/Vol] 33.3 g/dL Normal 31.5-35.7 [facility] Internal Medicine Work Phone: Comment on above: PATIENT WAS FASTINGP ERFORMED BY: JONATHON [facility] Vxbqhc7375 [facility] [id number] MCV (RBC) [Entitic vol] 86 fL Normal 79-97 [facility] Internal Medicine Work Phone: Comment on above: PATIENT WAS FASTINGP ERFORMED BY: [facility] Xozide5564 [facility] [id number] Monocytes (Bld) [#/Vol] 0.7 {x10E3/uL} Normal 0.1-0.9 [facility] Work Phone: Comment on above: PATIENT WAS FASTINGP ERFORMED BY: [facility] Vilytc6762 [facility] [place] [id number] Monocytes (Bld) [#/Vol] 0.7 10*3/uL Normal 0.1-0.9 [facility] Internal Medicine; [facility] Work Phone: Comment on above: PATIENT WAS FASTINGP ERFORMED BY: [facility] Xutjtu1807 [facility] [place] [id number] Monocytes/100 WBC (Bld) 9 % Normal [facility] Work Phone: Comment on above: PATIENT WAS FASTINGP ERFORMED BY: [facility] Ntegro7086 [address] [facility] [id number] Neutrophils (Bld) [#/Vol] 4.3 {x10E3/uL} Normal 1.4-7.0 [facility] Work Phone: Comment on above: PATIENT WAS FASTINGP ERFORMED BY: CB [facility] Klxekh7513 Hart RoadDublin [place] [id number] Neutrophils (Bld) [#/Vol] 4.3 10*3/uL Normal 1.4-7.0 [facility]; [facility] Work Phone: Comment on above: PATIENT WAS FASTINGP ERFORMED BY: CB [facility] Kutyza5735 Hart RoadDublin [place] [id number] Neutrophils/100 WBC (Bld) 57 % Normal [facility] Work Phone: Comment on above: PATIENT WAS FASTINGP ERFORMED BY: JONATHON [facility] Fsoeaf1787 Hart RoadDublin [place] [id number] Platelets (Bld) [#/Vol] 199 {x10E3/uL} Normal 150-450 [facility] Work Phone: Comment on above: PATIENT WAS FASTINGP ERFORMED BY: CB [facility] Cerlsu3701 Hart RoadDublin [place] [id number] Platelets (Bld) [#/Vol] 199 10*3/uL Normal 150-450 [facility]; [facility] Work Phone: Comment on above: PATIENT WAS FASTINGP ERFORMED BY: CB [facility] Phqovc2632 Hart RoadDublin [place] [id number] RBC (Bld) [#/Vol] 5.42 {x10E6/uL} Normal 4.14-5.80 [facility] Internal Medicine Work Phone: Comment on above: PATIENT WAS FASTINGP ERFORMED BY: CB [facility] Whfvkh2322 Hart RoadDublin [place] [id number] RBC (Bld) [#/Vol] 5.42 10*6/uL Normal 4.14-5.80 [facility] Internal Medicine; [facility] Work Phone: Comment on above: PATIENT WAS FASTINGP ERFORMED BY: CB [facility] Hslpyd7456 Hart RoadDublin [place] [id number] WBC (Bld) [#/Vol] 7.4 {x10E3/uL} Normal 3.4-10.8 [facility] prehensive Internal Medicine Work Phone: Comment on above: PATIENT WAS FASTINGP ERFORMED BY: JONATHON LabComichael Thrdxp6568 [address] [facility] [id number] WBC (Bld) [#/Vol] 7.4 10*3/uL Normal 3.4-10.8 [facility] Internal Medicine; [facility] Work Phone: Comment on above: PATIENT WAS FASTINGP ERFORMED BY: JONATHON LabPee ValentinVsmvcr8139 [facility] [id number] LIPID PANEL ([id number])Ordered B y: Medical Specialist on 10-29-2019 Cholesterol [Mass/Vol] 188 mg/dL Normal 100-199 [facility] Work Phone: Comment on above: PATIENT WAS FASTINGP ERFORMED BY: JONATHON Valentinlin6370 [facility] [id number] Cholesterol in HDL [Mass/Vol] 44 mg/dL Normal [facility] Work Phone: Comment on above: PATIENT WAS FASTINGP ERFORMED BY: JONATHON Valentinlin6370 [facility] [id number] Cholesterol in LDL [Mass/Vol] 121 mg/dL Abnormal 0-99 [facility] Work Phone: Comment on above: PATIENT WAS FASTINGP ERFORMED BY: JONATHON LabComichael Bjnufi7397 [facility] [id number] Cholesterol in LDL/Cholesterol in HDL [Mass ratio] 2.8 {ratio} Normal 0.0-3.6 [facility] Work Phone: Comment on above: LDL/HDL Ratio Men Wo men 1/2 Avg.Risk 1.0 1.5 Avg.Risk 3.6 3.2 2X Avg.Risk 6.2 5.0 3X Avg.Risk 8.0 6.1 PATIENT WAS FASTINGP ERFORMED BY: JONATHON [facility] Tlrdkj3594 [facility] [id number] Cholesterol in VLDL [Mass/Vol] 23 mg/dL Normal 5-40 [facility] Work Phone: Comment on above: PATIENT WAS FASTINGP ERFORMED BY: JONATHON Valentinlin6370 [facility] [id number] Triglyceride [Mass/Vol] 116 mg/dL Normal 0-149 [facility] Work Phone: Comment on above: PATIENT WAS FASTINGP ERFORMED BY: JONATHON Valentinlin6370 [facility] [id number] METABOLIC PANEL, COMPREHENSI VE ([id number])Ordered By: Medical Specialist on 10-29-2019 Albumin [Mass/Vol] 4.2 g/dL Normal 3.5-5.5 [facility] Internal Medicine Work Phone: Comment on above: Effective November 01, 2019 Albumin reference interval will be changing to: Age Male Female 0 - 7 days 3.6 - 4.9 3.6 - 4.9 8 - 30 days 3.4 - 4.7 3.4 - 4.7 1 - 6 month 3.7 - 4.8 3.7 - 4.8 7 months - 2 years 3.9 - 5.0 3.9 - 5.0 3 - 5 years 4.0 - 5.0 4.0 - 5.0 6 - 12 years 4.1 - 5.0 4.0 - 5.0 13 - 30 years 4.1 - 5.2 3.9 - 5.0 31 - 50 years 4.0 - 5.0 3.8 - 4.8 51 - 60 years 3.8 - 4.9 3.8 - 4.9 61 - 70 years 3.8 - 4.8 3.8 - 4.8 71 - 80 years 3.7 - 4.7 3.7 - 4.7 81 - 89 years 3.6 - 4.6 3.6 - 4.6 >89 years 3.5 - 4.6 3.5 - 4.6 PATIENT WAS FASTINGP ERFORMED BY: JONATHON [facility]6370 [facility] [id number] Albumin/Globulin [Mass ratio] 1.6 {ratio} Normal 1.2-2.2 [facility] Work Phone: Comment on above: PATIENT WAS FASTINGP ERFORMED BY: JONATHON Guzman6370 [address] RoadDublin [place] [id number] ALP [Catalytic activity/Vol] 98 [iU]/L Normal 39-117 [facility] Work Phone: Comment on above: PATIENT WAS FASTINGP ERFORMED BY: JONATHON Guzman6370 [address] RoadDublin [place] [id number] ALP [Catalytic activity/Vol] 98 U/L Normal 39-117 [facility]; [facility] Work Phone: Comment on above: PATIENT WAS FASTINGP ERFORMED BY: JONATHON Guzman6370 [address] RoadDublin [place] [id number] ALT [Catalytic activity/Vol] 27 [iU]/L Normal 0-44 [facility] Work Phone: Comment on above: PATIENT WAS FASTINGP ERFORMED BY: JONATHON Valentinlin6370 [address] RoadDublin [place] [id number] ALT [Catalytic activity/Vol] 27 U/L Normal 0-44 [facility]; [facility] Work Phone: Comment on above: PATIENT WAS FASTINGP ERFORMED BY: JONATHON Valentinlin6370 [address] RoadDublin [place] [id number] AST [Catalytic activity/Vol] 23 [iU]/L Normal 0-40 [facility] Work Phone: Comment on above: PATIENT WAS FASTINGP ERFORMED BY: JONATHON Valentinlin6370 [address] RoadDublin [place] [id number] AST [Catalytic activity/Vol] 23 U/L Normal 0-40 [facility]; [facility] Work Phone: Comment on above: PATIENT WAS FASTINGP ERFORMED BY: JONATHON LabPee ValentinMmqwax4992 [address] RoadDublin [place] [id number] Bilirubin [Mass/Vol] 0.5 mg/dL Normal 0.0-1.2 [facility]ensive Internal [facility] Work Phone: Comment on above: PATIENT WAS FASTINGP ERFORMED BY: CB [facility] Upyjtt5636 [address] RoadDublin [place] [id number] Calcium [Mass/Vol] 9.2 mg/dL Normal 8.7-10.2 [facility] Internal Medicine Work Phone: Comment on above: PATIENT WAS FASTINGP ERFORMED BY: CB [facility] Ewbnyn1815 [address] RoadDublin [place] [id number] Chloride [Moles/Vol] 104 mmol/L Normal 96-106 [facility] Work Phone: Comment on above: PATIENT WAS FASTINGP ERFORMED BY: CB [facility] Qduuuw7861 [address] RoadDublin [place] [id number] CO2 [Moles/Vol] 24 mmol/L Normal 20-29 [facility] Internal Medicine Work Phone: Comment on above: PATIENT WAS FASTINGP ERFORMED BY: [facility] Yiqckf6911 [address] RoadDublin [place] [id number] Creatinine [Mass/Vol] 1.15 mg/dL Normal 0.76-1.27 [facility] Internal Medicine Work Phone: Comment on above: PATIENT WAS FASTINGP ERFORMED BY: CB [facility] Ilslwh6589 [address] RoadDublin [place] [id number] GFR/1.73 sq M predicted among blacks CKD-EPI (S/P/Bld) [Vol rate/Area] 85 mL/min/1.73 Normal [facility] Work Phone: Comment on above: PATIENT WAS FASTINGP ERFORMED BY: CB [facility] Dbcyyc3828 Hart RoadDublin [place] [id number] GFR/1.73 sq M predicted among non-blacks CKD-EPI (S/P/Bld) [Vol rate/Area] 74 mL/min/1.73 Normal [facility] Work Phone: Comment on above: PATIENT WAS FASTINGP ERFORMED BY: CB [facility] Beaqbz8072 [address] RoadDublin [place] [id number] Globulin (S) [Mass/Vol] 2.7 g/dL Normal 1.5-4.5 [facility] Work Phone: Comment on above: PATIENT WAS FASTINGP ERFORMED BY: JONATHON [facility] Hkcejx8672 [facility] [place] [id number] Glucose [Mass/Vol] 107 mg/dL Abnormal 65-99 [facility] Internal Medicine Work Phone: Comment on above: PATIENT WAS FASTINGP ERFORMED BY: JONATHON [facility] Sfefai8767 [address] [facility] [id number] Potassium [Moles/Vol] 4.3 mmol/L Normal 3.5-5.2 [facility] Internal Medicine Work Phone: Comment on above: PATIENT WAS FASTINGP ERFORMED BY: JONATHON [facility] Hqvalt4006 [facility] [id number] Protein [Mass/Vol] 6.9 g/dL Normal 6.0-8.5 [facility] Internal Medicine Work Phone: Comment on above: PATIENT WAS FASTINGP ERFORMED BY: JONATHON LabShanna Deukzt2911 [facility] [id number] Sodium [Moles/Vol] 140 mmol/L Normal 134-144 [facility] Internal Medicine Work Phone: Comment on above: PATIENT WAS FASTINGP ERFORMED BY: JONATHON LabShanna Ncmpir9470 [facility] [id number] Urea nitrogen [Mass/Vol] 16 mg/dL Normal 6-24 [facility] Internal Medicine Work Phone: Comment on above: PATIENT WAS FASTINGP ERFORMED BY: JONATHON [facility] Fnmeec5170 [facility] [id number] Urea nitrogen/Creatinine [Mass ratio] 14 mg/mg Normal 9-20 [facility] Internal Medicine Work Phone: Comment on above: PATIENT WAS FASTINGP ERFORMED BY: JONATHON LabComichael Shwcys2140 [address] [facility] [place] [id number] PT (Prothrobim Time) ([id number]) Ordered By: Medical Specialist on 10-29-2019 INR Coag (PPP) [Relative time] 1.0 {INR} Normal 0.8-1.2 [facility] Work Phone: Comment on above: Reference interval i s for non-anticoagulated patients. . Suggested INR therapeutic range for Vitamin K antagonist therapy: Standard Dose (moderate intensity therapeutic range): 2.0 - 3.0 Higher intensity therapeutic range 2.5 - 3.5 PATIENT WAS FASTINGP ERFORMED BY: [employer] Imwywv8327 [address] RoadDublin [place] [id number] PT Coag (PPP) [Time] 10.6 {sec} Normal 9.1-12.0 [facility] rehensive Internal Medicine Work Phone: Comment on above: PATIENT WAS FASTINGP ERFORMED BY: [facility] Jrjkvg6806 [address] RoadDublin [place] [id number] PT Coag (PPP) [Time] 10.6 s Normal 9.1-12.0 [facility]; [facility] Work Phone: Comment on above: PATIENT WAS FASTINGP ERFORMED BY: [employer] Wqtjen2635 [address] RoadDublin [place] [id number] PTT (Activated Partial Throm boplastin Time) ([id number])Ordered By: Medical Specialist on 10-29-2019 aPTT Coag (PPP) [Time] 30 {sec} Normal 24-33 [facility] Internal Medicine Work Phone: Comment on above: This test has not be en validated for monitoring unfractionated heparintherapy. aPTT-based therapeutic ranges for unfractionated heparintherapy have not been established. For general guidelines onHeparin monitoring, refer to the [employer] [facility] Directory of Services. PATIENT WAS FASTINGP ERFORMED BY: [employer] Oleoed3971 Hart RoadDublin [place] [id number] aPTT Coag (PPP) [Time] 30 s Normal 24-33 [facility]; [facility] Internal Medicine Work Phone: Comment on above: This test has not be en validated for monitoring unfractionated heparintherapy. aPTT-based therapeutic ranges for unfractionated heparintherapy have not been established. For general guidelines onHeparin monitoring, refer to the [facility] Directory of Services. PATIENT WAS FASTINGP ERFORMED BY: JONATHON [facility] Zfrebf4397 [address] RoadDublin [place] [id number] Vitamin D Hydroxy (15983)Ord ered By: Medical Specialist on 10-29-2019 25-Hydroxyvitamin D2+25-Hydroxyvitamin D3 [Mass/Vol] 31.5 ng/mL Normal 30.0-100.0 [facility] Work Phone: Comment on above: Vitamin D deficiency has been defined by the [place] ofMedicine and an Endocrine Society practice guideline as alevel of serum 25-OH vitamin D less than 20 ng/mL (1,2).The Endocrine Society went on to further define vitamin Dinsufficiency as a level between 21 and 29 ng/mL (2).1. IOM ([place] of Medicine). 2010. Dietary reference intakes for calcium and D. Up [place]: The National Academies Press.2. Tono MF, Anisha CASILLAS, Yenny CASTILLO, et al. Evaluation, treatment, and prevention of vitamin D deficiency: an Endocrine Society clinical practice guideline. JCEM. 2010; 96(7):1911-30. PATIENT WAS FASTINGP ERFORMED BY: [employer] [id number] HgA1C , Office ([id number])Ordere d By: Ayana Simpson on 09-17-2019 HbA1c (Bld) [Mass fraction] 5.0 % Normal 4.6 - 7.1 [facility] Work Phone: EUNICE (ANTINUCLEAR ANTIBODY) ( [id number])Ordered By: Medical Specialist on 09-14-2019 Nuclear Ab Ql (S) Negative Normal Compreh ensive Internal Medicine Work Phone: Comment on above: PATIENT WAS FASTINGP ERFORMED BY: LabModusP Wflgewqerm1050 [facility] [id number] BY: [employer] Qqnpgy0471 [facility] [id number] Nuclear Ab Ql (S) Negative Normal Compreh ensive Internal Medicine; [facility] Work Phone: Comment on above: PATIENT WAS FASTINGP ERFORMED BY: [employer] Zlfvsugcvb6676 [facility] [id number] BY: JONATHON [employer] Tkdsxb0177 [facility] [id number] ANCA-C (ANTI NEUTROPHIL CYTO PLASMIC ANTIBODY)Ordered By: Medical Specialist on 09-14-2019 Myeloperoxidase Ab IA Qn (S) <9.0 Normal 0.0-9.0 [facility] Work Phone: Comment on above: PATIENT WAS FASTINGP ERFORMED BY: [employer] [id number] BY: [employer] Wafizc1556 [facility] [id number] Neutrophil cytoplasmic Ab.classic IF (S) [Titer] <1:20 Normal [facility] Work Phone: Comment on above: PATIENT WAS FASTINGP ERFORMED BY: [employer] [id number] BY: [employer] Byogvy[address] [place] [address] [id number] Neutrophil cytoplasmic Ab.perinuclear IF (S) [Titer] <1:20 Normal [facility] Work Phone: Comment on above: The presence of posi tive fluorescence exhibiting P-ANCA or C-ANCApatterns alone is not specific for the diagnosis of Porfirio'sGranulomatosis (WG) or microscopic polyangiitis. Decisions abouttreatment should not be based solely on ANCA IFA results. TheInternational ANCA Group Consensus recommends follow up testing ofpositive sera with both MS-3 and MPO-ANCA enzyme immunoassays. Asmany as 5% serum samples are positive only by EIA.Ref. AM J Clin Pathol 1999;111:507-513. PATIENT WAS FASTINGP ERFORMED BY: [employer] [id number] BY: POPS WorldwideDebra [place] 6381470 [facility] [id number] Neutrophil cytoplasmic Ab.perinuclear.atypic al IF (S) [Titer] <1:20 Normal [facility] Work Phone: Comment on above: The atypical pANCA p attern has been observed in a significantpercentage of patients with ulcerative colitis, primary sclerosingcholangitis and autoimmune hepatitis. PATIENT WAS FASTINGP ERFORMED BY: [employer] [id number] BY: [facility] Suzxlv9308 Hart Roadblin [place] [id number] Proteinase 3 Ab IA Qn (S) <3.5 Normal 0.0-3.5 [facility] Work Phone: Comment on above: PATIENT WAS FASTINGP ERFORMED BY: [employer] [id number] BY: [facility] Beetkv2965 [address] [facility] [id number] C-REACTIVE PROTEIN ([id number])Or dered By: Medical Specialist on 09-14-2019 CRP [Mass/Vol] 2 mg/L Normal 0-10 [facility] Internal Medicine Work Phone: Comment on above: PATIENT WAS FASTINGP ERFORMED BY: [employer] [id number] BY: [facility] Oxrguv7718 [facility] [id number] CBC with auto diff ([id number])Or dered By: Medical Specialist on 09-14-2019 Basophils (Bld) [#/Vol] 0.1 {x10E3/uL} Normal 0.0-0.2 [facility] Work Phone: Comment on above: PATIENT WAS FASTINGP ERFORMED BY: [employer] [id number] BY: [facility] Qwbuwh9367 [address] [facility] [id number] Basophils (Bld) [#/Vol] 0.1 10*3/uL Normal 0.0-0.2 [facility]; [facility] Work Phone: Comment on above: PATIENT WAS FASTINGP ERFORMED BY: [employer] [id number] BY: [facility] Xqvnhc9997 [address] [facility] [id number] Basophils/100 WBC (Bld) 1 % Normal [facility] Work Phone: Comment on above: PATIENT WAS FASTINGP ERFORMED BY: [address] [id number] BY: JONATHON [facility] Lkrbob9363 [address] RoadDublin [place] [id number] Eosinophils (Bld) [#/Vol] 0.5 {x10E3/uL} Abnormal 0.0-0.4 [facility] Work Phone: Comment on above: PATIENT WAS FASTINGP ERFORMED BY: [address] [id number] BY: JONATHON LabDebra [place] 6381470 [facility] [id number] Eosinophils (Bld) [#/Vol] 0.5 10*3/uL Abnormal 0.0-0.4 [facility]; [facility] Work Phone: Comment on above: PATIENT WAS FASTINGP ERFORMED BY: [address] [id number] BY: JONATHON LabDeb[place] 6381470 [address] [facility] [id number] Eosinophils/100 WBC (Bld) 7 % Normal [facility] Work Phone: Comment on above: PATIENT WAS FASTINGP ERFORMED BY: [address] [id number] BY: LabDeb[place] 6381470 [facility] [id number] Erythrocyte distribution width (RBC) [Ratio] 13.7 % Normal 12.3-15.4 [facility] Work Phone: Comment on above: PATIENT WAS FASTINGP ERFORMED BY: [address] [id number] BY: [facility] Qbkdyu5606 [address] [facility] [id number] Hematocrit (Bld) [Volume fraction] 47.6 % Normal 37.5-51.0 [facility] Work Phone: Comment on above: PATIENT WAS FASTINGP ERFORMED BY: Lab[address] [id number] BY: [facility]CoJeff[facility]Fhbanz7730 Hart RoadCommunity Healthin [place] [id number] Hemoglobin (Bld) [Mass/Vol] 16.2 g/dL Normal 13.0-17.7 [facility] Work Phone: Comment on above: PATIENT WAS FASTINGP ERFORMED BY: [address] [id number] BY: [facility] Dlwhgg8524 [facility] [place] [id number] Immature granulocytes (Bld) [#/Vol] 0.0 {x10E3/uL} Normal 0.0-0.1 [facility] Work Phone: Comment on above: PATIENT WAS FASTINGP ERFORMED BY: [address] [id number] BY: LabCoMandy [place] 3354570 [facility] [id number] Immature granulocytes (Bld) [#/Vol] 0.0 10*3/uL Normal 0.0-0.1 [facility]; [facility] Work Phone: Comment on above: PATIENT WAS FASTINGP ERFORMED BY: [address] [id number] BY: [facility]6370 [address] [facility]in [place] [id number] Immature granulocytes/100 WBC (Bld) 1 % Normal [facility] Work Phone: Comment on above: PATIENT WAS FASTINGP ERFORMED BY: [address] [id number] BY: [facility] Jfohqg9781 Hart RoadCommunity Healthin [place] [id number] Lymphocytes (Bld) [#/Vol] 2.4 {x10E3/uL} Normal 0.7-3.1 [facility] Work Phone: Comment on above: PATIENT WAS FASTINGP ERFORMED BY: [employer] [id number] BY: [facility]Co[facility])Usbpnh3233 [facility] [id number] Lymphocytes (Bld) [#/Vol] 2.4 10*3/uL Normal 0.7-3.1 [facility]; [facility] Work Phone: Comment on above: PATIENT WAS FASTINGP ERFORMED BY: [employer] [id number] BY: LabDebra [place] 6381470 [facility] [id number] Lymphocytes/100 WBC (Bld) 33 % Normal [facility] Work Phone: Comment on above: PATIENT WAS FASTINGP ERFORMED BY: [employer] [id number] BY: LabDeb[place] 6381470 [facility] [id number] MCH (RBC) [Entitic mass] 29.8 pg Normal 26.6-33.0 [facility] Work Phone: Comment on above: PATIENT WAS FASTINGP ERFORMED BY: [employer] [id number] BY: LabCoMandy [place] 3354570 [facility] [id number] MCHC (RBC) [Mass/Vol] 34.0 g/dL Normal 31.5-35.7 [facility] Internal Medicine Work Phone: Comment on above: PATIENT WAS FASTINGP ERFORMED BY: [employer] [id number] BY: LabTr[facility]6370 [facility] [id number] MCV (RBC) [Entitic vol] 88 fL Normal 79-97 [facility] Work Phone: Comment on above: PATIENT WAS FASTINGP ERFORMED BY: Lab[address] [id number] BY: [facility] Rgtrjx7331 [address] RoadDublin [place] [id number] Monocytes (Bld) [#/Vol] 0.6 {x10E3/uL} Normal 0.1-0.9 [facility] Work Phone: Comment on above: PATIENT WAS FASTINGP ERFORMED BY: Lab[address] [id number] BY: [facility] Gjrfzy4774 [address] RoadDublin [place] [id number] Monocytes (Bld) [#/Vol] 0.6 10*3/uL Normal 0.1-0.9 [facility]; [facility] Work Phone: Comment on above: PATIENT WAS FASTINGP ERFORMED BY: [address] [id number] BY: LabTr[facility]6370 [address] RoadDublin [place] [id number] Monocytes/100 WBC (Bld) 8 % Normal [facility] Work Phone: Comment on above: PATIENT WAS FASTINGP ERFORMED BY: [address] [id number] BY: LabCoMandy [place] 3354570 [address] RoadDublin [place] [id number] Neutrophils (Bld) [#/Vol] 3.6 {x10E3/uL} Normal 1.4-7.0 [facility] Work Phone: Comment on above: PATIENT WAS FASTINGP ERFORMED BY: [address] [id number] BY: [facility] Cbxjat5697 [address] RoadDublin [place] [id number] Neutrophils (Bld) [#/Vol] 3.6 10*3/uL Normal 1.4-7.0 [facility]; [facility] Work Phone: Comment on above: PATIENT WAS FASTINGP ERFORMED BY: [facility] [address] [id number] BY: JONATHON [facility] Cbnngv1368 [address] RoadDublin [place] [id number] Neutrophils/100 WBC (Bld) 50 % Normal [facility] Work Phone: Comment on above: PATIENT WAS FASTINGP ERFORMED BY: [facility] [address] [id number] BY: [facility] Sfvfee0139 [address] RoadDublin [place] [id number] Platelets (Bld) [#/Vol] 188 {x10E3/uL} Normal 150-450 [facility] Work Phone: Comment on above: PATIENT WAS FASTINGP ERFORMED BY: [facility] [address] [id number] BY: JONATHON [facility] Ivjnet4026 Hart RoadDublin [place] [id number] Platelets (Bld) [#/Vol] 188 10*3/uL Normal 150-450 [facility]; [facility] Work Phone: Comment on above: PATIENT WAS FASTINGP ERFORMED BY: [facility] [address] [id number] BY: JONATHON [facility] Yvepat3138 Hart RoadDublin [place] [id number] RBC (Bld) [#/Vol] 5.44 {x10E6/uL} Normal 4.14-5.80 [facility] Internal Medicine Work Phone: Comment on above: PATIENT WAS FASTINGP ERFORMED BY: LabCo[address] [id number] BY: [facility] Cwcnhc8374 Hart RoadDublin [place] [id number] RBC (Bld) [#/Vol] 5.44 10*6/uL Normal 4.14-5.80 [facility] Internal Medicine; [facility] Work Phone: Comment on above: PATIENT WAS FASTINGP ERFORMED BY: [address] [id number] BY: [facility]6370 [facility] [id number] WBC (Bld) [#/Vol] 7.1 {x10E3/uL} Normal 3.4-10.8 [facility] Work Phone: Comment on above: PATIENT WAS FASTINGP ERFORMED BY: Lab[address] [id number] BY: JONATHON [facility]6370 [facility] [id number] WBC (Bld) [#/Vol] 7.1 10*3/uL Normal 3.4-10.8 [facility]; [facility] Work Phone: Comment on above: PATIENT WAS FASTINGP ERFORMED BY: [address] [id number] BY: [facility]6370 [facility] [id number] CCP ANTIBODY ([id number])Ordered By: Medical Specialist on 09-14-2019 Cyclic citrullinated peptide IgA+IgG IA Qn 13 {units} Normal 0-19 [facility] Internal Medicine Work Phone: Comment on above: Negative <20 Weak po sitive 20 - 39 Moderate positive 40 - 59 Strong positive >59 PATIENT WAS FASTINGP ERFORMED BY: [address] [id number] BY: [facility]6370 [facility] [id number] RHEUMATOID FACTOR-QUANT (864 31)Ordered By: Medical Specialist on 09-14-2019 Rheumatoid factor Qn 12.9 {IU/mL} Normal 0.0-13.9 [facility] Internal Medicine Work Phone: Comment on above: PATIENT WAS FASTINGP ERFORMED BY: [address] [id number] BY: [place] [id number] [facility] [place] [id number] Rheumatoid factor Qn 12.9 [IU]/mL Normal 0.0-13.9 Co mprehensive Internal Medicine; [facility] Work Phone: Comment on above: PATIENT WAS FASTINGP ERFORMED BY: [employer] [id number] BY: LabCoMandy [place] [id number] [facility] [place] [id number] SED RATE ERYTHROCYTE (51818) Ordered By: Medical Specialist on 09-14-2019 ESR (Bld) [Velocity] 7 mm/h Normal 0-15 Comp rehensive Internal Medicine Work Phone: Comment on above: PATIENT WAS FASTINGP ERFORMED BY: [employer] [id number] BY: JONATHON POPS WorldwideTr[facility] Living[facility]6370 [facility] [id number] URIC ACID BLOOD (30869)Order ed By: Medical Specialist on 09-14-2019 Urate [Mass/Vol] 6.5 mg/dL Normal 3.7-8.6 Comprehe nsive Internal Medicine Work Phone: Comment on above: Therapeutic target f or gout patients: <6.0 PATIENT WAS FASTINGP ERFORMED BY: [employer] [id number] BY: POPS WorldwideTrinity Health Living[facility] Hospital6370 [facility] [id number] C-REACTIVE PROTEIN (64076)Or dered By: Medical Specialist on 03-29-2019 CRP mass conc 1 mg/L Normal 0-10 Comprehensi ve Internal Medicine Work Phone: Comment on above: Please note refere nce interval change PATIENT WAS FASTINGP ERFORMED BY: LabTr[facility]6370 [facility]in [place] [id number] CBC & PLATELETS (AUTO) (8502 7)Ordered By: Medical Specialist on 03-29-2019 Erythrocyte distribution width Ratio (RBC) 13.2 % Normal 12.3-15.4 [facility] Work Phone: Comment on above: PATIENT WAS FASTINGP ERFORMED BY: JONATHON [facility] Yplkjr0917 [address] [facility] [place] [id number] Hematocrit Volume Fraction (Bld) 45.2 % Normal 37.5-51.0 [facility] Work Phone: Comment on above: PATIENT WAS FASTINGP ERFORMED BY: CB [facility] Brmhak0862 [address] [facility] [id number] Hemoglobin mass conc (Bld) 15.6 g/dL Normal 13.0-17.7 [facility] Work Phone: Comment on above: PATIENT WAS FASTINGP ERFORMED BY: CB [facility] Ubftqx6879 [address] [facility] [id number] MCH Entitic mass (RBC) 29.5 pg Normal 26.6-33.0 [facility] Work Phone: Comment on above: PATIENT WAS FASTINGP ERFORMED BY: JONATHON [facility] Lluptw1230 [address] [facility] [id number] MCHC mass conc (RBC) 34.5 g/dL Normal 31.5-35.7 [facility] Internal Medicine Work Phone: Comment on above: PATIENT WAS FASTINGP ERFORMED BY: CB [facility] Sorjsu7680 [address] [facility] [id number] MCV Entitic volume (RBC) 86 fL Normal 79-97 [facility] Work Phone: Comment on above: PATIENT WAS FASTINGP ERFORMED BY: CB [facility] Elrrnx8748 [address] [facility] [id number] Platelets #/vol (Bld) 174 {x10E3/uL} Normal 150-450 [facility] Work Phone: Comment on above: PATIENT WAS FASTINGP ERFORMED BY: CB [facility] Sapthm7456 [address] [facility]in [place] [id number] Platelets (Bld) [#/Vol] 174 10*3/uL Normal 150-450 [facility]; [facility] Work Phone: Comment on above: PATIENT WAS FASTINGP ERFORMED BY: [facility] Tijvpa6555 Hart RoadDublin [place] [id number] RBC #/vol (Bld) 5.28 {x10E6/uL} Normal 4.14-5.80 [facility] Internal Medicine Work Phone: Comment on above: PATIENT WAS FASTINGP ERFORMED BY: [facility] Whohgu3783 Hart RoadDublin [place] [id number] RBC (Bld) [#/Vol] 5.28 10*6/uL Normal 4.14-5.80 [facility] Internal Medicine; [facility] Work Phone: Comment on above: PATIENT WAS FASTINGP ERFORMED BY: [facility] Xsobyb2913 [address] RoadDublin [place] [id number] WBC #/vol (Bld) 6.9 {x10E3/uL} Normal 3.4-10.8 [facility] Internal Medicine Work Phone: Comment on above: PATIENT WAS FASTINGP ERFORMED BY: LabOzarks Community HospitalZarkbk6924 Hart RoadCommunity Healthin [place] [id number] WBC (Bld) [#/Vol] 6.9 10*3/uL Normal 3.4-10.8 [facility]pr[facility] Internal Medicine; [facility] Work Phone: Comment on above: PATIENT WAS FASTINGP ERFORMED BY: LabCarondelet Health Cayrwn0687 [address] [facility]in [place] [id number] HGB A1C (58705)Ordered By: S ystem Director Of Contracts on 03-29-2019 Hemoglobin A1c/Hemoglobin.total mass fraction (Bld) 5.3 % Normal 4.8-5.6 Comprehensiv e Internal Medicine Work Phone: Comment on above: . Prediabetes: 5.7 - 6.4 Diabetes: >6.4 Glycemic control for adults with diabetes: <7.0 PATIENT WAS FASTINGP ERFORMED BY: [facility] Byhtrf0218 [address] RoadDublin [place] [id number] METABOLIC PANEL, COMPREHENSI VE (63247)Ordered By: Medical Specialist on 03-29-2019 Albumin mass conc 4.2 g/dL Normal 3.5-5.5 [facility] Internal Medicine Work Phone: Comment on above: PATIENT WAS FASTINGP ERFORMED BY: CB [facility] Jljoiw8795 [address] RoadDublin [place] [id number]; appt 6/24 Albumin/Globulin mass ratio 1.6 {ratio} Normal 1.2-2.2 [facility] Internal Medicine Work Phone: Comment on above: PATIENT WAS FASTINGP ERFORMED BY: CB [facility] Joexee4971 [address] RoadDublin [place] [id number]; appt 6/24 ALP [Catalytic activity/Vol] 101 U/L Normal 39-117 [facility]; [facility] Internal Medicine Work Phone: Comment on above: PATIENT WAS FASTINGP ERFORMED BY: CB [facility] Gnexuh4580 [address] RoadDublin [place] [id number]; appt 6/24 ALP enzyme act/vol 101 [iU]/L Normal 39-117 [facility] Internal Medicine Work Phone: Comment on above: PATIENT WAS FASTINGP ERFORMED BY: CB [facility] Onoztc8355 [address] RoadDublin [place] [id number]; appt 6/24 ALT [Catalytic activity/Vol] 25 U/L Normal 0-44 [facility]; [facility] Internal Medicine Work Phone: Comment on above: PATIENT WAS FASTINGP ERFORMED BY: CB [facility] Bdicwt9499 [address] RoadDublin [place] [id number]; appt 6/24 ALT enzyme act/vol 25 [iU]/L Normal 0-44 [facility] Internal Medicine Work Phone: Comment on above: PATIENT WAS FASTINGP ERFORMED BY: CB [facility] Fjnemy9863 [address] RoadDublin [place] [id number]; appt 6/24 AST [Catalytic activity/Vol] 23 U/L Normal 0-40 [facility]; [facility] Internal Medicine Work Phone: Comment on above: PATIENT WAS FASTINGP ERFORMED BY: CB [facility] Krecrq6725 [address] RoadDublin [place] [id number]; appt 04/05 AST enzyme act/vol 23 [iU]/L Normal 0-40 Compre [facility] Internal Medicine Work Phone: Comment on above: PATIENT WAS FASTINGP ERFORMED BY: JONATHON [facility] Ymbkan1462 [address] Roadblin [place] [id number]; appt 04/05 Bilirubin mass conc 0.3 mg/dL Normal 0.0-1.2 Compr ensive Internal Medicine Work Phone: Comment on above: PATIENT WAS FASTINGP ERFORMED BY: JONATHON [facility] Yfnydu6944 Hart Roadblin [place] [id number]; appt 04/05 Calcium mass conc 9.1 mg/dL Normal 8.7-10.2 Compreh [facility] campusive Internal Medicine Work Phone: Comment on above: PATIENT WAS FASTINGP ERFORMED BY: JONATHON [facility] Emmddl5892 Hart RoadSelect [facility] [id number]; appt 04/05 Chloride molar conc 108 mmol/L Abnormal 96-106 Compr ensive Internal Medicine Work Phone: Comment on above: PATIENT WAS FASTINGP ERFORMED BY: JONATHON [facility] Dmhnoe3981 Hart RoadCommunity Healthin [place] [id number]; appt 04/05 CO2 molar conc 20 mmol/L Normal 20-29 Comprehens reji Internal Medicine Work Phone: Comment on above: PATIENT WAS FASTINGP ERFORMED BY: CB [facility] Xeusku4781 [address] [facility] [id number]; appt 04/05 Creatinine mass conc 1.04 mg/dL Normal 0.76-1.27 Comp [facility] Internal [facility] Work Phone: Comment on above: PATIENT WAS FASTINGP ERFORMED BY: CB [facility] Lxnblb2334 [address] [facility] [id number]; appt 04/05 GFR/1.73 sq M predicted among blacks CKD-EPI vol rate/area (S/P/Bld) 97 mL/min/1.73 Normal Comprehensiv e Internal Medicine Work Phone: Comment on above: PATIENT WAS FASTINGP ERFORMED BY: CB [facility] Tjpzdy5116 [address] RoadDublin [place] [id number]; appt 6 GFR/1.73 sq M predicted among non-blacks CKD-EPI vol rate/area (S/P/Bld) 84 mL/min/1.73 Normal [facility] Work Phone: Comment on above: PATIENT WAS FASTINGP ERFORMED BY: CB [facility] Peaupk5444 [address] RoadDublin [place] [id number]; appt 6 Globulin mass conc (S) 2.7 g/dL Normal 1.5-4.5 [facility] Work Phone: Comment on above: PATIENT WAS FASTINGP ERFORMED BY: [facility] Pdlsph7439 [address] RoadDublin [place] [id number]; appt 04/05 Glucose mass conc 98 mg/dL Normal 65-99 Compreh ensive Internal Medicine Work Phone: Comment on above: PATIENT WAS FASTINGP ERFORMED BY: [facility] Quwgau9650 [address] RoadDublin [place] [id number]; appt 6 Potassium molar conc 4.5 mmol/L Normal 3.5-5.2 Comp rehensive Internal Medicine Work Phone: Comment on above: PATIENT WAS FASTINGP ERFORMED BY: [facility] Meozaq3188 [address] RoadDublin [place] [id number]; appt 04/05 Protein mass conc 6.9 g/dL Normal 6.0-8.5 Compreh ensive Internal Medicine Work Phone: Comment on above: PATIENT WAS FASTINGP ERFORMED BY: CB [facility] Hqqxix1593 [address] RoadDublin [place] [id number]; appt 6 Sodium molar conc 141 mmol/L Normal 134-144 Compreh ensive Internal Medicine Work Phone: Comment on above: PATIENT WAS FASTINGP ERFORMED BY: CB [facility] Bdriqp6970 [address] RoadDublin [place] [id number]; appt 624 Urea nitrogen mass conc 26 mg/dL Abnormal 6-24 [facility] Work Phone: Comment on above: PATIENT WAS FASTINGP ERFORMED BY: JONATHON [facility] Llabcw5456 [facility] [id number]; appt 04/05 Urea nitrogen/Creatinine mass ratio 25 mg/mg Abnormal - [facility] Work Phone: Comment on above: PATIENT WAS FASTINGP ERFORMED BY: [facility] Enftyg5409 [facility] [id number]; appt 04/05 PSA (PROSTATE SPECIFIC ANTIG EN) (32066)Ordered By: Medical Specialist on 03-29-2019 Prostate specific Ag mass conc 0.3 ng/mL Normal 0.0-4.0 [facility] Work Phone: Comment on above: [employer] ECLIA methodol ogy. .According to the [place] [employer], Serum PSA shoulddecrease and remain at undetectable levels after radicalprostatectomy. The AUA defines biochemical recurrence as an initialPSA value 0.2 ng/mL or greater followed by a subsequent confirmatoryPSA value 0.2 ng/mL or greater.Values obtained with different assay methods or kits cannot be usedinterchangeably. Results cannot be interpreted as absolute evidenceof the presence or absence of malignant disease. PATIENT WAS FASTINGP ERFORMED BY: JONATHON [facility] Kaoohn1972 [facility] [id number] Sedimentation Rate-ESR (8565 2)Ordered By: Medical Specialist on 03-29-2019 ESR Velocity (Bld) 4 mm/h Normal 0-15 Compre [facility] Internal Medicine Work Phone: Comment on above: PATIENT WAS FASTINGP ERFORMED BY: [facility] Ooetgw9611 [facility] [id number] HgA1C , Office ([id number])Ordere d By: Brittny Honeycutt on 07-17-2018 Hemoglobin A1c/Hemoglobin.total mass fraction (Bld) 4.9 % Normal 4.6 - 7.1 Comprehensiv e Internal Medicine Work Phone: LIPID PANEL (02892)on 2017 Cholesterol in HDL mass conc 34 mg/dL Abnormal [facility] Work Phone: Comment on above: PATIENT WAS FASTINGP ERFORMED BY: JONATHON [facility] Qwjbta4342 [address] [facility]in [place] [id number]; appt 10/5 Cholesterol in LDL mass conc 88 mg/dL Normal 0-99 [facility] Work Phone: Comment on above: PATIENT WAS FASTINGP ERFORMED BY: JONATHON [facility] Oiwwgt7046 [address] [facility]in [place] [id number]; appt 10/5 Cholesterol in LDL/Cholesterol in HDL mass ratio 2.6 {ratio} Normal 0.0-3.6 [facility] Work Phone: Comment on above: LDL/HDL Ratio Men Wo men 1/2 Avg.Risk 1.0 1.5 Avg.Risk 3.6 3.2 2X Avg.Risk 6.2 5.0 3X Avg.Risk 8.0 6.1 PATIENT WAS FASTINGP ERFORMED BY: JONATHON LabComichael Rpykbz1656 [address] [facility] [id number]; appt 10/5 Cholesterol in VLDL mass conc 23 mg/dL Normal 5-40 [facility] Work Phone: Comment on above: PATIENT WAS FASTINGP ERFORMED BY: JONATHON [facility] Gknsql1457 [address] [facility] [id number]; appt 10/5 Cholesterol mass conc 145 mg/dL Normal 100-199 [facility] prehensive Internal Medicine Work Phone: Comment on above: PATIENT WAS FASTINGP ERFORMED BY: JONATHON [facility] Mellaj0776 [address] [facility] [id number]; appt 10/5 Triglyceride mass conc 116 mg/dL Normal 0-149 [facility] Work Phone: Comment on above: PATIENT WAS FASTINGP ERFORMED BY: JONATHON [facility] Vbtbuz9098 [address] [facility] [id number]; appt 10/5 METABOLIC PANEL, COMPREHENSI VE (25198)on 07-07-2018 Albumin mass conc 3.8 g/dL Normal 3.5-5.5 Compreh ensive Internal Medicine Work Phone: Comment on above: PATIENT WAS FASTINGP ERFORMED BY: JONATHON [facility] Ulwbxh3626 Hart RoadDublin [place] [id number] Albumin/Globulin mass ratio 1.5 {ratio} Normal 1.2-2.2 [facility] Internal Medicine Work Phone: Comment on above: PATIENT WAS FASTINGP ERFORMED BY: JONATHON [facility] Oftqlx2218 [address] RoadDublin [place] [id number] ALP enzyme act/vol 92 [iU]/L Normal 39-117 [facility] Internal Medicine Work Phone: Comment on above: PATIENT WAS FASTINGP ERFORMED BY: JONATHON [facility] Yflpff9705 [address] RoadDublin [place] [id number] ALT enzyme act/vol 26 [iU]/L Normal 0-44 [facility] Internal Medicine Work Phone: Comment on above: PATIENT WAS FASTINGP ERFORMED BY: JONATHON [facility] Mfaaab3272 [address] RoadDublin [place] [id number] AST enzyme act/vol 21 [iU]/L Normal 0-40 [facility] Internal Medicine Work Phone: Comment on above: PATIENT WAS FASTINGP ERFORMED BY: JONATHON [facility] Xjmnqn8014 [address] RoadDublin [place] [id number] Bilirubin mass conc 0.4 mg/dL Normal 0.0-1.2 [facility] Internal Medicine Work Phone: Comment on above: PATIENT WAS FASTINGP ERFORMED BY: JONATHON [facility] Gmfejh0231 [address] RoadDublin [place] [id number] Calcium mass conc 9.0 mg/dL Normal 8.7-10.2 [facility] Internal Medicine Work Phone: Comment on above: PATIENT WAS FASTINGP ERFORMED BY: JONATHON [facility] Tfdacv8912 [address] RoadDublin [place] [id number] Chloride molar conc 106 mmol/L Normal 96-106 [facility] Internal Medicine Work Phone: Comment on above: PATIENT WAS FASTINGP ERFORMED BY: JONATHON [facility] Sjxqsw6525 [address] RoadDublin [place] [id number] CO2 molar conc 21 mmol/L Normal 20-29 Comprehens reji Internal Medicine Work Phone: Comment on above: PATIENT WAS FASTINGP ERFORMED BY: JONATHON LabComichael GuzmanTileuf5185 [address] [facility] [place] [id number] Creatinine mass conc 1.04 mg/dL Normal 0.76-1.27 Comp rehensive Internal Medicine Work Phone: Comment on above: PATIENT WAS FASTINGP ERFORMED BY: JONATHON [facility] Oprpvr7783 [address] [facility] [id number] GFR/1.73 sq M predicted among blacks CKD-EPI vol rate/area (S/P/Bld) 98 mL/min/1.73 Normal Comprehensiv e Internal Medicine Work Phone: Comment on above: PATIENT WAS FASTINGP ERFORMED BY: JONATHON [facility] Pmrvxe6306 [address] [facility] [id number] GFR/1.73 sq M predicted among non-blacks CKD-EPI vol rate/area (S/P/Bld) 85 mL/min/1.73 Normal [facility] Work Phone: Comment on above: PATIENT WAS FASTINGP ERFORMED BY: JONATHON LabComichael Naqycd2691 [facility] [id number] Globulin Calculated mass conc (S) 2.6 g/dL Normal 1.5-4.5 [facility] Work Phone: Glucose mass conc 105 mg/dL Abnormal 65-99 Compreh ensive Internal Medicine Work Phone: Comment on above: PATIENT WAS FASTINGP ERFORMED BY: JONATHON [facility] Ysqwts9561 [address] [facility] [place] [id number] Potassium molar conc 4.2 mmol/L Normal 3.5-5.2 Comp rehensive Internal Medicine Work Phone: Comment on above: PATIENT WAS FASTINGP ERFORMED BY: JONATHON [facility] Echahl0447 [address] [facility] [id number] Protein mass conc 6.4 g/dL Normal 6.0-8.5 Compreh ensive Internal Medicine Work Phone: Comment on above: PATIENT WAS FASTINGP ERFORMED BY: JONATHON [facility] Zugfvr2764 [address] [facility] [id number] Sodium molar conc 141 mmol/L Normal 134-144 Compreh ensive Internal Medicine Work Phone: Comment on above: PATIENT WAS FASTINGP ERFORMED BY: JONATHON LabComichael ValentinJocprg8834 [address] [facility] [id number] Urea nitrogen mass conc 20 mg/dL Normal 6-24 [facility] Work Phone: Comment on above: PATIENT WAS FASTINGP ERFORMED BY: JONATHON [facility] Eskofq7489 [address] [facility] [id number] Urea nitrogen/Creatinine mass ratio 19 mg/mg Normal 9-20 [facility] Work Phone: Comment on above: PATIENT WAS FASTINGP ERFORMED BY: JONATHON [facility] Jlexuq1275 [address] [facility] [id number] METABOLIC PANEL, COMPREHENSI VE (22691)Ordered By: Medical Specialist on 07-07-2018 ALP [Catalytic activity/Vol] 92 U/L Normal 39-117 [facility]; [facility] Work Phone: Comment on above: PATIENT WAS FASTINGP ERFORMED BY: JONATHON [facility] Fafxmm8181 [address] [facility] [id number] ALT [Catalytic activity/Vol] 26 U/L Normal 0-44 [facility]; [facility] Work Phone: Comment on above: PATIENT WAS FASTINGP ERFORMED BY: [facility] Nglynx0347 [address] [facility] [id number] AST [Catalytic activity/Vol] 21 U/L Normal 0-40 [facility]; [facility] Work Phone: Comment on above: PATIENT WAS FASTINGP ERFORMED BY: JONATHON [facility] Rgiljq7539 [address] [facility] [id number] Globulin (S) [Mass/Vol] 2.6 g/dL Normal 1.5-4.5 [facility] Work Phone: Comment on above: PATIENT WAS FASTINGP ERFORMED BY: JONATHON [facility] Uudrhl0021 [facility] [id number] Vitamin D Hydroxy (40272)on 07-07-2018 25-Hydroxyvitamin D2+25-Hydroxyvitamin D3 mass conc 33.7 ng/mL Normal 30.0-100.0 [facility] Work Phone: Comment on above: Vitamin D deficiency has been defined by the [place] ofSt. [facility] Medical Centercine and an Endocrine Society practice guideline as alevel of serum 25-OH vitamin D less than 20 ng/mL (1,2).The Endocrine Society went on to further define vitamin Dinsufficiency as a level between 21 and 29 ng/mL (2).1. IOM ([place] of Medicine). 2010. Dietary reference intakes for calcium and D. [place]: The National Academies Press.2. Tono MF, Anisha CASILLAS, Yenny CASTILLO, et al. Evaluation, treatment, and prevention of vitamin D deficiency: an Endocrine Society clinical practice guideline. JCEM. 2010; 96(7):1911-30. PATIENT WAS FASTINGP ERFORMED BY: [facility] Ndgkjh4699 [facility] [id number] Food Allergy Profile (57891) on 03-16-2018 Clam IgE Qn (S) <0.10 Normal Comprehen [facility] Internal Medicine Work Phone: Comment on above: PATIENT NOT FASTINGP ERFORMED BY: [facility] Tphwzplwxo[address] [id number] Codfish IgE Qn (S) <0.10 Normal Compre [facility] Internal Medicine Work Phone: Comment on above: PATIENT NOT FASTINGP ERFORMED BY: [facility] [address] [id number] [place] IgE Qn (S) <0.10 Normal Comprehen sive Internal Medicine Work Phone: Comment on above: PATIENT NOT FASTINGP ERFORMED BY: [facility] Wxecehzlkw[address] [id number] Cow milk IgE Qn (S) <0.10 Normal Compr [facility] Internal Medicine Work Phone: Comment on above: PATIENT NOT FASTINGP ERFORMED BY: [address] [id number] Egg white IgE Qn (S) <0.10 Normal Comp rehensive Internal Medicine Work Phone: Comment on above: PATIENT NOT FASTINGP ERFORMED BY: [address] [id number] Peanut IgE Qn (S) <0.10 Normal Compreh ensive Internal Medicine Work Phone: Comment on above: PATIENT NOT FASTINGP ERFORMED BY: [address] [id number] Scallop IgE Qn (S) <0.10 Normal Compre hensive Internal Medicine Work Phone: Comment on above: PATIENT NOT FASTINGP ERFORMED BY: [address] [id number] Sesame Seed IgE Qn (S) <0.10 Normal [facility] Work Phone: Comment on above: PATIENT NOT FASTINGP ERFORMED BY: [address] [id number] Shrimp IgE Qn (S) <0.10 Normal Compreh ensive Internal Medicine Work Phone: Comment on above: PATIENT NOT FASTINGP ERFORMED BY: [address] [id number] Soybean IgE Qn (S) <0.10 Normal Compre hensive Internal Medicine Work Phone: Comment on above: PATIENT NOT FASTINGP ERFORMED BY: [address] [id number] Galax IgE Qn (S) <0.10 Normal Compreh ensive Internal Medicine Work Phone: Comment on above: PATIENT NOT FASTINGP ERFORMED BY: [address] [id number] Wheat IgE Qn (S) <0.10 Normal Comprehe nsive Internal Medicine Work Phone: Comment on above: PATIENT NOT FASTINGP ERFORMED BY: [employer] [id number] [facility] [id number] Food Allergy Profile (72850) [facility] Normal [facility] Work Phone: Comment on above: Levels of Specific I gE Class Description of Class ----- < 0.10 0 Negative 0.10 - 0.31 0/I Equivocal/Low 0.32 - 0.55 I Low 0.56 - 1.40 II Moderate 1.41 - 3.90 III High 3.91 - 19.00 IV Very High 19.01 - 100.00 V Very High >100.00 Very High PATIENT NOT FASTINGP ERFORMED BY: [employer] [id number] [id number] EGD (PICK SITE)on 12-31-2017 EGD ([facility] SITE) See Note Normal [facility] Work Phone: Comment on above: Patient: SARAH MARQUIS ENS : 1970 (47/M) Acct Num: [id number] Phys: Claudio HUANG,Chauncey Unit Num: [id number] Loc: EN Specimen: [id number] Received: 12/31/17 - 1115 Spec Type: EGD BIOPSY TISSUES TISSUES: Duodenum, NOS GROSS DESCRIPTION Received in fixative is one container labeled with the patient's name and designated duodenum biopsy. The specimen consists of two irregular fragments of light foy soft tissue that in aggregate measure 0.7 x 0.5 x 0.1 cm. The specimen is totally submitted in one cassette. / AM:paul 12/31/17 TC:4 CPT: 83105 HEADER OPERATION: EGD with biopsy PRE-OP DIAGNOSIS: Abdominal pain, diarrhea TISSUE SUBMITTED: Duodenum biopsy MICROSCOPIC DESCRIPTION Slides are reviewed. MICROSCOPIC DIAGNOSIS Duodenum, biopsy: Fragments of duodenal mucosa, no pathologic diagnosis. SJ:paul 01/01/18 Signed Quinten Forrest 01/01/18 COLON BIOPSY (CHOOSE SITE)on 11-14-2017 COLON BIOPSY (CHOOSE SITE) See Note Normal [facility] Work Phone: Comment on above: Patient: SARAH MARQUIS : 1970 (47/M) Acct Num: [id number] Phys: Dante Leal Unit Num: [id number] Loc: LABSPEC Specimen: [id number] Received: 11/14/17 - 153 Spec Type: COLON BX TISSUES TISSUES: A. Gastric mucous membrane B. Ileum, NOS C. COLON BIOPSY COMMENT B. Reactive lymphoid aggregates are present in one fragment. C. Trichrome stain with matched control does not reveal a thickened basal plate. GROSS DESCRIPTION A - Received in fixative is one container labeled with the patient's name and designated hepatic flexure polyp biopsy. The specimen consists of two irregular fragments of light foy soft tissue that in aggregate measure 0.4 x 0.4x 0.1 cm. The specimen is totally submitted in one cassette. B - Received in fixative is one container labeled with the patient's name and designated terminal ileum biopsy. The specimen consists of multiple irregularfragments of light foy soft tissue that in aggregate measure 0.6 x 0.4 x 0.1 cm. The specimen is totally submitted in one cassette. C - Received in fixative is one container labeled with the patient's name and designated right and left colon biopsy. The specimen consists of multiple irregular fragments of light foy soft tissue that in aggregate measure 1.5 x 0.5x 0.1 cm. The specimen is totally submitted in one cassette. / SJ:paul 11/17/17 TC:5 CPT: 29488 x3, 97299 HEADER OPERATION: Colonoscopy with biopsies PRE-OP DIAGNOSIS: Chronic diarrhea TISSUE SUBMITTED: A Hepatic flexure polyp biopsies, rule out adenoma, B Terminal ileum biopsies, rule out Crohn s, C Right and left colon biopsies, rule out microscopic colitis MICROSCOPIC DESCRIPTION Slides are reviewed. MICROSCOPIC DIAGNOSIS A. Polyp at hepatic flexure, biopsy: Hyperplastic polyp. B. Terminal ileum, biopsy: No significant pathologic change. No evidence of enteritis. C. Right and left colon, biopsies: No significant pathologic change. No evidence of colitis. AM:paul 11/18/17 Signed Samir Neely 11/18/17 CBC W/Diff, Automatedon -0 Absolute Lymph 2.49 {X10_3/ul} Normal 0.83-4.51 Compr ehensive Internal Medicine Work Phone: Absolute Neut 3.6 {X10_3/uL} Normal 2.0-7.7 Compreh ensive Internal Medicine Work Phone: Basophils/100 WBC Auto (Bld) 0.9 % Normal 0-1 [facility] Work Phone: Eosinophils/100 WBC Auto (Bld) 3.6 % Normal 0-5 [facility] Work Phone: Erythrocyte distribution width Auto Ratio (RBC) 13.8 % Normal 11.6-14.6 [facility] Work Phone: Hematocrit Auto Volume Fraction (Bld) 46.0 % Normal 40-54 Comprehens reji Internal Medicine Work Phone: Hemoglobin mass conc (Bld) 15.4 g/dL Normal 13.0-16.5 [facility] Work Phone: IM GRAN % 0.100 % Normal 0.0-0.9 [facility] Internal Medicine Work Phone: Comment on above: IG% - Immature Granu locytes (promyelocytes, myelocytes andmetamyelocytes) > 1% indicates that a LEFT SHIFT is Present. Lymphocytes/100 WBC Auto (Bld) 36.1 % Normal 19-41 [facility] Work Phone: MCH Auto Entitic mass (RBC) 28.9 pg Normal 27.0-32.0 [facility] Work Phone: MCHC Auto mass conc (RBC) 33.5 {g/gl} Normal 32-36 [facility] Work Phone: MCV Auto Entitic volume (RBC) 86.5 fL Normal 80-94 [facility] Work Phone: Monocytes/100 WBC Auto (Bld) 7.5 % Normal 0-10 [facility] Internal Medicine Work Phone: Neutrophils/100 WBC Auto (Bld) 51.8 % Normal 47-70 [facility] Internal Medicine Work Phone: Platelet mean volume Auto Entitic volume (Bld) 12.2 fL Abnormal 6.2-12.0 [facility] Internal Medicine Work Phone: Platelets Auto #/vol (Bld) 181 10*3/uL Normal 150-450 [facility] Work Phone: RBC Auto #/vol (Bld) 5.32 {M/mm3} Normal 4.6-6.2 [facility] Work Phone: RDW SD 43.5 fL Normal 35.1-43.9 [facility] Internal Medicine Work Phone: WBC Auto #/vol (Bld) 6.9 10*3/uL Normal 4.4-11.0 [facility] Work Phone: CRPon 10-16-2017 CRP High sensitivity method mass conc 3.17 mg/L Abnormal 0.0-3.0 [facility] Internal Medicine Work Phone: Comment on above: C-Reactive Protein ( CRP) provides useful information for thediagnosis, therapy and monitoring of inflammatory processesand associated diseases. For the evaluation of Relative Riskfor Cardiovascular Disease, a High Sensitivity CRP (HSCRP)should be ordered. Celiac AB,Comprehensiveon ANTIGLIADIN IGA 5 {units} Normal 0-19 [facility] Internal Medicine Work Phone: Comment on above: Negative 0 - 19 Weak Positive 20 - 30 Moderate to Strong Positive >30 ANTIGLIADIN IGG 2 {units} Normal 0-19 [facility] Internal Medicine Work Phone: Comment on above: Negative 0 - 19 Weak Positive 20 - 30 Moderate to Strong Positive >30 ENDOMYSIAL IGA Negative [facility] Work Phone: IMMUNO A 189 mg/dL Normal 90-386 [facility] Internal Medicine Work Phone: tTG IGA <2 Normal 0-5 [facility] Internal Medicine Work Phone: Comment on above: Negative 0 - 3 Weak Positive 4 - 10 Positive >10 Tissue Transglutaminase (tTG) has been identified as the endomysial antigen. Studies have demonstr- ated that endomysial IgA antibodies have over 99% specificity for gluten sensitive enteropathy. Negative 0 - 5 Weak Positive 6 - 9 Positive >9 Comprehensive Metabolic Prof jas 10-16-2017 Comprehensive metabolic 2000 panel 75 mg/dL Normal 70-110 Comprehensi ve Internal Medicine Work Phone: Comprehensive metabolic 2000 panel 11 mg/dL Normal 7-18 Comprehensi ve Internal Medicine Work Phone: Comprehensive metabolic 2000 panel 0.92 mg/dL Normal 0.70-1.30 Comprehensi ve Internal Medicine Work Phone: Comment on above: The validity of the calculated GFR AND GFRAA in patients over70 years has not been determined. Clinical correlation isessential. Comprehensive metabolic 2000 panel 93 mL/min Normal Comprehensi ve Internal Medicine Work Phone: Comment on above: Non- GFR Calc Comprehensive metabolic 2000 panel 112 mL/min Normal Comprehensi ve Internal Medicine Work Phone: Comment on above: GFR Calc Comprehensive metabolic 2000 panel 11.9 {RATIO} Normal 10-20 Comprehensi ve Internal Medicine Work Phone: Comprehensive metabolic 2000 panel 7.2 g/dL Normal 6.4-8.2 Comprehensi ve Internal Medicine Work Phone: Comprehensive metabolic 2000 panel 3.8 g/dL Normal 3.4-5.0 Comprehensi ve Internal Medicine Work Phone: Comment on above: Please note revised Albumin AND Globulin reference rangeeffective 2017. Comprehensive metabolic 2000 panel 3.4 g/dL Normal 2.2-4.2 Comprehensi ve Internal Medicine Work Phone: Comprehensive metabolic 2000 panel 1.1 {RATIO} Normal 0.9-2.4 Comprehensi ve Internal Medicine Work Phone: Comprehensive metabolic 2000 panel 8.6 mg/dL Normal 8.5-10.1 Comprehensi ve Internal Medicine Work Phone: Comprehensive metabolic 2000 panel 29 U/L Normal 15-37 Comprehensi ve Internal Medicine Work Phone: Comprehensive metabolic 2000 panel 90 U/L Normal 45-117 Comprehensi ve Internal Medicine Work Phone: Comprehensive metabolic 2000 panel 46 U/L Normal 12-78 Comprehensi ve Internal Medicine Work Phone: Comprehensive metabolic 2000 panel 0.80 mg/dL Normal 0.20-1.00 Comprehensi ve Internal Medicine Work Phone: Comprehensive metabolic 2000 panel 142 mmol/L Normal 136-145 Comprehensi ve Internal Medicine Work Phone: Comprehensive metabolic 2000 panel 3.7 mmol/L Normal 3.5-5.1 Comprehensi ve Internal Medicine Work Phone: Comprehensive metabolic 1999 panel 108 mmol/L Abnormal 98-107 Comprehensi ve Internal Medicine Work Phone: Comprehensive metabolic 1999 panel 28.0 mmol/L Normal 21.0-32.0 Comprehensi ve Internal Medicine Work Phone: Comprehensive metabolic 2000 panel 6 1 Normal 5-15 Comprehensi ve Internal Medicine Work Phone: Erythrocyte Sed Rateon 10-16 SED RATE 4 mm/h Normal 0-15 [facility] Internal Medicine Work Phone: Free T3on 10-16-2017 T3 free mass conc 3.1 pg/mL Normal 2.18-3.98 Compreh ensive Internal Medicine Work Phone: LDHon 10-16-2017 LDH enzyme act/vol 146 U/L Normal 87-241 Compre hensive Internal Medicine Work Phone: Lipid Profileon 10-16-2017 Cholesterol in HDL mass conc 29 mg/dL Abnormal [facility] Work Phone: Comment on above: The drugs N-Acetylcy steine and Metamizole may falselydepress this assay. Reference Range HDL <40 mg/dL Low HDL Cholesterol HDL >or= 60 mg/dL High HDL Cholesterol Cholesterol in LDL mass conc 67 mg/dL Normal 0-130 [facility] Work Phone: Cholesterol in VLDL mass conc 32 mg/dL Normal 5-40 [facility] Work Phone: Cholesterol mass conc 128 mg/dL Normal Com prehensive Internal Medicine Work Phone: Comment on above: <200 mg/dL Desirable 200-240 mg/dL Borderline >240 mg/dL High Risk Triglyceride mass conc 160 mg/dL Normal [facility] Work Phone: Comment on above: The drugs N-Acetylcy steine and Metamizole may falselydepress this assay.Serum Triglycerides Reference Interval Normal <150 mg/dL Borderline high 150 - 199 mg/dL High 200 - 499 mg/dL Very High > or = 500 mg/dL Lyme Screen W/Reflex WBon LYME SCN AB <0.91 Normal 0.00-0.90 [facility] Internal Medicine Work Phone: Comment on above: Negative <0.91 Equiv ocal 0.91 - 1.09 Positive >1.09 LYME SCN INTERP REF LAB Normal Comprehen [facility] Internal Medicine Work Phone: PSA,Total - Annual Screenon 10-16-2017 Prostate specific Ag mass conc 0.26 ng/mL Normal 0.00-4.00 [facility] Internal Medicine Work Phone: Comment on above: This test was perfor med using the TPSA assay method for the[facility] chemistry system. Values obtained with differentassay methods cannot be used interchangably.When changing PSA assays in the course of monitoring apatient, additional sequential testing should be carriedout to confirm baseline values. Serotonin, Serumon 8 Serotonin mass conc (P) 82 ng/mL Normal 21-321 [facility] Work Phone: Comment on above: Performed at: [address] [id number] Director: Dante Mcgowan PhD, Phone: [phone] at: - [facility] [id number] Director: Tad Hernandez MD, Phone: [phone] T4 Free Directon 10-16-2017 T4 free mass conc 1.28 ng/dL Normal 0.76-1.46 [facility] Work Phone: Thyroid Stim Hormone (TSH)on 10-16-2017 Thyrotropin Qn 0.61 {uIU/mL} Normal 0.358-3.74 Compreh ensive Internal Medicine Work Phone: Vitamin B12on 10-16-2017 Cobalamin (Vitamin B12) mass conc 663 pg/mL Normal 211-911 [facility] Work Phone: Vitamin D,25 Hydroxyon 10-16 Vitamin D 25-OH 27.8 ng/mL Normal [facility] Work Phone: Comment on above: Vitamin D 25(OH) Sta tus Range Deficiency <20 ng/mL (50nmol/L) Insuffciency 20 - 30 ng/mL (50 - 75 nmol/L) Sufficiency 30 - 100 ng/mL (75 - 250 nmol/L) Toxicity >100 ng/mL (>250 nmol/L) Vital Signs Date Time Vital Sign Value [...] Internal Medicine; [facility] Work Phone: Comment on above: Method: Temporal 07-11-2023 07:07-0400 Body weight 115.21 kg BROCK Goodman LPN [facility]; [facility] Work Phone: 07-11-2023 07:07-0400 Diastolic blood pressure 78 mm[Hg] BROCK Goodman LPN [facility]; [facility] Work Phone: Comment on above: Patient Position: Sitting; Cuff Location : Left Arm; Cuff Size: Standard 07-11-2023 07:07-0400 Heart rate 76 /min BROCKHEBER Goodman FCO [facility]; [facility] Work Phone: Comment on above: Pattern: Regular 07-11-2023 07:07-0400 Respiratory rate 18 /min BROCK Rex [place] Comprehensiv e Internal Medicine; [facility] Work Phone: Comment on above: Pattern: Unlabored 07-11-2023 07:07-0400 SaO2% (BldA) [Mass fraction] 98 % BROCKHEBER Goodman LPN [facility]; [facility] Work Phone: Comment on above: Room air 07-11-2023 07:07-0400 Systolic blood pressure 124 mm[Hg] BROCK Goodman FCO [facility]; [facility] Work Phone: Comment on above: Patient Position: Sitting; Cuff Location : Left Arm; Cuff Size: Standard 02-28-2023 12:34-0400 Body height 195.58 cm Ayana Manciera [facility]; [facility] Work Phone: 02-28-2023 12:34-0400 Body mass index (BMI) [Ratio] 30.12 kg/m2 [facility]; [facility] Work Phone: 02-28-2023 12:34-0400 Body surface area Derived from formula 2.48 m2 Ayana Francisco [facility]; [facility] Work Phone: 02-28-2023 12:34-0400 Body temperature 97.5 [degF] [facility]; [facility] Work Phone: Comment on above: Method: Thermal Scan 02-28-2023 12:34-0400 Body weight 115.21 kg Ayana Simpson [facility]; [facility] Work Phone: 02-28-2023 12:34-0400 Diastolic blood pressure 78 mm[Hg] Ayana Simpson [facility]; [facility] Work Phone: Comment on above: Patient Position: Sitting; Cuff Location : Left Arm; Cuff Size: Standard 02-28-2023 12:34-0400 Heart rate 57 /min Ayana Simpson [facility]; [facility] Work Phone: Comment on above: Pattern: Regular 02-28-2023 12:34-0400 Respiratory rate 16 /min Ayana Simpson [facility]; [facility] Work Phone: Comment on above: Pattern: Unlabored 02-28-2023 12:34-0400 SaO2% (BldA) [Mass fraction] 95 % Ayana Simpson [facility]; [facility] Work Phone: Comment on above: Room air 02-28-2023 12:34-0400 Systolic blood pressure 130 mm[Hg] Ayana Simpson [facility]; [facility] Work Phone: Comment on above: Patient Position: Sitting; Cuff Location : Left Arm; Cuff Size: Standard 01-03-2023 09:17-0400 Body height 195.58 cm Ayana Simpson [facility]; [facility] Work Phone: 01-03-2023 09:17-0400 Body mass index (BMI) [Ratio] 30.12 kg/m2 [facility]; [facility] Work Phone: 01-03-2023 09:17-0400 Body surface area Derived from formula 2.48 m2 [facility]; [facility] Work Phone: 01-03-2023 09:17-0400 Body temperature 97.1 [degF] [facility]; [facility] Work Phone: Comment on above: Method: Thermal Scan 01-03-2023 09:17-0400 Body weight 115.21 kg [facility]; [facility] Work Phone: 01-03-2023 09:17-0400 Diastolic blood pressure 72 mm[Hg] Ayana Teran4tiitoo [facility]; [facility] Work Phone: Comment on above: Patient Position: Sitting; Cuff Location : Left Arm; Cuff Size: Standard 01-03-2023 09:17-0400 Heart rate 88 /min Ayana Jeffry4tiitoo [facility]; [facility] Work Phone: Comment on above: Pattern: Regular 01-03-2023 09:17-0400 Respiratory rate 16 /min Ayana Teran4tiitoo [facility]; [facility] Work Phone: Comment on above: Pattern: Unlabored 01-03-2023 09:17-0400 Systolic blood pressure 124 mm[Hg] Ayana Tatiana [facility]; [facility] Work Phone: Comment on above: Patient Position: Sitting; Cuff Location : Left Arm; Cuff Size: Standard 11-02-2021 07:47-0500 Body height 195.58 cm Brittny Fast DO Work Phone: [facility]; [facility] Work Phone: 11-02-2021 07:47-0500 Body mass index (BMI) [Ratio] 29.17 kg/m2 Brittny Fast DO Work Phone: [facility]; [facility] Work Phone: 11-02-2021 07:47-0500 Body surface area Derived from formula 2.44 m2 Brittny Fast DO Work Phone: [facility]; [facility] Work Phone: 11-02-2021 07:47-0500 Body temperature 97.3 [degF] Brittny Fast DO Work Phone: [facility]; [facility] Work Phone: Comment on above: Method: Infrared 11-02-2021 07:47-0500 Body weight 111.59 kg Brittny Fast DO Work Phone: [facility]; [facility] Work Phone: 11-02-2021 07:47-0500 Diastolic blood pressure 80 mm[Hg] Brittny Fast DO Work Phone: [facility]; [facility] Work Phone: Comment on above: Patient Position: Sitting; Cuff Location : Left Arm; Cuff Size: Standard 11-02-2021 07:47-0500 Heart rate 85 /min Brittny Fast DO Work Phone: [facility]; [facility] Work Phone: Comment on above: Pattern: Regular 11-02-2021 07:47-0500 Respiratory rate 16 /min Brittny Fast DO Work Phone: [facility]; [facility] Work Phone: Comment on above: Pattern: Unlabored 11-02-2021 07:47-0500 SaO2% (BldA) [Mass fraction] 97 % Brittny Fast DO Work Phone: [facility]; [facility] Work Phone: Comment on above: Room air 11-02-2021 07:47-0500 Systolic blood pressure 122 mm[Hg] Brittny Fast DO Work Phone: [facility]; [facility] Work Phone: Comment on above: Patient Position: Sitting; Cuff Location : Left Arm; Cuff Size: Standard 05-18-2021 06:40-0400 Body height 195.58 cm Christi Edy [place] [facility]; [facility] Work Phone: 05-18-2021 06:40-0400 Body mass index (BMI) [Ratio] 29.17 kg/m2 Christi Slarb [employer]ARD CLERK [facility]; [facility] Work Phone: 05-18-2021 06:40-0400 Body surface area Derived from formula 2.44 m2 Christi Slarb [employer] CARD CLERK [facility]; [facility] Work Phone: 05-18-2021 06:40-0400 Body temperature 97.1 [degF] Christi Slarb [employer] CARD CLERK [facility]; [facility] Work Phone: 05-18-2021 06:40-0400 Body weight 111.59 kg Christi Clarkrb [employer] CARD CLERK [facility]; [facility] Work Phone: 05-18-2021 06:40-0400 Diastolic blood pressure 84 mm[Hg] Christi Clarkrb [employer] CARD CLERK [facility]; [facility] Work Phone: Comment on above: Patient Position: Sitting; Cuff Location : Left Arm; Cuff Size: Standard 05-18-2021 06:40-0400 Heart rate 73 /min Christi Clarkrb [employer] CARD CLERK [facility]; [facility] Work Phone: Comment on above: Pattern: Regular 05-18-2021 06:40-0400 Respiratory rate 16 /min Christi Amberrb [employer]ARD CLERK [facility]; [facility] Work Phone: Comment on above: Pattern: Unlabored 05-18-2021 06:40-0400 SaO2% (BldA) [Mass fraction] 96 % Christi Amberrb [employer] CLERK [facility]; [facility] Work Phone: Comment on above: Room air 05-18-2021 06:40-0400 Systolic blood pressure 126 mm[Hg] Christi Slarb [employer] CARD CLERK [facility]; [facility] Work Phone: Comment on above: Patient Position: Sitting; Cuff Location : Left Arm; Cuff Size: Standard 02-21-2021 09:03-0400 Body height 195.58 cm Ayana Simpson [facility]; [facility] Work Phone: 02-21-2021 09:03-0400 Body temperature 97.5 [degF] Ayana Simpson [facility]; [facility] Work Phone: Comment on above: Method: Thermal Scan 02-21-2021 09:03-0400 Diastolic blood pressure 68 mm[Hg] Ayana Simpson [facility]; [facility] Work Phone: Comment on above: Patient Position: Sitting; Cuff Location : Left Arm; Cuff Size: Standard 02-21-2021 09:03-0400 Heart rate 76 /min Ayana Simpson [facility]; [facility] Work Phone: Comment on above: Pattern: Regular 02-21-2021 09:03-0400 Respiratory rate 16 /min Ayana Simpson [facility]; [facility] Work Phone: Comment on above: Pattern: Unlabored 02-21-2021 09:03-0400 SaO2% (BldA) [Mass fraction] 99 % Ayana Simpson [facility]; [facility] Work Phone: Comment on above: Room air 02-21-2021 09:03-0400 Systolic blood pressure 112 mm[Hg] Ayana Simpson [facility]; [facility] Work Phone: Comment on above: Patient Position: Sitting; Cuff Location : Left Arm; Cuff Size: Standard 02-05-2021 07:58-0400 Body height 195.58 cm Ayana Simpson [facility]; [facility] Work Phone: 02-05-2021 07:58-0400 Body temperature 97.1 [degF] Ayana Simpson [facility]; [facility] Work Phone: Comment on above: Method: Thermal Scan 02-05-2021 07:58-0400 Diastolic blood pressure 68 mm[Hg] Ayana Simpson [facility]; [facility] Work Phone: Comment on above: Patient Position: Sitting; Cuff Location : Left Arm; Cuff Size: Standard 02-05-2021 07:58-0400 Heart rate 72 /min Ayana Simpson [facility]; [facility] Work Phone: Comment on above: Pattern: Regular 02-05-2021 07:58-0400 Respiratory rate 16 /min Ayana Simpson [facility]; [facility] Work Phone: Comment on above: Pattern: Unlabored 02-05-2021 07:58-0400 SaO2% (BldA) [Mass fraction] 98 % Ayana Simpson [facility]; [facility] Work Phone: Comment on above: Room air 02-05-2021 07:58-0400 Systolic blood pressure 112 mm[Hg] Ayana Simpson [facility]; [facility] Work Phone: Comment on above: Patient Position: Sitting; Cuff Location : Left Arm; Cuff Size: Standard 11-03-2020 07:07-0500 BMI (Body Mass Index) 29.53 kg/m2 BROCK Goodman LPN [facility]; [facility] Work Phone: 11-03-2020 07:07-0500 Body Temperature 97.9 [degF] BROCK Goodman LPN [facility]; [facility] Work Phone: Comment on above: Method: Temporal 11-03-2020 07:07-0500 Body weight 112.95 kg BROCK Goodman LPN [facility]; [facility] Work Phone: 11-03-2020 07:07-0500 BP Diastolic 78 mm[Hg] BROCK Goodman LPN [facility]; [facility] Work Phone: Comment on above: Patient Position: Sitting; Cuff Location : Left Arm; Cuff Size: Standard 11-03-2020 07:07-0500 BP Systolic 122 mm[Hg] BROCK Goodman LPN [facility]; [facility] Work Phone: Comment on above: Patient Position: Sitting; Cuff Location : Left Arm; Cuff Size: Standard 11-03-2020 07:07-0500 BSA (Body Surface Area) 2.46 m2 BROCK Goodman LPN [facility]; [facility] Work Phone: 11-03-2020 07:07-0500 Height 195.58 cm BROCK Goodman LPN [facility]; [facility] Work Phone: 11-03-2020 07:07-0500 Pulse (Heart Rate) 74 /min BROCK Goodman LPN [facility]; [facility] Work Phone: Comment on above: Pattern: Regular 11-03-2020 07:07-0500 Pulse Oximetry 98 % Brittny Fast [facility]; [facility] Work Phone: Comment on above: Room air 11-03-2020 07:07-0500 Respiratory Rate 20 /min BROCK Goodman LPN [facility]; [facility] Work Phone: Comment on above: Pattern: Unlabored 11-03-2020 07:07-0500 SaO2% (BldA) [Mass fraction] 98 % BROCK Goodman LPN [facility]; [facility] Work Phone: Comment on above: Room air 08-18-2020 09:05-0500 BMI (Body Mass Index) 29.65 kg/m2 Brittny A Fast DO Work Phone: [facility] Work Phone: 08-18-2020 09:05-0500 Body Temperature 96.9 [degF] Brittny A Fast DO Work Phone: [facility] Work Phone: Comment on above: Method: Thermal Scan 08-18-2020 09:05-0500 Body weight 113.4 kg Brittny A Fast DO Work Phone: [facility] Work Phone: 08-18-2020 09:05-0500 BP Diastolic 70 mm[Hg] Brittny A Fast DO Work Phone: [facility] Work Phone: Comment on above: Patient Position: Sitting 08-18-2020 09:05-0500 BP Systolic 126 mm[Hg] Brittny A Fast DO Work Phone: [facility] Work Phone: Comment on above: Patient Position: Sitting 08-18-2020 09:05-0500 BSA (Body Surface Area) 2.46 m2 Brittny A Fast DO Work Phone: [facility] Work Phone: 08-18-2020 09:05-0500 Height 195.58 cm Brittny A Fast DO Work Phone: [facility] Work Phone: 08-18-2020 09:05-0500 Pulse (Heart Rate) 72 /min Brittny A Fast DO Work Phone: [facility] Work Phone: Comment on above: Pattern: Regular 08-18-2020 09:05-0500 Respiratory Rate 16 /min Brittny A Fast DO Work Phone: [facility] Work Phone: Comment on above: Pattern: Unlabored 10-29-2019 09:59-0500 BMI (Body Mass Index) 29.65 kg/m2 Ayana Simpson [facility] Work Phone: 10-29-2019 09:59-0500 Body Temperature 97.2 [degF] Ayana Simpson [facility] Work Phone: Comment on above: Method: Temporal 10-29-2019 09:59-0500 Body weight 113.4 kg Ayana Simpson [facility] Work Phone: 10-29-2019 09:59-0500 BP Diastolic 70 mm[Hg] Ayana Simpson [facility] Work Phone: Comment on above: Patient Position: Sitting; Cuff Location : Left Arm; Cuff Size: Standard 10-29-2019 09:59-0500 BP Systolic 140 mm[Hg] Ayana Simpson [facility] Work Phone: Comment on above: Patient Position: Sitting; Cuff Location : Left Arm; Cuff Size: Standard 10-29-2019 09:59-0500 BSA (Body Surface Area) 2.46 m2 Ayana Simpson [facility] Work Phone: 10-29-2019 09:59-0500 Height 195.58 cm Ayana Simpson [facility] Work Phone: 10-29-2019 09:59-0500 Pulse (Heart Rate) 82 /min Ayana Simpson [facility] Work Phone: Comment on above: Pattern: Regular 10-29-2019 09:59-0500 Respiratory Rate 16 /min Ayana Simpson [facility] Work Phone: Comment on above: Pattern: Unlabored 09-17-2019 11:05-0500 BMI (Body Mass Index) 29.65 kg/m2 Ayana Simpson [facility] Work Phone: 09-17-2019 11:05-0500 Body weight 113.4 kg Ayana Simpson [facility] Work Phone: 09-17-2019 11:05-0500 BP Diastolic 84 mm[Hg] Ayana Simpson [facility] Work Phone: Comment on above: Patient Position: Sitting; Cuff Location : Left Arm; Cuff Size: Standard 09-17-2019 11:05-0500 BP Systolic 130 mm[Hg] Ayana Simpson [facility] Work Phone: Comment on above: Patient Position: Sitting; Cuff Location : Left Arm; Cuff Size: Standard 09-17-2019 11:05-0500 BSA (Body Surface Area) 2.46 m2 Ayana Simpson [facility] Work Phone: 09-17-2019 11:05-0500 Height 195.58 cm Ayana Simpson [facility] Work Phone: 09-07-2019 15:49-0500 BMI (Body Mass Index) 28.58 kg/m2 BROCK Goodman LPN [facility] Internal Medicine Work Phone: 09-07-2019 15:49-0500 Body Temperature 97.9 [degF] BROCK Goodman LPN [facility] Work Phone: Comment on above: Method: Temporal 09-07-2019 15:49-0500 Body weight 109.32 kg BROCK Goodman LPN [facility] Internal [facility] Work Phone: 09-07-2019 15:49-0500 BP Diastolic 90 mm[Hg] BROCK Goodman LPN [facility] Work Phone: Comment on above: Patient Position: Sitting; Cuff Location : Left Arm; Cuff Size: Large 09-07-2019 15:49-0500 BP Systolic 130 mm[Hg] BROCK Goodman LPN [facility] Work Phone: Comment on above: Patient Position: Sitting; Cuff Location : Left Arm; Cuff Size: Large 09-07-2019 15:49-0500 BSA (Body Surface Area) 2.42 m2 BROCK Goodman LPN [facility] Work Phone: 09-07-2019 15:49-0500 Height 195.58 cm BROCK Goodman LPN [facility] Internal Medicine Work Phone: 09-07-2019 15:49-0500 Pulse (Heart Rate) 78 /min BROCK Goodman LPN [facility] Work Phone: Comment on above: Pattern: Regular 09-07-2019 15:49-0500 Pulse Oximetry 99 % Brittnydoni Honeycutt [facility] Work Phone: Comment on above: Room air 09-07-2019 15:49-0500 Respiratory Rate 20 /min BROCK Goodman LPN [facility] Work Phone: Comment on above: Pattern: Unlabored 09-07-2019 15:49-0500 SaO2% (BldA) [Mass fraction] 99 % BROCK Goodman LPN [facility]; [facility] Work Phone: Comment on above: Room air 06-16-2019 07:53-0400 BMI (Body Mass Index) 28.58 kg/m2 Ayana Simpson [facility] Work Phone: 06-16-2019 07:53-0400 Body Temperature 97.1 [degF] Ayana Simpson [facility] Work Phone: Comment on above: Method: Temporal 06-16-2019 07:53-0400 Body weight 109.32 kg Ayana Simpson [facility] Work Phone: 06-16-2019 07:53-0400 BP Diastolic 70 mm[Hg] Ayana Simpson [facility] Work Phone: Comment on above: Patient Position: Sitting; Cuff Location : Left Arm; Cuff Size: Standard 06-16-2019 07:53-0400 BP Systolic 115 mm[Hg] Ayana Tatiana [facility] Work Phone: Comment on above: Patient Position: Sitting; Cuff Location : Left Arm; Cuff Size: Standard 06-16-2019 07:53-0400 BSA (Body Surface Area) 2.42 m2 Ayana Simpson [facility] Work Phone: 06-16-2019 07:53-0400 Height 195.58 cm Ayana Simpson [facility] Work Phone: 06-16-2019 07:53-0400 Pulse (Heart Rate) 68 /min Ayana Tatiana [facility] Work Phone: Comment on above: Pattern: Regular 06-16-2019 07:53-0400 Respiratory Rate 16 /min Ayana Simpson [facility] Work Phone: Comment on above: Pattern: Unlabored 04-09-2019 07:07-0400 BMI (Body Mass Index) 28.7 kg/m2 Ayana Simpson [facility] Work Phone: 04-09-2019 07:07-0400 Body weight 109.77 kg Ayana Simpson [facility] Work Phone: 04-09-2019 07:07-0400 BP Diastolic 68 mm[Hg] Ayana Tatiana [facility] Work Phone: Comment on above: Patient Position: Sitting; Cuff Location : Left Arm; Cuff Size: Standard 04-09-2019 07:07-0400 BP Systolic 120 mm[Hg] Ayana Tatiana [facility] Work Phone: Comment on above: Patient Position: Sitting; Cuff Location : Left Arm; Cuff Size: Standard 04-09-2019 07:07-0400 BSA (Body Surface Area) 2.43 m2 Ayana Tatiana [facility] Work Phone: 04-09-2019 07:07-0400 Height 195.58 cm Ayana Simpson [facility] Work Phone: 07-17-2018 07:06-0400 BMI (Body Mass Index) 27.27 kg/m2 Ayana Simpson CMA [facility] Internal Medicine Work Phone: 07-17-2018 07:06-0400 Body Temperature 97.1 [degF] Ayana Simpson CMA [facility] Work Phone: Comment on above: Method: Temporal 07-17-2018 07:06-0400 Body weight 104.33 kg Ayana Simpson CMA [facility] Work Phone: 07-17-2018 07:06-0400 BP Diastolic 70 mm[Hg] Ayana Simpson CMA [facility] Work Phone: Comment on above: Patient Position: Sitting; Cuff Location : Left Arm; Cuff Size: Standard 07-17-2018 07:06-0400 BP Systolic 118 mm[Hg] Ayana Simpson [facility] Work Phone: Comment on above: Patient Position: Sitting; Cuff Location : Left Arm; Cuff Size: Standard 07-17-2018 07:06-0400 BSA (Body Surface Area) 2.37 m2 Ayana Simpson CMA [facility] Internal [facility] Work Phone: 07-17-2018 07:06-0400 Height 195.58 cm Ayana Simpson [facility] Work Phone: 07-17-2018 07:06-0400 Pulse (Heart Rate) 60 /min Ayana Simpson [facility] Work Phone: Comment on above: Pattern: Regular 07-17-2018 07:06-0400 Respiratory Rate 16 /min Ayana Simpson [facility] Work Phone: Comment on above: Pattern: Unlabored 07-17-2018 07:06-0400 Weight 104.33 kg Brittny Honeycutt [facility] Work Phone: 04-03-2018 07:31-0400 BMI (Body Mass Index) 28.46 kg/m2 Ayana Simpson [facility] Work Phone: 04-03-2018 07:31-0400 Body Temperature 97 [degF] Ayana Simpson [facility] Work Phone: Comment on above: Method: Temporal 04-03-2018 07:31-0400 Body weight 108.86 kg Ayana Simpson CMA [facility] Work Phone: 04-03-2018 07:31-0400 BP Diastolic 70 mm[Hg] Ayana Simpson [facility] Work Phone: Comment on above: Patient Position: Sitting; Cuff Location : Left Arm; Cuff Size: Standard 04-03-2018 07:31-0400 BP Systolic 122 mm[Hg] Ayana Simpson [facility] Work Phone: Comment on above: Patient Position: Sitting; Cuff Location : Left Arm; Cuff Size: Standard 04-03-2018 07:31-0400 BSA (Body Surface Area) 2.42 m2 Ayana Simpson [facility] Work Phone: 04-03-2018 07:31-0400 Height 195.58 cm Ayana Simpson [facility] Work Phone: 04-03-2018 07:31-0400 Pulse (Heart Rate) 78 /min Ayana Simpson [facility] Work Phone: Comment on above: Pattern: Regular 04-03-2018 07:31-0400 Respiratory Rate 16 /min Ayana Simpson [facility] Work Phone: Comment on above: Pattern: Unlabored 04-03-2018 07:31-0400 Weight 108.86 kg Brittny Honeycutt [facility] Work Phone: 02-06-2018 07:22-0400 BMI (Body Mass Index) 29.29 kg/m2 Ayana Simpson [facility] Work Phone: 02-06-2018 07:22-0400 Body Temperature 97.1 [degF] Ayana Simpson [facility] Work Phone: Comment on above: Method: Temporal 02-06-2018 07:22-0400 Body weight 112.04 kg Ayana Simpson [facility] Work Phone: 02-06-2018 07:22-0400 BP Diastolic 70 mm[Hg] Ayana Simpson [facility] Work Phone: Comment on above: Patient Position: Sitting; Cuff Location : Left Arm; Cuff Size: Standard 02-06-2018 07:22-0400 BP Systolic 124 mm[Hg] Ayana Simpson [facility] Work Phone: Comment on above: Patient Position: Sitting; Cuff Location : Left Arm; Cuff Size: Standard 02-06-2018 07:22-0400 BSA (Body Surface Area) 2.45 m2 Ayana Simpson [facility] Work Phone: 02-06-2018 07:22-0400 Height 195.58 cm Ayana Simpson [facility] Work Phone: 02-06-2018 07:22-0400 Pulse (Heart Rate) 70 /min Ayana Simpson [facility] Work Phone: Comment on above: Pattern: Regular 02-06-2018 07:22-0400 Respiratory Rate 16 /min Ayana Simpson [facility] Work Phone: Comment on above: Pattern: Unlabored 02-06-2018 07:22-0400 Weight 112.04 kg Brittny Fast [facility] Work Phone: 01-26-2018 08:07-0400 BMI (Body Mass Index) 29.29 kg/m2 Ayana Simpson [facility] Work Phone: 01-26-2018 08:07-0400 Body Temperature 97.7 [degF] Ayana Simpson [facility] Work Phone: Comment on above: Method: Temporal 01-26-2018 08:07-0400 Body weight 112.04 kg Ayana Simpson [facility] Work Phone: 01-26-2018 08:07-0400 BP Diastolic 78 mm[Hg] Ayana Simpson [facility] Work Phone: Comment on above: Patient Position: Sitting; Cuff Location : Left Arm; Cuff Size: Standard 01-26-2018 08:07-0400 BP Systolic 122 mm[Hg] Ayana Simpson [facility] Work Phone: Comment on above: Patient Position: Sitting; Cuff Location : Left Arm; Cuff Size: Standard 01-26-2018 08:07-0400 BSA (Body Surface Area) 2.45 m2 Ayana Simpson [facility] Work Phone: 01-26-2018 08:07-0400 Height 195.58 cm Ayana Simpson [facility] Work Phone: 01-26-2018 08:07-0400 Pulse (Heart Rate) 75 /min Ayana Simpson [facility] Work Phone: Comment on above: Pattern: Regular 01-26-2018 08:07-0400 Respiratory Rate 16 /min Ayana Simpson [facility] Work Phone: Comment on above: Pattern: Unlabored 01-26-2018 08:07-0400 Weight 112.04 kg Brittny Honeycutt [facility] Work Phone: 11-11-2017 13:28-0500 BMI (Body Mass Index) 29.29 kg/m2 Ayana Simpson [facility] Work Phone: 11-11-2017 13:28-0500 Body Temperature 97.1 [degF] Ayana Simpsno [facility] Work Phone: Comment on above: Method: Temporal 11-11-2017 13:28-0500 Body weight 112.04 kg Ayana Simpson [facility] Work Phone: 11-11-2017 13:28-0500 BP Diastolic 80 mm[Hg] Ayana Simpson [facility] Work Phone: Comment on above: Patient Position: Sitting; Cuff Location : Left Arm; Cuff Size: Standard 11-11-2017 13:28-0500 BP Systolic 122 mm[Hg] Ayana Simpson [facility] Work Phone: Comment on above: Patient Position: Sitting; Cuff Location : Left Arm; Cuff Size: Standard 11-11-2017 13:28-0500 BSA (Body Surface Area) 2.45 m2 Ayana Simpson [facility] Work Phone: 11-11-2017 13:28-0500 Height 195.58 cm Ayana Simpson [facility] Work Phone: 11-11-2017 13:28-0500 Pulse (Heart Rate) 60 /min Ayana Simpson [facility] Work Phone: Comment on above: Pattern: Regular 11-11-2017 13:28-0500 Respiratory Rate 16 /min Ayana Simpson [facility] Work Phone: Comment on above: Pattern: Unlabored 11-11-2017 13:28-0500 Weight 112.04 kg Brittny Matthew [facility] Work Phone: 10-16-2017 09:22-0500 BMI (Body Mass Index) 29.29 kg/m2 Kayla Dave [facility] Work Phone: 10-16-2017 09:22-0500 Body weight 112.04 kg Kayla [facility] Work Phone: 10-16-2017 09:22-0500 BP Diastolic 90 mm[Hg] [facility] Work Phone: Comment on above: Patient Position: Sitting; Cuff Location : Left Arm; Cuff Size: Standard 10-16-2017 09:22-0500 BP Systolic 132 mm[Hg] [facility] Work Phone: Comment on above: Patient Position: Sitting; Cuff Location : Left Arm; Cuff Size: Standard 10-16-2017 09:22-0500 BSA (Body Surface Area) 2.45 m2 Kayla Acosta [facility] Work Phone: 10-16-2017 09:22-0500 [facility] Work [facility]: 10-16-2017 09:22-0500 Pulse (Heart Rate) 71 /min Kayla Acosta [facility] Work Phone: Comment on above: Pattern: Regular 10-16-2017 09:22-0500 Pulse Oximetry 97 % Brittny Honeycutt [facility] Work Phone: Comment on above: Room air 10-16-2017 09:22-0500 Respiratory Rate 18 /min Kayla Acosta [facility] Work Phone: Comment on above: Pattern: Unlabored 10-16-2017 09:22-0500 SaO2% (BldA) [Mass fraction] 97 % Kayla Acosta [facility]; [facility] Work Phone: Comment on above: Room air 10-16-2017 09:22-0500 Weight 112.04 kg Brittny Honeycutt [facility] Work Phone: Encounters Encounter Date Encounter Type Care Provider Facility Start: 05-13-2024 ambulatory Brittny Fast Facility:[facility] Start: 12-26-2023 ambulatory Brittny Fast Facility:[facility] Start: 12-26-2023 Non-patient / Non-visit Dr. Brittny Honeycutt Work Phone: [facility] Start: 12-26-2023 End: 12-26-[address] Brittny Honeycutt Work Phone: [facility] Work Phone: Start: 12-26-2023 End: 12-26-[address] Brittny Honeycutt Work Phone: [facility] Work Phone: Start: 12-26-2023 End: 12-26-2023 ambulatory Brittny Fast Facility:[facility] Start: 12-19-2023 ambulatory Brittny Fast Facility:[facility] Start: 11-10-2023 End: 11-10-2023 ambulatory [facility] Work Phone: Start: 11-10-2023 End: 11-10-2023 Patient encounter procedure [facility] Work Phone: Start: 11-10-2023 End: 11-10-2023 ambulatory Brittny Fast Facility:[facility] Start: 07-11-2023 Review Brittny Fast DO Work Phone: [facility] Start: 07-11-2023 End: 07-11-2023 Office outpatient visit 25 minutes Brittny Fast DO Work Phone: [facility] Start: 06-27-2023 End: 06-29-2023 Phone Encounter Brittny Fast DO Work Phone: [facility] Start: 02-28-2023 End: 03-02-2023 Office outpatient visit 15 minutes Brittny Fast DO Work Phone: [facility] Start: 01-10-[address] Brittny Honeycutt Facili [id number] Start: 01-03-2023 ambulatory Brittny Marion Fast DO [facility] Start: 01-03-2023 End: 07-11-2023 Patient encounter procedure Brittny Fast DO Work Phone: [facility] Start: 01-03-2023 Review Brittny Fast DO Work Phone: [facility] Start: 12-26-2022 End: 02-25-2023 Phone Encounter Brittny Fast DO Work Phone: [facility] Start: 12-26-2022 Review Brittny Fast DO Work Phone: [facility] Start: 11-02-2021 Review Brittny Fast DO Work Phone: [facility] Start: 11-02-2021 End: 07-11-2023 Patient encounter procedure Brittny Fast DO Work Phone: [facility] Start: 06-30-2021 End: 06-30-2021 Subsequent hospital visit by physician [facility] Work Phone: Radiology Comment on above: Ankle injury, right, initial encounter [S99.911A] Start: 05-18-2021 End: 05-20-2021 Office outpatient visit 25 minutes Brittny Fast DO Work Phone: [facility] Start: 02-21-2021 End: 02-22-2021 Office outpatient visit 25 minutes Brittny Fast DO Work Phone: [facility] Start: 02-21-2021 Review Brittny Fast DO Work Phone: [facility] Start: 02-07-2021 End: 02-07-2021 Phone Encounter Brittny Fast DO Work Phone: [facility] Start: 02-05-2021 End: 02-05-2021 Office outpatient visit 15 minutes Brittny Fast DO Work Phone: [facility] Start: 02-05-2021 Review Brittny Fast DO Work Phone: [facility] Start: 11-03-2020 Review Brittny Fast [facility] Start: 08-18-2020 End: 08-20-2020 Office outpatient visit 25 minutes Brittny Fast [facility] Start: 08-18-2020 Review Brittny Fast [facility] Start: 08-07-2020 End: 08-07-2020 Office outpatient visit 5 minutes Brittny Fast [facility] Start: 04-17-2020 End: 04-17-2020 Office outpatient visit 5 minutes Brittny Fast [facility] Start: 02-15-2020 End: 02-15-2020 Office outpatient visit 15 minutes Brittny Fast [facility] Start: 01-21-2020 End: 02-15-2020 Office outpatient visit 5 minutes Brittny Fast [facility] Start: 12-24-2019 End: 12-27-2019 Office outpatient visit 5 minutes Brittny Fast [facility] Start: 10-29-2019 End: 10-31-2019 Office outpatient visit 15 minutes Brittny Fast [facility] Start: 10-14-2019 End: 10-14-2019 Office outpatient visit 5 minutes Brittny Fast [facility] Start: 09-17-2019 End: 09-19-2019 Office outpatient visit 25 minutes Brittny Fast [facility] Start: 09-07-2019 End: 09-07-2019 Office outpatient visit 15 minutes Brittny Fast [facility] Start: 08-17-2019 End: 08-18-2019 Office outpatient visit 5 minutes Brittny Fast [facility] Start: 06-16-2019 End: 01-21-2020 Office outpatient visit 40 minutes [facility] Start: 06-16-2019 Review [facility] Start: 05-18-2019 End: 05-18-2019 Office outpatient visit 25 minutes [facility] Start: 04-09-2019 End: 04-11-2019 Office outpatient visit 25 minutes [facility] Start: 04-09-2019 Review Brittny [facility] Start: 03-16-2019 End: 03-16-2019 Phone Encounter [facility] Start: 09-07-2018 End: 09-07-2018 Phone Encounter [facility] Start: 08-21-2018 End: 08-21-2018 Phone Encounter [facility] Start: 07-17-2018 End: 07-19-2018 Office outpatient visit 25 minutes [facility] Start: 04-03-2018 End: 04-05-2018 Office outpatient visit 15 minutes [facility] Start: 03-13-2018 End: 03-13-2018 Lab Order [facility] Start: 02-06-2018 End: 03-13-2018 Office outpatient visit 15 minutes [facility] Start: 01-26-2018 End: 01-26-2018 Office outpatient visit 15 minutes [facility] Start: 01-08-2018 End: 01-11-2018 Office outpatient visit 5 minutes [facility] Start: 12-19-2017 End: 12-22-2017 Office outpatient visit 15 minutes [facility] Start: 12-02-2017 End: 12-02-2017 Phone Encounter [facility] Start: 11-14-2017 End: 11-14-2017 Phone Encounter [facility] Start: 11-11-2017 End: 11-12-2017 Office outpatient visit 15 minutes [facility] Start: 10-16-2017 End: 10-16-2017 Office outpatient visit 25 minutes [facility] Start: 11-15-2009 End: 06-22-2012 Patient encounter status [facility] Work Phone: [facility] Work Phone: Procedures Date Procedure Procedure Detail Performing Clinician Start: 02-28-2023 End: 02-28-2023 HIP, UNI W/ Pelvis 2-3 Views Procedure Note: See Note; NOTES: [facility] [address] [place] [address] HIP, UNI W/ Pelvis 2-3 Views MR#: [id number] Acct: [id number] Name: TALIA MARQUIS Rep #: [id number] : 1970 M 52 From: Russel Bustillos MD PCP: Dr. Brittny Honeycutt DO Status: DEP AMB Study: HIP, UNI W/ Pelvis 2-3 Views Date of Exam: Exam# [id number] Ordering Dr: Brittny Honeycutt DO INDICATION: RADICULOPATHY EXAMINATION/TECHNIQUE: X-RAY - XR [...] Russel Bustillos MD, NORMA at 21:50 EDT Reading Location ID and State: [facility] / [place] Tel , Service support , CC: Dr. Brittny Honeycutt DO Bladder Blower: Signed Brittny Honeycutt DO Work Phone: Start: 02-28-2023 End: 02-28-2023 L/S Spine Min 4 Views Procedure Note: See Note; NOTES: [facility] [address] [place] [address] L/S Spine Min 4 Views MR#: [id number] Acct: [id number] Name: TALIA MARQUIS Rep #: [id number] : 1970 M 52 From: Francesco Nicole DO PCP: Dr. Brittny Honeycutt DO Status: DEP AMB Study: L/S Spine Min 4 Views Date of Exam: 02/28/23 Exam# [id number] Ordering Dr: Brittny Honeycutt DO STUDY: X-RAY - LUMBAR SPINE REASON FOR EXAM: Male, 52 years old. Radiculopathy. TECHNIQUE: 5 view(s) of the lumbar spine were obtained. COMPARISON: None FINDINGS: Normal lumbar lordosis. There is no substantial scoliosis. There is a normal alignment of the vertebrae. Normal vertebral bodies and endplates. Normal disc space heights. There is no evidence of acute fracture or loss of vertebral axial height. There is no demonstrated spondylolysis of the pars interarticulares. The soft tissue structures are unremarkable. RAD/L/S Spine Min 4 Views IMPRESSION: Normal x-ray examination of the lumbar spine. Electronically Signed: Francesco Nicole DO at 22:47 EDT Reading Location ID and State: [address] [place] [address] Tel [phone], Service support , CC: Dr. Brittny Honeycutt DO Bladder Blower: Signed Brittny Honeycutt DO Work Phone: Start: 06-30-2021 Radex ankle complete minimum 3 views Mansi Cornejo PA-C Work Phone: Start: 08-15-2020 End: 08-16-2020 Emergency Department Summary Comments: See Note; NOTES : [facility] Medical Records Department [facility] [place] [address] Emergency Department Summary 08/15/20 MR#: [id number] Acct: [id number] Name: TALIA MARQUIS Rep #: [id number] : 1970 49 From: Sekou Evangelista MD PCP: Dr. Brittny Honeycutt DO Status:DEP ER History of Present Illness [...] Allergy (Verified 08/15/20 17:19) Primary Care Physician: Brittny Honeycutt DO [Primary Care Provider] - Past Medical [...] his request on IV antibiotics Augmentin, Naprosyn Lucas as rescue medicine to follow- up with [...] #20 tab Prescription Printed Hydrocodone Bitart/Apap 5-325 [Lucas 5MG-325MG] 1 tab PO Q4H PRN PRN 2 Days #10 tab PRN Reason: Pain Prescription Printed Referrals: Fast,Brittny, DO [Primary Care Provider] - What to do if you have Problems For any increased pain, shortness of breath, bleeding, nausea or vomiting, chest pain, or any unexpected problems, contact your Primary Care Provider. Call [facility] ([phone]) or report to the closest Emergency Room. Call 911 if necessary. 08/16/20 1705 <Electronically signed by Sekou Evangelista MD> Date Sekou Evangelista MD Cosigner Signature (If Indicated): Date CC: DO Brittny Cheng Start: 08-15-2020 End: 08-15-2020 Abdomen/Pelvis without Cont Comments: See Note; NOTES: [facility] Imaging Services [address] [place] [address] Abdomen/Pelvis without Cont MR#: [id number] Acct: [id number] Name: TALIA MARQUIS Rep #: [id number] : 1970 M 49 From: Francesco Nicole DO PCP: Dr. Brittny Honeycutt DO Status: REG ER Study: Abdomen/Pelvis without Cont Date of Exam: 12/30 Exam# [id number] Ordering Dr: Sekou Evangelista STUDY: CT ABDOMEN [...] were used for this CT. COMPARISON: 08/26/2018. FINDINGS: The visualized lung bases are unremarkable. [...] degenerative changes of the lower lumbar spine. CT/Abdomen/Pelvis without Cont IMPRESSION: 1. Ascending colonic diverticulitis. There is no evidence of perforation or abscess. 2. Normal appendix. 3. Hepatic cyst. 4. No other evidence of acute intra-abdominal or pelvic abnormality. Electronically Signed: Francesco Nicole DO at 18:28 EST Tel [phone], Service support , CC: Dr. Brittny Honeycutt DO; Dr. Sekou Evangelista MD Bladder Blower: Signed Brittny Honeycutt Start: 08-26-2018 End: 08-26-2018 Abdomen/Pelvis WITH Contrast Comments: See Note; NOTES : [facility] Imaging Services [address] [place] [address] Abdomen/Pelvis WITH Contrast MR#: [id number] Acct: [id number] Name: TALIA MARQUIS Rep #: [id number] : 1970 M 47 From: Gómez Lema MD PCP: Brittny Honeycutt DO Status: REG CLI Study: Abdomen/Pelvis WITH Contrast Date of Exam: 08/26/18 Exam# [id number] Ordering Dr: Brittny Honeycutt DO STUDY: CT ABDOMEN AND PELVIS WITH [...] with prior study dated August 30, 2015. FINDINGS: The visualized lung bases are unremarkable. [...] level. Straightening of the normal lumbar lordosis. CT/Abdomen/Pelvis WITH Contrast IMPRESSION: Small hepatic cysts. Electronically Signed: Gómez Lema MD at 14:54 EST Tel [phone], Service support , CC: Brittny Honeycutt DO Bladder Blower: Signed Brittny Honeycutt Work Phone: Start: 01-09-2018 End: 01-09-2018 Surgery Visit Report Comments: See Note; NOTES: [facility] [address] [place] [phone] OFFICE VISIT Date of Service: 01/07/18 MR#: [id number] Acct: [id number] Name: TALIA MARQUIS Rep #: [id number] : 1970 Provider: Chauncey Barth MD Age/Sex: 47/M Location: [facility] Status: Signed Intake Intake Visit Reasons: f/u egd Chief Complaint: abd pain with food/ diarrhea Guard Chief Required: No Is patient in pain?: No Allergies No Known Allergies Allergy (Verified 01/07/18 14:48) Medications NK [NK] 12/22/17 [History Confirmed 01/07/18] PFSH Medical History No pertinent past medical history (Acute) Surgical History History of esophagogastroduodenoscopy (Acute) S/P colonoscopy (Acute) Family History Father Cancer stomach Social History Smoking Status: Never smoker HPI HPI HPI: TALIA MARQUIS, is a 47 M who presents to [...] should be on a significant amount of [id number] Prilosec twice a day as well as [...] type R19.7 Diarrhea type: unspecified type 01/09/18 1333 <Electronically signed by Chauncey Barth MD> Date Chauncey Barth MD Cosigner Signature: Date (if applicable) CC: Brittny Honeycutt DO Brittny Honeycutt Start: 12-31-2017 Esophagogastroduodenoscopy Brittny Honeycutt Comment on above: Patient: TALIA MARQUIS : 1970 (47/M) Acct Num: [id number] Phys: Chauncey Barth MD Unit Num: [id number] Loc: EN Specimen: [id number] Received: 12/31/17 - 1115 Spec Type: EGD BIOPSY TISSUES TISSUES: Duodenum, NOS GROSS DESCRIPTION Received in fixative is one container labeled with the patient's name and designated duodenum biopsy. The specimen consists of two irregular fragments of light foy soft tissue that in aggregate measure 0.7 x 0.5 x 0.1 cm. The specimen is totally submitted in one cassette. / AM:paul 12/31/17 TC:4 CPT: 42347 HEADER OPERATION: EGD with biopsy PRE-OP DIAGNOSIS: Abdominal pain, diarrhea TISSUE SUBMITTED: Duodenum biopsy MICROSCOPIC DESCRIPTION Slides are reviewed. MICROSCOPIC DIAGNOSIS Duodenum, biopsy: Fragments of duodenal mucosa, no pathologic diagnosis. SJ:paul 01/01/18 Signed Quinten Forrest 01/01/18 Start: 12-31-2017 End: 12-31-2017 Operative Report Comments: See Note; NOTES: [facility] Medical Records Department [address] [facility] [place] [address] Operative Report 12/31/17 0837 MR#: [id number] Acct: [id number] Name: TALIA MARQUIS Rep #: [id number] : 1970 47 From: Chauncey Barth MD PCP: Brittny Honeycutt DO Status: [facility] Y Location: [place] [address] Problem List (1) Right upper quadrant pain Status: Acute (2) Abdominal bloating Status: Acute (3) Diarrhea, unspecified Status: Acute Qualifiers: Diarrhea type: unspecified type Qualified Code(s): R19.7 - Diarrhea, unspecified Report of Operation Date of Procedure: 12/31/17 Pre-Operative Diagnosis: r10.11 right upper quadrant abdominal pain. r14.0 abdominal bloating. r19.7 diarrhea unspecified Post-Operative Diagnosis: Same Surgery/Procedure Performed:: 75817 esophagogastroduodenoscopy with biopsy Type of Anesthesia:: MAC Anesthesiologist: Giovani Alas Description of Procedure: Patient was brought into the endoscopy suite. Back of his throat was sprayed with Cetacaine spray. A bite-block was placed. He was placed in the left lateral decubitus position. He was given graded anesthesia. The scope was inserted into the back of the oropharynx and directed down through the esophagus into the stomach and into the duodenum without difficulty. Operative findings: 1. Duodenum: Normal appearance no mass lesions no ulcerations biopsy for celiac sprue 2. Mucosa here looked pretty normal I did not see any signs of a duodenal diverticulum. 2. Stomach significant amount of gastritis seen throughout the stomach but concentrated in the prepyloric area with some linear strands. Biopsy for H. pylori was obtained. Retroflexion did not show any signs of a hiatal hernia. I did not see any obvious ulcers or masslike lesions. 3. Esophagus: Normal appearance no mass lesions no signs of esophagitis no hiatal hernia. The scope was withdrawn and the patient tolerated the procedure well. This patient has had a battery of tests looking for H. pylori looking for celiac sprue both via serologic explorations. In view of his stomach he does have significant gastritis which could possibly be giving him the pains that he is experiencing. This being the case he has been on a proton pump inhibitor in the past but really has not noticed any significant improvement in his symptoms. His symptoms are classic biliary colic. He has increasing pain in the right upper quadrant after he eats. He has abdominal bloating after he eats. We will have to see what the biopsy results show before I can make my recommendations on what we need to do. - Admit VTE Documentation VTE Present on Admission: No VTE Mechan Device Prophylaxis: None VTE Pharm Prophylaxis ordered?: No Reason prophylaxis not ordered:: Treatment Not Indicated 12/31/17 0843 <Electronically signed by Chauncey Barth MD> Date Chauncey Barth MD CC: Chauncey Barth MD; Brittny Fast DO Signed Brittny Fast Start: 12-23-2017 End: 12-23-2017 Surgery Visit Report Comments: See Note; NOTES: [facility] [place] [address] OFFICE VISIT Date of Service: 12/22/17 MR#: [id number] Acct: [id number] Name: TALIA MARQUIS Rep #: [id number] : 1970 Provider: Chauncey Barth MD Age/Sex: 47/M Location: [facility] Status: Signed Intake Vital Signs12/22/17 Height 6 ft 5 in 12/22/17 Weight: 240 lb 2 oz 12/22/17 Body Mass Index (BMI) 28.5 12/22/17 Blood Pressure 132/89 Intake Visit Reasons: ABDOMINAL POSSIBLE EGD Chief Complaint: abd pain with food/ diarrhea Guard Chief Required: No Is patient in pain?: Yes Allergies No Known Allergies Allergy (Verified 12/22/17 14:51) Medications NK [NK] 12/22/17 [History Confirmed 12/22/17] PFSH Medical History No pertinent past medical history (Acute) Surgical History S/P colonoscopy (Acute) Family History Father Cancer stomach Social History Smoking Status: Never smoker HPI HPI HPI: TALIA MARQUIS, is a 47 M who presents to the office today for evaluation for an esophagogastroduodenoscopy. Patient has been having some significant amount of abdominal pain. Every time he eats pizza and fatty foods he has significant amount of diarrhea abdominal bloating his abdominal pain is most severe in the right upper quadrant. Also when he eats larger meals he feels the same way. Patient had a HIDA scan with ejection fraction and had significant right upper quadrant abdominal pain with this however his ejection fraction was 44%. He was also noted to have significant duodenal gastric reflux. He has been worked up extensively with serologic evaluations for celiac sprue as well as H pylori. Both have been negative. He has been given a trial of Ivsin which did not help. And he is taking probiotics which are not making a significant dent in his symptoms. He does have a significant family history of stomach cancer in his father who at age 61 when he was diagnosed with metastatic disease. My plan is to perform an upper endoscopy on him and do biopsies of his duodenum and stomach as well as confirm that there are no masses within the stomach itself. ROS General General: No weight change, appetite, fatigue, colon cancer, breast cancer or weakness HEENT HEENT: No difficulty swallowing, eye injury, eye surgery, swollen glands or hoarseness Endo Endocrine: No thyroid disease, diabetes mellitus, thyroid cancer, Hair loss, heat intolerance or cold intolerance Skin Skin: No rash or changing moles Breast Breast: No left breast lump, right breast lump, nipple discharge, breast pain, abnormal mammogram, abnormal US or breast enlargement Musc Musculoskeletal: No back problems, arthritis, rheumatoid arthritis, gout or joint pain Cardio Cardiovascular: No murmur, pacemaker, heart disease, atrial fibrillation, high blood pressure, heart attack, heart stent, palpitations, shortness of breat with exertion or chest pain Psych Psychiatric: No depression, anxiety or hearing voices Resp Respiratory: No shortness of breath, No sleep apnea, No cough, No COPD, No asthma, No emphysema, No wheezing Gastro Gastrointestinal: Yes abdominal pain, No nausea or vomiting, Yes diarrhea, No constipation, No blood in stool, No acid reflux, No hemorrhoids, No ulcers, No gallbladder problem, No black,tarry stools Aristides Hematologic: No blood thinners, No blood disorders, No bleeding, No anemia, No blood clots Neuro Neurologic: No system reviewed and no additional complaints, except as docu, No as per HPI, No abnormal walking, No abnormal hearing, No abnormal movements, No abnormal speech, No behavioral changes, No burning sensations, No confusion, No seizure-like activity, No unsteadiness, No dizziness, No localized weakness, No frequent falls, No headache(s), No lack of coordination, No loss of vision, No memory loss, No numbness, No other visual disturbances, No radiating pain, No restless legs, No sensory deficit, No fainting, No tingling, No tremor(s), No weakness, No other Exam Const General: well developed, no acute distress, well hydrated Orientation: oriented to person, oriented to place, oriented to time [facility] Head: normocephalic, atraumatic Ears: external ears normal Mouth: moist mucous membranes Eyes Sclera: sclerae normal Pupils: normal by confrontation Neck Neck: no lymphadenopathy noted Neck mass: No Thyroid: symmetrical, thyroid normal Chest Chest palpation AND inspection: normal inspection of the chest Breast Palpation: No nipple discharge Resp Effort AND Inspection: normal respiratory effort Auscultation: clear to auscultation bilaterally Percussion: percussion normal Cardio Rate: regular rate Rhythm: regular rhythm Heart Sounds: no murmurs GI Palpation: soft, no masses, no hepatosplenomegaly, nontender Rectal Exam: other Other: Rectal exam deferred. Extrem General: no clubbing, cyanosis or edema, normal to inspection Assessment AND Plan Problems 1. Abdominal pain, RUQ R10.11 2. Bloated abdomen R14.0 3. Diarrhea, unspecified type R19.7 Plan I have discussed the above with the patient. I have offered the patient esophagogastroduodenoscopy for evaluation. I have explained the risks/benefits of the procedure and described the procedure. I have discussed the risks with the patient, including but not limited to: infection, bleeding, perforation of the GI tract requiring emergency surgery, inability to complete the procedure, injury to any internal organs, complications of anesthesia, etc. - the patient understands and agrees to proceed. I have answered all the patient's questions to the patient's satisfaction and the patient has no further questions. If his upper scope is entirely negative I do not think we have any other recourse other than to remove his gallbladder. Despite radiographic evidence that there is nothing going on within the gallbladder that is pathologic his symptoms are significant for biliary colic. Coding Level of Care Code Off vis,new,level 3 Diagnoses Abdominal pain, RUQ R10.11 Bloated abdomen R14.0 Diarrhea, unspecified type R19.7 Diarrhea type: unspecified type 12/23/17 0808 <Electronically signed by Chauncey Barth MD> Date Chauncey Barth MD Cosigner Signature: Date (if applicable) CC: Brittny Acharya Start: 11-21-2017 End: 11-22-2017 Hepatobilliary Img w/Pharm Int Comments: See Note; NOT ES: [facility] Imaging Services [address] [place] [address] Hepatobilliary Img w/Pharm Int MR#: [id number] Acct: [id number] Name: TALIA MARQUIS Rep #: [id number] : 1970 M 47 From: Reggie Mercado DO PCP: Brittny Honeycutt DO Status: REG CLI Study: Hepatobilliary Img w/Pharm Int Date of Exam: 11/21/17 Exam# [id number] Ordering Dr: Brittny Honeycutt DO CLINICAL: 47-year-old male with reported history of right upper quadrant abdominal pain. RADIONUCLIDE HEPATOBILIARY SCINTIGRAPHY COMPARISON: Abdominal ultrasound report 11/14/2017 FINDINGS: Following the intravenous administration of 5.8 mCi of 99m Tc Mebrofenin, hepatobiliary images reveal: 1. Relatively prompt and homogeneous radiopharmaceutical concentration is noted by a normal sized liver. No parenchymal defects are identified. 2. Gallbladder activity is identified at 45 minutes post radiopharmaceutical administration. 3. Small intestinal tract is observed at 15 minutes following tracer injection. 4. Washout of the radiopharmaceutical by the hepatic parenchyma appears qualitatively normal. 5. There is scintigraphic evidence of pre-CCK duodenal gastric reflux. Cholecystokinin (0.02 ug/kg) was administered intravenously over a 30-minute period. The post CCK gallbladder ejection fraction calculated at 20 minutes following Cholecystokinin administration was noted to be 44.0 % (normal greater than 35%). During 30 minutes of post CCK imaging, there is no scintigraphic evidence of reflux of the radiotracer into the common hepatic duct or refilling of the gallbladder. There is scintigraphic evidence of continued post CCK duodenal gastric reflux. NM/Hepatobilliary Img w/Pharm Int IMPRESSION: 1. A gallbladder ejection fraction calculated to greater than 35% following the administration of Cholecystokinin makes the probability of functional hepatobiliary disease (gallbladder and/or sphincter of Oddi dyskinesia) and/or organic hepatobiliary disease (chronic acalculous cholecystitis and/or cystic duct syndrome) to be low. (Aviva Patel et al, Journal of Nuclear Medicine 32:1695, 1990). 2. There is scintigraphic evidence of pre-post CCK duodenal-gastric reflux as described above. (Tong et al, Nucl Med [place] Sue Press pg. 35, 1980). Electronically Signed: Reggie Mercado DO at 14:02 EST Tel , Service support , CC: Brittny Honeycutt DO Bladder Blower: Signed Brittny Honeycutt Work Phone: Start: 11-14-2017 End: 11-14-2017 Screening colonoscopy Ayana Simpson Comment on above: Dr. Leal Start: 11-14-2017 End: 11-14-2017 Gallbladder Comments: See Note; NOTES: [facility] Imaging Services [address] [place] [address] Gallbladder MR#: [id number] Acct: [id number] Name: TALIA MARQUIS Rep #: [id number] : 1970 M 47 From: Gómez Lema MD PCP: Brittny Honeycutt DO Status: REG CLI Study: Gallbladder Date of Exam: 11/14/17 Exam# [id number] Ordering Dr: Brittny Honeycutt DO STUDY: ABDOMINAL ULTRASOUND - RIGHT UPPER QUADRANT REASON FOR VISIT: Male, 47 years old. Right upper quadrant pain. TECHNIQUE: Ultrasound evaluation of the right upper quadrant was performed with real-time and static epters-scale imaging. TECHNICAL QUALITY: Adequate. COMPARISON: None. FINDINGS: Liver: The liver measures 15.2 cm. There is normal echogenicity of the liver. The bile ducts are within normal limits. There is hepatic color flow. The direction of portal flow is hepatopetal. There is a 7 mm x 7 mm x 6 mm cyst adjacent to the gallbladder lumen. Gallbladder: Normal distended gallbladder. The gallbladder wall measures 2.7 mm. There is a negative sonographic Fay's sign. There is no pericholecystic fluid. There are no gallstones. Common Bile Duct (C.B.D.): The common bile duct measures 4.9 mm. Pancreas: Normal size of the head, body of the pancreas. The tail portion is obscured due to overlying bowel gas. There is normal echogenicity of the pancreas. There is no demonstrated pancreatic mass or cyst. Right Kidney: Normal size of the right kidney. The right kidney measures 9.6 cm x 5.7 cm x 4.9 cm. Normal renal cortex. The right cortex measures 1.5 cm. There is no demonstrated renal mass or cyst. There is no right hydronephrosis. US/Gallbladder IMPRESSION: Normal right upper quadrant ultrasound examination. 7 mm x 7 mm x 6 mm cyst adjacent to the gallbladder. Electronically Signed: Gómez Lema MD at 10:06 EST Tel [phone], Service support , CC: Brittny Honeycutt DO Bladder Blower: Signed Brittny Honeycutt Work Phone: Start: 10-16-2017 End: 10-16-2017 No Known Past Surgical History Ayana Simpson Start: 06-27-2012 Lipid 1996 panel - Serum or Plasma [facility] Work Phone: Ophthalmic examinati on and evaluation Ayana Manestebank Comment on above: 2015 Ophthalmic examinati on and evaluation Ayana Manestebank Comment on above: 2015 Ophthalmic examinati on and evaluation Brittnydoni Honeycutt Work Phone: Comment on above: 2015 Ophthalmic examinati on and evaluation Ayana Jeffryk Comment on above: 2015 Ophthalmic examinati on and evaluation Ayana Manestebank Comment on above: 2015 Ophthalmic examinati on and evaluation Jeniffer Gipson Comment on above: 2016 Ophthalmic examinati on and evaluation Ayana Manchak MANAGER COMM[employer]ITY [employer]ELOPMENT Comment on above: 2016 Ophthalmic examinati on and evaluation Ayana Manchak MANAGER COMM[employer]ITY DEVELOPMENT Comment on above: 2016 Ophthalmic examinati on and evaluation Brittnydoni Honeycutt DO Work Phone: Comment on above: 2015 Ophthalmic examinati on and evaluation Ayana Manchak MANAGER COMMUNITY DEVELOPMENT Comment on above: 2015 Ophthalmic examinati on and evaluation Ayana Manchak MANAGER COMMUNITY DEVELOPMENT Comment on above: 2015 Ophthalmic examinati on and evaluation BROCK Goodman LPN Comment on above: 2016 Plan of Treatment Date Care Activity Detail Author Start: 06-13-2024 Covid-19 Vaccine ( season) Covid-19 Vaccine ( season) [facility] Start: 06-13-2024 Influenza vaccination Influenza Vaccine (#1) [facility] Start: 07-11-2023 Cyanocobalamin vitamin b-12 VITAMIN B12 AND FOLATES (24041) [facility] Work Phone: Start: 07-11-2023 25 hydroxy includes fractions if performed Vitamin D Hydroxy (39096) [facility]; [facility] Work Phone: Start: 07-11-2023 Lipid panel LIPID PANEL (48821) [facility]; [facility] Work Phone: Start: 07-11-2023 Comprehensive metabolic panel METABOLIC PANEL, COMPREHENSIVE (23363) [facility]; [facility] Work Phone: Start: 07-11-2023 Blood count complete auto&auto difrntl wbc CBC W/AUTO DIFF WBC (65869) [facility]; [facility] Work Phone: Start: 02-28-2023 Procedure Education Eprescribed prescriptions (G8553) [facility]; [facility] Work Phone: Start: 01-03-2023 Procedure Education Eprescribed prescriptions (G8553) [facility]; [facility] Work Phone: Start: 01-03-2023 25 hydroxy includes fractions if performed Vitamin D Hydroxy (43316) [facility]; [facility] Work Phone: Start: 01-03-2023 Lipid panel LIPID PANEL (49343) [facility]; [facility] Work Phone: Start: 01-03-2023 Blood count complete auto&auto difrntl wbc CBC W/AUTO DIFF WBC (14251) [facility]; [facility] Work Phone: Start: 01-03-2023 Comprehensive metabolic panel METABOLIC PANEL, COMPREHENSIVE (07826) [facility]; [facility] Work Phone: Start: 09-09-2022 Diabetes Screening Diabetes Screening [facility] Start: 11-02-2021 Assay of prostate specific antigen total PSA (PROSTATE SPECIFIC ANTIGEN) (V76.44) [facility]; [facility] Work Phone: Start: 11-02-2021 Lipid panel LIPID PANEL (15190) [facility]; [facility] Work Phone: Start: 11-02-2021 25 hydroxy includes fractions if performed Vitamin D Hydroxy (00387) [facility]; [facility] Work Phone: Start: 11-02-2021 Blood count complete auto&auto difrntl wbc CBC with auto diff (80940) [facility]; [facility] Work Phone: Start: 11-02-2021 Comprehensive metabolic panel METABOLIC PANEL, COMPREHENSIVE (56005) [facility]; [facility] Work Phone: Start: 11-02-2021 Hemoglobin glycosylated a1c HGB A1C (48427) [facility]; [facility] Work Phone: Start: 05-20-2021 Blood count complete auto&auto difrntl wbc CBC W/AUTO DIFF WBC (17310) [facility]; [facility] Work Phone: Start: 05-18-2021 Procedure Education Eprescribed prescriptions (G8553) [facility]; [facility] Work Phone: Start: 02-21-2021 Procedure Education Eprescribed prescriptions (G8553) [facility]; [facility] Work Phone: Start: 02-21-2021 [place] influenza 2019 Novel Coronavirus (COVID-19), RAMESH (91500) [facility]; [facility] Work Phone: Start: 02-21-2021 Virus centrifuge enhncd id imfluor stain ea Influenza A&B Viral Culture (91423) [facility]; [facility] Work Phone: Start: 02-21-2021 Culture bct isol&prsmptv id isolate ea urine URINE ANJU CULTURE-IDENTIFICATN (69937) [facility]; [facility] Work Phone: Start: 02-21-2021 [place] influenza 2019 Novel Coronavirus (COVID-19), RAMESH (13158) [facility]; [facility] Work Phone: Start: 02-07-2021 Comprehensive metabolic panel METABOLIC PANEL, COMPREHENSIVE (14236) [facility]; [facility] Work Phone: Start: 02-07-2021 Lipid panel LIPID PANEL (02811) [facility]; [facility] Work Phone: Start: 02-05-2021 Procedure Education Eprescribed prescriptions (G8553) [facility]; [facility] Work Phone: Start: 01-11-2021 HbA1c (Bld) [Mass fraction] HGB A1C (81100) [facility]; [facility] Work Phone: Start: 01-11-2021 Hemoglobin glycosylated a1c HGB A1C (02491) [facility]; [facility] Work Phone: Start: 01-11-2021 Comprehensive metabolic panel METABOLIC PANEL, COMPREHENSIVE (72209) [facility]; [facility] Work Phone: Start: 01-11-2021 Lipid panel LIPID PANEL (07774) [facility]; [facility] Work Phone: Start: 01-11-2021 25 hydroxy includes fractions if performed Vitamin D Hydroxy (68864) [facility]; [facility] Work Phone: Start: 08-18-2020 Comprehensive metabolic panel METABOLIC PANEL, COMPREHENSIVE (62410) [facility] Work Phone: Comment on above: restart cymbalta Start: 08-18-2020 Procedure Education Eprescribed prescriptions (G8553) [facility] Work Phone: Start: 08-18-2020 Comprehensive metabolic panel METABOLIC PANEL, COMPREHENSIVE (82173) [facility] Work Phone: Start: 08-18-2020 Blood count complete auto&auto difrntl wbc CBC W/AUTO DIFF WBC (96845) [facility] Work Phone: Start: 04-17-2020 [place] influenza 2019 Novel Coronavirus (COVID-19), RAMESH (26104) [facility] Work Phone: Start: 02-15-2020 Procedure Education Eprescribed prescriptions (G8553) [facility] Work Phone: Start: 10-29-2019 Procedure Education Eprescribed prescriptions (G8553) [facility] Work Phone: Start: 09-17-2019 Procedure Education Eprescribed prescriptions (G8553) [facility] Work Phone: Start: 2019 Shingrix Vaccine (1 of 2) Shingrix Vaccine (1 of 2) [facility] Start: 09-07-2019 ANCA-P (ANTI NEUTROPHIL CYTOPLASMIC ANTIBODY) ANCA-P (ANTI NEUTROPHIL CYTOPLASMIC ANTIBODY) [facility] Work Phone: Start: 06-16-2019 Procedure Education Eprescribed prescriptions (G8553) [facility] Work Phone: Start: 06-16-2019 Lipid panel LIPID PANEL (05621) [facility] Work Phone: Start: 06-16-2019 25 hydroxy includes fractions if performed Vitamin D Hydroxy (71074) [facility] Work Phone: Start: 06-16-2019 Comprehensive metabolic panel METABOLIC PANEL, COMPREHENSIVE (61824) [facility] Work Phone: Start: 06-16-2019 HbA1c (Bld) [Mass fraction] HGB A1C (29854) [facility] Work Phone: Start: 06-16-2019 Hemoglobin glycosylated a1c HGB A1C (09223) [facility]; [facility] Work Phone: Start: 03-16-2019 CRP [Mass/Vol] C-REACTIVE PROTEIN (90362) [facility] Work Phone: Start: 03-16-2019 Sedimentation rate rbc automated Sedimentation Rate-ESR (07808) [facility] Work Phone: Start: 03-16-2019 Assay of prostate specific antigen total PSA (PROSTATE SPECIFIC ANTIGEN) (01525) [facility] Work Phone: Start: 03-16-2019 HbA1c (Bld) [Mass fraction] HGB A1C (57871) [facility] Work Phone: Start: 03-16-2019 Blood count complete automated CBC & PLATELETS (AUTO) (99287) [facility] Work Phone: Start: 03-16-2019 Comprehensive metabolic panel METABOLIC PANEL, COMPREHENSIVE (95402) [facility] Work Phone: Start: 07-17-2018 Procedure Education Eprescribed prescriptions (G8553) [facility] Work Phone: Start: 04-03-2018 Procedure Education Eprescribed prescriptions (G8553) [facility] Work Phone: Start: 02-06-2018 Procedure Education Eprescribed prescriptions (G8553) [facility] Work Phone: Start: 02-05-2018 Urine microalbumin profile DTaP,Tdap,Td Vaccine (6 - Tdap) [facility] Start: 01-26-2018 Procedure Education Eprescribed prescriptions (G8553) [facility] Work Phone: Start: 11-11-2017 Procedure Education Eprescribed prescriptions (G8553) [facility] Work Phone: Start: 10-16-2017 Procedure Education Eprescribed prescriptions (G8553) [facility] Work Phone: Start: 10-16-2017 Leukocyte assmt fecal qual/semiquantitative LEUKOCYTE COUNT, FECAL (87160) [facility] Work Phone: Start: 10-16-2017 Culture bacterial any source anaerobic iso&id C-DIFFICILE, STOOL (48106) [facility] Work Phone: Start: 10-16-2017 Cul bact stool aerobic isol salmonella&shigell ANJU CULTURE-STOOL (98430) [facility] Work Phone: Start: 10-16-2017 Blood count manual cell count each CBC with auto diff (32212) [facility] Work Phone: Comment on above: stat Start: 10-16-2017 Comprehensive metabolic panel METABOLIC PANEL, COMPREHENSIVE (84573) [facility] Work Phone: Comment on above: stat Start: 10-16-2017 Sedimentation rate rbc non-automated SED RATE ERYTHROCYTE (06390) [facility] Work Phone: Comment on above: stat Start: 10-16-2017 C-reactive protein C-REACTIVE PROTEIN (39696) [facility]; [facility] Work Phone: Comment on above: stat Start: 10-16-2017 CRP mass conc C-REACTIVE PROTEIN (56015) [facility] Work Phone: Comment on above: stat Start: 10-16-2017 25 hydroxy includes fractions if performed Vitamin D Hydroxy (19457) [facility] Work Phone: Start: 10-16-2017 Assay of free thyroxine T4, FREE (THYROXINE) (35465) [facility]; [facility] Work Phone: Start: 10-16-2017 T4 free mass conc T4, FREE (THYROXINE) (62513) [facility] Work Phone: Start: 10-16-2017 Assay of triiodothyronine t3 free T3, FREE (TRIDOTHYRONINE) (69219) [facility]; [facility] Work Phone: Start: 10-16-2017 T3 free mass conc T3, FREE (TRIDOTHYRONINE) (92917) [facility] Work Phone: Start: 10-16-2017 Assay of thyroid stimulating hormone tsh TSH (36368) [facility]; [facility] Work Phone: Start: 10-16-2017 Thyrotropin Qn TSH (82187) [facility] Work Phone: Start: 10-16-2017 Cobalamin (Vitamin B12) mass conc VITAMIN B-12 (CYANOCOBALAMIN) (75498) [facility] Work Phone: Start: 10-16-2017 Cyanocobalamin vitamin b-12 VITAMIN B-12 (CYANOCOBALAMIN) (83427) [facility]; [facility] Work Phone: Start: 10-16-2017 Lactate dehydrogenase ldh LDH (LD) (LACTATE DEHYDROGENASE) (48664) [facility] Work Phone: Start: 10-16-2017 Assay of prostate specific antigen total PSA (Prostate Specific Antigen), Screening (66378) [facility] Work Phone: Start: 10-16-2017 Lipid panel LIPID PANEL (40404) [facility] Work Phone: Start: 10-16-2017 Antibody borrelia burgdorferi lyme disease Lyme Disease Antibody W/ Reflex (71125) [facility] Work Phone: Start: 10-16-2017 Assay of serotonin SEROTONIN (38681) [facility] Work Phone: Start: 10-16-2017 Assay of gammaglobulin iga igd igg igm each Celiac Disease Comphrehensive Profile (73056) [facility] Work Phone: Start: 10-16-2017 Protein mass conc [facility] Work Phone: Start: 06-27-2017 Lipid panel Lipid Screening [facility] Start: 2014 Screening for malignant neoplasm of colon [facility] Start: 05-31-1989 Hepatitis B Vaccine (2 of 3 - 19+ 3-dose series) Hepatitis B Vaccine (2 of 3 - 19+ 3-dose series) [facility] Start: 1987 Annual PCP Team Chronic Disease Visit Annual PCP Team Chronic Disease Visit [facility] Start: 1987 Anxiety Screening Anxiety Screening [facility] Start: 1987 BP Controlled (<130/80) BP Controlled (<130/80) [facility] Start: 1987 Depression Screening Depression Screening [facility] Start: 1987 Hepatitis C screening Hepatitis C Screening [facility] Start: 1987 HIV screening HIV Screening [facility] Work Phone: [facility] Work Phone: [facility] Work Phone: [facility] Work Phone: [facility] Work Phone: [facility] Work Phone: [facility] Work Phone: [facility] Work Phone: [facility] Work Phone: [facility] Work Phone: [facility] Work Phone: [facility] Work Phone: [facility]; [facility] Work Phone: [facility]; [facility] Work Phone: [facility]; [facility] Work Phone[facility]; [facility] Work Phone: [facility]; [facility] Work Phone: [facility]; [facility] Work Phone: Immunizations Immunization Date Immunization Notes Care Provider [facility] 08-13-2021 influenza, injectabl e, quadrivalent, preservative free Brittny Fast DO Work Phone: [facility]; [facility] Work Phone: 07-13-2021 COVID-Moderna (50 MCG/0.25 ML) Brittny Fast DO Work Phone: [facility]; [facility] Work Phone: 01-11-2021 COVID-19 (Moderna) Brittny Fas t DO Work Phone: [facility]; [facility] Work Phone: 12-11-2020 COVID-19 (Moderna) Brittny Fas t DO Work Phone: [facility]; [facility] Work Phone: 07-11-2017 influenza virus vaccine, unspecified formulation [facility] [place] Work Phone: [facility] 07-15-2014 influenza, injectabl e, quadrivalent, preservative free [facility] 07-15-2014 influenza, seasonal, injectable [facility] Work Phone: 02-06-2008 tetanus and diphther ia toxoids, adsorbed, preservative free, for adult use (2 Lf of tetanus toxoid and 2 Lf of diphtheria toxoid) [facility] Work Phone: [facility] influenza virus vaccine, unspecified formulation Brittny Fast [facility] Work Phone: Comment on above: 09/28 influenza virus vaccine, unspecified formulation Brittny Fast [facility] Work Phone: Comment on above: 09/28 influenza virus vaccine, unspecified formulation Brittny Fast [facility] Work Phone: Comment on above: 09/28 influenza virus vaccine, unspecified formulation Brittny Fast [facility] Work Phone: Comment on above: 09/28 influenza virus vaccine, unspecified formulation Brittny Fast [facility] Work Phone: Comment on above: 09/28 influenza virus vaccine, unspecified formulation Brittny Fast [facility]; [facility] Work Phone: Comment on above: 09/28 influenza virus vaccine, unspecified formulation Brittny Fast DO Work Phone: [facility]; [facility] Work Phone: Comment on above: 09/28 influenza virus vaccine, unspecified formulation Brittny Fast DO Work Phone: [facility]; [facility] Work Phone: Comment on above: 09/28 influenza virus vaccine, unspecified formulation Brittny Fast DO Work Phone: [facility]; [facility] Work Phone: Comment on above: 09/28 influenza virus vaccine, unspecified formulation Brittny Fast DO Work Phone: [facility]; [facility] Work Phone: Comment on above: 09/28 influenza virus vaccine, unspecified formulation Brittny Fast DO Work Phone: [facility]; [facility] Work Phone: Comment on above: 09/28 influenza virus vaccine, unspecified formulation Brittny Fast DO Work Phone: [facility]; [facility] Work Phone: Comment on above: 09/28 Payers Date Payer Category Payer Self-pay [id number] 2021 Unknown [id number] 2015 Unknown 1970 Unknown [id number] 1970 Unknown [id number] Unknown [id number] Unknown [id number] [id number] [id number] Unknown [id number] Unknown [id number] [id number] [id number] Unknown [id number] [id number] [id number] Unknown [id number] [id number] [id number] Social History Date Type Detail Facility Alcohol Use: Unknown if ever smoked [facility] Work Phone: Comment on above: qd Start: 09-20-2020 End: 06-30-2021 Caffeine Use [facility] Work Phone: Comment on above: 2 c qd owns own business- e [employer] none Exercise History: [facility]: Living Situation: [facility] Work [facility]: Number of Child (age 0-17) Dependents: 3. [facility] Work Phone: Comment on above: 8 year old girl 2 6 year old boys - twins Alcohol Use: Alcohol Use: [facility]; [facility] Work Phone: Comment on above: qd Exercise History: Exercise History: [facility]; [facility] Work Phone: [facility] Work Phone: Number of Child (age 0-17) Dependents: Number of Child (age 0-17) Dependents: [facility]; [facility] Work Phone: Comment on above: 8 year old girl 2 6 year old boys - twins Start: 1970 Sex Assigned At Male W [facility] Start: 08-15-2020 End: 08-15-2020 Tobacco smoking status NHIS Unknown if ever smoked [facility] Start: 07-15-2014 Occasional [facility] Start: 07-15-2014 None [facility] Start: 07-15-2014 Spouse/ Signif icant Other [facility] Start: 07-15-2014 Non-smoker [facility] Start: 09-29-2017 Tobacco smoking status NHIS Never smoked tobacco [facility] Start: 09-29-2017 Tobacco use and exposure Smokeless tobacco non-user [facility] Start: 06-30-2021 Alcoholic beverage intake Current drinker of alcohol (finding) [facility] Start: 09-20-2020 End: 06-30-2021 Tobacco use panel [facility] National Score (1-100), lower number is lower risk Not on file [facility] Start: 02-06-2008 Alcohol Comment 1 drink [facility] Start: 1970 Sex assigned at Not on file [facility] Start: 05-31-2021 End: 06-30-2021 Exposure to SARS-CoV-2 (event) Not sure [facility] Clinical Notes 11-28-2020 to 06-30-2021 Yvonne Dean, RT(R) - 06/30/2021 8:40 AM EDT Note Date & Type Note Facility 06-30-2021 Note HNO ID: [id number] Author: Mansi Cornejo PA-C Service: ? Author Type: Physician Warehouse Freight Handler Type: Progress Notes Filed: 06/30/2021 10:29 AM Note Text: This note was created using [employer]. Subjective Talia Marquis is a 50 year old male. HPI [...] - XR ANKLE GENERAL 3V AP/LAT/OBL RT Mansi Cornejo PA-C [facility] 06-30-2021 Note HNO ID: [id number] Author: RT Humberto(R) Service: Radiology Author Type: Technologist Type: Progress Notes Filed: 06/30/2021 8:49 AM Note Text: Radiology Service Progress Note PATIENT NAME: Talia Marquis DATE OF SERVICE: June 30, 2021 TIME: [...] June 30, 2021 8:48 AM [facility] 06-30-2021 History of Present illness Narrative Radiology Service Progress Note PATIENT NAME: Talia Marquis DATE OF SERVICE: June 30, 2021 TIME: [...] RT Humberto(R) June 30, 2021 8:48 AM documented in this encounter [facility] 12-12-2020 Note HNO ID: [id number] Author: Reggie Lopez Service: ? Author Type: Physician Type: Progress Notes Filed: 12/12/2020 5:45 PM Note Text: FOLLOW UP VISIT NAME: Talia Marquis [facility] NO.: [id number] DATE OF SERVICE: 12/12/2020 : 1970 REFERRING PHYSICIAN: Brittny Honeyuctt MD Talia is a patient I am [...] instructed to follow-up with me as needed. Reggie Lopez MD [facility] 11-28-2020 Note HNO ID: [id number] Author: Reggie Lopez Service: ? Author Type: Physician Type: Progress Notes Filed: 11/30/2020 6:51 PM Note Text: HISTORY AND PHYSICAL Talia Marquis 1970 REFERRING PHYSICIAN: Brittny Honeycutt DO CHIEF COMPLAINT: Consult (Consult Hemorrhoids) HPI: [...] me today at the request of Dr. Brittny Honeycutt MD for my opinion and advice regarding [...] ?C (97.3 ?F), height 195.6 cm (6' 5), weight 116.8 kg (257 lb 9.6 oz), [...] o (more content not included)... [facility] 11-28-2020 Note HNO ID: [id number] Author: Erika Corrigan RN Service: ? Author [...] Sign Out Discussion: Completed Erika Corrigan RN [facility] Evaluation note No assessment inform ation available [facility] Work Phone: Evaluation note Diagnosis Ankle injury, right, initial encounter documented [facility] this encounter [facility] Name Dates Details Patient Instructions Indication:Unspecified Diagnosis Start:05-Feb-2021 Instruction Type:Provider Instructions for Treatment How to Access Health Informa tion Online using Patient Portal and [employer]rd [employer] Apps Indication:Unspecified Diagnosis Start:05-Feb-2021 Instruction Type:Patient Education Patient Instructions Indication:[facility] Start:03-Nov-2020 Instruction Type:Provider Instructions for Treatment How to Access Health Informa tion Online using Patient Portal and 3rd Republican Apps Indication:[facility] Start:03-Nov-2020 Instruction Type:Patient [...] tion Online using Patient Portal and [employer]rd Republican Apps Indication:Impaired fasting glucose Start:05-Feb-2021 Instruction Type:Patient Education Patient Instructions Indication:[facility] Start:03-Nov-2020 Instruction Type:Provider Instructions for Treatment How to Access Health Informa tion Online using Patient Portal and [employer]rd Republican Apps Indication:[facility] Start:03-Nov-2020 Instruction Type:Patient [...] tion Online using Patient Portal and [employer]rd Republican Apps Indication:Impaired fasting glucose Start:05-Feb-2021 Instruction Type:Patient Education Patient Instructions Indication:[facility] Start:03-Nov-2020 Instruction Type:Provider Instructions for Treatment How to Access Health Informa tion Online using Patient Portal and [employer]rd Republican Apps Indication:[facility] Start:03-Nov-2020 Instruction Type:Patient [...] Informa tion Online using Patient Portal and [employer] Apps Indication:Fever Start:21-Feb-2021 Instruction Type:Patient Education Patient Instructions Indication:Fever Start:21-Feb-2021 Instruction Type:Provider Instructions for Treatment Patient Instructions Indication:Impaired fasting glucose Start:05-Feb-2021 Instruction Type:Provider Instructions for Treatment How to Access Health Informa tion Online using Patient Portal and [employer] Apps Indication:Impaired fasting glucose Start:26-Apr-2021 Instruction Type:Patient Education Patient Instructions Indication:[facility] Start:03-Nov-2020 Instruction Type:Provider Instructions for Treatment How to Access Health Informa tion Online using Patient Portal and [employer] Apps Indication:[facility] Start:03-Nov-2020 Instruction Type:Patient [...] Informa tion Online using Patient Portal and [employer] Apps Indication:Fever Start:21-Feb-2021 Instruction Type:Patient Education Patient Instructions Indication:Fever Start:21-Feb-2021 Instruction Type:Provider Instructions for Treatment Patient Instructions Indication:Impaired fasting glucose Start:05-Feb-2021 Instruction Type:Provider Instructions for Treatment How to Access Health Informa tion Online using Patient Portal and [employer] Apps Indication:Impaired fasting glucose Start:05-Feb-2021 Instruction Type:Patient Education Patient Instructions Indication:[facility] Start:03-Nov-2020 Instruction Type:Provider Instructions for Treatment How to Access Health Informa tion Online using Patient Portal and [employer] Apps Indication:[facility] Start:03-Nov-2020 Instruction Type:Patient [...] tion Online using Patient Portal and [employer] Apps Indication:Nonsmoker Start:18-May-2021 Instruction Type:Patient Education How to Access Health Informa tion Online using Patient Portal and [employer] Apps Indication:Fever Start:21-Feb-2021 Instruction Type:Patient Education Patient Instructions Indication:Fever Start:21-Feb-2021 Instruction Type:Provider Instructions for Treatment Patient Instructions Indication:Impaired fasting glucose Start:05-Feb-2021 Instruction Type:Provider Instructions for Treatment How to Access Health Informa tion Online using Patient Portal and [employer] Apps Indication:Impaired fasting glucose Start:05-Feb-2021 Instruction Type:Patient Education Patient Instructions Indication:[facility] Start:03-Nov-2020 Instruction Type:Provider Instructions for Treatment How to Access Health Informa tion Online using Patient Portal and [employer] Republican Apps Indication:[facility] Start:03-Nov-2020 Instruction Type:Patient [...] tion Online using Patient Portal and [employer] Apps Indication:Nonsmoker Start:03-Jan-2023 Instruction Type:Patient Education Patient Instructions Indication:Nonsmoker Start:18-May-2021 Instruction Type:Provider Instructions for Treatment How to Access Health Informa tion Online using Patient Portal and [employer] Apps Indication:Nonsmoker Start:18-May-2021 Instruction Type:Patient Education How to Access Health Informa tion Online using Patient Portal and [employer] Apps Indication:Fever Start:21-Feb-2021 Instruction Type:Patient Education Patient Instructions Indication:Fever Start:21-Feb-2021 Instruction Type:Provider Instructions for Treatment Patient Instructions Indication:Impaired fasting glucose Start:05-Feb-2021 Instruction Type:Provider Instructions for Treatment How to Access Health Informa tion Online using Patient Portal and [employer] Apps Indication:Impaired fasting glucose Start:05-Feb-2021 Instruction Type:Patient Education Patient Instructions Indication:[facility] Start:03-Nov-2020 Instruction Type:Provider Instructions for Treatment How to Access Health Informa tion Online using Patient Portal and [employer] Apps Indication:[facility] Start:03-Nov-2020 Instruction Type:Patient [...] tion Online using Patient Portal and [employer] Apps Indication:Nonsmoker Start:03-Jan-2023 Instruction Type:Patient Education Patient Instructions Indication:Nonsmoker Start:18-May-2021 Instruction Type:Provider Instructions for Treatment How to Access Health Informa tion Online using Patient Portal and [employer] Apps Indication:Nonsmoker Start:18-May-2021 Instruction Type:Patient Education How to Access Health Informa tion Online using Patient Portal and [employer] Apps Indication:Fever Start:21-Feb-2021 Instruction Type:Patient Education Patient Instructions Indication:Fever Start:21-Feb-2021 Instruction Type:Provider Instructions for Treatment Patient Instructions Indication:Impaired fasting glucose Start:05-Feb-2021 Instruction Type:Provider Instructions for Treatment How to Access Health Informa tion Online using Patient Portal and [employer] Apps Indication:Impaired fasting glucose Start:05-Feb-2021 Instruction Type:Patient Education Patient Instructions Indication:[facility] Start:03-Nov-2020 Instruction Type:Provider Instructions for Treatment How to Access Health Informa tion Online using Patient Portal and [employer] Apps Indication:[facility] Start:03-Nov-2020 Instruction Type:Patient [...] tion Online using Patient Portal and [employer] Apps Indication:Lumbar radiculopathy Start:28-Feb-2023 Instruction Type:Patient Education Patient Instructions Indication:Nonsmoker Start:03-Jan-2023 Instruction Type:Provider Instructions for Treatment How to Access Health Informa tion Online using Patient Portal and [employer] Apps Indication:Nonsmoker Start:03-Jan-2023 Instruction Type:Patient Education Patient Instructions Indication:Nonsmoker Start:18-May-2021 Instruction Type:Provider Instructions for Treatment How to Access Health Informa tion Online using Patient Portal and [employer] Apps Indication:Nonsmoker Start:18-May-2021 Instruction Type:Patient Education How to Access Health Informa tion Online using Patient Portal and [employer] Apps Indication:Fever Start:21-Feb-2021 Instruction Type:Patient Education Patient Instructions Indication:Fever Start:21-Feb-2021 Instruction Type:Provider Instructions for Treatment Patient Instructions Indication:Impaired fasting glucose Start:05-Feb-2021 Instruction Type:Provider Instructions for Treatment How to Access Health Informa tion Online using Patient Portal and [employer] Apps Indication:Impaired fasting glucose Start:05-Feb-2021 Instruction Type:Patient Education Patient Instructions Indication:[facility] Start:03-Nov-2020 Instruction Type:Provider Instructions for Treatment How to Access Health Informa tion Online using Patient Portal and [employer] Apps Indication:[facility] Start:03-Nov-2020 Instruction Type:Patient [...] tion Online using Patient Portal and [employer] Apps Indication:Lumbar radiculopathy Start:28-Feb-2023 Instruction Type:Patient Education Patient Instructions Indication:Nonsmoker Start:03-Jan-2023 Instruction Type:Provider Instructions for Treatment How to Access Health Informa tion Online using Patient Portal and [employer] Apps Indication:Nonsmoker Start:03-Jan-2023 Instruction Type:Patient Education Patient Instructions Indication:Nonsmoker Start:18-May-2021 Instruction Type:Provider Instructions for Treatment How to Access Health Informa tion Online using Patient Portal and [employer] Apps Indication:Nonsmoker Start:18-May-2021 Instruction Type:Patient Education How to Access Health Informa tion Online using Patient Portal and [employer] Apps Indication:Fever Start:21-Feb-2021 Instruction Type:Patient Education Patient Instructions Indication:Fever Start:21-Feb-2021 Instruction Type:Provider Instructions for Treatment Patient Instructions Indication:Impaired fasting glucose Start:05-Feb-2021 Instruction Type:Provider Instructions for Treatment How to Access Health Informa tion Online using Patient Portal and [employer] Apps Indication:Impaired fasting glucose Start:05-Feb-2021 Instruction Type:Patient Education Patient Instructions Indication:[facility] Start:03-Nov-2020 Instruction Type:Provider Instructions for Treatment How to Access Health Informa tion Online using Patient Portal and [employer] Apps Indication:[facility] Start:03-Nov-2020 Instruction Type:Patient [...] tion Online using Patient Portal and [employer] Apps Indication:Lumbar radiculopathy Start:28-Feb-2023 Instruction Type:Patient Education Patient Instructions Indication:Nonsmoker Start:03-Jan-2023 Instruction Type:Provider Instructions for Treatment How to Access Health Informa tion Online using Patient Portal and [employer] Apps Indication:Nonsmoker Start:03-Jan-2023 Instruction Type:Patient Education Patient Instructions Indication:Nonsmoker Start:18-May-2021 Instruction Type:Provider Instructions for Treatment How to Access Health Informa tion Online using Patient Portal and [employer] Apps Indication:Nonsmoker Start:18-May-2021 Instruction Type:Patient Education How to Access Health Informa tion Online using Patient Portal and [employer] Apps Indication:Fever Start:21-Feb-2021 Instruction Type:Patient Education Patient Instructions Indication:Fever Start:21-Feb-2021 Instruction Type:Provider Instructions for Treatment Patient Instructions Indication:Impaired fasting glucose Start:05-Feb-2021 Instruction Type:Provider Instructions for Treatment How to Access Health Informa tion Online using Patient Portal and [employer] Apps Indication:Impaired fasting glucose Start:05-Feb-2021 Instruction Type:Patient Education Patient Instructions Indication:[facility] Start:03-Nov-2020 Instruction Type:Provider Instructions for Treatment How to Access Health Informa tion Online using Patient Portal and [employer] Apps Indication:[facility] Start:03-Nov-2020 Instruction Type:Patient [...] Informa tion Online using Patient Portal and [employer] Apps Indication:Lumbar radiculopathy Start:28-Feb-2023 Instruction Type:Patient Education Patient Instructions Indication:Nonsmoker Start:03-Jan-2023 Instruction Type:Provider Instructions for Treatment How to Access Health Informa tion Online using Patient Portal and [employer] Apps Indication:Nonsmoker Start:03-Jan-2023 Instruction Type:Patient Education Patient Instructions Indication:Nonsmoker Start:18-May-2021 Instruction Type:Provider Instructions for Treatment How to Access Health Informa tion Online using Patient Portal and [employer] Apps Indication:Nonsmoker Start:18-May-2021 Instruction Type:Patient Education How to Access Health Informa tion Online using Patient Portal and [employer] Apps Indication:Fever Start:21-Feb-2021 Instruction Type:Patient Education Patient Instructions Indication:Fever Start:21-Feb-2021 Instruction Type:Provider Instructions for Treatment Patient Instructions Indication:Impaired fasting glucose Start:05-Feb-2021 Instruction Type:Provider Instructions for Treatment How to Access Health Informa tion Online using Patient Portal and [employer] Apps Indication:Impaired fasting glucose Start:05-Feb-2021 Instruction Type:Patient Education Patient Instructions Indication:[facility] Start:03-Nov-2020 Instruction Type:Provider Instructions for Treatment How to Access Health Informa tion Online using Patient Portal and [employer] Apps Indication:[facility] EX[facility] Start:03-Nov-2020 Instruction Type:Patient [...] Internal Medicine; [facility] Work Phone: reason for referral (narrative)* Diagnostic Procedure Only (Urgent) - Closed Specialty Diagnoses / Procedures Referred By Contac t Referred To Contact XR IMAGING Diagnoses Ankle injury, right, initial encounter Procedures XR ANKLE GENERAL 3V AP/LAT/OBL RT X-RAY ANKLE MINIMUM 3 VIEWS Mansi Cornejo PA-C [address] [place] [address] [place] [address] Referral ID Status Reason Start Date Expiration Date V isits Requested Visits Authorized Closed Auto-Generate d Referral 06/30/2021 07/30/2022 1 1 * Diagnostic Procedure Only (Urgent) - Closed Specialty Diagnoses / Procedures Referred By Contac t Referred To Contact XR IMAGING Diagnoses Ankle injury, right, initial encounter Procedures XR FOOT GENERAL 3V AP/LAT/OBL RT X-RAY FOOT MINIMUM 3 VIEWS Mansi Cornejo PA-C [address] [place] [address] [place] [address] Referral ID Status Reason Start Date Expiration Date V isits Requested Visits Authorized Closed Auto-Generate d Referral 06/30/2021 07/30/2022 1 1 [facility] for visit Narrative* Diagnostic Procedure Only (Urgent) - Closed Specialty Diagnoses / Procedures Referred By Brayan t Referred To Contact XR IMAGING Diagnoses Ankle injury, right, initial encounter Procedures XR ANKLE GENERAL 3V AP/LAT/OBL RT X-RAY ANKLE MINIMUM 3 VIEWS Mansi Cornejo PA-C [address] [place] [address] [place] [address] Referral ID Status Reason Start Date Expiration Date V isits Requested Visits Authorized Closed Auto-Generate d Referral 06/30/2021 07/30/2022 1 1 [facility] Family History Unknown Family Member Name Dates [...] Sister 1 Comments:healthy - 2 sisters Status:Active Relationship Condition Age at Onset Recorded Date/T gordy father Malignant neoplasm Unknown Unknown Family Member Name Dates Details Father [...] Indication:Dysthymic Dysthymic : Patient Instruct ions Indication:Dysthymic [facility] How to access health [...] Indication:Dysthymic Dysthymic : Patient Instruct ions Indication:Dysthymic [facility] : How to access [...] tion Online using Patient Portal and [employer] Apps Indication:[facility] Start:03-Nov-2020 Instruction Type:Patient [...] Advance Directives Name Dates Details Immunization Registry [place] - Effective on 10/16/2017. Expiration date unspecified Effective:16-Oct-2017 Name Dates Details Immunization Registry [place] - Effective on 10/16/2017. Expiration date unspecified Effective:16-Oct-2017 Name Dates Details Immunization Registry [place] - Effective on 10/16/2017. Expiration date unspecified Effective:16-Oct-2017 Name Dates Details Immunization Registry [place] - Effective on 10/16/2017. Expiration date unspecified Effective:16-Oct-2017 Name Dates Details Immunization Registry [place] - Effective on 10/16/2017. Expiration date unspecified Effective:16-Oct-2017 Name Dates Details Immunization Registry [place] - Effective on 10/16/2017. Expiration date unspecified Effective:16-Oct-2017 Name Dates Details Immunization Registry [place] - Effective on 10/16/2017. Expiration date unspecified Effective:16-Oct-2017 Name Dates Details Immunization Registry [place] - Effective on 10/16/2017. Expiration date unspecified Effective:16-Oct-2017 Name Dates Details Immunization Registry [place] - Effective on 10/16/2017. Expiration date unspecified Effective:16-Oct-2017 Name Dates Details Immunization Registry [place] - Effective on 10/16/2017. Expiration date unspecified Effective:16-Oct-2017 Name Dates Details Immunization Registry [place] - Effective on 10/16/2017. Expiration date unspecified Effective:16-Oct-2017 Name Dates Details Immunization Registry [place] - Effective on 10/16/2017. Expiration date unspecified Effective:16-Oct-2017 Name Dates Details Immunization Registry [place] - Effective on 10/16/2017. Expiration date unspecified Effective:16-Oct-2017 Name Dates Details Immunization Registry [place] - Effective on 10/16/2017. Expiration date unspecified Effective:16-Oct-2017 Name Dates Details Immunization Registry [place] - Effective on 10/16/2017. Expiration date unspecified Effective:16-Oct-2017 Name Dates Details Immunization Registry [place] - Effective on 10/16/2017. Expiration date unspecified Effective:16-Oct-2017 Name Dates Details Immunization Registry [place] - Effective on 10/16/2017. Expiration date unspecified Effective:16-Oct-2017 Name Dates Details Immunization Registry [place] - Effective on 10/16/2017. Expiration date unspecified Effective:16-Oct-2017 Name Dates Details Immunization Registry [place] - Effective on 10/16/2017. Expiration date unspecified Effective:16-Oct-2017 Name Dates Details Immunization Registry [place] - Effective on 10/16/2017. Expiration date unspecified Effective:16-Oct-2017 Name Dates Details Immunization Registry [place] - Effective on 10/16/2017. Expiration date unspecified Effective:16-Oct-2017 Name Dates Details Immunization Registry [place] - Effective on 10/16/2017. Expiration date unspecified Effective:16-Oct-2017 Name Dates Details Immunization Registry [place] - Effective on 10/16/2017. Expiration date unspecified Effective:16-Oct-2017 Name Dates Details Immunization Registry [place] - Effective on 10/16/2017. Expiration date unspecified Effective:16-Oct-2017 Advance Directive Response Recorded Date/ Time Advance Directives Yes July 14, 2014 10:37pm Living Will No August 15 5:48pm Power of Ornamental Metal Erector No August 15, 2020 5:48pm Advance Directive Response Recorded Date/ Time Advance Directives Yes July 14, 2014 11:37pm Living Will No August 15 6:48pm Power of Ornamental Metal Erector No August 15, 2020 6:48pm Summary Purpose Chief Complaint and Reason for Visit Chief Complaint R07.9 Chest pain, un specified R07.9 Chest pain, unspecified Additional Source Comments (unrecognized sect ion and content) No Status Records FoundNo Status Records FoundNo Status Records FoundNo Status Records Found INFORMATION SOURCE (unrecogn ized section and content) DATE CREATED AUTHOR 10/30/2021 [facility] DATE CREATED AUTHOR AUTHOR'S ORGANIZ ATION 01/04/2023 [facility] DATE CREATED AUTHOR AUTHOR'S ORGANIZ ATION 01/15/2023 [facility] DATE CREATED AUTHOR AUTHOR'S ORGANIZ ATION 05/12/2024 [facility] Goals (unrecognized section and content) Goals may be documented in a n alternate sectionGoals may be documented in an alternate sectionGoals may be documented in an alternate section Care Teams (unrecognized sec tion and content) Team Status: Active Member Role Status Dates Dr. Brittny Honeycutt , DO Family Provider Active Dr. Brittny Honeycutt , DO Primary Care Provider Active Team Status: Inactive Member Role Status Dates Dr. Brittny Honeycutt , DO Primary Care Provide r, Attending Provider, Referring Provider Active Team Status: Active Member Role Status Dates Dr. Brittny Honeycutt , DO Primary Care Provider, Other Provi inocencio Active Dr. Ab Street MD Attending Provider Active Team Status: Inactive Member Role Status Dates Dr. Brittny Fast , DO Primary Care Provider, Attending Harshil sandra Active Slash Trimmer Relationship Specialty Start Date End Date MatthewNeda Doni [address] [facility] [address] [place] [address] PCP - General Internal Medicine 11/11/18 Source Comments (unrecognize d section and content) In the event this informatio n is protected by the Federal Confidentiality of Alcohol and Drug Abuse Patient Records regulations: The Federal rules restrict any use of the information to criminally investigate or prosecute any alcohol or drug abuse patient.[facility] FOR RECORDS PERTAINING TO PATIENTS WHO ARE [...] BE BASED ON THE PRIMARY CLINICAL RECORDS. [employer] [facility]. provides no warranty or guarantee of the accuracy or completeness of information in this document.
[2025-05-20 08:13] LABS: Immature Reticulocyte Fraction 8.10 % (3.00-15.90); Platelet Count 149 K/mm3 (150-450); Reticulocyte Count 1.10 % (0.5-1.5)
[2025-05-20 08:24] LABS: Prothrombin Time (Protime)PT. 13.9 SECONDS (11.7-14.9)
[2025-05-20 08:25] LABS: Partial Thromboplast Time 30.8 Seconds (24.1-36.2)
[2025-05-20 10:15] LABS: CRP < 3.00 mg/L (0.0-3.0); LDH 136 U/L (87-241)
[2025-05-21 13:08] LABS: HEPATITIS B SURFACE AG Negative (Negative); Hep C Antibodies Non Reactive (Non Reactive)
[2025-05-23 13:08] LABS: ANTINUCLEAR ANTIBODIES DIRECT Negative (Negative)
== END | disposition home or self-care (01) ==
LOC: LAB.FUTURE 07:05 → LAB 07:06
PROVIDERS: PCP Internal Medicine; Referring Provider Internal Medicine; Visit Provider Internal Medicine
DX: D69.6 Thrombocytopenia, unspecified (principal)
CPT/HCPCS: 36415; 80074; 83010; 83615; 85045; 85049; 85610; 85652; 85730; 86038; 86140; 86200; 86431; 86880

== ENCOUNTER → 2025-09-05 | Outpatient (CLI) | payer BC, SELFPAY ==
[2025-09-05 08:00] LABS: Mucous, Urine 0 SEEN /hpf (<or=2+); Red Blood Cells-Urine 0 SEEN /hpf (0-5)
[2025-09-05 10:43] LABS: Color, Urine Yellow (Yellow); Glucose, Dipstick Normal (Normal); Ketone-Dipstick Negative (Negative); Leukocyte Esterase-Dipstick Negative /ul (Negative); Nitrite-Dipstick Negative (Negative); Occult Blood-Urine Negative /ul (Negative); Protein-Dipstick Negative (Negative); Specific Gravity, Urine 1.020 (1.002-1.030); Urine Bilirubin Dipstick Negative (Negative)
[2025-09-05 10:49] LABS: Squamous Epithelial Cells - UA 0-5 SEEN /hpf (0-5)
[2025-09-05 10:50] LABS: Hematocrit 47.4 % (40-54); Hemoglobin 15.7 g/dL (13.0-16.5); Immature Granulocytes Count 0.010 X10^3/uL (0.0-0.0); Mean Corp Hgb Conc 33.1 g/dL (32-36); Mean Corpuscular Volume 88.3 fL (80-94); Mean Platelet Vol. 13.9 fl (6.2-12.0); NRBC Flagged by Analyzer 0 % (0-5); Platelet Count 141 K/mm3 (150-450); RBC Distribution Width CV 13.4 % (11.6-14.6); RBC Distribution Width SD 43.3 fl (35.1-43.9); Red Blood Count 5.37 M/mm3 (4.6-6.2); White Blood Count 4.8 K/mm3 (4.4-11.0)
[2025-09-05 11:29] LABS: Creatinine, Urine (random) 125.00 mg/dL (39.00-259.00); Microalbumin,Random Urine 18.5 mg/L (<20 mg/L)
[2025-09-05 11:41] LABS: FOLATES,SERUM (FOLIC ACID) 9.92 ng/mL (4.60-34.80)
[2025-09-05 11:44] LABS: AST(SGOT) 26 U/L (<=37); Alanine Aminotransfer ALT/SGPT 39 U/L (<=46); Albumin, Serum 4.0 g/dL (3.5-5.0); Alkaline Phosphatase 103 U/L (40-129); Anion Gap 9 (5-15); BUN 15 mg/dL (4-19); BUN/Creat Ratio 14.5 RATIO (10-20); Calcium,Total 9.2 mg/dL (7.6-11.0); Carbon Dioxide 24.5 mmol/L (21.0-32.0); Chloride 106 mmol/L (98-108); Cholesterol 140 mg/dL (<=200); Globulin 3.1 g/dL (2.2-4.2); Glucose 97 mg/dL (70-99); Low Density Lipoprotein Calc. 86 mg/dL; Potassium 4.2 mmol/L (3.3-5.1); Triglycerides 82 mg/dL; Very Low Density Lipoprotein 16 mg/dL (5-40); Vitamin B12 571 pg/mL (180-914); cholesterol:hdl ratio screen 3.70
[2025-09-08 14:08] LABS: Testosterone, % Free 3.22 % (1.50-4.20); Testosterone, Free 10.43 ng/dL (5.00-21.00)
== END | disposition home or self-care (01) ==
LOC: CIMLAB 07:58
PROVIDERS: PCP Internal Medicine; Referring Provider Internal Medicine; Visit Provider Internal Medicine
DX: E78.5 Hyperlipidemia, unspecified (principal); D69.6 Thrombocytopenia, unspecified; R53.83 Other fatigue; R73.09 Other abnormal glucose
CPT/HCPCS: 36415; 80053; 80061; 81001; 82043; 82570; 82607; 82746; 84402; 84403; 85025